=== PATIENT | female | born 1950 | race Caucasian/White ===

== ENCOUNTER 2018-08-24 17:00 | Outpatient (RCR) | payer MEDICARE, OTHER, SELFPAY ==
--- NOTE | 2018-03-17 17:48 | HP.OTEVAL_ITS ---
Patient's Visit Information IFTIKHAR FERRARO is a 67 year old F, referred to Occupational Therapy by Haroldo Tobar, with a diagnosis of CVA, hemiplegia. Date of Evaluation: 03/16/18 Occupational Therapist: Elizabeth Sanchez - Subjective Subjective: Pt seen for initial occupational therapy evaluation for decreased functional use of L hand after CVA March 06, 2017. Pt R hand dominent. Lives with spouse 1 story ranch handicap accessible with ramp to enter. Walk in shower, grab bars and shower chair, but sits on commode and uses HHS with towels around toilet and HHS for bathing with assist. Comfort height commode 1 grab bar. Pt requires max assist for UB/LB dressing tasks, and min assist for grooming. Requires assist with all BADLs. 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 Pt amb w/ platform walker and requires assist for all transfers and AMB. States has new AFO's, but still waiting on new shoes to come in before she can wear them. - Objective Objective/Observation: limited AROM L UE, decreased L UE strength, decreased functional use of L UE to assist w/ BADL's and functional transfers. - ROM ROM Comments: AROM R UE WFL,. PROM L UE elbow -20/130, shoulder flexion 0/80' Hand WFL PROM. PROM L wrist 10/40. No AROM hand, wrist, elbow, 10' shoulder elevation - Strength Strength Comments: Generalized L UE strength 1/5. Generalized R UE strength 4+ /5 - Edema Other: no edema noted - Sensation Sensation Comments: tingling in L UE from shoulder to finger tips all the time - Movement Tremors: No tremors Movement Comments: Increased tone L hand, wrist flexors, bicep - Transfers Transfers: MAX A for sit to stand transfer leaning to L side once standing. - DASH-Disabilities of Arm, Shoulder& Hand DASH Sum: 110 - Goals Goal:: Pt will progress w/ L UE strength 3/5 to assist w/ reaching up to her head to wash her hair Goal:: Pt will progress with L PROM elbow 0/150, L PROM shoulder flexion 110' to increase independence with UB dressing tasks by d/c. Pt will progress w/ AROM L wrist extension 10' by d/c from OT services Goal:: Pt/spouse will be educated on adaptive techniques, energy conservation techniques, compensatory strategies to assist with BADLs with increased safety with good understanding and demo 100%x. Goal:: Pt will be able to complete sit to stand transfers with MOD A x 1 to assist w/ LB dressing and toileting tasks by d/c from OT services. Goal:: Pt will be educated on L UE HEP with good understanding and demo 100%x. Goal:: Pt/spouse will be educated on checking for good skin integrity and correct donning techniques and wear time for resting hand splint pt has at home to decrease tone of L hand with good understanding and demo 100%x. - Rehabilitation General Assessment: Pt demonstrates decreased use of L UE for functional living tasks with limited PROM and no active ROM and decreased strength. Pt would benefit from direct occupational therapy services to increase ROM and strength of L UE using NDT with increased independence with BADLs. Pt would benefit from direct occupational therapy services to educate on L UE HEP, checking for good skin integrity of L UE with use of pt's splint for L UE with techniques for donning pts splint as well as increase pts sit to stand tolerance for LB dressing tasks. Pt's goal is increase functional use of her L UE to wash her own hair. Rehabilitation Potential: Fair - Anticipated Interventions Anticipated Interventions: A/AAROM/PROM, Strengthening, Massage, Modalities, Orthoses, Joint Protection/Energy Conservation, Fine Motor Coord/[place], Neuro Reeducation, ADL Training, Education re assistive Equipment, Education re Skin Care and Precautions, Education re Correct Donning Tech,Care&Wearing Sched Comp Garments, Caregiver Training, Home Program - Visit Plan Frequency: 1-2x /Week Duration: 6 Weeks General Plan: Pt would benefit from direct occupational therapy services to increase ROM and strength of L UE using NDT with increased independence with BADLs. Pt would benefit from direct occupational therapy services to educate on L UE HEP, checking for good skin integrity of L UE with use of pt's splint for L UE with techniques for donning pts splint as well as increase ability to sit to stand with decreased assist for LB dressing skills. TEXT: Thank you for the opportunity to evaluate your patient. For Medicare and Medicare HMO plans, please review the plan of care and approve it. It will need to be FAXED BACK to us at [phone] for Medicare purposes. Please let me know if there are questions or concerns regarding this plan of care. Physician Signature: Date:
--- NOTE | 2018-04-05 17:39 | HP.PTEVAL ---
Patient's Visit Information IFTIKHAR FERRARO is a 67 year old F referred to Physical Therapy by Haroldo Tobar with a diagnosis of hemiplegia. Date of Evaluation: 04/05/18 Physical Therapist: Deanna Neri - Visit Plan Frequency: 2x /Week Duration: 4 Weeks Plan: 2X/ week for 4 weeks and then reassessment for simple strengthening including glutes to be able to scoot to the edge of her chair easier and for bed mobility, functional strengthening, functional transfers, standing assisted balance activities, psoture strength, gait training with HEP - Subjective Subjective: Pt had a stroke a year ago in December and was in the hospital 2.5 months. She can walk with a walker with someone on each side of her. She reports that she can stand up on her own if she pulls herself up. She has rails all along the kitchen. She has help with bathing and dressing. She walks every evening around 6pm and her daughter and grandson and neighborn help her walk around the house (approx 40 feet long). Pt has not had any falls. Once she is up she usually just walks once she is up. She was not walking when she was in the hospital. Pt did not have any outpatient PT after she went home. They have been working on PT at home. She uses a sit to stand lift to get to the toilet. She has no stairs in her home. She has a walk in shower. Pt's usually does the grocery shopping and she usually goes in wheelchair to the store. Pt describes some sort of lift chair that she uses to get in and out of bed with assistance of someone and on/ off the toliet. - Objective LE MMT: hip flex 3-/5 R and L 0/10, R knee ext 3-/5 and L knee ext 0/5, R knee flexion 4-/5 and L 1/5. Pt wears a new AFO on the L foot. Sit to stand from WC to // bars with mod A X1 and min A X 1 WITH USE of R UE to get to stand...verbal cueing to stand straight up and not lean to L side. Pt needs major vc's and still not able to weight shift her bottom to the edge of the chair. She tried to stand with her L leg out in front of her. Worked on scooting, getting L foot under her by pushing back using R foot. Pt was able to walk the length of the // bars with mod A X 2 with her using her R arm to help with gambulation. Her L leg likes to scissor some but not enough to get in the way of the R advancing foot. She fatigued quickly and chair was brought up behind her. - Goals Goal 1:: I HEP Goal Time Frame: 4-6 Weeks Goal 2:: Be able to scoot to the edge of her wheelchair and get her L leg underneath her to get ready to stand up. Goal Time Frame: 4-6 Weeks Goal 3:: Be able to walk 25 feet with harika-walker with mod A X 1 with wc follow Goal Time Frame: 4-6 Weeks - Rehabilitation Potential Rehabilitation Potential: Fair - Anticipated Interventions Patient/Client Instruction: Educate patient on: Plan of Care For the Purpose of:: To improve muscle performance and motor function, To improve ability to perform ADL's, To increase tolerance to activity/condition/position, To improve performance and independence with ADL's, To decrease level of supervision to perform tasks, To improve ability of physical actions for home/community/work/leisure, To improve gait and locomotor functions, To improve safety with gait, To improve safety Therapeutic Exercise to Include: Strength training, Postural training, Gait and locomotor training, Neuromotor development, Passive ROM, Active ROM For the Purpose of:: To improve muscle performance and motor function, To improve ability to perform ADL's, To increase tolerance to activity/condition/position, To improve performance and independence with ADL's, To decrease level of supervision to perform tasks, To improve ability of physical actions for home/community/work/leisure, To improve gait and locomotor functions, To improve balance, To improve safety with gait Functional Training to Include: Gait training For the Purpose of:: To improve gait and locomotor functions, To improve safety with gait, To improve safety Thank you for the opportunity to evaluate your patient. For Medicare and Medicare HMO plans, please review the plan of care and approve it. It will need to be FAXED BACK to us at [phone] for Medicare purposes. Please let me know if there are questions or concerns regarding this plan of care. Physician Signature: Date:
--- NOTE | 2018-04-21 16:32 | HP.OTDCSUM_ITS ---
HP - OT D/C Summary It has been my pleasure to treat IFTIKHAR FERRARO under orders from Haroldo Tobar, for the diagnosis of CVA, hemiplegia for a total of 8 visit(s). Please see the following information for a summary of their discharge status. - Objective Objective/Function: increase functional use of L UE for BADL's, increase functional transfers - Goals Patient Goals: Regain Strength, Improve Fine Motor Skills, Use Hand/Wrist/Arm Normally Again, Decrease Tingling/Numbness, Increase ROM, Be More Independent in ADLS, Resume Former Household Responsibilities (Cooking,Cleaning,Yard, etc.), Resume Hobbies Goal:: Pt will progress w/ L UE strength 3/5 to assist w/ reaching up to her head to wash her hair Goal:: Pt will progress with L PROM elbow 0/150, L PROM shoulder flexion 110' to increase independence with UB dressing tasks by d/c. Pt will progress w/ AROM L wrist extension 10' by d/c from OT services Goal:: Pt/spouse will be educated on adaptive techniques, energy conservation techniques, compensatory strategies to assist with BADLs with increased safety with good understanding and demo 100%x. Goal:: Pt will be able to complete sit to stand transfers with MOD A x 1 to assist w/ LB dressing and toileting tasks by d/c from OT services. Goal:: Pt will be educated on L UE HEP with good understanding and demo 100%x. Goal:: Pt/spouse will be educated on checking for good skin integrity and correct donning techniques and wear time for resting hand splint pt has at home to decrease tone of L hand with good understanding and demo 100%x. - Plan Plan: d/c OT services this date - D/C Information Discharge Comments: Pt has made limited progress with occupational therapy. Pt did not progress with AROM L UE. Pt did progress with PROM L UE elbow from - 20/130 to -11/130, L PROM shoulder flexion from 80' flexion to 88' flexion after prolonged stretching techniques. Pt demo's good skin integrity of L hand and educated on proper ways to jocelin resting hand splint. Pt tolerating resting hand splint for short amount of time during evening. Educated pt and spouse to trial wearing resting hand splint during day if bother's pt to wear at night to increase wear tolerance. Pt/spouse educated on PROM L UE and prolonged stretc jules techniques. Pt/spouse educated on skin checks L UE, importance to keep L UE stretched to decrease risk of further contracture, and weightbeawring activities to complete at home at table top or while seated in a chair as well as completion of towel exercises at table top. Pt/spouse educated on safety with BADLs and has stand lift to assist with transfers as needed. Pt continuing to work with PT services at this time to address lower body. Pt unable to complete AROM L UE all joints and planes. Pt d/c from OT services at this time, no longer requires skilled OT services. If there are questions or concerns regarding this patient's occupational therapy, please fell free to call me at [phone]. Thank you for the referral of this patient. Sincerely, Elizabeth Sanchez
--- NOTE | 2018-05-06 13:55 | HP.PTREVAL ---
Haroldo Tobar, It has been my pleasure to treat IFTIKHAR FERRARO over the last 8 visits for hemiplegia. Please see the progress note below for an update on the physical therapy plan of care! Subjective: Pt reports that she feels good when she leaves here and she is in no pain. Pt can now sit up better and she has more strength to be able to do dishes and cooking. Pt is still walking at home with family with the platform walker. She is exercising every day whether she walks or not. Objective/Function: Pt is now able to move her L leg forward and back while sitting in the wheelchair. Pt still struggles with getting self to the edge of the chair Plan Plan: 2X/ week for 4 weeks and then reassessment for simple strengthening including glutes to be able to scoot to the edge of her chair easier and for bed mobility, functional strengthening, functional transfers, standing assisted balance activities, psoture strength, gait training with HEP Goals Goal 1:: I HEP Goal Time Frame: 4-6 Weeks Goal 2:: Be able to scoot to the edge of her wheelchair and get her L leg underneath her to get ready to stand up. Goal Time Frame: 4-6 Weeks Goal Progress: Progressing Goal 3:: Be able to walk 25 feet with harika-walker with mod A X 1 with wc follow Goal Time Frame: 4-6 Weeks Goal Progress: Progressing Goal 4:: Be able to scoot to the edge of the wheelchair, sit up using her abs, and get L leg under her to be ready to stand Goal Time Frame: 4-6 Weeks Anticipated Interventions Patient/Client Instruction: Educate patient on: Plan of Care For the Purpose of:: To improve muscle performance and motor function, To improve ability to perform ADL's, To increase tolerance to activity/condition/position, To improve performance and independence with ADL's, To decrease level of supervision to perform tasks, To improve ability of physical actions for home/community/work/leisure, To improve gait and locomotor functions, To improve safety with gait, To improve safety Therapeutic Exercise to Include: Strength training, Postural training, Gait and locomotor training, Neuromotor development, Passive ROM, Active ROM For the Purpose of:: To improve muscle performance and motor function, To improve ability to perform ADL's, To increase tolerance to activity/condition/position, To improve performance and independence with ADL's, To decrease level of supervision to perform tasks, To improve ability of physical actions for home/community/work/leisure, To improve gait and locomotor functions, To improve balance, To improve safety with gait Functional Training to Include: Gait training For the Purpose of:: To improve gait and locomotor functions, To improve safety with gait, To improve safety Please do not hesitate to contact me at [phone] by phone or if you have questions or concerns regarding this new plan of care! Sincerely, Deanna Neri, MPT
--- NOTE | 2018-06-08 18:43 | HP.PTREVAL ---
Haroldo Tobar, It has been my pleasure to treat IFTIKHAR FERRARO over the last 15 visits for hemiplegia. Please see the progress note below for an update on the physical therapy plan of care! Subjective: Pt reports that she has been practicing her walking at home Objective/Function: Pt is doing better at trying to weight shift fw to stand and working with her in the clinic for awhile she was able to stand with min A X2 and self correct about 25% of the time for upright standing balance Plan Plan: 2X/ week for 4 weeks and then reassessment for simple strengthening including glutes to be able to scoot to the edge of her chair easier and for bed mobility, functional strengthening, functional transfers, standing assisted balance activities, posture strength, gait training with HEP Goals Goal 1:: I HEP Goal Time Frame: 4-6 Weeks Goal Progress: Progressing Goal 2:: Be able to scoot to the edge of her wheelchair and get her L leg underneath her to get ready to stand up. Goal Time Frame: 4-6 Weeks Goal Progress: Progressing Goal 3:: Be able to walk 25 feet with harika-walker with mod A X 1 with wc follow Goal Time Frame: 4-6 Weeks Goal Progress: Progressing Goal 4:: Be able to scoot to the edge of the wheelchair, sit up using her abs, and get L leg under her to be ready to stand Goal Time Frame: 4-6 Weeks Goal Progress: Progressing Anticipated Interventions Patient/Client Instruction: Educate patient on: Plan of Care For the Purpose of:: To improve muscle performance and motor function, To improve ability to perform ADL's, To increase tolerance to activity/condition/position, To improve performance and independence with ADL's, To decrease level of supervision to perform tasks, To improve ability of physical actions for home/community/work/leisure, To improve gait and locomotor functions, To improve safety with gait, To improve safety Therapeutic Exercise to Include: Strength training, Postural training, Gait and locomotor training, Neuromotor development, Passive ROM, Active ROM For the Purpose of:: To improve muscle performance and motor function, To improve ability to perform ADL's, To increase tolerance to activity/condition/position, To improve performance and independence with ADL's, To decrease level of supervision to perform tasks, To improve ability of physical actions for home/community/work/leisure, To improve gait and locomotor functions, To improve balance, To improve safety with gait Functional Training to Include: Gait training For the Purpose of:: To improve gait and locomotor functions, To improve safety with gait, To improve safety Please do not hesitate to contact me at [phone] by phone or if you have questions or concerns regarding this new plan of care! Sincerely, Deanna Neri MPT
--- NOTE | 2018-07-12 17:24 | HP.PTREVAL ---
Haroldo Tobar, It has been my pleasure to treat IFTIKHAR FERRARO over the last 23 visits for hemiplegia. Please see the progress note below for an update on the physical therapy plan of care! Subjective: Pt this point Pt feels good in PT and after the workouts. Pt reports that sit to stands are getting easier. Somedays her walking is getting easier. SHe feels that her L leg is moving easier. She is still exercising at home still and walking every day or every other day depending on their schedules. Pt can now get up easier and ride the bicucle and she feels that she is stronger. Objective/Function: Gait: walks with Platform walker and walked 14 feet with mod A X 2 (Pt's L leg had trouble advancing today and her L knee did give out one time today. Scooting to the edge of the wheelchair is easeir. Scooting to the edge of the wheelchair is easeir. Sit to stand: Needs mod A X 2 and Max A X1 and has trouble and needs vc's to tuck her buttocks in and widen her stance to even out her weight. Plan Plan: 2X/ week to increase strength, improve sit to stands, gait training, standing balance with HEP. Cont with POC Goals Goal 1:: I HEP Goal Time Frame: 4-6 Weeks Goal Progress: Goal Met Goal 2:: Sit to stand with mod A X 1 using her R UE and tucking her buttocks inward. Goal Time Frame: 4-6 Weeks Goal Progress: Progressing Goal 3:: Be able to walk 25 feet with harika-walker with mod A X 1 with wc follow Goal Time Frame: 4-6 Weeks Goal Progress: Progressing Goal 4:: Be able to scoot to the edge of the wheelchair, sit up using her abs, and get L leg under her to be ready to stand Goal Time Frame: 4-6 Weeks Goal Progress: Progressing Anticipated Interventions Patient/Client Instruction: Educate patient on: Plan of Care For the Purpose of:: To improve muscle performance and motor function, To improve ability to perform ADL's, To increase tolerance to activity/condition/position, To improve performance and independence with ADL's, To decrease level of supervision to perform tasks, To improve ability of physical actions for home/community/work/leisure, To improve gait and locomotor functions, To improve safety with gait, To improve safety Therapeutic Exercise to Include: Strength training, Postural training, Gait and locomotor training, Neuromotor development, Passive ROM, Active ROM For the Purpose of:: To improve muscle performance and motor function, To improve ability to perform ADL's, To increase tolerance to activity/condition/position, To improve performance and independence with ADL's, To decrease level of supervision to perform tasks, To improve ability of physical actions for home/community/work/leisure, To improve gait and locomotor functions, To improve balance, To improve safety with gait Functional Training to Include: Gait training For the Purpose of:: To improve gait and locomotor functions, To improve safety with gait, To improve safety Please do not hesitate to contact me at [phone] by phone or if you have questions or concerns regarding this new plan of care! Sincerely, Deanna Neri MPT
--- NOTE | 2018-08-24 19:11 | HP.PTREVAL_ITS ---
Haroldo Tobar, It has been my pleasure to treat IFTIKHAR FERRARO over the last 31 visits for hemiplegia. Please see the progress note below for an update on the physical therapy plan of care! Subjective: Pt reports that she is walking at home about 3X/ week for about 15 feet and does sit to stands and works on standing balance at home with grandson and the neighbor boy. Objective/Function: This treatment is medically necessary and this patient is making progress with standing balance, gait and transfers and weight shifting. Sit to stand with Mod A X2. Able to stand for 1 min with R hand on // bar. Pt is increasing on distance with her gait. She is able to stand for a few seconds to high five therapist in // bars keeping L knee locked X 5. She is able to elicit some movement into LAQ on the L ( minimal but some). Pt needs placement of the L LE to get L foot back to get ready to sit to stand Plan Plan: Try next visit to get pt on a mat table to give HEP ( s/L hip flex, supine hip abd, bridges and SAQ?). 2X/ for 4 weeks then re-check to improve sit to stands, gait training, standing balance with HEP. Goals Goal 1:: I HEP Goal Time Frame: 4-6 Weeks Goal Progress: Goal Met Goal 2:: Sit to stand with mod A X 1 using her R UE and tucking her buttocks inward. Goal Time Frame: 4-6 Weeks Goal Progress: Progressing Goal 3:: Be able to walk 25 feet with harika-walker with mod A X 1 with wc follow Goal Time Frame: 4-6 Weeks Goal Progress: Progressing Goal 4:: Be able to scoot to the edge of the wheelchair, sit up using her abs, and get L leg under her to be ready to stand Goal Time Frame: 4-6 Weeks Goal Progress: Progressing Anticipated Interventions Patient/Client Instruction: Educate patient on: Plan of Care For the Purpose of:: To improve muscle performance and motor function, To improve ability to perform ADL's, To increase tolerance to activity/condition/position, To improve performance and independence with ADL's, To decrease level of supervision to perform tasks, To improve ability of physical actions for home/community/work/leisure, To improve gait and locomotor functions, To improve safety with gait, To improve safety Therapeutic Exercise to Include: Strength training, Postural training, Gait and locomotor training, Neuromotor development, Passive ROM, Active ROM For the Purpose of:: To improve muscle performance and motor function, To improve ability to perform ADL's, To increase tolerance to activi ty/condition/position, To improve performance and independence with ADL's, To decrease level of supervision to perform tasks, To improve ability of physical actions for home/community/work/leisure, To improve gait and locomotor functions, To improve balance, To improve safety with gait Functional Training to Include: Gait training For the Purpose of:: To improve gait and locomotor functions, To improve safety with gait, To improve safety Please do not hesitate to contact me at [phone] by phone or if you have questions or concerns regarding this new plan of care! Sincerely, Deanna Neri, MPT
== END 2018-08-24 19:00 | disposition home or self-care (01) ==
LOC: PT 17:00
PROVIDERS: Referring Provider Family Medicine; Visit Provider Family Medicine
DX: G81.90 Hemiplegia, unspecified affecting unspecified side (principal); Z86.73 Personal history of transient ischemic attack (TIA), and cerebral infarction without residual deficits
CPT/HCPCS: 97110; 97112; 97116; 97162; 97165; 97166; 97530

== ENCOUNTER 2018-11-30 16:00 | Outpatient (RCR) | payer MEDICARE, OTHER, SELFPAY ==
--- NOTE | 2018-09-28 16:05 | HP.OTEVAL_ITS ---
Patient's Visit Information IFTIKHAR FERRARO is a 68 year old F, referred to Occupational Therapy by Haroldo Tobar, with a diagnosis of CVA. Date of Evaluation: 09/28/18 Occupational Therapist: BENEDICT Barrientos/[place], CHT - Subjective Subjective: Pt seen for initial occupational therapy evaluation for decreased functional use of L hand after CVA March 06, 2017. Pt R hand dominent. Lives with spouse 1 story ranch handicap accessible with ramp to enter. Walk in shower, grab bars and shower chair, but sits on commode and uses HHS with towels around toilet and HHS for bathing with assist. Comfort height commode 1 grab bar. Pt requires max assist for UB/LB dressing tasks, and min assist for groomi ng. Requires assist with all BADLs. 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 Pt amb w/ platform walker and requires assist for all transfers and AMB. PT arrives for custom orthosis to be fabricated to increase pts abilities with use of harika walker. - Goals Goal:: Pt will demo understanding orthosis use while amb with harika walker by end of 1st session. pt will demo understanding of skin care and precautions by end of 1st session - Rehabilitation General Assessment: pt demo with flex tone that decreases use while amb with platform walker. Tone pulls wrist into flex. A custom orthosis is needed to limt wrist flex with amb. in the harika walker. Pt would benefit from 2-3 visits to ensure orthosis is kayden. and functional on platform walker. Today therapist kayden. custom clam shell wrist brace to limit flex tone and gain more function on harika walker- pt demo under standing of othosis use and skin precautions pt agree to POC Rehabilitation Potential: Good - Anticipated Interventions Anticipated Interventions: Orthoses - Visit Plan TEXT: Thank you for the opportunity to evaluate your patient. For Medicare and Medicare HMO plans, please review the plan of care and approve it. It will need to be FAXED BACK to us at [phone] for Medicare purposes. Please let me know if there are questions or concerns regarding this plan of care. Physician Sign ature: Date:
--- NOTE | 2018-11-08 15:31 | HP.PTREVAL ---
Haroldo Tobar, It has been my pleasure to treat IFTIKHAR FERRARO over the last 41 visits for . Please see the progress note below for an update on the physical therapy plan of care! Subjective: Pt reports that she is working at home with exercises and gait training. Objective/Function: Pt did not lose anything doing exercises at home Plan Plan: See pt every other week for 2 months to see how she improves with assistance at home with strengthening, standing ability, standing endurance and gait. Goals Goal 1:: I HEP Goal Progress: Goal Met Goal 2:: Sit to stand with mod A X 1 using her R UE and tucking her buttocks inward. Goal Progress: Progressing Goal 3:: Be able to walk 75 feet with harika-walker with mod A X 1 with wc follow Goal Progress: Progressing Goal 4:: Be able to scoot to the edge of the wheelchair, sit up using her abs, and get L leg under her to be ready to stand Goal Progress: Progressing Anticipated Interventions Please do not hesitate to contact me at [phone] by phone or if you have questions or concerns regarding this new plan of care! Sincerely, Deanna Neri, MPT
== END 2018-11-30 19:00 | disposition home or self-care (01) ==
LOC: PT 16:00
PROVIDERS: Referring Provider Family Medicine; Visit Provider Family Medicine
DX: I69.359 Hemiplegia and hemiparesis following cerebral infarction affecting unspecified side (principal)
CPT/HCPCS: 97110; 97116; 97166; 97760

== ENCOUNTER 2020-09-19 01:52 | Inpatient (IN) | payer MEDICARE, OTHER, MEDICAID, SELFPAY ==
[2020-09-19] VITALS (22 sets, daily range): BP systolic 129–161; BP diastolic 66–100; PULSE 76–98; RESP 16–24; TEMP 35.8–36.9; O2SAT 94–99; BMI 54.9; BMI 51.8
--- NOTE | 2020-09-19 01:53 | CT_ITS ---
We are attempting to reach an attending provider to discuss findings. An addendum with communication details will be sent when the communication is complete. STUDY: CT HEAD STROKE PROTOCOL W/O CONTRAST INJECTION REASON FOR EXAM: Female, 70 years old. Neuro deficit, acute, stroke suspected RADIATION DOSAGE (If Supplied By Facility): CTDIvol = ( ) mGy, DLP = ( ) mGycm TECHNIQUE: Transaxial CT imaging of the brain was performed without administration of intravenous contrast material. Individualized dose optimization techniques were used for this CT. COMPARISON: CT head January 05, 2017 FINDINGS: Normal soft tissue structures. Normal calvarium. There is ex vacuo dilatation of the right ventricle. This is due to a prior right side basal ganglia infarct primarily involving the putamen and a small portion of the right thalamic region. There are areas of decreased attenuation within the white matter tracts of the supratentorial brain, consistent with microvascular disease changes. There is low attenuation within the right-sided basal ganglia and thalami thalamic region compatible with prior basal ganglia infarct January 05, 2017. Normal brainstem. There is mild cerebellar atrophy. There is calcification of the cavernous carotid arteries. There is no intracranial hemorrhage. There are no findings of an acute ischemic infarction. There is opacification of the right side maxillary sinus with hyperdensity suggesting probable complex fluid collection and/or potentially lie within the right maxillary sinus. This is developed since the prior study January 05, 2017. There is minimal ethmoid sinus mucosal thickening. ASPECT score: 02/23 CT/STROKE Brain/Head without Cont IMPRESSION: Remote right-sided basal ganglia infarct from 2017, ex vacuo dilatation of the right ventricle without visualized acute hemorrhage infarct or edema. Electronically Signed: Amaya Lopez MD at 2:12 EDT Tel , Service support ,
--- NOTE | 2020-09-19 01:53 | EKG12_ITS ---
Test Reason : STROKE Blood Pressure : / mmHG Vent. Rate : 100 BPM Atrial Rate : 096 BPM P-R Int : 000 ms QRS Dur : 134 ms QT Int : 332 ms P-R-T Axes : 000 -57 112 degrees QTc Int : 428 ms Atrial fibrillation Left axis deviation Non-specific intra-ventricular conduction block Abnormal ECG Confirmed by JAYNA SUAZO, WAYNE ([id number]), tape editor RAY WYNN ([id number]) on 09/23/2020 12:27:28 PM Referred By: JOSE Confirmed By:WAYNE DORANTES MD
--- NOTE | 2020-09-19 02:02 | EDS_ITS ---
HPI History of Present Illness Chief Complaint: Neuro S/Sx Informant: patient and EMS Narrative Narrative: Patient presents with left-sided facial droop. This started tonight. Last known well was 2 hours ago when she went to bed. She woke up and also felt some numbness of her right arm. That has since resolved. She feels like her facial droop is mildly improved. EMS was called and noted the left-sided facial droop. 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 She also also on Eliquis for paroxysmal atrial fibrillation. Her last dose of the Eliquis was right before bed tonight. She denies any headache. She is a no chest pain or shortness of breath. She does have an allergy to alteplase. [facility] Medical History Diabetes Stroke/cerebrovascular accident Home Medications allopurinol 300 mg PO DAILYCM tab 01/29/17 [Rx Last Taken Unknown] levothyroxine 25 mcg PO QODAY@0600 tab 01/29/17 [Rx Last Taken Unknown] magnesium oxide 400 mg PO DAILY tab 01/29/17 [Rx Last Taken Unknown] metformin 500 mg PO BIDCM tab 01/29/17 [Rx Last Taken Unknown] Eliquis 5 mg PO BID #60 tab 03/10/17 [Rx Last Taken Unknown] pantoprazole 40 mg PO DAILY #30 tab 03/10/17 [Rx Last Taken Unknown] diltiazem HCl [DILT-XR] 120 mg PO DAILY 09/19/20 [History Last Taken Unknown] sotalol 120 mg PO BID 09/19/20 [History Last Taken Unknown] Allergy/AdvReac Type Severity Reaction Status Date / Time alteplase Allergy Angioedema Verified 09/19/20 02:09 Penicillins Allergy Other Verified 09/19/20 02:09 Social History Smoking Status: Never smoker ROS ROS ED Constitutional Constitutional ED: Denies chills or fever(s) Eyes Eyes: Denies blurry vision, change in vision or diplopia ENT ENT ED: Denies ear pain, rhinorrhea or sore throat Cardiovascular Cardiovascular: Denies chest pain or palpitations Respiratory/Chest Respiratory/Chest: Denies cough, dyspnea or sputum Gastrointestinal Gastrointestinal: Denies abdominal pain, diarrhea, nausea or vomiting Genitourinary Genitourinary ED: Denies dysuria, hematuria or urinary frequency Musculoskeletal Musculoskeletal: Denies back pain or neck pain Integumentary Denies change in pigmentation or rash Neurologic Neurologic: Reports paresthesias and other Details: Left facial droop Psychiatric Psychiatric: Denies anxiety or depression Endocrine Endocrinology: Denies polydipsia or polyuria EXAM Physical Exam Const Vital Signs: 09/19/20 01:53 09/19/20 02:00 09/19/20 02:30 Temperature 96.5 F L Temperature Source Temporal Pulse Rate 95 95 89 Respiratory Rate 18 16 20 H Blood Pressure 151/89 H 151/89 H 161/75 H Blood Pressure Mean 109 109 103 Pulse Ox 99 96 99 Oxygen Delivery Method Room Air Room Air Room Air Positive well nourished and well developed General Appearance ED: well developed HEENT atraumatic and trauma Eyes PERRL and EOMs intact bilaterally Neck no lymphadenopathy and supple Chest Wall inspection of chest normal Resp normal respiratory effort and clear to auscultation bilaterally Auscultation: Negative for rales or rhonchi Cardio no murmurs Rhythm: abnormal rhythm irregularly irregular GI normal to inspection, nondistended, normoactive bowel sounds, soft to palpation and non-tender Back/Spine Cervical Spine: Negative for cervical spine tenderness Extremity Extremity Narrative: Bilateral lymphedema General Extremety ED: Yes edema General Extremity: edema Neuro oriented x3 Neuro Narrative: NIH=9: 1 point for mild facial palsy, 3 points for left arm and leg, 2 points for right leg Sensorium / Orientation: alert, oriented to person, oriented to place and oriented to time Psych mental status grossly normal Skin Lesions: no lesions Rashes: no rashes STROKE Vital Signs/Narrative: Vital Signs Temp Pulse Resp BP Pulse Ox 09/19/20 02:30 89 20 H 161/75 H 99 09/19/20 02:00 96.5 F L 95 16 151/89 H 96 09/19/20 01:53 95 18 151/89 H 99 MDM MDM MDM Narrative Medical decision making narrative: The patient was made a stroke team due to her onset of symptoms. CAT scan of the head shows old stroke but nothing acute. Lab studies are at baseline except for INR is 1.6. Her urinalysis is positive for UTI. Patient was assessed by the stroke physician, Dr. Ott. The patient is not a TPA candidate due to her allergy. Patient was started on IV Rocephin. CTA of the head and neck will be performed. Patient will be admitted to the hospital for futher evaluation. Lab Data Attestation: I reviewed the patient's lab results. Labs: Laboratory Results - last 24 hr 09/19/20 09/19/20 09/19/20 02:00 02:00 02:00 WBC 5.8 RBC 3.66 L Hgb 10.2 L Hct 32.2 L MCV 88.0 MCH 27.9 MCHC 31.7 L RDW Std Deviation 61.1 H RDW Coeff of Chele 18.8 H Plt Count 359 MPV 9.9 Immature Gran % (Auto) 0.300 Neut % (Auto) 72.0 H Lymph % (Auto) 8.7 L [place]al[place] % (Auto) 10.2 H Eos % (Auto) 7.6 H Baso % (Auto) 1.2 H Absolute Neuts (auto) 4.2 Absolute Lymphs (auto) 0.50 L Nucleated RBC % 0 PT 18.3 H INR 1.6 APTT 36.2 Sodium 135 L Potassium 4.3 Chloride 104 Carbon Dioxide 25.0 Anion Gap 6 BUN 14 Creatinine 0.87 Estim Creat Clear Calc 56.84 Est GFR (MDRD) Af Amer 83 Est GFR (MDRD) Non-Af 68 BUN/Creatinine Ratio 16.1 Glucose 127 H Calcium 8.8 Troponin I < 0.015 Urine Color Urine Clarity Urine pH Ur Specific [place] Urine Protein Urine Glucose (UA) Urine Ketones Urine Occult Blood Urine Nitrite Urine Bilirubin Urine Urobilinogen Ur Leukocyte Esterase Urine RBC Urine WBC Ur Squamous Epith Cells Urine Bacteria Urine Mucus 09/19/20 02:25 WBC RBC Hgb Hct MCV MCH MCHC RDW Std Deviation RDW Coeff of Chele Plt Count MPV Immature Gran % (Auto) Neut % (Auto) Lymph % (Auto) [place] % (Auto) Eos % (Auto) Baso % (Auto) Absolute Neuts (auto) Absolute Lymphs (auto) Nucleated RBC % PT INR APTT Sodium Potassium Chloride Carbon Dioxide Anion Gap BUN Creatinine Estim Creat Clear Calc Est GFR (MDRD) Af Amer Est GFR (MDRD) Non-Af BUN/Creatinine Ratio Glucose Calcium Troponin I Urine Color Yellow Urine Clarity Sl. Cloudy Urine pH 5.0 Ur Specific [place] 1.025 Urine Protein 30 H Urine Glucose (UA) Normal Urine Ketones 5 H Urine Occult Blood 25 H Urine Nitrite Positive H Urine Bilirubin 1 H Urine Urobilinogen 1 H Ur Leukocyte Esterase 500 H Urine RBC 0 SEEN Urine WBC 50-100 SEEN Ur Squamous Epith Cells 0 SEEN Urine Bacteria 4+ Urine Mucus 1+ Radiography Diagnostic Testing: Radiology Impression Brain CT 09/19/20 01:53 IMPRESSION: Remote right-sided basal ganglia infarct from 2017, ex vacuo dilatation of the right ventricle without visualized acute hemorrhage infarct or edema. Electronically Signed: Amaya Lopez MD at 2:12 EDT Tel , Service support , ADDENDUM: 09/19/20 0219 IMPRESSION: Remote right-sided basal ganglia infarct from 2016, ex vacuo dilatation of the right ventricle without visualized acute hemorrhage infarct or edema. N.B. : The above information has been verbally conveyed by Amaya Lopez MD to David Shine MD, , on 09/19/2020 02:12:40 (ET). Electronically Signed: Amaya Lopez MD at 2:12 EDT Tel , Service support , Chest X-Ray 09/19/20 02:14 IMPRESSION: Bilateral medial lung base atelectasis versus scar versus infiltrate Electronically Signed: Rinku Salazar MD at 2:38 EDT Tel , Service support , Critical Care Time Critical Care Time: Yes Critical care time (excluding procedures): 30-74 minutes, Discussing w/Patient &/or Family/Industrial Illuminating Engineer, Discussing w/Consultants and Performing Direct Patient Care at Bedside Discharge Plan Dx/Rx/DC Orders Clinical Impression: Facial droop, Acute UTI Disposition Disposition: [facility]
[2020-09-19 02:05] LABS: Absolute Neutrophil Count 4.2 X10^3/uL (2.0-7.7); Basophil# 0.07 X10^3/uL; Basophil% 1.2 % (0-1); Eosinophil# 0.44 X10^3/uL; Eosinophils% 7.6 % (0-5); Hematocrit 32.2 % (37-47); Hemoglobin 10.2 g/dL (12.0-15.0); Lymphocyte % 8.7 % (19-41); Mean Corp Hgb Conc 31.7 g/dL (32-36); Mean Corpuscular Hgb 27.9 pg (27.0-32.0); Mean Platelet Vol. 9.9 fl (6.2-12.0); Monocyte# 0.59 X10^3/uL; Monocyte% 10.2 % (0-10); NRBC Flagged by Analyzer 0 % (0-5); Neutrophil # 4.16 X10^3/uL (2.7-7.7); POSITIVE DIFFERENTIAL YES; Platelet Count 359 K/mm3 (150-450); RBC Distribution Width CV 18.8 % (11.6-14.6); RBC Distribution Width SD 61.1 fl (35.1-43.9); Red Blood Count 3.66 M/mm3 (4.2-5.4); White Blood Count 5.8 K/mm3 (4.4-11.0)
[2020-09-19 02:07] LABS: Differential Indicated SCAN CRITERIA MET
[2020-09-19 02:14] LABS: International Normalized Ratio 1.6; Prothrombin Time (Protime)PT. 18.3 SECONDS (11.7-14.9)
--- NOTE | 2020-09-19 02:14 | RAD_ITS ---
STUDY: X-RAY CHEST REASON FOR EXAM: Female, 70 years old. Neuro deficit, suspected stroke TECHNIQUE: Single AP portable view of the chest. COMPARISON: 01/04/2017 FINDINGS: Minimal patchy airspace infiltration at bilateral medial lung bases. No pleural effusion or pneumothorax. Borderline cardiomegaly, unchanged. Normal mediastinum and della. Normal visualized pulmonary arteries. Normal visualized aortic arch and descending thoracic aorta. Normal visualized thoracic spine. Normal visualized ribs, clavicles, and shoulders. There is no demonstrated abnormality of the visualized soft tissue structures of the upper abdomen. RAD/Chest 1 View IMPRESSION: Bilateral medial lung base atelectasis versus scar versus infiltrate Electronically Signed: Rinku Salazar MD at 2:38 EDT Tel , Service support ,
[2020-09-19 02:15] LABS: Partial Thromboplast Time 36.2 Seconds (24.1-36.2)
[2020-09-19 02:24] LABS: Anion Gap 6 (5-15); BUN 14 mg/dL (7-18); BUN/Creat Ratio 16.1 RATIO (10-20); Calcium,Total 8.8 mg/dL (8.5-10.1); Chloride 104 mmol/L (98-107); Creatinine, Serum 0.87 mg/dL (0.55-1.02); EST Glomerular Filtration Rate 68 mL/min (>60); Est Glom Filt Rate - Afr Amer 83 mL/min (>60); Estimated Creatinine Clearance 56.84 ml/min; Glucose 127 mg/dL (74-106); Potassium 4.3 mmol/L (3.5-5.1); Sodium Level 135 mmol/L (136-145)
--- NOTE | 2020-09-19 02:25 | CT_ITS ---
STUDY: CTA HEAD AND NECK WITH CONTRAST REASON FOR EXAM: Female, 70 years old. Facial droop RADIATION DOSAGE (If Supplied By Facility): CTDIvol = ( 41.04 ) mGy, DLP = ( 808.07 ) mGycm TECHNIQUE: CT angiography was performed with a multi-detector CT scanner. Data acquisition was obtained from the skull base through the vertex following intravenous administration of IV 100mL [id number]-[id number]. MIP images were reconstructed from the axial data set. Post-processing of the angiographic images was performed, with multiplanar reformation and 3D reconstruction. Individualized dose optimization techniques were used for this CT. COMPARISON: CT angiogram head January 11, 2018 FINDINGS: Normal bilateral petrous carotid arteries. There is calcified plaque formation of the right cavernous carotid artery, with a mild stenosis (less than 50%). There is calcified plaque formation of the left cavernous carotid artery, without a cross-sectional luminal stenosis. Normal right A1 segments of the anterior cerebral artery. Normal left A1 segments of the anterior cerebral artery. Normal intact anterior communicating artery (ACOM). Normal bilateral A2 segments of the anterior cerebral arteries. There is a beaded appearance of the right M1 segment suggesting probable fibromuscular dysplasia. There is a better contrasted appearing superior branch of the right into vessels. There is better demonstration of contrast enhancement of the right insular segment on today''s study than the prior study. There is a lesser caliber right insular segment into when compared to the left which is similar in appearance to the prior study. However towards the vertex there is diminished appearance of the M3 vessels which potentially represent vasospasm or sequelae of prior ischemic change in the right hemisphere. Normal left M1 and M2 segments of the middle cerebral arteries, with a normal M1 bifurcation. Normal right posterior communicating artery (PCOM). Normal left posterior communicating artery (PCOM). Normal bilateral vertebral arteries. Normal basilar artery with a normal basilar bifurcation. The visualized bilateral superior cerebellar (SCA) arteries are normal. Normal bilateral P1, P2 and visualized P3 segments of the posterior cerebral arteries. There is no demonstrated aneurysm of the [place]. There is ex vacuo dilatation of the right ventricle and prior ischemic change of the right basal ganglia. There is visualized opacification of the right-sided maxillary sinus new since prior study suggesting interval development of right maxillary sinusitis since 2017. AORTIC ARCH: There is minimal calcification aortic arch. There is calcification and takeoff of the left subclavian. Normal origins of the brachiocephalic, left common carotid, and left subclavian arteries. RIGHT CAROTID ARTERIES: There is atherosclerotic tortuous elongation of the right common carotid artery. There is mild atherosclerotic plaque formation with minimal narrowing of the right carotid bulb. Normal origin of the right internal carotid (ICA) artery without a hemodynamically significant stenosis. Normal visualized cervical portion of the right internal carotid artery. Normal origin of the right external carotid artery (ECA). LEFT CAROTID ARTERIES: Normal left common carotid artery (CCA). There is mild atherosclerotic plaque formation with minimal narrowing of the left carotid bulb. Normal origin of the left internal carotid (ICA) artery without a hemodynamically significant stenosis. There is atherosclerotic tortuous elongation of the cervical portion of the left internal carotid artery. Normal origin of the left external carotid artery (ECA). VERTEBRAL ARTERIES: The takeoff of the right vertebral artery there is a visualized contrasted vessel which is likely the pain. There is minimal plaque formation at the takeoff of the right vertebral artery. There is visualized bilateral effusions. There is partially visualized moderate cardiac enlargement. There are borderline enlarged AP window lymph nodes, measuring 1.4 x 1.1 cm, 1.2 and 1.2 cm. There is a hazy groundglass appearance of the right lung suggesting edema. There is also narrowed appearance of the [place] in this position suggesting tracheomalacia. Visualized degenerative change in the cervical spine. There is multilevel disc space narrowing and facet arthropathy with multilevel moderate neural foramina narrowing. At C6-C7 there is moderate central stenosis. CT/CTA Head AND Neck W/ Contrast IMPRESSION: Stable appearing diminutive appearance of the right M2 insular segment when compared to the left side. There is a persistent possibly chronic narrowed appearance of the M3 vessels towards the vertex and/or sequelae of prior ischemic change and/or vasoconstriction. There is better contrast enhancement of the superior segment of the right M2 segment when compared to the prior study. Prior right-sided basal ganglia infarct ex vacuo dilatation. Recommend consideration for follow-up MRI which may be helpful to demonstrate any small acute small vessel ischemic change. Electronically Signed: Amaya Lopez MD at 3:42 EDT Tel , Service support ,
--- NOTE | 2020-09-19 02:35 | NURSING ---
PT LIVES WITH SPOUSE AND HE TAKES CARE OF ALL OF HER NEEDS. PT IS PARALYZED ON LEFT SIDE FROM PREVIOUS STROKE. PT HAS SEVERE YEAST INFECTION IN GROIN AREA. PT IS UNABLE TO HELP MOVE AROUND IN BED. SPOUSE STATES HE DOES NOT HAVE HOME HEALTH OR VISITING NURSE, HE CHANGES ALL OF HER DRESSINGS HIMSELF. PT APPEARS TO NOT HAVE SHOWERED/WASHED HAIR IN QUITE SOME TIME.
[2020-09-19 02:38] LABS: Color, Urine Yellow (Yellow); Glucose, Dipstick Normal (Normal); Ketone-Dipstick 5 mg/dl (Negative); Leukocyte Esterase-Dipstick 500 /ul (Negative); Nitrite-Dipstick Positive (Negative); Occult Blood-Urine 25 /ul (Negative); Protein-Dipstick 30 mg/dl (Negative); Red Blood Cells-Urine 0 SEEN /hpf (0-5); Specific Gravity, Urine 1.025 (1.002-1.030); Squamous Epithelial Cells - UA 0 SEEN /hpf (5-10); Urine Clarity Sl. Cloudy (Clear); Urine Urobilinogen 1 mg/dl (Normal)
[2020-09-19 02:44] LABS: Urine Bilirubin Dipstick 1 mg/dL (Negative)
[2020-09-19 02:45] LABS: Bacteria 4+ /hpf (None Seen); White Blood Cells 50-100 SEEN /hpf (0-5)
[2020-09-19 02:46] LABS: Mucous, Urine 1+ /hpf (<or=2+)
--- NOTE | 2020-09-19 03:29 | HP.PCM.HOS_ITS ---
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 Associated with her symptoms is numbness of the right arm that had improved at the emergency department. At the emergency department she was found to have abnormal urinalysis. Patient denies any urinary symptoms. [facility] Medical History (Updated 09/19/20 @ 04:[address] Rene Olivia MD) Acute CVA (cerebrovascular accident) Diabetes Stroke/cerebrovascular accident Home Medications allopurinol 300 mg PO DAILYCM tab 01/29/17 [Rx Last Taken Unknown] levothyroxine 25 mcg PO QODAY@0600 tab 01/29/17 [Rx Last Taken Unknown] magnesium oxide 400 mg PO DAILY tab 01/29/17 [Rx Last Taken Unknown] metformin 500 mg PO BIDCM tab 01/29/17 [Rx Last Taken Unknown] Eliquis 5 mg PO BID #60 tab 03/10/17 [Rx Last Taken Unknown] pantoprazole 40 mg PO DAILY #30 tab 03/10/17 [Rx Last Taken Unknown] diltiazem HCl [DILT-XR] 120 mg PO DAILY 09/19/20 [History Last Taken Unknown] sotalol 120 mg PO BID 09/19/20 [History Last Taken Unknown] Allergy/AdvReac Type Severity Reaction Status Date / Time alteplase Allergy Angioedema Verified 09/19/20 02:09 Penicillins Allergy Other Verified 09/19/20 02:09 Family History (Updated 09/19/20 @ 03:[address] Rene Olivia MD) Mother Diabetes Heart disease Father Heart disease Surgical History (Updated 09/19/20 @ 04:[address] Rene Olivia MD) History of ankle surgery History of knee replacement Social History Smoking Status: Never smoker ROS ROS Narrative 12 point review of system is negative except as stated in HPI. Vital Signs Vital Signs Vital Signs: 09/19/20 01:53 09/19/20 02:00 09/19/20 02:30 Temperature 96.5 F L Temperature Source Temporal Pulse Rate 95 95 89 Respiratory Rate 18 16 20 H Blood Pressure 151/89 H 151/89 H 161/75 H Blood Pressure Mean 109 109 103 Pulse Ox 99 96 99 Oxygen Delivery Method Room Air Room Air Room Air Physical Exam Narrative Alert and oriented x3 Nontraumatic; normocephalic Lung clear to auscultate Heart sounds S1-S2. No murmur, gallop or rubs. Abdomen bowel sounds present soft, nontender nondistended Extremity: Induration and edema of bilateral legs. Neurology: Cranial nerves II through XII intact except left facial droop. Pa ralysis of left upper and left lower extremity. Integumentary: Left knee wound. Lab / Micro Data Result Diagrams: 09/19/20 02:00 09/19/20 02:00 Labs: Laboratory Results - last 24 hr 09/19/20 09/19/20 09/19/20 02:00 02:00 02:00 WBC 5.8 RBC 3.66 L Hgb 10.2 L Hct 32.2 L MCV 88.0 MCH 27.9 MCHC 31.7 L RDW Std Deviation 61.1 H RDW Coeff of Chele 18.8 H Plt Count 359 MPV 9.9 Immature Gran % (Auto) 0.300 Neut % (Auto) 72.0 H Lymph % (Auto) 8.7 L [place] % (Auto) 10.2 H Eos % (Auto) 7.6 H Baso % (Auto) 1.2 H Absolute Neuts (auto) 4.2 Absolute Lymphs (auto) 0.50 L Nucleated RBC % 0 PT 18.3 H INR 1.6 APTT 36.2 Sodium 135 L Potassium 4.3 Chloride 104 Carbon Dioxide 25.0 Anion Gap 6 BUN 14 Creatinine 0.87 Estim Creat Clear Calc 56.84 Est GFR (MDRD) Af Amer 83 Est GFR (MDRD) Non-Af 68 BUN/Creatinine Ratio 16.1 Glucose 127 H Calcium 8.8 Troponin I < 0.015 Urine Color Urine Clarity Urine pH Ur Specific [place] Urine Protein Urine Glucose (UA) Urine Ketones Urine Occult Blood Urine Nitrite Urine Bilirubin Urine Urobilinogen Ur Leukocyte Esterase Urine RBC Urine WBC Ur Squamous Epith Cells Urine Bacteria Urine Mucus 09/19/20 02:25 WBC RBC Hgb Hct MCV MCH MCHC RDW Std Deviation RDW Coeff of [place]le Plt Count MPV Immature Gran % (Auto) Neut % (Auto) Lymph % (Auto) [place] % (Auto) Eos % (Auto) Baso % (Auto) Absolute Neuts (auto) Absolute Lymphs (auto) Nucleated RBC % PT INR APTT Sodium Potassium Chloride Carbon Dioxide Anion Gap BUN Creatinine Estim Creat Clear Calc Est GFR (MDRD) Af Amer Est GFR (MDRD) Non-Af BUN/Creatinine Ratio Glucose Calcium Troponin I Urine Color Yellow Urine Clarity Sl. Cloudy Urine pH 5.0 Ur Specific [place] 1.025 Urine Protein 30 H Urine Glucose (UA) Normal Urine Ketones 5 H Urine Occult Blood 25 H Urine Nitrite Positive H Urine Bilirubin 1 H Urine Urobilinogen 1 H Ur Leukocyte Esterase 500 H Urine RBC 0 SEEN Urine WBC 50-100 SEEN Ur Squamous Epith Cells 0 SEEN Urine Bacteria 4+ Urine Mucus 1+ Radiology Impression Brain CT 09/19/20 01:53 IMPRESSION: Remote right-sided basal ganglia infarct from 2016, ex vacuo dilatation of the right ventricle without visualized acute hemorrhage infarct or edema. Electronically Signed: Amaya Lopez MD at 2:12 EDT Tel , Service support , ADDENDUM: 09/19/20 0219 IMPRESSION: Remote right-sided basal ganglia infarct from 2017, ex vacuo dilatation of the right ventricle without visualized acute hemorrhage infarct or edema. N.B. : The above information has been verbally conveyed by Amaya Lopez MD to David Shine MD, , on 09/19/2020 02:12:40 (ET). Electronically Signed: Amaya Lopez MD at 2:12 EDT Tel , Service support , Chest X-Ray 09/19/20 02:14 IMPRESSION: Bilateral medial lung base atelectasis versus scar versus infiltrate Electronically Signed: Rinku Salazar MD at 2:38 EDT Tel , Service support , Assessment & Plan Assessment/Plan (1) Acute CVA (cerebrovascular accident): PLAN: CT of the head was independently interpreted. CT head with old right side basal ganglia infarcts. No acute hemorrhage. CTA head and neck without LVO or critical stenosis. Follow-up MRI was recommended to demonstrate any small acute small vessel ischemic change. -Check Hba1c, Lipid level Physical therapy and occupational therapy to work with patient. N.p.o. until bedside swallow eval. Daily aspirin ordered High intensity statin Lipid profile and A1c ordered. Permissive hypertension. Control blood pressure with labetalol for systolic blood pressure of more than 220 or diastolic blood pressure of more than 120. Hold home Cardizem. Continue sotalol for A. fib. MRI of brain ordered. Review of record shows last echocardiogram in the system was done in 2017. Echocardiogram at that time showed an EF of 25%. Left atrium was mildly enlarged. Right atrium was mildly enlarged. Right ventricle systolic pressure was 53 mmHg. Echocardiogram ordered. (2) Acute UTI: PLAN: Emergency department labs were reviewed. Urinalysis showed abnormality. Received ceftriaxone at the emergency department and continued. (3) Hypertension: QUALIFIERS: Hypertension type: essential hypertension Qualified Code(s): I10 - Essential (primary) hypertension PLAN: Blood pressure is not within goal. Home sotalol continued for A. fib. Home Cardizem held for permissive hypertension. Trend blood pressure and adjust blood pressure medications. (4) DM2 (diabetes mellitus, type 2): QUALIFIERS: Diabetes mellitus complication status: without complication Diabetes mellitus intermediate manager insulin use: without intermediate manager use Qualified Code(s): E11.9 - Type 2 diabetes mellitus without complications PLAN: Patient with hyperglycemia on presentation Metformin held Accu-Chek [facility] with correction scale insulin ordered. (5) Atrial fibrillation: QUALIFIERS: Atrial fibrillation type: longstanding persistent Qualified Code(s): I48.11 - Longstanding persistent atrial fibrillation PLAN: Patient in A. fib with controlled rate. Admit to PCU on telemetry. Sotalol continued. Cardizem held for permissive hypertension. Eliquis continued. (6) Open wound of left knee: QUALIFIERS: Encounter type: sequela Qualified Code(s): S81.002S - Unspecified open wound, left knee, sequela PLAN: Chronic Wet-to-dry dressing ordered. Visit Charges Inpatient E&M: 31576 Init Hosp L3
[2020-09-19] MEDS: Ceftriaxone 1 GM/50 ML BAG IV ×2 (03:35→21:52)
--- NOTE | 2020-09-19 04:24 | ECHOCS_ITS ---
Reason For Study: TIA/CVA Procedure This was a 2D Doppler, Color Flow transthoracic echocardiogram. The study was technically difficult. Exam performed portable in patient room. Left Ventricle Normal LV size. The estimated ejection fraction is 40-45 %. There is evidence of diastolic dysfunction. septal and apical hypokinesis. Right Ventricle Normal RV size. Normal systolic function. Atria The left atrium is mildly enlarged. The right atrium is mildly enlarged. No doppler evidence for ASD. Bubble contrast study negative for right to left interatrial shunt. Mitral Valve There is moderate mitral annular calcification. There is no mitral valve stenosis. Trivial mitral valve insufficiency. Tricuspid Valve There is no tricuspid stenosis. Mild tricuspid valve insufficiency. Pulmonary artery systolic pressure is 60 mmHg. Aortic Valve Aortic sclerosis, no stenosis. No aortic valve insufficiency. Pulmonic Valve There is no pulmonic valvular stenosis. Mild (1+) pulmonic valve insufficiency. Great Vessels Normal aortic root. Pericardium/Pleural No pericardial effusion. Medication Performed a rapid injection of agitated mix of 9 cc saline and 1cc air to assess for atrial septal defect. Diluted definity 2ml given slow IV push to enhance endocardial definition. MMode/2D Measurements & Calculations LVIDd: 4.9 cm IVSd: 0.97 cm Ao root diam: 3.1 cm LVIDs: 3.7 cm LVPWd: 0.98 cm RVDd: 4.3 cm FS: 24.2 % LAV(MOD-bp): 55.8 ml LVAd ap4: 27.5 cm2 SV(MOD-sp4): 35.3 ml LAV(MOD-bp) Indexed: 22.3 ml/m2 LVLd ap4: 7.4 cm LAV(MOD-sp2): 55.7 ml EDV(MOD-sp4): 84.8 ml LAV(MOD-sp4): 49.7 ml EDV(sp4-el): 87.0 ml LVAs ap4: 19.7 cm2 LVLs ap4: 6.4 cm ESV(MOD-sp4): 49.5 ml ESV(sp4-el): 51.9 ml EF(MOD-sp4): 41.6 % EF(sp4-el): 40.4 % SV(sp4-el): 35.1 ml LA A4 area: 20.2 cm2 LA dimension(2D): 4.6 cm RA A4 area: 27.7 cm2 Doppler Measurements & Calculations MV E max shelton: 149.2 cm/sec Ao V2 max: 144.7 cm/sec LV V1 max: 70.5 cm/sec Ao max P.4 mmHg LV V1 max P.0 mmHg PA V2 max: 77.6 cm/sec TR max shelton: 347.9 cm/sec TR max P.5 mmHg ECHO/Echo Complete W/ Contrast Interpretation Summary The estimated ejection fraction is 40-45 %. There is evidence of diastolic dysfunction. septal and apical hypokinesis Trivial mitral valve insufficiency. Mild tricuspid valve insufficiency. Pulmonary artery systolic pressure is 60 mmHg. Ordering Physician: Rene Olivia Referring Physician: SHANELL WINTERS Performed By: Poornima Carr RDCS
--- NOTE | 2020-09-19 04:24 | MRI_ITS ---
STUDY: MRI BRAIN WITHOUT CONTRAST REASON FOR EXAM: Female, 70 years old. Acute cva TECHNIQUE: Standardized multiplanar fat and water weighted pulse sequences were obtained. COMPARISON: CT earlier today, MRI 10/06/2016 FINDINGS: There is mild cerebral atrophy with widening of the extra-axial spaces and ventricular dilatation. There are a limited number of small white matter hyperintensities, distributed throughout the deep white matter tracts of the cerebral hemispheres, consistent with mild chronic white matter ischemic changes. Encephalomalacia and gliosis within the periventricular white matter of the right parietal lobe consistent with a chronic infarct. Normal T2* images of the brain without demonstrated susceptibility artifact. There is no demonstrated hemosiderin stain. Normal bilateral basal ganglia. Normal thalami. There is no extra-axial fluid accumulation. Normal flow voids within the major intracranial circulation suggesting patency by spin echo criteria. Normal sella turcica, pituitary gland, infundibular stalk, optic chiasm and hypothalamus. Normal tectal plate and pineal gland. Normal midbrain, calvin and medulla. Normal cerebellum. Normal basal cisterns. Normal bilateral temporal bones. Normal bilateral internal auditory canals. No demonstrated orbital abnormality, within the constraints of a routine brain study. Mucosal thickening in the right x-ray sinus consistent with chronic sinusitis. Normal calvarium and skull base. Normal visualized soft tissue structures. Normal visualized upper cervical spine. MRI/Brain without Contrast IMPRESSION: Involutional changes of the brain, as described above. No acute infarct. Electronically Signed: Edilberto Gamboa MD at 11:07 EDT Tel , Service support ,
[2020-09-19 05:44] LABS: Absolute Lymphocyte Count 0.28 X10^3/uL (0.83-4.51); Absolute Neutrophil Count 5.3 X10^3/uL (2.0-7.7); Basophil# 0.06 X10^3/uL; Basophil% 0.9 % (0-1); Eosinophil# 0.19 X10^3/uL; Hematocrit 31.7 % (37-47); Hemoglobin 9.9 g/dL (12.0-15.0); Lymphocyte # 0.28 X10^3/ul (0.83-4.51); Lymphocyte % 4.4 % (19-41); Mean Corp Hgb Conc 31.2 g/dL (32-36); Mean Corpuscular Hgb 27.9 pg (27.0-32.0); Mean Corpuscular Volume 89.3 fL (81-99); Mean Platelet Vol. 9.7 fl (6.2-12.0); Monocyte% 7.8 % (0-10); NRBC Flagged by Analyzer 0 % (0-5); Neutrophil % 83.3 % (47-70); POSITIVE DIFFERENTIAL YES; Platelet Count 351 K/mm3 (150-450); RBC Distribution Width SD 62.6 fl (35.1-43.9); Red Blood Count 3.55 M/mm3 (4.2-5.4); White Blood Count 6.4 K/mm3 (4.4-11.0)
[2020-09-19] MEDS: CLARIFY ORDER 1 EACH NOTE (05:46)
[2020-09-19 05:49] LABS: Differential Indicated SCAN CRITERIA MET
[2020-09-19 06:09] LABS: Anion Gap 5 (5-15); BUN 14 mg/dL (7-18); BUN/Creat Ratio 16.2 RATIO (10-20); Calcium,Total 8.4 mg/dL (8.5-10.1); Chloride 103 mmol/L (98-107); Cholesterol 107 mg/dL (200); Creatinine, Serum 0.86 mg/dL (0.55-1.02); EST Glomerular Filtration Rate 69 mL/min (>60); Est Glom Filt Rate - Afr Amer 83 mL/min (>60); Glucose 125 mg/dL (74-106); High Density Lipoprotein 24 mg/dL; Potassium 4.1 mmol/L (3.5-5.1); Sodium Level 135 mmol/L (136-145); Triglycerides 89 mg/dL; Very Low Density Lipoprotein 18 mg/dL (5-40)
[2020-09-19] MEDS: Levothyroxine 25 MCG TABLET PO (06:16)
[2020-09-19] MEDS: Acetaminophen 325 MG Tablet 650 MG PO (06:16)
[2020-09-19 07:00] LABS: Bedside Glucose 125 mg/dL (70-110)
--- NOTE | 2020-09-19 07:55 | EKG12_ITS ---
Test Reason : CP Blood Pressure : / mmHG Vent. Rate : 081 BPM Atrial Rate : 125 BPM P-R Int : 000 ms QRS Dur : 136 ms QT Int : 408 ms P-R-T Axes : 000 -59 119 degrees QTc Int : 473 ms Atrial fibrillation Left axis deviation Non-specific intra-ventricular conduction block Abnormal ECG When compared with ECG of 19-SEP-2020 02:02, MANUAL COMPARISON REQUIRED, DATA IS UNCONFIRMED Confirmed by NEELIMA SUAZO, SUKUMAR ([id number]), commercial production editor RAY WYNN ([id number]) on 09/23/2020 1:23:33 PM Referred By: ARMIN Confirmed By:SUZANNE ORTEZ MD
[2020-09-19] MEDS: Morphine 2 MG/ML Syringe IV (08:23)
[2020-09-19] MEDS: 0.9% Saline Lock 10 ML Syringe IV ×2 (08:24→13:40)
[2020-09-19 08:42] LABS: Magnesium 2.1 mg/dL (1.6-2.6); T4 Free Direct 1.54 ng/dL (0.76-1.46); Thyroid Stim Hormone (TSH) 5.73 uIU/mL (0.358-3.74)
[2020-09-19] MEDS: LORazepam 2 MG/ML Syringe IV (09:07)
--- NOTE | 2020-09-19 10:27 | NURSING ---
REPORT CALLED TO JENNIE MARTINES. CONRAD AWARE THAT THIS RN GAVE ADDITIONAL 0.5 MG ATIVAN IVP PER ORDER. PT TOLERATED SCAN WELL. REQUIRING O2 WHILE LYING FLAT, FOR SP02 AT 90% ON RA; CONRAD ALSO INFORMED OF THIS.
[2020-09-19] MEDS: Aspirin 81 MG TAB.CHEW PO (11:04)
[2020-09-19] MEDS: Allopurinol 300 MG Tablet PO (11:04)
[2020-09-19] MEDS: Sotalol Hydrochloride 80 MG Tablet 120 MG PO ×2 (11:05→21:51)
[2020-09-19] MEDS: Pantoprazole Sodium 40 MG Tablet PO (11:05)
[2020-09-19] MEDS: Magnesium Chloride 64 MG Delay Rel.Tablet 128 MG PO (11:05)
[2020-09-19] MEDS: APIXABAN 5 MG TABLET PO ×2 (11:06→21:51)
[2020-09-19 11:15] LABS: Bedside Glucose 144 mg/dL (70-110)
--- NOTE | 2020-09-19 11:50 | NURSING ---
wound photo: left knee
--- NOTE | 2020-09-19 12:06 | CASEMGMT ---
Assessment- SW completed assessment with patient's as patient is confused. Living situation- Patient lives with her in a 1 story home with no entry steps. PCP: Kanwal Baker Specialists: Cardiology- Dr Zhu Pharmacy: [facility] DME: walker, cane, grab bars throughout the whole house, lift chair, wheelchair, wheelchair accessible van, and sit to stand lift. ADL's/IADL's: Patient's states he does everything for patient. She is however able to feed herself as long as he puts it in front of her. Past SNF/rehab: [facility] Past HH: Yes. Does not remember agency LW: Not on file POA: Not on file. Plan: [place] said he has cared for patient since she had her last Stroke a little over a year ago. She went to [facility] and then he brought her home. He has a son and daughter local. They help when they can. He is fine handling patient's care. He does not feel he needs any help. He said he has a lady that if he needs anything all he has to do is warehouse order picker the phone, call her and she will be there. SW asked if he feels like home health would be helpful at discharge. He said probably not. SW told him we will follow and assist if they do have any needs. Lesly MCKEON
--- NOTE | 2020-09-19 12:51 | PN.HOSP_ITS ---
Documented by User: Shanon Coley NP, HAND BUTTON SPLITTER-C 09/19/20 14:44 Subjective Subjective: Patient seen and examined. Reports nausea, vomiting and epigastric discomfort. She describes intermittent chest pain however points to epigastric area. Denies new neurologic symptoms. Objective Data Objective Data Vital Signs: Vital Signs Temp Pulse Resp BP Pulse Ox 97.9 F 84 18 155/89 H 95 09/19/20 11:03 09/19/20 11:03 09/19/20 11:03 09/19/20 11:03 09/19/20 11:03 Oxygen Flow Rate (L/min) 4 Oxygen Delivery Method Room Air Weight: 331 lb 2.149 oz Body Mass Index (BMI) 51.8 Finger Stick Blood Glucose 165 Intake & Output: Intake and Output for Last 24 Hours 09/17/20 09/18/20 09/19/20 23:59 23:59 23:59 Intake Total 170 / 170 Balance 170 / 170 Lab / Micro Data Result Diagrams: 09/19/20 05:20 09/19/20 05:20 Labs: Laboratory Results - last 24 hr 09/19/20 09/19/20 09/19/20 02:00 02:00 02:00 WBC 5.8 RBC 3.66 L Hgb 10.2 L Hct 32.2 L MCV 88.0 MCH 27.9 MCHC 31.7 L RDW Std Deviation 61.1 H RDW Coeff of Chele 18.8 H Plt Count 359 MPV 9.9 Immature Gran % (Auto) 0.300 Neut % (Auto) 72.0 H Lymph % (Auto) 8.7 L [place] % (Auto) 10.2 H Eos % (Auto) 7.6 H Baso % (Auto) 1.2 H Absolute Neuts (auto) 4.2 Absolute Lymphs (auto) 0.50 L Nucleated RBC % 0 PT 18.3 H INR 1.6 APTT 36.2 Sodium 135 L Potassium 4.3 Chloride 104 Carbon Dioxide 25.0 Anion Gap 6 BUN 14 Creatinine 0.87 Estim Creat Clear Calc 56.84 Est GFR (MDRD) Af Amer 83 Est GFR (MDRD) Non-Af 68 BUN/Creatinine Ratio 16.1 Glucose 127 H Hemoglobin A1c Calcium 8.8 Magnesium Troponin I < 0.015 Triglycerides Cholesterol LDL Cholesterol VLDL Cholesterol HDL Cholesterol TSH Free T4 Urine Color Urine Clarity Urine pH Ur Specific [place] Urine Protein Urine Glucose (UA) Urine Ketones Urine Occult Blood Urine Nitrite Urine Bilirubin Urine Urobilinogen Ur Leukocyte Esterase Urine RBC Urine WBC Ur Squamous Epith Cells Urine Bacteria Urine Mucus POC Glucose 09/19/20 09/19/20 09/19/20 02:00 02:25 05:20 WBC 6.4 RBC 3.55 L Hgb 9.9 L Hct 31.7 L MCV 89.3 MCH 27.9 MCHC 31.2 L RDW Std Deviation 62.6 H RDW Coeff of [place]le 19.0 H Plt Count 351 MPV 9.7 Immature Gran % (Auto) 0.600 Neut % (Auto) 83.3 H Lymph % (Auto) 4.4 L [place] % (Auto) 7.8 Eos % (Auto) 3.0 Baso % (Auto) 0.9 Absolute Neuts (auto) 5.3 Absolute Lymphs (auto) 0.28 L Nucleated RBC % 0 PT INR APTT Sodium Potassium Chloride Carbon Dioxide Anion Gap BUN Creatinine Estim Creat Clear Calc Est GFR (MDRD) Af Amer Est GFR (MDRD) Non-Af BUN/Creatinine Ratio Glucose Hemoglobin A1c 6.0 H Calcium Magnesium Troponin I Triglycerides Cholesterol LDL Cholesterol VLDL Cholesterol HDL Cholesterol TSH Free T4 Urine Color Yellow Urine Clarity Sl. Cloudy Urine pH 5.0 Ur Specific [place] 1.025 Urine Protein 30 H Urine Glucose (UA) Normal Urine Ketones 5 H Urine Occult Blood 25 H Urine Nitrite Positive H Urine Bilirubin 1 H Urine Urobilinogen 1 H Ur Leukocyte Esterase 500 H Urine RBC 0 SEEN Urine WBC 50-100 SEEN Ur Squamous Epith Cells 0 SEEN Urine Bacteria 4+ Urine Mucus 1+ POC Glucose 09/19/20 09/19/20 09/19/20 05:20 05:20 05:20 WBC RBC Hgb Hct MCV MCH MCHC RDW Std Deviation RDW Coeff of [place] Plt Count MPV Immature Gran % (Auto) Neut % (Auto) Lymph % (Auto) [place] % (Auto) Eos % (Auto) Baso % (Auto) Absolute Neuts (auto) Absolute Lymphs (auto) Nucleated RBC % PT INR APTT Sodium 135 L Potassium 4.1 Chloride 103 Carbon Dioxide 27.0 Anion Gap 5 BUN 14 Creatinine 0.86 Estim Creat Clear Calc 57.50 Est GFR (MDRD) Af Amer 83 Est GFR (MDRD) Non-Af 69 BUN/Creatinine Ratio 16.2 Glucose 125 H Hemoglobin A1c Calcium 8.4 L Magnesium 2.1 Troponin I < 0.015 Triglycerides 89 Cholesterol 107 LDL Cholesterol 65 VLDL Cholesterol 18 HDL Cholesterol 24 L TSH 5.73 H Free T4 1.54 H Urine Color Urine Clarity Urine pH Ur Specific [place] Urine Protein Urine Glucose (UA) Urine Ketones Urine Occult Blood Urine Nitrite Urine Bilirubin Urine Urobilinogen Ur Leukocyte Esterase Urine RBC Urine WBC Ur Squamous Epith Cells Urine Bacteria Urine Mucus POC Glucose 09/19/20 09/19/20 09/19/20 06:50 09:03 11:01 WBC RBC Hgb Hct MCV MCH MCHC RDW Std Deviation RDW Coeff of [place] Plt Count MPV Immature Gran % (Auto) Neut % (Auto) Lymph % (Auto) [place] % (Auto) Eos % (Auto) Baso % (Auto) Absolute Neuts (auto) Absolute Lymphs (auto) Nucleated RBC % PT INR APTT Sodium Potassium Chloride Carbon Dioxide Anion Gap BUN Creatinine Estim Creat Clear Calc Est GFR (MDRD) Af Amer Est GFR (MDRD) Non-Af BUN/Creatinine Ratio Glucose Hemoglobin A1c Calcium Magnesium Troponin I < 0.015 Triglycerides Cholesterol LDL Cholesterol VLDL Cholesterol HDL Cholesterol TSH Free T4 Urine Color Urine Clarity Urine pH Ur Specific [place] Urine Protein Urine Glucose (UA) Urine Ketones Urine Occult Blood Urine Nitrite Urine Bilirubin Urine Urobilinogen Ur Leukocyte Esterase Urine RBC Urine WBC Ur Squamous Epith Cells Urine Bacteria Urine Mucus POC Glucose 125 H 144 H Radiography Diagnostic Testing: Radiology Impression Brain CT 09/19/20 01:53 IMPRESSION: Remote right-sided basal ganglia infarct from 2017, ex vacuo dilatation of the right ventricle without visualized acute hemorrhage infarct or edema. Electronically Signed: Amaya Lopez MD at 2:12 EDT Tel , Service support , ADDENDUM: 09/19/20 0219 IMPRESSION: Remote right-sided basal ganglia infarct from 2017, ex vacuo dilatation of the right ventricle without visualized acute hemorrhage infarct or edema. N.B. : The above information has been verbally conveyed by Amaya Lopez MD to David Shine MD, MD, on 09/19/2020 02:12:40 (ET). Electronically Signed: Amaya Lopez MD at 2:12 EDT Tel , Service support , Chest X-Ray 09/19/20 02:14 IMPRESSION: Bilateral medial lung base atelectasis versus scar versus infiltrate Electronically Signed: Rinku Salazar MD at 2:38 EDT Tel , Service support , Head/Neck CTA 09/19/20 02:25 IMPRESSION: Stable appearing diminutive appearance of the right M2 insular segment when compared to the left side. There is a persistent possibly chronic narrowed appearance of the M3 vessels towards the vertex and/or sequelae of prior ischemic change and/or vasoconstriction. There is better contrast enhancement of the superior segment of the right M2 segment when compared to the prior study. Prior right-sided basal ganglia infarct ex vacuo dilatation. Recommend consideration for follow-up MRI which may be helpful to demonstrate any small acute small vessel ischemic change. Electronically Signed: Amaya Lopez MD at 3:42 EDT Tel , Service support , Brain MRI 09/19/20 04:24 IMPRESSION: Involutional changes of the brain, as described above. No acute infarct. Electronically Signed: Edilberto Gamboa MD at 11:07 EDT Tel , Service support , Physical Exam Const alert, oriented x3 and no apparent distress Orientation / Consciousness: awake, oriented to person, oriented to place and oriented to time HEENT normocephalic and moist oral mucous membranes Eyes PERRL, EOMs intact bilaterally and conjunctivae normal Neck no lymphadenopathy Resp normal respiratory effort and clear to auscultation bilaterally Cardio no murmurs Heart Sounds: other Other Details: Atrial fibrillation Peripheral Pulses: pulses 2+ throughout GI normal to inspection, nondistended, normoactive bowel sounds, non-tender and non-distended Extremity normal to inspection Skin no rashes or lesions noted Skin Narrative: Pinpoint wound, serosanguineous drainage. Lesions: no lesions Rashes: no rashes Trauma: no lacerations or abrasions Neuro oriented x3 and CN's II-XII intact bilaterally Neuro Narrative: Left upper and left lower extremity paralysis from prior CVA Sensorium / Orientation: awake and alert Psych affect normal Assessment & Plan Assessment/Plan (1) Open wound of left knee: QUALIFIERS: Encounter type: sequela Qualified Code(s): S81.002S - Unspecified open wound, left knee, sequela (2) Acute UTI: PLAN: 1. Nausea, vomiting, epigastric pain-concern for cardiac etiology as patient complains of chest pain. As needed antiemetics. Obtain a KUB. Plan for stress test in a.m. Troponin negative. 2. Left facial droop-CVA ruled out. Hx prior CVA. Patient has chronic left- sided paralysis, suspect worsening symptoms related to acute UTI. Continue aspirin, statin, anticoagulation. 3. Acute UTI-continue IV Rocephin pending cultures. 4. Hypertension-stable, continue current regimen. 5. Hyperlipidemia-continue statin. 6. Type 2 diabetes [id number] with sliding scale insulin. 7. Persistent atrial fibrillation-rate controlled. Continue Cardizem, sotalol, Eliquis. 8. Left knee pinpoint wound-chronic from prior surgery. Wound culture ordered. Does not appear infected, serosanguineous drainage. Wound RN consult. 9. Morbid obesity-encouraged diet lifestyle modifications. DVT prophylaxis-Eliquis This patient was seen by Shanon Coley NP-Makenna under the supervision of Dr. Werner. Documented by User: Dr. Olivia Werner MD 09/19/20 16:32 Objective Data Lab / Micro Data Result Diagrams: 09/19/20 05:20 09/19/20 05:20
[2020-09-19] MEDS: Ondansetron 4 MG/2 ML Vial IV (13:39)
--- NOTE | 2020-09-19 14:30 | CHAPLAIN ---
Type of Pastoral Visit _x__ Initial Visit ___ Follow-up Visit ___ On-call Visit ___ General Patient Visit ___ Spiritual Assessment ___ Family Conference ___ Bereavement ___ Rapid Response ___ Code Blue ___ Other (describe below) Pastoral Care Referral From _x__ Patient ___ Family ___ Nurse ___ Physician ___ Payer Specialist ___ Coordinator Integrated Marketing ___ Other (describe below) Sacrament/Intervention _x__ Active listening ___ Anointing ___ Anabaptist ___ Bereavement ___ Communion ___ Kera exploration ___ ___ Life review _x__ Prayer ___ Reconciliation ___ Sacrament of Sick _x__ Supportive presence ___ Wedding ___ Other (describe below) Pastoral Comments patient was seen by this coffee weigher in previous admission; pt remembers coffee weigher; pt requests RN to room as she is feeling nauseous and has some pain; call light placed and DIRECTOR GEOTHERMAL OPERATIONS came to room; this coffee weigher soon after left the room and went to RN to request support for the patient; prayer and presence given; spouse is in the room this whole time and he is talkative
--- NOTE | 2020-09-19 14:40 | RAD_ITS ---
STUDY: X-RAY - ABDOMEN/PELVIS REASON FOR EXAM: Female, 70 years old. Nausea/vomiting, epigastric pain TECHNIQUE: Single AP view of the abdomen / pelvis. COMPARISON: 01/31/2017 FINDINGS: Status post cholecystectomy. Excreted contrast within the bladder. There is an unremarkable bowel gas pattern. The visualized liver, spleen and kidneys are grossly normal in size and morphology. Normal soft tissue structures. Normal visualized osseous structures. RAD/Abdomen Single View IMPRESSION: Normal x-ray examination of the abdomen and pelvis. Electronically Signed: Edilberto Gamboa MD at 15:07 EDT Tel , Service support ,
[2020-09-19 17:06] LABS: M R Staph aureus DNA By PCR Negative (Negative); Probe Check PASS; Staph aureus DNA By PCR NEGATIVE (Negative)
[2020-09-19 17:20] LABS: Bedside Glucose 113 mg/dL (70-110)
[2020-09-19] MEDS: Atorvastatin Calcium 80 MG Tablet PO (21:51)
[2020-09-19] MEDS: Nystatin Powder 15gm Bottle 1 APPLIC TOPICAL (21:52)
[2020-09-19 22:00] LABS: Bedside Glucose 109 mg/dL (70-110)
[2020-09-20 03:25] VITALS: PULSE 86
[2020-09-20 05:30] VITALS: BP 132/65; PULSE 80; RESP 18; TEMP 36.6; O2SAT 93
[2020-09-20 05:51] LABS: Absolute Lymphocyte Count 0.45 X10^3/uL (0.83-4.51); Absolute Neutrophil Count 3.8 X10^3/uL (2.0-7.7); Basophil# 0.05 X10^3/uL; Hematocrit 31.4 % (37-47); Hemoglobin 9.7 g/dL (12.0-15.0); Lymphocyte # 0.45 X10^3/ul (0.83-4.51); Mean Corp Hgb Conc 30.9 g/dL (32-36); Mean Corpuscular Hgb 27.5 pg (27.0-32.0); Mean Platelet Vol. 9.5 fl (6.2-12.0); Monocyte# 0.59 X10^3/uL; Monocyte% 11.8 % (0-10); NRBC Flagged by Analyzer 0 % (0-5); Neutrophil # 3.76 X10^3/uL (2.7-7.7); Neutrophil % 75.6 % (47-70); POSITIVE DIFFERENTIAL YES; Platelet Count 332 K/mm3 (150-450); RBC Distribution Width CV 18.9 % (11.6-14.6); RBC Distribution Width SD 61.6 fl (35.1-43.9); Red Blood Count 3.53 M/mm3 (4.2-5.4)
[2020-09-20 05:56] LABS: Differential Indicated SCAN CRITERIA MET
--- NOTE | 2020-09-20 06:00 | EKG12_ITS ---
Test Reason : AM EKG Blood Pressure : / mmHG Vent. Rate : 084 BPM Atrial Rate : 044 BPM P-R Int : 000 ms QRS Dur : 136 ms QT Int : 428 ms P-R-T Axes : 000 -57 122 degrees QTc Int : 505 ms Atrial fibrillation Left axis deviation Non-specific intra-ventricular conduction block Abnormal ECG Confirmed by MARY SUAZO, JOHN ([id number]), copy editor RAY WYNN ([id number]) on 09/25/2020 9:11:54 AM Referred By: ARMIN Confirmed By:JOHN HERNANDEZ MD
[2020-09-20 06:12] LABS: ALB/GLOB Ratio 0.5 RATIO (0.9-2.4); AST(SGOT) 11 U/L (15-37); Alanine Aminotransfer ALT/SGPT 7 U/L (13-56); Albumin, Serum 2.4 g/dL (3.2-5.0); Alkaline Phosphatase 94 U/L (45-117); Anion Gap 6 (5-15); BUN 14 mg/dL (7-18); BUN/Creat Ratio 15.5 RATIO (10-20); Calcium,Total 8.4 mg/dL (8.5-10.1); Chloride 103 mmol/L (98-107); EST Glomerular Filtration Rate 65 mL/min (>60); Est Glom Filt Rate - Afr Amer 79 mL/min (>60); Estimated Creatinine Clearance 54.95 ml/min; Globulin 5.1 g/dL (2.2-4.2); Glucose 94 mg/dL (74-106); Potassium 4.2 mmol/L (3.5-5.1); Protein, Total 7.5 g/dL (6.4-8.2); Sodium Level 136 mmol/L (136-145)
[2020-09-20] MEDS: Aspirin 81 MG TAB.CHEW PO (06:42)
[2020-09-20 06:51] LABS: Bedside Glucose 95 mg/dL (70-110)
[2020-09-20 07:03] VITALS: PULSE 86
[2020-09-20 07:08] VITALS: O2SAT 96
--- NOTE | 2020-09-20 07:08 | CASEMGMT ---
SW did not complete a PHQ 9 with patient as she did not have a Stroke or TIA. Lesly Nielson REAL ESTATE APPRAISER LINDA
--- NOTE | 2020-09-20 09:04 | NURSING ---
pt refusing stress test this am. This RN educated pt on reason for stress test but pt still refusing
[2020-09-20 09:25] VITALS: BP 128/70; PULSE 82; RESP 16; TEMP 36.7; O2SAT 93
[2020-09-20 09:27] VITALS: BMI 51.8
[2020-09-20] MEDS: Sotalol Hydrochloride 80 MG Tablet 120 MG PO (09:35)
[2020-09-20] MEDS: Pantoprazole Sodium 40 MG Tablet PO (09:36)
[2020-09-20] MEDS: Nystatin Powder 15gm Bottle 1 APPLIC TOPICAL (09:36)
[2020-09-20] MEDS: Allopurinol 300 MG Tablet PO (09:36)
[2020-09-20] MEDS: APIXABAN 5 MG TABLET PO (09:36)
[2020-09-20] MEDS: Magnesium Chloride 64 MG Delay Rel.Tablet 128 MG PO (09:36)
[2020-09-20] MEDS: dilTIAZem CD 120 MG Capsule PO (09:47)
--- NOTE | 2020-09-20 10:21 | PCM.DC ---
Discharge Instructions Diet Discharge Diet: Low fat / Low cholesterol and Carb Control Diet Activity Discharge Activity: Return to Normal Activity Dressing / Incision Call your doctor if you observe: Fever of 101 or Higher, Shortness of breath, Dizziness and Chest pain Follow Up Care Test Results: Test results from this visit will be discussed in further detail at your follow-up appointment, if applicable. Discharge Plan Admission Admit Date/Time: 09/19/20 03:29 Primary Reason for Your Visit: UTI, stroke ruled out Attending Provider: Olivia Werner Primary Care Provider: Kanwal Baker Discharge Orders/Prescriptions Prescriptions: New cephalexin 500 mg capsule 500 mg PO Q6H Qty: 24 RF: 0 atorvastatin 10 mg tablet 10 mg PO QHS Qty: 30 RF: 0 Continued metformin 500 MG tablet 500 mg PO BIDCM RF: 0 levothyroxine 25 MCG tablet 25 mcg PO QODAY@0600 RF: 0 magnesium oxide 400 MG tablet 400 mg PO DAILY RF: 0 allopurinol 300 MG tablet 300 mg PO DAILYCM RF: 0 pantoprazole 40 MG tablet 40 mg PO DAILY Qty: 30 RF: 0 Eliquis 5 MG tablet 5 mg PO BID Qty: 60 RF: 0 sotalol 120 mg Tablet 120 mg PO BID RF: 0 diltiazem HCl [DILT-XR] 120 mg Capsule,Ext.Rel 24h Degradable 120 mg PO DAILY RF: 0 Referrals / Follow Up: Kanwal Baker DO [Primary Care Provider] - In 1 Week Disposition Disposition (needs filled in before D/C Order can be placed): Home, self care
--- NOTE | 2020-09-20 10:56 | PCM.DC.SUM ---
Documented by User: Shanon Coley NP, BULLDOZER/LOADER/COMPACTOR/SCRAPER-C 09/20/20 11:06 Providers Date of Admission: 09/19/20 Primary Care Physician: Dr. Kanwal Baker, Consultations 09/19/20 07:37 Consult: Onc/Wound/chief operator Routine Comment: Reason for Consult:: L knee wound, generalized excoriation. Reason For Visit: ACUTE CVA; UTI Diagnosis Discharge Diagnosis (1) Open wound of left knee: Status: Acute Code(s): S81.002A - Unspecified open wound, left knee, initial encounter Qualifiers: Encounter type: sequela Qualified Code(s): S81.002S - Unspecified open wound, left knee, sequela (2) Acute UTI: Status: Acute Code(s): N39.0 - Urinary tract infection, site not specified Medications at Discharge Home Medications allopurinol 300 mg PO DAILYCM tab 01/29/17 levothyroxine 25 mcg PO QODAY@0600 tab 01/29/17 magnesium oxide 400 mg PO DAILY tab 01/29/17 metformin 500 mg PO BIDCM tab 01/29/17 Eliquis 5 mg PO BID #60 tab 03/10/17 pantoprazole 40 mg PO DAILY #30 tab 03/10/17 diltiazem HCl [DILT-XR] 120 mg PO DAILY 09/19/20 sotalol 120 mg PO BID 09/19/20 atorvastatin 10 mg PO QHS #30 tab 09/20/20 cephalexin 500 mg PO Q6H #24 cap 09/20/20 Hospital Course Operations None Procedures 2-D Echocardiogram Summary of Care Provided Minutes Spent on Discharge: 35 Hospital Course: Patient is a 70-year-old female admitted 09/19/2020 due to left facial droop and right arm numbness. 1. Atypical chest pain-ACS ruled out. Troponin negative. EKG without ST-T changes. Echocardiogram demonstrates an EF of 40 to 45%, septal and apical hypokinesis, pulmonary artery systolic pressure 60 mmHg. Stress test ordered for further evaluation however patient declined recommended stress test. She states she may consider as an outpatient. Follow-up with PCP in 1 week. 2. Left facial droop-CVA ruled out. Hx prior CVA. Patient has chronic left-sided paralysis, suspect worsening symptoms related to acute UTI. Continue statin, Eliquis. 3. Acute UTI-IV Rocephin during admission. Discharged on Keflex to complete course. Urine culture pending at discharge. 4. Hypertension-stable, continue current regimen. 5. Hyperlipidemia-initiated on low-dose statin. 6. Type 2 diabetes mellitus-continue home oral regimen. 7. Persistent atrial fibrillation-rate controlled. Continue Cardizem, sotalol, Eliquis. 8. Left knee pinpoint wound-chronic from prior surgery. Wound culture with no growth so far. Does not appear infected, serosanguineous drainage. Keep area covered with clean, dry dressing. Continue to monitor. 9. Morbid obesity-encouraged diet lifestyle modifications. 10. Gout-on allopurinol. 11. Hypothyroidism-continue Synthroid regimen. Physical Exam Const alert, oriented x3 and no apparent distress Orientation / Consciousness: awake, oriented to person, oriented to place and oriented to time HEENT normocephalic and moist oral mucous membranes Eyes PERRL, EOMs intact bilaterally and conjunctivae normal Neck no lymphadenopathy Resp normal respiratory effort and clear to auscultation bilaterally Cardio no murmurs Heart Sounds: other Other Details: Atrial fibrillation Peripheral Pulses: pulses 2+ throughout GI normal to inspection, nondistended, normoactive bowel sounds, non-tender and non-distended Extremity normal to inspection Skin no rashes or lesions noted Skin Narrative: Pinpoint wound, serosanguineous drainage. Lesions: no lesions Rashes: no rashes Trauma: no lacerations or abrasions Neuro oriented x3 and CN's II-XII intact bilaterally Neuro Narrative: Left upper and left lower extremity paralysis from prior CVA Sensorium / Orientation: awake and alert Psych affect normal Patient seen and examined prior to discharge. Physical assessment as noted above. Patient is stable for discharge with follow up recommendations as noted above. This patient was seen by LIZZIE Welsh under the supervision of Dr. Werner. ABG / Lab / Microbiology Data Result Diagrams: 09/20/20 05:25 09/20/20 05:25 Laboratory: Laboratory Results - last 24 hr 09/19/20 09/19/20 09/19/20 11:01 11:15 16:55 WBC RBC Hgb Hct MCV MCH MCHC RDW Std Deviation RDW Coeff of Chele Plt Count MPV Immature Gran % (Auto) Neut % (Auto) Lymph % (Auto) [place] % (Auto) Eos % (Auto) Baso % (Auto) Absolute Neuts (auto) Absolute Lymphs (auto) Nucleated RBC % Sodium Potassium Chloride Carbon Dioxide Anion Gap BUN Creatinine Estim Creat Clear Calc Est GFR (MDRD) Af Amer Est GFR (MDRD) Non-Af BUN/Creatinine Ratio Glucose Calcium Total Bilirubin AST ALT Alkaline Phosphatase Total Protein Albumin Globulin Albumin/Globulin Ratio S.aureus Protein A PCR NEGATIVE MRSA (PCR) Negative POC Glucose 144 H 113 H 09/19/20 09/20/20 09/20/20 21:48 05:25 05:25 WBC 5.0 RBC 3.53 L Hgb 9.7 L Hct 31.4 L MCV 89.0 MCH 27.5 MCHC 30.9 L RDW Std Deviation 61.6 H RDW Coeff of Chele 18.9 H Plt Count 332 MPV 9.5 Immature Gran % (Auto) 0.600 Neut % (Auto) 75.6 H Lymph % (Auto) 9.0 L [place] % (Auto) 11.8 H Eos % (Auto) 2.0 Baso % (Auto) 1.0 Absolute Neuts (auto) 3.8 Absolute Lymphs (auto) 0.45 L Nucleated RBC % 0 Sodium 136 Potassium 4.2 Chloride 103 Carbon Dioxide 27.0 Anion Gap 6 BUN 14 Creatinine 0.90 Estim Creat Clear Calc 54.95 Est GFR (MDRD) Af Amer 79 Est GFR (MDRD) Non-Af 65 BUN/Creatinine Ratio 15.5 Glucose 94 Calcium 8.4 L Total Bilirubin 1.00 AST 11 L ALT 7 L Alkaline Phosphatase 94 Total Protein 7.5 Albumin 2.4 L Globulin 5.1 H Albumin/Globulin Ratio 0.5 L S.aureus Protein A PCR MRSA (PCR) POC Glucose 109 09/20/20 06:39 WBC RBC Hgb Hct MCV MCH MCHC RDW Std Deviation RDW Coeff of Chele Plt Count MPV Immature Gran % (Auto) Neut % (Auto) Lymph % (Auto) [place] % (Auto) Eos % (Auto) Baso % (Auto) Absolute Neuts (auto) Absolute Lymphs (auto) Nucleated RBC % Sodium Potassium Chloride Carbon Dioxide Anion Gap BUN Creatinine Estim Creat Clear Calc Est GFR (MDRD) Af Amer Est GFR (MDRD) Non-Af BUN/Creatinine Ratio Glucose Calcium Total Bilirubin AST ALT Alkaline Phosphatase Total Protein Albumin Globulin Albumin/Globulin Ratio S.aureus Protein A PCR MRSA (PCR) POC Glucose 95 Microbiology: Microbiology 09/19/20 11:15 Gram Stain - Final Wound - Knee Microbiology 09/19/20 11:15 Wound - Knee Gram Stain - Final Radiography Diagnostic Testing: Radiology Impression Brain MRI 09/19/20 04:24 IMPRESSION: Involutional changes of the brain, as described above. No acute infarct. Electronically Signed: Edilberto Gamboa MD at 11:07 EDT Tel , Service support , Echocardiogram 09/19/20 04:24 Interpretation Summary The estimated ejection fraction is 40-45 %. There is evidence of diastolic dysfunction. septal and apical hypokinesis Trivial mitral valve insufficiency. Mild tricuspid valve insufficiency. Pulmonary artery systolic pressure is 60 mmHg. Ordering Physician: Rene Olivia Referring Physician: KANWAL BAKER Performed By: Poornima Carr RDCS X-Ray 09/19/20 14:40 IMPRESSION: Normal x-ray examination of the abdomen and pelvis. Electronically Signed: Edilberto Gamboa MD at 15:07 EDT Tel , Service support , D/C Instructions Discharge Diet: Low fat / Low cholesterol and Carb Control Diet Discharge Activity: Return to Normal Activity Call your doctor if you observe: Fever of 101 or Higher, Shortness of breath, Dizziness and Chest pain Meaningful Use Info Meaningful Use Diagnoses (Choose all that apply): None applicable Discharge Plan Admission Admit Date/Time: 09/19/20 03:29 Primary Reason for Your Visit: UTI, stroke ruled out Attending Provider: Olivia Werner Primary Care Provider: Kanwal Baker Discharge Orders/Prescriptions Prescriptions: New cephalexin 500 mg capsule 500 mg PO Q6H Qty: 24 RF: 0 atorvastatin 10 mg tablet 10 mg PO QHS Qty: 30 RF: 0 Continued metformin 500 MG tablet 500 mg PO BIDCM RF: 0 levothyroxine 25 MCG tablet 25 mcg PO QODAY@0600 RF: 0 magnesium oxide 400 MG tablet 400 mg PO DAILY RF: 0 allopurinol 300 MG tablet 300 mg PO DAILYCM RF: 0 pantoprazole 40 MG tablet 40 mg PO DAILY Qty: 30 RF: 0 Eliquis 5 MG tablet 5 mg PO BID Qty: 60 RF: 0 sotalol 120 mg Tablet 120 mg PO BID RF: 0 diltiazem HCl [DILT-XR] 120 mg Capsule,Ext.Rel 24h Degradable 120 mg PO DAILY RF: 0 Referrals / Follow Up: Kanwal Baker DO [Primary Care Provider] - In 1 Week Disposition Disposition (needs filled in before D/C Order can be placed): Home, self care Documented by User: Dr. Olivia Werner MD 09/20/20 15:49 Providers Date of Admission: 09/19/20 Reason For Visit: ACUTE CVA; UTI Medications at Discharge Home Medications allopurinol 300 mg PO DAILYCM tab 01/29/17 levothyroxine 25 mcg PO QODAY@0600 tab 01/29/17 magnesium oxide 400 mg PO DAILY tab 01/29/17 metformin 500 mg PO BIDCM tab 01/29/17 Eliquis 5 mg PO BID #60 tab 03/10/17 pantoprazole 40 mg PO DAILY #30 tab 03/10/17 diltiazem HCl [DILT-XR] 120 mg PO DAILY 09/19/20 sotalol 120 mg PO BID 09/19/20 atorvastatin 10 mg PO QHS #30 tab 09/20/20 cephalexin 500 mg PO Q6H #24 cap 09/20/20 ABG / Lab / Microbiology Data Result Diagrams: 09/20/20 05:25 09/20/20 05:25 Discharge Plan Admission Admit Date/Time: 09/19/20 03:29 Primary Reason for Your Visit: UTI, stroke ruled out Attending Provider: Olivia Werner Primary Care Provider: Kanwal Baker Discharge Orders/Prescriptions Prescriptions: New cephalexin 500 mg capsule 500 mg PO Q6H Qty: 24 RF: 0 atorvastatin 10 mg tablet 10 mg PO QHS Qty: 30 RF: 0 Continued metformin 500 MG tablet 500 mg PO BIDCM RF: 0 levothyroxine 25 MCG tablet 25 mcg PO QODAY@0600 RF: 0 magnesium oxide 400 MG tablet 400 mg PO DAILY RF: 0 allopurinol 300 MG tablet 300 mg PO DAILYCM RF: 0 pantoprazole 40 MG tablet 40 mg PO DAILY Qty: 30 RF: 0 Eliquis 5 MG tablet 5 mg PO BID Qty: 60 RF: 0 sotalol 120 mg Tablet 120 mg PO BID RF: 0 diltiazem HCl [DILT-XR] 120 mg Capsule,Ext.Rel 24h Degradable 120 mg PO DAILY RF: 0 Referrals / Follow Up: Kanwal Baker, [Primary Care Provider] - In 1 Week Disposition Disposition (needs filled in before D/C Order can be placed): Home, self care
--- NOTE | 2020-09-20 11:18 | CASEMGMT ---
JENNIE BUTTS NOTE: Pt being discharged. PT/OT evals have been reviewed and additional therapy recommended. JENNIE BUTTS to room to discuss d/c planning w/pt. Pt made aware of recommendations. She declines HHC or additional therapy at at this time. Pt was made aware, if in the future, she is interested in HHC or OP therapy, to discuss this with her PCP. She voices understanding. She denies any needs or concerns w/discharging home. Abigail RODRIGUEZ RN, CM
[2020-09-20 12:51] LABS: Bedside Glucose 98 mg/dL (70-110)
== END 2020-09-20 14:32 | disposition home or self-care (01) | DRG 690 ==
LOC: ED 03:19 → PCU 04:52
PROVIDERS: Admitting Provider Hospitalist; Emergency Provider Emergency Medicine; Visit Provider Family Medicine
DX: N39.0 Urinary tract infection, site not specified (principal); I48.19 Other persistent atrial fibrillation; Z68.43 Body mass index [BMI] 50.0-59.9, adult; I69.354 Hemiplegia and hemiparesis following cerebral infarction affecting left non-dominant side; R07.89 Other chest pain; S81.002A Unspecified open wound, left knee, initial encounter; E03.9 Hypothyroidism, unspecified; E11.9 Type 2 diabetes mellitus without complications; E66.01 Morbid (severe) obesity due to excess calories; E78.5 Hyperlipidemia, unspecified; I10 Essential (primary) hypertension; K21.9 Gastro-esophageal reflux disease without esophagitis; M10.9 Gout, unspecified; Z79.01 Long term (current) use of anticoagulants; Z79.84 Long term (current) use of oral hypoglycemic drugs; Z79.899 Other long term (current) drug therapy
CPT/HCPCS: 36415; 70450; 70496; 70498; 70551; 71045; 74018; 80048; 80053; 80061; 81001; 82962; 83036; 83735; 84439; 84443; 84484; 85025; 85610; 85730; 87070; 87077; 87086; 87088; 87186; 87205; 87640; 92523; 92610; 93005; 93306; 94762; 97162; 97166; 97167; 97802; 99285; J7050; P9612; Q9957; Q9967; A4216; C8929; J2405

== ENCOUNTER 2020-09-22 16:43 | Emergency (ER) | payer MEDICARE, OTHER, MEDICAID, SELFPAY ==
[2020-09-22 16:46] VITALS: BP 144/58; PULSE 65; RESP 15; TEMP 36.4; O2SAT 96; BMI 53.6
--- NOTE | 2020-09-22 16:47 | CT_ITS ---
STUDY: CT BRAIN WITHOUT CONTRAST REASON FOR EXAM: Female, 70 years old. arm tingling RADIATION DOSAGE (If Supplied By Facility): CTDIvol = ( 44.99 ) mGy, DLP = ( 745.49 ) mGycm TECHNIQUE: Transaxial CT imaging of the brain was performed without administration of intravenous contrast material. Individualized dose optimization techniques were used for this CT. COMPARISON: 09/19/2020 FINDINGS: Normal soft tissue structures. Normal calvarium. There is ex vacuo dilatation of the right ventricle with prior right side basal ganglia infarct primarily involving the basal ganglia/thalamus. There are areas of decreased attenuation within the white matter tracts of the supratentorial brain, consistent with microvascular disease changes. Normal brainstem. There is mild cerebellar atrophy. There is calcification of the cavernous carotid arteries. There is no intracranial hemorrhage. There are no findings of an acute ischemic infarction. Persistent opacification of the right maxillary sinus. There is minimal ethmoid sinus mucosal thickening. CT/Brain/Head without Contrast IMPRESSION: 1. No acute or evolving intracranial process. Stable short term follow-up. Electronically Signed: Aldo Morales MD (Brooks) at 19:37 EDT , Service support ,
--- NOTE | 2020-09-22 16:48 | EKG12_ITS ---
Test Reason : Blood Pressure : / mmHG Vent. Rate : 064 BPM Atrial Rate : 065 BPM P-R Int : 000 ms QRS Dur : 142 ms QT Int : 464 ms P-R-T Axes : 000 -51 128 degrees QTc Int : 478 ms Undetermined rhythm Left axis deviation Left bundle branch block Abnormal ECG Confirmed by JAYNA SUAZO, WAYNE ([id number]), assistant editor RAY WYNN ([id number]) on 09/23/2020 1:06:23 PM Referred By: ISSAC Confirmed By:WAYNE DORANTES MD
[2020-09-22 16:53] LABS: Absolute Lymphocyte Count 0.35 X10^3/uL (0.83-4.51); Absolute Neutrophil Count 4.3 X10^3/uL (2.0-7.7); Basophil# 0.08 X10^3/uL; Basophil% 1.4 % (0-1); Eosinophil# 0.49 X10^3/uL; Eosinophils% 8.5 % (0-5); Hematocrit 32.3 % (37-47); Hemoglobin 9.8 g/dL (12.0-15.0); Lymphocyte # 0.35 X10^3/ul (0.83-4.51); Lymphocyte % 6.1 % (19-41); Mean Corp Hgb Conc 30.3 g/dL (32-36); Mean Corpuscular Hgb 27.1 pg (27.0-32.0); Mean Corpuscular Volume 89.2 fL (81-99); Mean Platelet Vol. 10.1 fl (6.2-12.0); Monocyte# 0.51 X10^3/uL; Monocyte% 8.8 % (0-10); NRBC Flagged by Analyzer 0 % (0-5); Neutrophil # 4.32 X10^3/uL (2.7-7.7); Neutrophil % 74.7 % (47-70); POSITIVE DIFFERENTIAL YES; Platelet Count 351 K/mm3 (150-450); RBC Distribution Width CV 19.2 % (11.6-14.6); RBC Distribution Width SD 61.5 fl (35.1-43.9); Red Blood Count 3.62 M/mm3 (4.2-5.4); White Blood Count 5.8 K/mm3 (4.4-11.0)
[2020-09-22 16:54] VITALS: BP 144/58; PULSE 65; RESP 16; TEMP 36.4; O2SAT 95
[2020-09-22 16:55] LABS: Differential Indicated SCAN CRITERIA MET
[2020-09-22 17:12] LABS: Differential Comment SCANNED
[2020-09-22 17:14] LABS: Anion Gap 5 (5-15); BUN 17 mg/dL (7-18); BUN/Creat Ratio 17.4 RATIO (10-20); Calcium,Total 8.6 mg/dL (8.5-10.1); Chloride 103 mmol/L (98-107); Creatinine, Serum 0.98 mg/dL (0.55-1.02); EST Glomerular Filtration Rate 60 mL/min (>60); Est Glom Filt Rate - Afr Amer 72 mL/min (>60); Estimated Creatinine Clearance 50.46 ml/min; Glucose 111 mg/dL (74-106); Sodium Level 134 mmol/L (136-145)
--- NOTE | 2020-09-22 18:48 | EDS_ITS ---
HPI History of Present Illness Chief Complaint: Neuro S/Sx Narrative Narrative: 70-year-old female presents with concern for right upper extremity tingling. States this began this morning upon awakening which is now been approximately 8 to 10 hours. Patient was recently admitted and discharged from this hospital for the exact same symptoms. Had a negative MRI at this time. Was diagnosed with a UTI and is currently on antibiotic therapy. Patient was concerned because she has had a previous stroke with left-sided hemiparesis. Denies any fever, chills, headache, neck pain, vision change, nausea, vomiting, chest pain, shortness of breath, abdominal pain. [facility] Medical History Acute CVA (cerebrovascular accident) Congestive heart failure (CHF) Diabetes Irregular heart beat Myocardial infarct Non-smoker Osteoporosis Pancreatitis Stroke/cerebrovascular accident Home Medications allopurinol 300 mg PO DAILYCM tab 01/29/17 [Rx Last Taken 09/18/20] levothyroxine 25 mcg PO QODAY@0600 tab 01/29/17 [Rx Last Taken 09/18/20] magnesium oxide 400 mg PO DAILY tab 01/29/17 [Rx Last Taken 09/18/20] metformin 500 mg PO BIDCM tab 01/29/17 [Rx Last Taken 09/18/20] Eliquis 5 mg PO BID #60 tab 03/10/17 [Rx Last Taken 09/18/20] pantoprazole 40 mg PO DAILY #30 tab 03/10/17 [Rx Last Taken 09/18/20] diltiazem HCl [DILT-XR] 120 mg PO DAILY 09/19/20 [History Last Taken 09/18/20] sotalol 120 mg PO BID 09/19/20 [History Last Taken 09/18/20] atorvastatin 10 mg PO QHS #30 tab 09/20/20 [Rx Last Taken Unknown] cephalexin 500 mg PO Q6H #24 cap 09/20/20 [Rx Last Taken Unknown] Allergy/AdvReac Type Severity Reaction Status Date / Time alteplase Allergy Angioedema Verified 09/22/20 16:44 Penicillins Allergy Other Verified 09/22/20 16:44 Family History Mother Diabetes Heart disease Father Heart disease Surgical History History of ankle surgery History of appendectomy History of cholecystectomy History of knee replacement Social History housing: house current occupational status: unemployed Smoking Status: Never smoker ROS ROS ED Constitutional Constitutional ED: Denies chills, fever(s) or sweats Eyes Eyes: Denies blurry vision, change in vision or diplopia ENT ENT ED: Denies rhinorrhea or sore throat Cardiovascular Cardiovascular: Denies chest pain, orthopnea, palpitations or racing heartbeat Respiratory/Chest Respiratory/Chest: Denies cough, dyspnea, dyspnea on exertion, orthopnea or s putum Gastrointestinal Gastrointestinal: Denies abdominal pain, constipation, diarrhea, melena, nausea or vomiting Genitourinary Genitourinary ED: Denies dysuria, hematuria or urinary frequency Musculoskeletal Musculoskeletal: Denies arthralgias, myalgias or neck pain Integumentary Denies rash Neurologic Neurologic: Reports paresthesias LUE; Denies headache(s) or weakness Psychiatric Psychiatric: Denies anxiety or depression Hematologic/Lymphatic Hematologic/Lymphatic: Denies easy bleeding or easy bruising Allergic/Immunologic Allergic/Immunologic ED: Denies mouth swelling or tongue swelling EXAM Physical Exam Const Vital Signs: 09/22/20 16:46 09/22/20 16:54 09/22/20 19:12 Temperature 97.6 F L 97.6 F L 97.8 F Temperature Source Oral Oral Temporal Pulse Rate 65 65 80 Respiratory Rate 15 16 18 Blood Pressure 144/58 H 144/58 H 148/76 H Blood Pressure Mean 86 86 100 Pulse Ox 96 95 95 Oxygen Delivery Method Room Air Room Air Room Air 09/22/20 19:16 Temperature 97.3 F L Temperature Source Oral Pulse Rate 80 Respiratory Rate 18 Blood Pressure 148/76 H Blood Pressure Mean 100 Pulse Ox 98 Oxygen Delivery Method Room Air Positive well nourished and well developed General Appearance ED: well developed HEENT Reports TM's clear and moist mucous membranes normocephalic and atraumatic Tympanic Membrane ED: Yes TM's clear Eyes PERRL and EOMs intact bilaterally Neck no lymphadenopathy, supple and no JVD Chest Wall inspection of chest normal Resp normal respiratory effort and clear to auscultation bilaterally Cardio regular rate, S1 normal heart sound, S2 normal heart sound and no murmurs Peripheral Pulses: pulses 2+ throughout GI soft to palpation, non-tender and non-distended Back/Spine no CVA tenderness and no thoracic nor lumbar tenderness Extremity normal to inspection General Extremety ED: Negative for edema or tenderness General Extremity: Negative for edema Neuro oriented x3, CN's II-XII intact bilaterally and no sensory deficits noted Neuro Narrative: Chronic left hemiparesis. Sensorium / Orientation: alert Psych mental status grossly normal Skin no rashes or lesions noted MDM MDM MDM Narrative Medical decision making narrative: Patient appears well and nontoxic. Vital signs within normal limits. No focal neurologic deficit. Lab work within normal limits. EKG shows no acute ischemia. CT brain repeated which is negative. Patient had an MRI 2 days ago which showed no acute infarct. patient symptoms are exactly the same. EKG shows no acute ischemia. Troponin negative. Patient will be advised to continue her antibiotics and follow-up with primary care provider. Discharged home in stable condition. Lab Data Attestation: I reviewed the patient's lab results. Labs: Laboratory Results - last 24 hr 09/22/20 09/22/20 16:46 16:46 WBC 5.8 RBC 3.62 L Hgb 9.8 L Hct 32.3 L MCV 89.2 MCH 27.1 MCHC 30.3 L RDW Std Deviation 61.5 H RDW Coeff of Chele 19.2 H Plt Count 351 MPV 10.1 Immature Gran % (Auto) 0.500 Neut % (Auto) 74.7 H Lymph % (Auto) 6.1 L [place] % (Auto) 8.8 Eos % (Auto) 8.5 H Baso % (Auto) 1.4 H Absolute Neuts (auto) 4.3 Absolute Lymphs (auto) 0.35 L Nucleated RBC % 0 Differential Comment SCANNED Sodium 134 L Potassium 5.0 Chloride 103 Carbon Dioxide 26.0 Anion Gap 5 BUN 17 Creatinine 0.98 Estim Creat Clear Calc 50.46 Est GFR (MDRD) Af Amer 72 Est GFR (MDRD) Non-Af 60 BUN/Creatinine Ratio 17.4 Glucose 111 H Calcium 8.6 Troponin I < 0.015 Radiography Diagnostic Testing: Radiology Impression Brain CT 09/22/20 16:47 IMPRESSION: 1. No acute or evolving intracranial process. Stable short term follow-up. Electronically Signed: Aldo Morales MD (Brooks) at 19:37 EDT , Service support , Rhythm Strip Rhythm Strip: Sinus Rhythm Rate: 64 Ectopy: None EKG Initial EKG: Attestation: I personally reviewed and interpreted this EKG as follows: Interpretation: Sinus Rhythm and No Acute Injury Pattern Comments: Sinus rhythm at 64 bpm. Left bundle branch block. Prolonged LA. Left axis deviation Discharge Plan Triage Chief Complaint: Neuro S/Sx ED Provider: Arya Fofana Dx/Rx/DC Orders Clinical Impression: Paresthesia Instructions: ED Paraesthesias Prescriptions: No Action metformin 500 MG tablet 500 mg PO BIDCM RF: 0 levothyroxine 25 MCG tablet 25 mcg PO QODAY@0600 RF: 0 magnesium oxide 400 MG tablet 400 mg PO DAILY RF: 0 allopurinol 300 MG tablet 300 mg PO DAILYCM RF: 0 pantoprazole 40 MG tablet 40 mg PO DAILY Qty: 30 RF: 0 Eliquis 5 MG tablet 5 mg PO BID Qty: 60 RF: 0 sotalol 120 mg Tablet 120 mg PO BID RF: 0 diltiazem HCl [DILT-XR] 120 mg Capsule,Ext.Rel 24h Degradable 120 mg PO DAILY RF: 0 cephalexin 500 mg capsule 500 mg PO Q6H Qty: 24 RF: 0 atorvastatin 10 mg tablet 10 mg PO QHS Qty: 30 RF: 0 Primary Care Provider: Kanwal Baker Referrals: Kanwal Baker, [Primary Care Provider] - 2 Days Disposition Disposition: Home, self care
[2020-09-22] MEDS: Ondansetron 4 MG/2 ML Vial IV ×2 (19:06→20:51)
[2020-09-22 19:12] VITALS: BP 148/76; PULSE 80; RESP 18; TEMP 36.6; O2SAT 95
[2020-09-22 19:16] VITALS: BP 148/76; PULSE 80; RESP 18; TEMP 36.3; O2SAT 98
--- NOTE | 2020-09-22 19:16 | ED.RN ---
This nurse taking over care for patient at this time and patient discussed need for CT and is now willing to try to go back down. CT aware.
--- NOTE | 2020-09-22 19:59 | ED.RN ---
Patient reports numbness and tingling and nausea. Dr Fofana aware and states we will still discharge patient
[2020-09-22 20:52] VITALS: BP 167/78; PULSE 80; RESP 18; TEMP 36.6; O2SAT 98
[2020-09-22 20:53] VITALS: BP 167/78; PULSE 78; RESP 18; TEMP 36.6; O2SAT 98
--- NOTE | 2020-09-22 22:18 | ED.RN ---
Assisted to wheelchair with 6 person assist and loaded into van where took over positioning and buckling patient w/c into the van. He uses sit to stand at home and states he can take it from there,.
== END 2020-09-22 22:19 | disposition home or self-care (01) ==
PROVIDERS: Emergency Provider Emergency Medicine
DX: R20.2 Paresthesia of skin (principal); N39.0 Urinary tract infection, site not specified; E11.9 Type 2 diabetes mellitus without complications; I44.7 Left bundle-branch block, unspecified; M81.0 Age-related osteoporosis without current pathological fracture; I25.2 Old myocardial infarction; I50.9 Heart failure, unspecified; Z87.19 Personal history of other diseases of the digestive system; Z86.73 Personal history of transient ischemic attack (TIA), and cerebral infarction without residual deficits; Z79.01 Long term (current) use of anticoagulants; Z79.84 Long term (current) use of oral hypoglycemic drugs; Z79.899 Other long term (current) drug therapy
CPT/HCPCS: 70450; 80048; 84484; 85025; 93005; 96374; 96376; 99284; A4216; J2405

== ENCOUNTER 2020-10-05 08:13 | Observation (INO) | payer MEDICARE, OTHER, MEDICAID, SELFPAY ==
[2020-10-05] VITALS (16 sets, daily range): BP systolic 135–156; BP diastolic 70–89; PULSE 69–85; RESP 14–22; TEMP 36.4–36.8; O2SAT 92–97; BMI 53.4; BMI 52.4
--- NOTE | 2020-10-05 08:15 | EKG12_ITS ---
Test Reason : NEURO Blood Pressure : / mmHG Vent. Rate : 082 BPM Atrial Rate : 082 BPM P-R Int : 336 ms QRS Dur : 142 ms QT Int : 412 ms P-R-T Axes : 236 -63 117 degrees QTc Int : 481 ms Unusual P axis, possible ectopic atrial rhythm Left axis deviation Left bundle branch block Abnormal ECG Confirmed by JAYNA SUAZO, WAYNE ([id number]), editor managing newspaper RAY WYNN ([id number]) on 10/08/2020 9:36:22 AM Referred By: Confirmed By:WAYNE DORANTES MD
--- NOTE | 2020-10-05 08:15 | RAD_ITS ---
STUDY: X-RAY CHEST REASON FOR EXAM: Female, 70 years old. Neuro deficit, acute, stroke suspected TECHNIQUE: Single AP portable view of the chest. COMPARISON: 09/19/2020. FINDINGS: Hypoventilatory changes. Prominent markings in the right upper lobe. Underlying infiltrate cannot be entirely excluded. There is no demonstrated pleural abnormality. There is mild cardiac enlargement. Normal mediastinum and della. Normal visualized pulmonary arteries. Normal visualized aortic arch and descending thoracic aorta. Stable osseous structures. There is no demonstrated abnormality of the visualized soft tissue structures of the upper abdomen. RAD/Chest 1 View IMPRESSION: Prominent markings in the right upper lobe. Mild infiltrate cannot be entirely excluded. Electronically Signed: Diego Carlos MD at 9:30 EDT Tel , Service support ,
--- NOTE | 2020-10-05 08:15 | CT_ITS ---
STUDY: CT HEAD STROKE PROTOCOL W/O CONTRAST INJECTION REASON FOR EXAM: Female, 70 years old. Neuro deficit, acute, stroke suspected RADIATION DOSAGE (If Supplied By Facility): CTDIvol = ( ) mGy, DLP = ( ) mGycm TECHNIQUE: Transaxial CT imaging of the brain was performed without administration of intravenous contrast material. Individualized dose optimization techniques were used for this CT. COMPARISON: 09/19/2020 FINDINGS: Normal soft tissue structures. Normal calvarium. Old infarct in the right basal ganglia associated with dilatation of the right lateral ventricle unchanged. Small infarct in the left parietal region again unchanged. There are areas of decreased attenuation within the white matter tracts of the supratentorial brain, consistent with microvascular disease changes. Normal brainstem. Normal cerebellum. There is no intracranial hemorrhage. There are no findings of an acute ischemic infarction. There are calcifications of the cavernous internal carotid arteries. Opacification of the right maxillary sinus is again seen unchanged in appearance since previous exam. CT/STROKE Brain/Head without Cont IMPRESSION: Old infarct in right basal ganglia unchanged since prior exam. No acute intracranial process. N.B. : The above information has been verbally conveyed by Diego Carlos MD to Helga Camargo MD, on 10/05/2020 08:39:14 (ET). Electronically Signed: Diego Carlos MD at 8:40 EDT Tel , Service support ,
--- NOTE | 2020-10-05 08:17 | CT_ITS ---
STUDY: CTA HEAD AND NECK WITH CONTRAST REASON FOR EXAM: Female, 70 years old. Neuro deficit, acute, stroke suspected RADIATION DOSAGE (If Supplied By Facility): CTDIvol = ( 35.44 ) mGy, DLP = ( 912.56 ) mGycm TECHNIQUE: CT angiography was performed with a multi-detector CT scanner. Data acquisition was obtained from the skull base through the vertex following intravenous administration of IV 100mL Isovue-370. MIP images were reconstructed from the axial data set. Post-processing of the angiographic images was performed, with multiplanar reformation and 3D reconstruction. Individualized dose optimization techniques were used for this CT. COMPARISON: No relevant priors. FINDINGS: Normal bilateral petrous carotid arteries. There is calcified plaque formation of the right cavernous carotid artery, with a mild stenosis (less than 50%). There is calcified plaque formation of the left cavernous carotid artery, with a mild stenosis (less than 50%). Normal right A1 segments of the anterior cerebral artery. Normal left A1 segments of the anterior cerebral artery. Normal intact anterior communicating artery (ACOM). Normal bilateral A2 segments of the anterior cerebral arteries. Essentially unremarkable right M1 and M2 segments of the middle cerebral arteries, with a normal M1 bifurcation. The previously noted beading appearance of the right M1 segment is not seen at this time. Normal left M1 and M2 segments of the middle cerebral arteries, with a normal M1 bifurcation. Normal right posterior communicating artery (PCOM). Normal left posterior communicating artery (PCOM). Normal bilateral vertebral arteries. Normal basilar artery with a normal basilar bifurcation. The visualized bilateral superior cerebellar (SCA) arteries are normal. There is no demonstrated aneurysm of the [place]. The brain is reported separately. AORTIC ARCH: There is minimal atherosclerotic calcific plaque formation of the aortic arch and great vessels arising from the aortic arch, without a hemodynamically significant stenosis. There is a normal origin of the brachiocephalic, left common carotid, and left subclavian arteries. Normal origins of the brachiocephalic, left common carotid, and left subclavian arteries. RIGHT CAROTID ARTERIES: There is atherosclerotic tortuous elongation of the right common carotid artery with mild calcifications. There is mild atherosclerotic plaque formation with minimal narrowing of the right carotid bulb. Mild calcification in the proximal right internal carotid artery without hemodynamically significant stenosis. Normal visualized cervical portion of the right internal carotid artery. Normal origin of the right external carotid artery (ECA). LEFT CAROTID ARTERIES: Normal left common carotid artery (CCA). There is mild atherosclerotic plaque formation with minimal narrowing of the left carotid bulb. Normal origin of the left internal carotid (ICA) artery without a hemodynamically significant stenosis. Normal visualized cervical portion of the left internal carotid artery. Normal origin of the left external carotid artery (ECA). VERTEBRAL ARTERIES: Normal bilateral vertebral arteries. There again are partially visualized bilateral pleural effusions. There are few mediastinal nodes. Degenerative changes in the spine are again seen. CT/STROKE CTA Head AND Neck W/Con IMPRESSION: 1. No intracranial great vessel stenosis or aneurysm. 2. Mild atherosclerotic changes in the bulb regions bilaterally without evidence of significant stenosis. 3. Patent bilateral vertebral arteries. 4. Persistent bilateral pleural effusions. N.B. : The above information has been verbally conveyed by Diego Carlos MD to Gaye Camargo MD, on 10/05/2020 09:03:22 (ET). Electronically Signed: Diego Carlos MD at 9:05 EDT Tel , Service support ,
--- NOTE | 2020-10-05 08:25 | ED.RN ---
PT CURRENTLY IN CT
[2020-10-05 08:29] LABS: Absolute Lymphocyte Count 0.48 X10^3/uL (0.83-4.51); Absolute Neutrophil Count 2.8 X10^3/uL (2.0-7.7); Basophil# 0.08 X10^3/uL; Basophil% 1.9 % (0-1); Eosinophil# 0.31 X10^3/uL; Eosinophils% 7.5 % (0-5); Hematocrit 32.4 % (37-47); Hemoglobin 10.4 g/dL (12.0-15.0); Lymphocyte # 0.48 X10^3/ul (0.83-4.51); Lymphocyte % 11.7 % (19-41); Mean Corp Hgb Conc 32.1 g/dL (32-36); Mean Corpuscular Hgb 27.9 pg (27.0-32.0); Mean Corpuscular Volume 86.9 fL (81-99); Mean Platelet Vol. 9.4 fl (6.2-12.0); Monocyte# 0.44 X10^3/uL; Monocyte% 10.7 % (0-10); NRBC Flagged by Analyzer 0 % (0-5); Neutrophil # 2.79 X10^3/uL (2.7-7.7); POSITIVE DIFFERENTIAL YES; Platelet Count 313 K/mm3 (150-450); RBC Distribution Width CV 17.9 % (11.6-14.6); RBC Distribution Width SD 56.3 fl (35.1-43.9); Red Blood Count 3.73 M/mm3 (4.2-5.4); White Blood Count 4.1 K/mm3 (4.4-11.0)
[2020-10-05] MEDS: Ondansetron 4 MG/2 ML Vial IV (08:33)
--- NOTE | 2020-10-05 08:33 | ED.RN ---
lt arm paralyzed from previous stroke, pt working with pt but is not walking.
[2020-10-05 08:34] LABS: Differential Indicated SCAN CRITERIA MET
[2020-10-05 08:39] LABS: International Normalized Ratio 1.8; Partial Thromboplast Time 38.1 Seconds (24.1-36.2); Prothrombin Time (Protime)PT. 19.9 SECONDS (11.7-14.9)
[2020-10-05 08:45] LABS: Anion Gap 7 (5-15); BUN 12 mg/dL (7-18); BUN/Creat Ratio 12.9 RATIO (10-20); Calcium,Total 8.6 mg/dL (8.5-10.1); Chloride 102 mmol/L (98-107); Creatinine, Serum 0.93 mg/dL (0.55-1.02); EST Glomerular Filtration Rate 63 mL/min (>60); Est Glom Filt Rate - Afr Amer 76 mL/min (>60); Estimated Creatinine Clearance 53.17 ml/min; Glucose 79 mg/dL (74-106); Potassium 4.5 mmol/L (3.5-5.1); Sodium Level 134 mmol/L (136-145)
--- NOTE | 2020-10-05 08:55 | EDS_ITS ---
HPI History of Present Illness Chief Complaint: Neuro S/Sx Informant: patient, family and EMS Narrative Narrative: 70-year-old female presenting with stroke symptoms. Patient's states at 7 AM she began having slurred speech and left facial droop. She has history of previous stroke with chronic left-sided weakness. EMS was called. Stroke team was activated prior to arrival. Prior similar symptoms: Yes PFSH PFSH Medical History Acute CVA (cerebrovascular accident) Congestive heart failure (CHF) Diabetes Irregular heart beat Myocardial infarct Non-smoker Osteoporosis Pancreatitis Stroke/cerebrovascular accident Home Medications allopurinol 300 mg PO DAILYCM tab 01/29/17 [Rx Last Taken 09/18/20] levothyroxine 25 mcg PO QODAY@0600 tab 01/29/17 [Rx Last Taken 09/18/20] magnesium oxide 400 mg PO DAILY tab 01/29/17 [Rx Last Taken 09/18/20] Eliquis 5 mg PO BID #60 tab 03/10/17 [Rx Last Taken 09/18/20] pantoprazole 40 mg PO DAILY #30 tab 03/10/17 [Rx Last Taken 09/18/20] diltiazem HCl [DILT-XR] 120 mg PO DAILY 09/19/20 [History Last Taken 09/18/20] sotalol 120 mg PO BID 09/19/20 [History Last Taken 09/18/20] cephalexin 500 mg PO Q6H #24 cap 09/20/20 [Rx Last Taken Unknown] metformin 1,000 mg PO BIDCM 10/05/20 [History Last Taken Unknown] Allergy/AdvReac Type Severity Reaction Status Date / Time alteplase Allergy Angioedema Verified 10/05/20 08:36 Penicillins Allergy Other Verified 10/05/20 08:36 Family History Mother Diabetes Heart disease Father Heart disease Surgical History History of ankle surgery History of appendectomy History of cholecystectomy History of knee replacement Social History housing: house current occupational status: unemployed Smoking Status: Never smoker ROS ROS ED Constitutional Constitutional ED: Denies fever(s) Eyes Eyes: Denies change in vision ENT ENT ED: Denies rhinorrhea or sore throat Cardiovascular Cardiovascular: Denies chest pain or palpitations Respiratory/Chest Respiratory/Chest: Denies cough or dyspnea Gastrointestinal Gastrointestinal: Denies abdominal pain, diarrhea, nausea or vomiting Genitourinary Genitourinary ED: Denies dysuria Musculoskeletal Musculoskeletal: Denies myalgias Integumentary Denies rash Neurologic Neurologic: Reports paresthesias and weakness; Denies headache(s) Psychiatric Psychiatric: Denies suicidal thoughts EXAM Physical Exam Const Vital Signs: 10/05/20 08:13 10/05/20 08:15 10/05/20 08:30 Temperature 98.2 F Temperature Source Temporal Pulse Rate 75 73 82 Respiratory Rate 22 H Blood Pressure 140/70 H 140/70 H 143/85 H Blood Pressure Mean 93 93 104 Pulse Ox 95 95 92 Oxygen Delivery Method Room Air Room Air 10/05/20 08:32 10/05/20 08:42 10/05/20 08:45 Temperature Temperature Source Pulse Rate 82 81 Respiratory Rate 18 19 H Blood Pressure 143/85 H 151/80 H Blood Pressure Mean 104 103 Pulse Ox 92 92 Oxygen Delivery Method Room Air Room Air Room Air Positive well nourished and well developed General Appearance ED: well developed HEENT Reports normocephalic and head/scalp atraumatic Eyes PERRL and EOMs intact bilaterally Neck supple General: Negative for tenderness Chest Wall inspection of chest normal Resp normal respiratory effort and clear to auscultation bilaterally Cardio regular rate and regular rhythm GI non-tender and non-distended Palpation: soft; Negative for guarding or rebound tenderness present no CVA tenderness Extremity normal to inspection Neuro oriented x3 Sensorium / Orientation: alert and other NIH 9= 1 facial droop, 3 left arm (chronic), 3 left leg (chronic), 2 right leg Psych mental status grossly normal MDM MDM MDM Narrative Medical decision making narrative: Patient was taken directly to CT scan. Noncontrast head CT shows no bleed. [facility] neurology was consulted. CTA head and neck shows no large vessel occlusion. [facility] neurology recommends admission for MRI. Will discuss with hospitalist for admission. Lab Data Attestation: I reviewed the patient's lab results. Labs: Laboratory Results - last 24 hr 10/05/20 10/05/20 10/05/20 08:15 08:15 08:15 WBC 4.1 L RBC 3.73 L Hgb 10.4 L Hct 32.4 L MCV 86.9 MCH 27.9 MCHC 32.1 RDW Std Deviation 56.3 H RDW Coeff of Chele 17.9 H Plt Count 313 MPV 9.4 Immature Gran % (Auto) 0.200 Neut % (Auto) 68.0 Lymph % (Auto) 11.7 L [place] % (Auto) 10.7 H Eos % (Auto) 7.5 H Baso % (Auto) 1.9 H Absolute Neuts (auto) 2.8 Absolute Lymphs (auto) 0.48 L Nucleated RBC % 0 PT 19.9 H INR 1.8 APTT 38.1 H Sodium 134 L Potassium 4.5 Chloride 102 Carbon Dioxide 25.0 Anion Gap 7 BUN 12 Creatinine 0.93 Estim Creat Clear Calc 53.17 Est GFR (MDRD) Af Amer 76 Est GFR (MDRD) Non-Af 63 BUN/Creatinine Ratio 12.9 Glucose 79 Calcium 8.6 Troponin I < 0.015 Radiography Diagnostic Testing: Radiology Impression Brain CT 10/05/20 08:15 IMPRESSION: Old infarct in right basal ganglia unchanged since prior exam. No acute intracranial process. N.B. : The above information has been verbally conveyed by Diego Carlos MD to Helga Camargo MD, on 10/05/2020 08:39:14 (ET). Electronically Signed: Diego Carlos MD at 8:40 EDT Tel , Service support , ADDENDUM: 10/05/20 0847 IMPRESSION: Old infarct in right basal ganglia unchanged since prior exam. No acute intracranial process. N.B. : The above information has been verbally conveyed by Diego Carlos MD to Helga Camargo MD, on 10/05/2020 08:39:14 (ET). Electronically Signed: Diego Carlos MD at 8:40 EDT Tel , Service support , Head/Neck CTA 10/05/20 08:17 IMPRESSION: 1. No intracranial great vessel stenosis or aneurysm. 2. Mild atherosclerotic changes in the bulb regions bilaterally without evidence of significant stenosis. 3. Patent bilateral vertebral arteries. 4. Persistent bilateral pleural effusions. N.B. : The above information has been verbally conveyed by Diego Carlos MD to Gaye Camargo MD, on 10/05/2020 09:03:22 (ET). Electronically Signed: Diego Carlos MD at 9:05 EDT Tel , Service support , ADDENDUM: 10/05/20 0912 IMPRESSION: 1. No intracranial great vessel stenosis or aneurysm. 2. Mild atherosclerotic changes in the bulb regions bilaterally without evidence of significant stenosis. 3. Patent bilateral vertebral arteries. 4. Persistent bilateral pleural effusions. N.B. : The above information has been verbally conveyed by Diego Carlos MD to Gaye Camargo MD, on 10/05/2020 09:03:22 (ET). Electronically Signed: Diego Carlos MD at 9:05 EDT Tel , Service support , Discharge Plan Dx/Rx/DC Orders Clinical Impression: Acute CVA (cerebrovascular accident) Disposition Disposition: Acute Care [facility]
--- NOTE | 2020-10-05 09:12 | PCM.HP.STD ---
[facility] - General General Date of Admission: 10/05/20 Chief Complaint: Left facial droop and slurred speech [facility] Narrative IFTIKHAR FERRARO, is a 70 F with past medical history segment for previous CVA with residual left-sided paralysis who presented to the emergency department with left facial droop and slurred speech. Patient has been noticed patient with significant left facial droop as well as slurred speech. Given her previous history the EMS squad was called and patient was brought to the emergency department. Patient slurred speech had resolved at the time of her presentation to the ED however her left facial droop persisted. Initial CT of the head obtained was unremarkable. Admitted for subsequent inpatient evaluation. [facility] Medical History (Updated 10/05/20 @ 11:[address] Jhony Dyson MD) Acute CVA (cerebrovascular accident) Acute right MCA stroke Congestive heart failure (CHF) Diabetes Gout Hyperlipidemia Irregular heart beat Myocardial infarct Non-smoker Osteoporosis Pancreatitis Stroke/cerebrovascular accident Weakness on left side of face Home Medications allopurinol 300 mg PO DAILYCM tab 01/29/17 [Rx Last Taken 09/18/20] levothyroxine 25 mcg PO QODAY@0600 tab 01/29/17 [Rx Last Taken 09/18/20] magnesium oxide 400 mg PO DAILY tab 01/29/17 [Rx Last Taken 09/18/20] Eliquis 5 mg PO BID #60 tab 03/10/17 [Rx Last Taken 09/18/20] pantoprazole 40 mg PO DAILY #30 tab 03/10/17 [Rx Last Taken 09/18/20] diltiazem HCl [DILT-XR] 120 mg PO DAILY 09/19/20 [History Last Taken 09/18/20] sotalol 120 mg PO BID 09/19/20 [History Last Taken 09/18/20] cephalexin 500 mg PO Q6H #24 cap 09/20/20 [Rx Last Taken Unknown] metformin 1,000 mg PO BIDCM 10/05/20 [History Last Taken Unknown] Allergy/AdvReac Type Severity Reaction Status Date / Time alteplase Allergy Angioedema Verified 10/05/20 08:36 Penicillins Allergy Other Verified 10/05/20 08:36 Family History Mother Diabetes Heart disease Father Heart disease Surgical History History of ankle surgery History of appendectomy History of cholecystectomy History of knee replacement Social History housing: house current occupational status: unemployed Smoking Status: Never smoker ROS Constitutional Constitutional: Denies chills, fever(s) or weight loss Eyes Eyes: Denies change in vision, diplopia or discharge from eye(s) ENT HEENT: Denies dysphagia, epistaxis, nasal discharge or sore throat Cardiovascular Cardiovascular: Denies chest pain, lightheadedness or palpitations Respiratory/Chest Respiratory/Chest: Denies cough, dyspnea or wheezing Gastrointestinal Gastrointestinal: Denies abdominal pain, diarrhea, nausea or vomiting Genitourinary Genitourinary: Denies burning urination, flank pain or hematuria Musculoskeletal Musculoskeletal: Denies arthralgias, joint pain or myalgias Integumentary Integumentary: Denies erythema or jaundice Neurologic Neurologic: Reports focal weakness; Denies abnormal gait, seizures or vertigo Psychiatric Psychiatric: Denies hallucinations, homicidal ideation or suicidal ideation Endocrine Endocrinology: Denies cold intolerance, excessive sweating or polydipsia Hematologic/Lymphatic Hematologic/Lymphatic: Denies easy bleeding or easy bruising Allergic/Immunologic Allergic/Immunologic: Denies itchy eyes, rhinitis or hives Vital Signs Vital Signs Vital Signs: 10/05/20 08:13 10/05/20 08:15 10/05/20 08:30 Temperature 98.2 F Temperature Source Temporal Pulse Rate 75 73 82 Respiratory Rate 22 H Blood Pressure 140/70 H 140/70 H 143/85 H Blood Pressure Mean 93 93 104 Pulse Ox 95 95 92 Oxygen Delivery Method Room Air Room Air 10/05/20 08:32 10/05/20 08:42 10/05/20 08:45 Temperature Temperature Source Pulse Rate 82 81 Respiratory Rate 18 19 H Blood Pressure 143/85 H 151/80 H Blood Pressure Mean 104 103 Pulse Ox 92 92 Oxygen Delivery Method Room Air Room Air Room Air Physical Exam Const no apparent distress General Appearance: cooperative and well kempt Nutritional Appearance: obese HEENT head/scalp atraumatic, moist oral mucous membranes and dentition normal Eyes conjunctivae normal, no scleral icterus and no papilledema Neck No nuchal rigidity, no lymphadenopathy and thyroid normal Lymph Lymphatic: no lymphadenopathy noted Resp no use of accessory muscles Effort and Inspection: symmetric chest movement; Negative for tracheal deviation Auscultation: diminished lung sounds Cardio regular rate, regular rhythm, no gallops and no clicks GI normal to inspection, nondistended, normoactive bowel sounds and non-tender no CVA tenderness Extremity no calf tenderness and no pedal edema General Extremity: Negative for clubbing or cyanosis Skin no jaundice, no petechiae and no mottling Neuro oriented x3 Neuro Narrative: Left-sided hemiparesis, left facial droop Psych cooperative and affect normal Appearance: grossly normal Attitude: engaged Lab / Micro Data Result Diagrams: 10/05/20 08:15 10/05/20 08:15 Labs: Laboratory Results - last 24 hr 10/05/20 10/05/20 10/05/20 08:15 08:15 08:15 WBC 4.1 L RBC 3.73 L Hgb 10.4 L Hct 32.4 L MCV 86.9 MCH 27.9 MCHC 32.1 RDW Std Deviation 56.3 H RDW Coeff of [place] 17.9 H Plt Count 313 MPV 9.4 Immature Gran % (Auto) 0.200 Neut % (Auto) 68.0 Lymph % (Auto) 11.7 L [place] % (Auto) 10.7 H Eos % (Auto) 7.5 H Baso % (Auto) 1.9 H Absolute Neuts (auto) 2.8 Absolute Lymphs (auto) 0.48 L Nucleated RBC % 0 PT 19.9 H INR 1.8 APTT 38.1 H Sodium 134 L Potassium 4.5 Chloride 102 Carbon Dioxide 25.0 Anion Gap 7 BUN 12 Creatinine 0.93 Estim Creat Clear Calc 53.17 Est GFR (MDRD) Af Amer 76 Est GFR (MDRD) Non-Af 63 BUN/Creatinine Ratio 12.9 Glucose 79 Calcium 8.6 Troponin I < 0.[address] 10/05/20 08:15 IMPRESSION: Old infarct in right basal ganglia unchanged since prior exam. No acute intracranial process. N.B. : The above information has been verbally conveyed by Diego Carlos MD to Helga Camargo MD, on 10/05/2020 08:39:14 (ET). Electronically Signed: Diego Carlos MD at 8:40 EDT Tel , Service support , ADDENDUM: 10/05/20 0847 IMPRESSION: Old infarct in right basal ganglia unchanged since prior exam. No acute intracranial process. N.B. : The above information has been verbally conveyed by Diego Carlos MD to Helga Camargo MD, on 10/05/2020 08:39:14 (ET). Electronically Signed: Diego Carlos MD at 8:40 EDT Tel , Service support , Head/Neck CTA 10/05/20 08:17 IMPRESSION: 1. No intracranial great vessel stenosis or aneurysm. 2. Mild atherosclerotic changes in the bulb regions bilaterally without evidence of significant stenosis. 3. Patent bilateral vertebral arteries. 4. Persistent bilateral pleural effusions. N.B. : The above information has been verbally conveyed by Diego Carlos MD to Gaye Camargo MD, on 10/05/2020 09:03:22 (ET). Electronically Signed: Diego Carlos MD at 9:05 EDT Tel , Service support , ADDENDUM: 10/05/20 0912 IMPRESSION: 1. No intracranial great vessel stenosis or aneurysm. 2. Mild atherosclerotic changes in the bulb regions bilaterally without evidence of significant stenosis. 3. Patent bilateral vertebral arteries. 4. Persistent bilateral pleural effusions. N.B. : The above information has been verbally conveyed by Diego Carlos MD to Gaye Camargo MD, on 10/05/2020 09:03:22 (ET). 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 Left facial droop with slurred speech ?Patient presentation consistent with acute CVA. Initial imaging studies however unremarkable. Patient has been admitted to a monitored bed currently being evaluated with every 4 neurochecks, ordered MRI of the head to either rule out or confirm the CVA. Also requested for PT/OT/ST evaluation. Patient currently not on any antiplatelet added aspirin as well as statin therapy 2. History of right MCA stroke in 2019 ?Patient has residual left-sided weakness 3. Diabetes mellitus type II -patient's oral hypoglycemics held. Placed on Accu-Cheks a.c. and at bedtime and covered with sliding scale insulin 4. Paroxysmal A. fib ?Rate controlled on sotalol and diltiazem. Patient also on systemic anticoagulation with Eliquis did continue 5. Hypertension - Blood pressure controlled, home medications continued with dose adjustment as needed 6. Gout ?Patient is on allopurinol 7. GERD ?Patient is on PPI did continue 8. Morbid obesity - With a BMI of 52.5 patient was counseled on weight reduction 9. Hypothyroidism - Patient is on levothyroxine home dose continued 10. Mild hyponatremia ?Monitoring with daily BMPs 11. DVT prophylaxis ?Patient on Eliquis Advance planning; did discuss with the patient and family (patient's ) regarding advanced directives as well as CODE STATUS. Did explain the various scenarios involved ( FULL CODE, DNR CCA, DNR CCA with no intubation, and DNR CC and what each meant) patient elected to full code with CPR and intubation if warranted. Order was placed. Time spent on discussion 18 minutes. Visit Charges OBSV E&M: 25020 Initial observation care L3 Procedures Hospitalists Procedures: 43186 Advncd Care Plan 30 Min
--- NOTE | 2020-10-05 09:25 | MRI_ITS ---
STUDY: MRI BRAIN WITHOUT CONTRAST REASON FOR EXAM: Female, 70 years old. CVA TECHNIQUE: Standardized multiplanar fat and water weighted pulse sequences were obtained. COMPARISON: CT earlier today, MRI 09/19/2020 FINDINGS: There is mild cerebral atrophy with widening of the extra-axial spaces and ventricular dilatation. There are a limited number of small white matter hyperintensities, distributed throughout the deep white matter tracts of the cerebral hemispheres, consistent with mild chronic white matter ischemic changes. Encephalomalacia and gliosis within the periventricular white matter of the right parietal lobe consistent with a chronic infarct with focal enlargement of the right lateral ventricle. There is no evidence for recent intracranial ischemia or other cause of cytotoxic edema on diffusion weighted imaging (DWI). Normal T2* images of the brain without demonstrated susceptibility artifact. There is no demonstrated hemosiderin stain. Normal bilateral basal ganglia. Normal thalami. There is no extra-axial fluid accumulation. Normal flow voids within the major intracranial circulation suggesting patency by spin echo criteria. Normal sella turcica, pituitary gland, infundibular stalk, optic chiasm and hypothalamus. Normal tectal plate and pineal gland. Normal midbrain, calvin and medulla. Normal cerebellum. Normal basal cisterns. Normal bilateral temporal bones. Normal bilateral internal auditory canals. No demonstrated orbital abnormality, within the constraints of a routine brain study. Normal visualized paranasal sinuses. Normal calvarium and skull base. Normal visualized soft tissue structures. Normal visualized upper cervical spine. MRI/Brain without Contrast IMPRESSION: Involutional changes of the brain, as described above. No acute infarct. Electronically Signed: Edilberto Gamboa MD at 13:28 EDT Tel , Service support ,
[2020-10-05] MEDS: LORazepam 2 MG/ML Syringe 1 MG IV (10:36)
--- NOTE | 2020-10-05 11:08 | NURSING ---
Addendum entered by Shanon See 10/05/20 11:44: Pt back into room 112, SpO2 94% RA, semi-ceballos. Original Note: Medicated per x1 ativan order prior to MRI. Taken to MRI, while laying flat pt SpO2 88% RA. Per pt, she 'cannot lay flat and does not lay flat'. 2L NC placed on pt, spo2 89%. Increase O2 to 4L NC, maintaining spo2 95-98%.
[2020-10-05] MEDS: 0.9% Normal Saline 1,000 ML 75 ML IV (11:43)
[2020-10-05 12:10] LABS: Bedside Glucose 115 mg/dL (70-110)
[2020-10-05] MEDS: dilTIAZem CD 120 MG Capsule PO (12:50)
[2020-10-05] MEDS: Magnesium Chloride 64 MG Delay Rel.Tablet 128 MG PO (12:50)
[2020-10-05] MEDS: Pantoprazole Sodium 40 MG Tablet PO (12:50)
[2020-10-05] MEDS: APIXABAN 5 MG TABLET PO ×2 (12:50→21:25)
[2020-10-05] MEDS: Acetaminophen 325 MG Tablet 650 MG PO (12:50)
[2020-10-05] MEDS: Nystatin Powder 15gm Bottle 1 APPLIC TOPICAL ×2 (14:51→21:25)
[2020-10-05] MEDS: Menthol/Lanolin/Calamine/Znox 113 GM Tube 1 APPLIC TOPICAL ×2 (14:51→21:25)
--- NOTE | 2020-10-05 15:25 | CASEMGMT ---
RN BENJAMÍN NOTE: Intro role of CM to patient and [employer] form explained re: Observation status for treatment of TIA.? Explained hospitalization will be paid per?her insurance policy for Outpatient billing?and condition will continue to be evaluated for Inpt necessity. Also let pt know that [facility] sends paper in the billing packet with their phone number if questions arise. Discussed Pharmacy section of [employer] form and self administered medication guideline.? Pt verbalizes understanding and does not have further questions. ?Form signed, copy made and placed in chart, and original given to pt. PT/OT evals have been reviewed. Additional therapy recommended. Pt made aware. She states sheh lives w/her , who helps to care for her and she wishes to return home and declines any HHC or OP therapy. She states her dtr-in-law is an RN and is studying to be a PT and comes to her home 3 x's/week to do therapy with her. She denies having any discharge or home-going needs or concerns. Abigail RODRIGUEZ RN CM
[2020-10-05 16:55] LABS: Bedside Glucose 94 mg/dL (70-110)
[2020-10-05] MEDS: Sotalol Hydrochloride 80 MG Tablet 120 MG PO (21:24)
[2020-10-05 22:01] LABS: Bedside Glucose 102 mg/dL (70-110)
[2020-10-06] MEDS: 0.9% Normal Saline 1,000 ML 75 ML IV (00:22)
[2020-10-06 02:55] VITALS: PULSE 69
[2020-10-06 03:15] VITALS: BP 95/60; PULSE 64; RESP 16; TEMP 36; O2SAT 94
[2020-10-06 06:29] LABS: Absolute Lymphocyte Count 0.29 X10^3/uL (0.83-4.51); Absolute Neutrophil Count 4.1 X10^3/uL (2.0-7.7); Basophil# 0.06 X10^3/uL; Basophil% 1.2 % (0-1); Eosinophil# 0.23 X10^3/uL; Eosinophils% 4.4 % (0-5); Hematocrit 30.7 % (37-47); Hemoglobin 9.5 g/dL (12.0-15.0); Lymphocyte # 0.29 X10^3/ul (0.83-4.51); Lymphocyte % 5.6 % (19-41); Mean Corp Hgb Conc 30.9 g/dL (32-36); Mean Corpuscular Hgb 27.7 pg (27.0-32.0); Mean Corpuscular Volume 89.5 fL (81-99); Mean Platelet Vol. 9.9 fl (6.2-12.0); Monocyte# 0.53 X10^3/uL; Monocyte% 10.2 % (0-10); NRBC Flagged by Analyzer 0 % (0-5); Neutrophil # 4.07 X10^3/uL (2.7-7.7); Neutrophil % 78.2 % (47-70); POSITIVE DIFFERENTIAL YES; Platelet Count 283 K/mm3 (150-450); RBC Distribution Width CV 18.1 % (11.6-14.6); RBC Distribution Width SD 59.6 fl (35.1-43.9); Red Blood Count 3.43 M/mm3 (4.2-5.4); White Blood Count 5.2 K/mm3 (4.4-11.0)
[2020-10-06] MEDS: Menthol/Lanolin/Calamine/Znox 113 GM Tube 1 APPLIC TOPICAL (06:33)
[2020-10-06] MEDS: Nystatin Powder 15gm Bottle 1 APPLIC TOPICAL (06:33)
[2020-10-06 06:35] LABS: Bedside Glucose 72 mg/dL (70-110)
[2020-10-06 06:36] LABS: Differential Indicated SCAN CRITERIA MET
[2020-10-06 06:57] LABS: Anion Gap 9 (5-15); BUN 12 mg/dL (7-18); BUN/Creat Ratio 14.2 RATIO (10-20); Chloride 101 mmol/L (98-107); Cholesterol 103 mg/dL (200); Creatinine, Serum 0.84 mg/dL (0.55-1.02); EST Glomerular Filtration Rate 71 mL/min (>60); Est Glom Filt Rate - Afr Amer 85 mL/min (>60); Estimated Creatinine Clearance 58.87 ml/min; Glucose 75 mg/dL (74-106); High Density Lipoprotein 21 mg/dL; Sodium Level 133 mmol/L (136-145); Triglycerides 99 mg/dL; Very Low Density Lipoprotein 20 mg/dL (5-40)
[2020-10-06 07:20] VITALS: O2SAT 96
--- NOTE | 2020-10-06 07:20 | DS.PCM_ITS ---
Providers Date of Admission: 10/05/20 Primary Care Physician: Dr. 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: without buttermilk drier operator use Qualified Code(s): E11.9 - Type 2 diabetes mellitus without complications (4) Hypothyroid: Status: Chronic Code(s): E03.9 - Hypothyroidism, unspecified (5) Paroxysmal atrial fibrillation: Status: Chronic Code(s): I48.0 - Paroxysmal atrial fibrillation (6) Hyperlipidemia: Status: Chronic Code(s): E78.5 - Hyperlipidemia, unspecified (7) Gout: Status: Chronic Code(s): M10.9 - Gout, unspecified Medications at Discharge Home Medications allopurinol 300 mg PO DAILYCM tab 01/29/17 magnesium oxide 400 mg PO DAILY tab 01/29/17 Eliquis 5 mg PO BID #60 tab 03/10/17 pantoprazole 40 mg PO DAILY #30 tab 03/10/17 diltiazem HCl [DILT-XR] 120 mg PO DAILY 09/19/20 sotalol 120 mg PO BID 09/19/20 cephalexin 10/05/20 levothyroxine PO DAILY 10/05/20 metformin 1,000 mg PO BIDCM 10/05/20 aspirin 81 mg PO DAILY #90 tab 10/06/20 atorvastatin 40 mg PO QHS #90 tab 10/06/20 Hospital Course Summary of Care Provided Minutes Spent on Discharge: 35 Hospital Course: ?Patient is a 71-year-old lady with history of previous right MCA stroke 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 Left facial droop with slurred speech ?Patient presentation consistent with acute CVA.? Initial imaging studies however unremarkable.? Patient has been admitted to a monitored bed currently being evaluated with every 4 neurochecks, ordered MRI of the head to either rule out or confirm the CVA.? Also requested for PT/OT/ST evaluation.? Patient currently not on any antiplatelet added aspirin as well as statin therapy -Patient's MRI was negative for acute CVA. Prescription was written for starting therapy and aspirin on discharge 2.? History of right MCA stroke in 2019 ?Patient has residual left-sided weakness 3.? Diabetes mellitus type II -patient's oral hypoglycemics held. Placed on? Accu-Cheks a.c. and at bedtime an d covered with sliding scale insulin 4.? Paroxysmal A. fib ?Rate controlled on sotalol and diltiazem.? Patient also on systemic anticoagulation with Eliquis did continue 5.? Hypertension - Blood pressure controlled, home medications continued with dose adjustment as needed 6.? Gout ?Patient is on allopurinol 7.? GERD ?Patient is on PPI did continue ?8.? Morbid obesity - With a BMI of 52.5 patient was counseled on weight reduction 9.? Hypothyroidism - Patient is on levothyroxine home dose continued 10.? Mild hyponatremia ?Monitoring with daily BMPs 11.? DVT prophylaxis ?Patient on Eliquis Physical Exam Const no apparent distress General Appearance: cooperative and well kempt Nutritional Appearance: obese HEENT head/scalp atraumatic, moist oral mucous membranes and dentition normal Eyes conjunctivae normal, no scleral icterus and no papilledema Neck No nuchal rigidity, no lymphadenopathy and thyroid normal Lymph Lymphatic: no lymphadenopathy noted Resp no use of accessory muscles Effort and Inspection: symmetric chest movement; Negative for tracheal deviation Auscultation: diminished lung sounds Cardio regular rate, regular rhythm, no gallops and no clicks GI normal to inspection, nondistended, normoactive bowel sounds and non-tender no CVA tenderness Extremity no calf tenderness and no pedal edema General Extremity: Negative for clubbing or cyanosis Skin no jaundice, no petechiae and no mottling Neuro oriented x3 Neuro Narrative: Left-sided hemiparesis, Psych cooperative and affect normal Appearance: grossly normal Attitude: engaged ABG / Lab / Microbiology Data Result Diagrams: 10/06/20 06:11 10/06/20 06:11 Laboratory: Laboratory Results 10/05/20 08:15: Diff Path Review May foll 10/05/20 09:50: Troponin I < 0.015 10/05/20 12:00: POC Glucose 115 H 10/05/20 16:50: POC Glucose 94 10/05/20 21:20: POC Glucose 102 10/06/20 06:11: WBC 5.2, RBC 3.43 L, Hgb 9.5 L, Hct 30.7 L, MCV 89.5, MCH 27.7, MCHC 30.9 L, RDW Std Deviation 59.6 H, RDW Coeff of Chele 18.1 H, Plt Count 283, MPV 9.9, Immature Gran % (Auto) 0.400, Neut % (Auto) 78.2 H, Lymph % (Auto) 5.6 L, [place] % (Auto) 10.2 H, Eos % (Auto) 4.4, Baso % (Auto) 1.2 H, Absolute Neuts (auto) 4.1, Absolute Lymphs (auto) 0.29 L, Nucleated RBC % 0 10/06/20 06:11: Sodium 133 L, Potassium 4.0, Chloride 101, Carbon Dioxide 23.0, Anion Gap 9, BUN 12, Creatinine 0.84, Estim Creat Clear Calc 58.87, Est GFR (MDRD) Af Amer 85, Est GFR (MDRD) Non-Af 71, BUN/Creatinine Ratio 14.2, Glucose 75, Calcium 8.0 L, Magnesium 2.0, Triglycerides 99, Cholesterol 103, LDL Cholesterol 62, VLDL Cholesterol 20, HDL Cholesterol 21 L 10/06/20 06:32: POC Glucose 72 Radiography Diagnostic Testing: Radiology Impression Brain CT 10/05/20 08:15 IMPRESSION: Old infarct in right basal ganglia unchanged since prior exam. No acute intracranial process. N.B. : The above information has been verbally conveyed by Diego Carlos MD to Helga Camargo MD, on 10/05/2020 08:39:14 (ET). Electronically Signed: Diego Carlos MD at 8:40 EDT Tel , Service support , ADDENDUM: 10/05/20 0847 IMPRESSION: Old infarct in right basal ganglia unchanged since prior exam. No acute intracranial process. N.B. : The above information has been verbally conveyed by Diego Carlos MD to Helga Camargo MD, on 10/05/2020 08:39:14 (ET). Electronically Signed: Diego Carlos MD at 8:40 EDT Tel , Service support , Chest X-Ray 10/05/20 08:15 IMPRESSION: Prominent markings in the right upper lobe. Mild infiltrate cannot be entirely excluded. Electronically Signed: Diego Carlos MD at 9:30 EDT Tel , Service support , Head/Neck CTA 10/05/20 08:17 IMPRESSION: 1. No intracranial great vessel stenosis or aneurysm. 2. Mild atherosclerotic changes in the bulb regions bilaterally without evidence of significant stenosis. 3. Patent bilateral vertebral arteries. 4. Persistent bilateral pleural effusions. N.B. : The above information has been verbally conveyed by Diego Carlos MD to Gaye Camargo MD, on 10/05/2020 09:03:22 (ET). Electronically Signed: Diego Carlos MD at 9:05 EDT Tel , Service support , ADDENDUM: 10/05/20 0912 IMPRESSION: 1. No intracranial great vessel stenosis or aneurysm. 2. Mild atherosclerotic changes in the bulb regions bilaterally without evidence of significant stenosis. 3. Patent bilateral vertebral arteries. 4. Persistent bilateral pleural effusions. N.B. : The above information has been verbally conveyed by Diego Carlos MD to Gaye Camargo MD, on 10/05/2020 09:03:22 (ET). Electronically Signed: Diego Carlos MD at 9:05 EDT Tel , Service support , Brain MRI 10/05/20 09:25 IMPRESSION: Involutional changes of the brain, as described above. No acute infarct. Electronically Signed: Edilberto Gamboa MD at 13:28 EDT Tel , Service support , D/C Instructions Discharge Diet: 1800 Calorie Control Diet Discharge Activity: Return to Normal Activity Call your doctor if you observe: Fever of 101 or Higher, Numbness or Tingling, Shortness of breath, Dizziness, Fainting spells and Chest pain Meaningful Use Info Meaningful Use Diagnoses (Choose all that apply): None applicable Discharge Plan Admission Admit Date/Time: 10/05/20 09:25 Primary Reason for Your Visit: TIA Attending Provider: Jhony Dyson Primary Care Provider: Kanwal Baker Instructions Patient Instructions: Transient Ischemic Attack (TIA) Discharge Orders/Prescriptions Prescriptions: New atorvastatin 40 mg tablet 40 mg PO QHS Qty: 90 RF: 0 aspirin 81 mg tablet,delayed release (DR/EC) 81 mg PO DAILY Qty: 90 RF: 0 Continued magnesium oxide 400 MG tablet 400 mg PO DAILY RF: 0 allopurinol 300 MG tablet 300 mg PO DAILYCM RF: 0 pantoprazole 40 MG tablet 40 mg PO DAILY Qty: 30 RF: 0 Eliquis 5 MG tablet 5 mg PO BID Qty: 60 RF: 0 sotalol 120 mg Tablet 120 mg PO BID RF: 0 diltiazem HCl [DILT-XR] 120 mg Capsule,Ext.Rel 24h Degradable 120 mg PO DAILY RF: 0 metformin 500 MG tablet 1,000 mg PO BIDCM RF: 0 levothyroxine 25 mcg tablet PO DAILY RF: 0 cephalexin 500 mg capsule RF: 0 Referrals / Follow Up: Kanwal Baker, [Primary Care Provider] - In 1 Week Disposition Disposition (needs filled in before D/C Order can be placed): Home, self care Visit Charges OBSV E&M: 25160 Observation care discharge
[2020-10-06 07:24] VITALS: PULSE 56
[2020-10-06] MEDS: Allopurinol 300 MG Tablet PO (08:45)
--- NOTE | 2020-10-06 08:58 | PCM.DC ---
Discharge Instructions Diet Discharge Diet: 1800 Calorie Control Diet Activity Discharge Activity: Return to Normal Activity Dressing / Incision Call your doctor if you observe: Fever of 101 or Higher, Numbness or Tingling, Shortness of breath, Dizziness, Fainting spells and Chest pain Follow Up Care Test Results: Test results from this visit will be discussed in further detail at your follow-up appointment, if applicable. Discharge Plan Admission Admit Date/Time: 10/05/20 09:25 Primary Reason for Your Visit: TIA Attending Provider: Jhony Dyson Primary Care Provider: Kanwal Baker Instructions Patient Instructions: Transient Ischemic Attack (TIA) Discharge Orders/Prescriptions Prescriptions: New atorvastatin 40 mg tablet 40 mg PO QHS Qty: 90 RF: 0 aspirin 81 mg tablet,delayed release (DR/EC) 81 mg PO DAILY Qty: 90 RF: 0 Continued magnesium oxide 400 MG tablet 400 mg PO DAILY RF: 0 allopurinol 300 MG tablet 300 mg PO DAILYCM RF: 0 pantoprazole 40 MG tablet 40 mg PO DAILY Qty: 30 RF: 0 Eliquis 5 MG tablet 5 mg PO BID Qty: 60 RF: 0 sotalol 120 mg Tablet 120 mg PO BID RF: 0 diltiazem HCl [DILT-XR] 120 mg Capsule,Ext.Rel 24h Degradable 120 mg PO DAILY RF: 0 metformin 500 MG tablet 1,000 mg PO BIDCM RF: 0 levothyroxine 25 mcg tablet PO DAILY RF: 0 cephalexin 500 mg capsule RF: 0 Referrals / Follow Up: Kanwal Baker DO [Primary Care Provider] - In 1 Week Disposition Disposition (needs filled in before D/C Order can be placed): Home, self care
[2020-10-06 09:11] VITALS: BP 137/60; PULSE 62; RESP 16; TEMP 36.4; O2SAT 96
[2020-10-06] MEDS: APIXABAN 5 MG TABLET PO (09:17)
[2020-10-06] MEDS: dilTIAZem CD 120 MG Capsule PO (09:17)
[2020-10-06] MEDS: Sotalol Hydrochloride 80 MG Tablet 120 MG PO (09:17)
[2020-10-06] MEDS: Magnesium Chloride 64 MG Delay Rel.Tablet 128 MG PO (09:18)
[2020-10-06] MEDS: Pantoprazole Sodium 40 MG Tablet PO (09:18)
[2020-10-06 09:25] VITALS: PULSE 65
[2020-10-06 11:55] VITALS: BMI 52.4
[2020-10-07 13:26] LABS: Pathologist Review Reviewed
== END 2020-10-06 08:55 | disposition home or self-care (01) ==
LOC: ED 09:19 → PCU 09:38
PROVIDERS: Admitting Provider Internal Medicine; Emergency Provider Emergency Medicine; Visit Provider Internal Medicine
DX: R29.810 Facial weakness (principal); R47.81 Slurred speech; I69.354 Hemiplegia and hemiparesis following cerebral infarction affecting left non-dominant side; I11.0 Hypertensive heart disease with heart failure; I50.9 Heart failure, unspecified; I25.2 Old myocardial infarction; E11.9 Type 2 diabetes mellitus without complications; I44.7 Left bundle-branch block, unspecified; M10.9 Gout, unspecified; E78.5 Hyperlipidemia, unspecified; I48.0 Paroxysmal atrial fibrillation; E03.9 Hypothyroidism, unspecified; Z79.01 Long term (current) use of anticoagulants; Z79.899 Other long term (current) drug therapy; Z79.84 Long term (current) use of oral hypoglycemic drugs; E66.01 Morbid (severe) obesity due to excess calories; Z68.43 Body mass index [BMI] 50.0-59.9, adult; K21.9 Gastro-esophageal reflux disease without esophagitis; E87.1 Hypo-osmolality and hyponatremia
CPT/HCPCS: 36415; 70450; 70496; 70498; 70551; 71045; 80048; 80061; 82962; 83735; 84484; 85025; 85610; 85730; 92610; 93005; 94762; 96361; 96374; 96375; 97162; 97166; 97802; 99218; 99285; J7030; Q9967; A4216; G0378; J2405

== ENCOUNTER 2020-10-07 18:05 | Emergency (ER) | payer MEDICARE, OTHER, MEDICAID, SELFPAY ==
[2020-10-06 11:55] VITALS: BMI 52.4
[2020-10-07 18:06] VITALS: BP 144/63; PULSE 71; RESP 17; TEMP 36.7; O2SAT 99; BMI 53.6
--- NOTE | 2020-10-07 18:20 | EDS_ITS ---
HPI History of Present Illness Chief Complaint: Numb/Ting Informant: patient Onset/Context/Timing Onset: Hours (1 hour prior to presentation) Context: Sudden Onset Timing: Continuous Quality: Tingling Location: Both hands and right lower extremity Current Severity: Mild Maximum Severity: Mild Worsened by: Nothing Relieved by: Nothing Associated Symptoms Associated Symptoms: No other symptoms Narrative Narrative: Patient is a 70-year-old woman with history of CVA, type 2 diabetes, hypertension, hyperlipidemia who was seen this past weekend and diagnosed with TIA. At that time she had slurred speech and worsening left facial droop. She is on Eliquis for the paroxysmal atrial fibrillation. She is not taking aspirin as instructed. She also was treated for urinary tract infection. She denies headache, visual, ocular auditory symptoms. She denies trouble with speech or swallowing. She states the facial droop is chronic. She denies chest pain, shortness of breath, orthopnea or PND. She denies abdominal pain, nausea, vomiting or diarrhea. She denies dysuria, frequency, urgency or hematuria. She states she is unable to use her left arm or lower extremity. She is bed ridden. She does have a wound left knee status post total knee arthroplasty, which is chronic. The swelling of her lower extremities is chronic as well. Prior similar symptoms: No Recent Illness/Hospitalization: Yes [facility] Medical History Acute CVA (cerebrovascular accident) Acute right MCA stroke Congestive heart failure (CHF) Diabetes Gout Hyperlipidemia Irregular heart beat Myocardial infarct Non-smoker Osteoporosis Pancreatitis Stroke/cerebrovascular accident Weakness on left side of face Home Medications allopurinol 300 mg PO DAILYCM tab 01/29/17 [Rx Last Taken 10/04/20] magnesium oxide 400 mg PO DAILY tab 01/29/17 [Rx Last Taken 10/04/20] Eliquis 5 mg PO BID #60 tab 03/10/17 [Rx Last Taken 10/04/20] pantoprazole 40 mg PO DAILY #30 tab 03/10/17 [Rx Last Taken 10/04/20] diltiazem HCl [DILT-XR] 120 mg PO DAILY 09/19/20 [History Last Taken 10/04/20] sotalol 120 mg PO BID 09/19/20 [History Last Taken 10/04/20] cephalexin 10/05/20 [History Last Taken 10/04/20] levothyroxine PO DAILY 10/05/20 [History Last Taken 10/04/20] metformin 1,000 mg PO BIDCM 10/05/20 [History Last Taken 10/04/20] aspirin 81 mg PO DAILY #90 tab 10/06/20 [Rx Last Taken Unknown] atorvastatin 40 mg PO QHS #90 tab 10/06/20 [Rx Last Taken Unknown] Allergy/AdvReac Type Severity Reaction Status Date / Time alteplase Allergy Angioedema Verified 10/07/20 18:09 Penicillins Allergy Other Verified 10/07/20 18:09 Family History Mother Diabetes Heart disease Father Heart disease Surgical History History of ankle surgery History of appendectomy History of cholecystectomy History of knee replacement Social History household members: spouse housing: house current occupational status: unemployed Smoking Status: Never smoker alcohol intake: never substance use type: does not use ROS ROS ED Constitutional Constitutional ED: Denies chills, fever(s), subjective or sweats Eyes Eyes: Denies blurry vision, change in vision or diplopia ENT ENT ED: Denies ear pain, rhinorrhea or sore throat Cardiovascular Cardiovascular: Reports orthopnea; Denies chest pain, palpitations, paroxysmal nocturnal dyspnea or racing heartbeat Respiratory/Chest Respiratory/Chest: Reports orthopnea; Denies cough, dyspnea, dyspnea on exertion, paroxysmal nocturnal dyspnea or sputum Gastrointestinal Gastrointestinal: Denies abdominal pain, diarrhea, nausea or vomiting Genitourinary Genitourinary ED: Denies dysuria, hematuria or urinary frequency Musculoskeletal Musculoskeletal: Reports back pain; Denies arthralgias, myalgias or neck pain Integumentary Reports rash Neurologic Neurologic: Reports paresthesias RUE, RLE and LUE; Denies headache(s) or weakness Endocrine Endocrinology: Denies polydipsia, polyphagia or polyuria EXAM Physical Exam Const Vital Signs: 10/07/20 18:06 Temperature 98.1 F Temperature Source Temporal Pulse Rate 71 Respiratory Rate 17 Blood Pressure 144/63 H Blood Pressure Mean 90 Pulse Ox 99 Oxygen Delivery Method Room Air Positive well nourished, well developed and obese General Appearance ED: well developed Nutritional Appearance: obese HEENT Reports TM's clear and moist mucous membranes HEENT Narrative: Ears patent. Uvula midline. Posterior pharynx unremarkable. Tympanic Membrane ED: Yes TM's clear Eyes PERRL and EOMs intact bilaterally Eyes Narrative: There is no nystagmus. There is no subconjunctival hemorrhage noted. There is no APD. Unable to visualize fundi due to miosis. General Eye ED: Negative for pale conjunctiva or scleral icterus Neck no lymphadenopathy, supple and no JVD Chest Wall inspection of chest normal and palpation of chest normal Resp clear to auscultation bilaterally Cardio regular rate and no murmurs Rhythm: abnormal rhythm irregularly irregular GI normal to inspection, nondistended, normoactive bowel sounds Back/Spine no CVA tenderness Cervical Spine: Negative for cervical spine tenderness Thoracic Spine / Upper Back: Negative for thoracic spinal tenderness Extremity Extremity Narrative: Stasis dermatitis of the right and left leg. The wound is healing by secondary intention with no evidence of infection, left knee General Extremety ED: Yes edema General Extremity: edema Neuro oriented x3 and No CN's II-XII intact bilaterally Neuro Narrative: Patient has a flaccid left side. She has significant facial droop on the left. These are old. Sensorium / Orientation: alert Sensory Exam: sensory level loss detected Motor Exam: strength abnormal; Negative for strength 5/5 throughout Psych mental status grossly normal Skin Skin Narrative: Venous stasis dermatitis without evidence infection of the right and left leg. MDM MDM MDM Narrative Medical decision making narrative: Patient presents with bilateral hand paresthesia, right lower extremity paresthesia. She states she has no sensation of the left side and has no tingling sensation. Since patient was seen here on Wednesday and had an MRI with no acute findings and her neurologic exam is unchanged from prior we will obtain appropriate blood work to look for metabolic causes of her bilateral paresthesia. She also was instructed that she should take an aspirin a day not when she remembers to. Lab Data Labs: Laboratory Results - last 24 hr 10/07/20 10/07/20 18:20 18:20 WBC 4.0 L RBC 3.58 L Hgb 10.0 L Hct 31.9 L MCV 89.1 MCH 27.9 MCHC 31.3 L RDW Std Deviation 59.0 H RDW Coeff of Chele 18.4 H Plt Count 331 MPV 9.8 Immature Gran % (Auto) 0.300 Neut % (Auto) 67.1 Lymph % (Auto) 10.6 L [place] % (Auto) 11.6 H Eos % (Auto) 8.4 H Baso % (Auto) 2.0 H Absolute Neuts (auto) 2.7 Absolute Lymphs (auto) 0.42 L Nucleated RBC % 0 Differential Comment Diff Path Review May foll Platelet Estimate ADEQUATE Hypochromasia 1+ Anisocytosis 1+ Target Cells RARE Sodium 134 L Potassium 4.1 Chloride 103 Carbon Dioxide 26.0 Anion Gap 5 BUN 11 Creatinine 0.93 Estim Creat Clear Calc 53.17 Est GFR (MDRD) Af Amer 76 Est GFR (MDRD) Non-Af 63 BUN/Creatinine Ratio 11.8 Glucose 98 Calcium 8.5 Patient is neutropenic and anemic, which she has a history of and is at baseline. Basic metabolic panel is unremarkable. Since patient has bilateral paresthesia and recent admission work-up for stroke/TIA she was instructed to take her aspirin daily and discharged to home with appropriate home-going instructions for paresthesia. This may be due to her diabetes. Discharge Plan Triage Chief Complaint: Numb/Ting ED Provider: Edmar Shipman Dx/Rx/DC Orders Clinical Impression: Paresthesia and pain of both upper extremities, Paresthesia of right lower extremity Instructions: ED Paraesthesias Prescriptions: No Action magnesium oxide 400 MG tablet 400 mg PO DAILY RF: 0 allopurinol 300 MG tablet 300 mg PO DAILYCM RF: 0 pantoprazole 40 MG tablet 40 mg PO DAILY Qty: 30 RF: 0 Eliquis 5 MG tablet 5 mg PO BID Qty: 60 RF: 0 sotalol 120 mg Tablet 120 mg PO BID RF: 0 diltiazem HCl [DILT-XR] 120 mg Capsule,Ext.Rel 24h Degradable 120 mg PO DAILY RF: 0 metformin 500 MG tablet 1,000 mg PO BIDCM RF: 0 levothyroxine 25 mcg tablet PO DAILY RF: 0 cephalexin 500 mg capsule RF: 0 atorvastatin 40 mg tablet 40 mg PO QHS Qty: 90 RF: 0 aspirin 81 mg tablet,delayed release (DR/EC) 81 mg PO DAILY Qty: 90 RF: 0 Primary Care Provider: Kanwal Baker Referrals: Kanwal Baker, [Primary Care Provider] - 5-7 Days Disposition Disposition: Home, self care
[2020-10-07 18:29] LABS: Absolute Lymphocyte Count 0.42 X10^3/uL (0.83-4.51); Absolute Neutrophil Count 2.7 X10^3/uL (2.0-7.7); Basophil# 0.08 X10^3/uL; Eosinophil# 0.33 X10^3/uL; Eosinophils% 8.4 % (0-5); Hematocrit 31.9 % (37-47); Lymphocyte # 0.42 X10^3/ul (0.83-4.51); Lymphocyte % 10.6 % (19-41); Mean Corp Hgb Conc 31.3 g/dL (32-36); Mean Corpuscular Hgb 27.9 pg (27.0-32.0); Mean Corpuscular Volume 89.1 fL (81-99); Mean Platelet Vol. 9.8 fl (6.2-12.0); Monocyte# 0.46 X10^3/uL; Monocyte% 11.6 % (0-10); NRBC Flagged by Analyzer 0 % (0-5); Neutrophil # 2.65 X10^3/uL (2.7-7.7); Neutrophil % 67.1 % (47-70); POSITIVE DIFFERENTIAL YES; Platelet Count 331 K/mm3 (150-450); RBC Distribution Width CV 18.4 % (11.6-14.6); Red Blood Count 3.58 M/mm3 (4.2-5.4)
[2020-10-07 18:34] LABS: Differential Indicated SCAN CRITERIA MET
[2020-10-07 18:42] LABS: Anion Gap 5 (5-15); BUN 11 mg/dL (7-18); BUN/Creat Ratio 11.8 RATIO (10-20); Calcium,Total 8.5 mg/dL (8.5-10.1); Chloride 103 mmol/L (98-107); Creatinine, Serum 0.93 mg/dL (0.55-1.02); EST Glomerular Filtration Rate 63 mL/min (>60); Est Glom Filt Rate - Afr Amer 76 mL/min (>60); Estimated Creatinine Clearance 53.17 ml/min; Glucose 98 mg/dL (74-106); Potassium 4.1 mmol/L (3.5-5.1); Sodium Level 134 mmol/L (136-145)
[2020-10-07 18:56] LABS: Anisocytosis 1+; Hypochromasia 1+; Platelet Estimate ADEQUATE (ADEQ); Target Cells RARE
[2020-10-07 20:05] VITALS: BP 122/66; PULSE 79; RESP 18; O2SAT 99
--- NOTE | 2020-10-07 20:37 | EKG12_ITS ---
Test Reason : Blood Pressure : / mmHG Vent. Rate : 073 BPM Atrial Rate : 087 BPM P-R Int : 000 ms QRS Dur : 142 ms QT Int : 428 ms P-R-T Axes : 000 -40 126 degrees QTc Int : 471 ms Atrial fibrillation Left axis deviation Left bundle branch block Abnormal ECG Confirmed by JAYNA SUAZO, WAYNE ([id number]), film editor RAY WYNN ([id number]) on 10/10/2020 11:21:22 AM Referred By: MASSIMO Confirmed By:WAYNE DORANTES MD
--- NOTE | 2020-10-07 20:37 | CT_ITS ---
We are attempting to reach an attending provider to discuss findings. An addendum with communication details will be sent when the communication is complete. STUDY: CT HEAD STROKE PROTOCOL W/O CONTRAST INJECTION REASON FOR EXAM: Female, 70 years old. Acute mental status change, possible CVA RADIATION DOSAGE (If Supplied By Facility): CTDIvol = ( ) mGy, DLP = ( ) mGycm TECHNIQUE: Transaxial CT imaging of the brain was performed without administration of intravenous contrast material. Individualized dose optimization techniques were used for this CT. COMPARISON: 10/05/2020 FINDINGS: Normal soft tissue structures. Normal calvarium. Old infarct in the right basal ganglia associated with dilatation of the right lateral ventricle unchanged. Small infarct in the left parietal region again unchanged. There are areas of decreased attenuation within the white matter tracts of the supratentorial brain, consistent with microvascular disease changes. Normal brainstem. Normal cerebellum. There is no intracranial hemorrhage. There are no findings of an acute ischemic infarction. Persistent opacification of the right maxillary sinus, likely chronic ASPECT score:10 CT/STROKE Brain/Head without Cont IMPRESSION: Old right basal ganglia infarct with dilatation of the ipsilateral right ventricle. No acute hemorrhage Persistent opacification of the right maxillary sinus, likely chronic No interval change Electronically Signed: Elan Lemons MD at 21:30 EDT , Service support ,
[2020-10-07 20:59] VITALS: O2SAT 100
--- NOTE | 2020-10-07 21:15 | RAD_ITS ---
STUDY: X-RAY CHEST REASON FOR EXAM: Female, 70 years old. Neuro deficit, acute, stroke suspected TECHNIQUE: Single AP portable view of the chest. COMPARISON: 10/05/2020 FINDINGS: Lungs are expanded with persistent opacifications unchanged from the previous study. There is no demonstrated pleural abnormality. Normal size heart. Normal mediastinum and della. Normal visualized pulmonary arteries. Normal visualized aortic arch and descending thoracic aorta. There are diffuse degenerative changes of the visualized thoracic spine. There is degenerative osteoarthritis of the bilateral shoulders. There is no demonstrated abnormality of the visualized soft tissue structures of the upper abdomen. RAD/Chest 1 View IMPRESSION: No interval change Electronically Signed: Elan Lemons MD at 22:08 EDT , Service support ,
[2020-10-07] MEDS: Ondansetron 4 MG/2 ML Vial IV (21:36)
[2020-10-07 22:03] LABS: International Normalized Ratio 1.9; Prothrombin Time (Protime)PT. 20.7 SECONDS (11.7-14.9)
[2020-10-07 22:04] LABS: Partial Thromboplast Time 40.8 Seconds (24.1-36.2)
[2020-10-07 22:20] VITALS: BP 132/78; PULSE 78; RESP 16; O2SAT 99
[2020-10-08 12:44] LABS: Pathologist Review Reviewed
== END 2020-10-07 22:37 | disposition home or self-care (01) ==
PROVIDERS: Emergency Provider Emergency Medicine
DX: R20.2 Paresthesia of skin (principal); Z74.01 Bed confinement status; E66.9 Obesity, unspecified; Z68.43 Body mass index [BMI] 50.0-59.9, adult; E11.9 Type 2 diabetes mellitus without complications; I11.0 Hypertensive heart disease with heart failure; I50.9 Heart failure, unspecified; E78.5 Hyperlipidemia, unspecified; I44.7 Left bundle-branch block, unspecified; I48.0 Paroxysmal atrial fibrillation; M10.9 Gout, unspecified; I25.2 Old myocardial infarction; M81.0 Age-related osteoporosis without current pathological fracture; Z87.19 Personal history of other diseases of the digestive system; Z86.73 Personal history of transient ischemic attack (TIA), and cerebral infarction without residual deficits; Z79.01 Long term (current) use of anticoagulants; Z79.82 Long term (current) use of aspirin; Z79.84 Long term (current) use of oral hypoglycemic drugs; Z79.899 Other long term (current) drug therapy
CPT/HCPCS: 70450; 71045; 80048; 84484; 85025; 85610; 85730; 93005; 96374; 99285; A4216; J2405

== ENCOUNTER 2020-11-11 09:09 | Emergency (ER) | payer MEDICARE, OTHER, MEDICAID, SELFPAY ==
[2020-11-11 09:09] VITALS: BP 143/78; PULSE 49; RESP 16; TEMP 36.6; O2SAT 97; BMI 38.0
--- NOTE | 2020-11-11 09:23 | EKG12_ITS ---
Test Reason : Blood Pressure : / mmHG Vent. Rate : 059 BPM Atrial Rate : 063 BPM P-R Int : 000 ms QRS Dur : 132 ms QT Int : 458 ms P-R-T Axes : 000 -58 117 degrees QTc Int : 453 ms Atrial fibrillation with slow ventricular response Left axis deviation Non-specific intra-ventricular conduction block Possible Anterolateral infarct , age undetermined Abnormal ECG Confirmed by MARY SUAZO, JOHN ([id number]), editor at large RAY WYNN ([id number]) on 11/14/2020 7:46:10 AM Referred By: TACOS/HELENA Confirmed By:JOHN HERNANDEZ MD
[2020-11-11 09:29] LABS: Absolute Lymphocyte Count 0.38 X10^3/uL (0.83-4.51); Absolute Neutrophil Count 3.2 X10^3/uL (2.0-7.7); Basophil# 0.07 X10^3/uL; Basophil% 1.6 % (0-1); Differential Indicated SCAN CRITERIA MET; Eosinophil# 0.25 X10^3/uL; Eosinophils% 5.8 % (0-5); Hematocrit 31.1 % (37-47); Lymphocyte # 0.38 X10^3/ul (0.83-4.51); Lymphocyte % 8.8 % (19-41); Mean Corp Hgb Conc 32.2 g/dL (32-36); Mean Corpuscular Hgb 28.2 pg (27.0-32.0); Mean Corpuscular Volume 87.9 fL (81-99); Mean Platelet Vol. 9.9 fl (6.2-12.0); Monocyte# 0.38 X10^3/uL; Monocyte% 8.8 % (0-10); NRBC Flagged by Analyzer 0 % (0-5); Neutrophil # 3.21 X10^3/uL (2.7-7.7); Neutrophil % 74.3 % (47-70); POSITIVE DIFFERENTIAL YES; Platelet Count 316 K/mm3 (150-450); RBC Distribution Width CV 17.9 % (11.6-14.6); RBC Distribution Width SD 57.9 fl (35.1-43.9); Red Blood Count 3.54 M/mm3 (4.2-5.4); White Blood Count 4.3 K/mm3 (4.4-11.0)
--- NOTE | 2020-11-11 09:37 | EDS_ITS ---
HPI History of Present Illness Chief Complaint: Palpitations Narrative Narrative: 70-year-old female presenting with chest pain which she describes as someone socking me. This is focal over the left chest wall. It does not hurt to touch. She does not describe squeezing or pressure. She is not lightheaded or diaphoretic. She complains of palpitations with the onset of 7 AM. She denies fever or chills. She denies shortness of breath. She has a history of atrial fibrillation and is anticoagulated. She has had an ablation previously. [facility] Medical History Acute CVA (cerebrovascular accident) Acute CVA (cerebrovascular accident) Acute right MCA stroke Congestive heart failure (CHF) Diabetes Gout Hyperlipidemia Irregular heart beat Myocardial infarct Non-smoker Osteoporosis Pancreatitis Stroke/cerebrovascular accident Weakness on left side of face Home Medications allopurinol 300 mg PO DAILYCM tab 01/29/17 [Rx Last Taken 10/04/20] magnesium oxide 400 mg PO DAILY tab 01/29/17 [Rx Last Taken 10/04/20] Eliquis 5 mg PO BID #60 tab 03/10/17 [Rx Last Taken 10/04/20] pantoprazole 40 mg PO DAILY #30 tab 03/10/17 [Rx Last Taken 10/04/20] diltiazem HCl [DILT-XR] 120 mg PO DAILY 09/19/20 [History Last Taken 10/04/20] sotalol 120 mg PO BID 09/19/20 [History Last Taken 10/04/20] cephalexin 10/05/20 [History Last Taken 10/04/20] levothyroxine PO DAILY 10/05/20 [History Last Taken 10/04/20] metformin 1,000 mg PO BIDCM 10/05/20 [History Last Taken 10/04/20] aspirin 81 mg PO DAILY #90 tab 10/06/20 [Rx Last Taken Unknown] atorvastatin 40 mg PO QHS #90 tab 10/06/20 [Rx Last Taken Unknown] Allergy/AdvReac Type Severity Reaction Status Date / Time alteplase Allergy Angioedema Verified 11/11/20 09:12 Penicillins Allergy Other Verified 11/11/20 09:12 Family History Mother Diabetes Heart disease Father Heart disease Surgical History History of ankle surgery History of appendectomy History of cholecystectomy History of knee replacement Social History household members: spouse housing: house current occupational status: unemployed Smoking Status: Never smoker alcohol intake: never substance use type: does not use ROS ROS ED Constitutional Constitutional ED: Denies chills, fever(s) or sweats Eyes Eyes: Denies blurry vision or change in vision ENT ENT ED: Denies ear pain, rhinorrhea or sore throat Cardiovascular Cardiovascular: Reports chest pain and palpitations Respiratory/Chest Respiratory/Chest: Denies cough, dyspnea or sputum Gastrointestinal Gastrointestinal: Denies abdominal pain, constipation, diarrhea or vomiting Genitourinary Genitourinary ED: Denies dysuria, hematuria or urinary frequency Musculoskeletal Musculoskeletal: Denies arthralgias, myalgias or neck pain Integumentary Denies abscess, Abrasions or rash Neurologic Neurologic: Denies headache(s), paresthesias or weakness Psychiatric Psychiatric: Denies anxiety, depression, suicidal ideation or suicidal thoughts Endocrine Endocrinology: Denies polydipsia or polyuria EXAM Physical Exam Const Vital Signs: 11/11/20 09:09 11/11/20 10:08 11/11/20 11:53 Temperature 97.8 F Temperature Source Temporal Pulse Rate 49 L 60 Respiratory Rate 16 17 Respiratory Effort Normal Non-Labored Respiratory Pattern Normal Blood Pressure 143/78 H 114/52 L Blood Pressure Mean 99 72 Pulse Ox 97 94 Oxygen Delivery Method Room Air Room Air 11/11/20 12:12 11/11/20 13:23 Temperature Temperature Source Pulse Rate 41 L 47 L Respiratory Rate 20 H 16 Respiratory Effort Respiratory Pattern Blood Pressure 127/56 H 127/49 H Blood Pressure Mean 79 75 Pulse Ox 95 Oxygen Delivery Method Positive well nourished General Appearance ED: NAD HEENT Reports moist mucous membranes normocephalic and atraumatic Eyes PERRL and EOMs intact bilaterally Chest Wall inspection of chest normal and palpation of chest normal Resp normal respiratory effort Effort and Inspection: respiratory distress Cardio regular rate Rhythm: abnormal rhythm irregularly irregular Extremity normal to inspection General Extremety ED: Negative for tenderness Neuro Sensorium / Orientation: awake and alert Psych mental status grossly normal Skin no rashes or lesions noted and no wounds Heart Score History: Slightly/Non-Suspicious ECG: Normal Age: >/= 65 years Risk Factors: >/= 3 Risk Factors or History of CAD Score: 4 MDM MDM MDM Narrative Medical decision making narrative: Patient presenting with chest pain which is 1 focal area in the mid breast. There is no tenderness to palpation. She is complaining more of a palpitation sensation. She has a history of atrial fibrillation. EKG on my interpretation shows atrial fibrillation at a rate of [address] elevation or depression. Patient has no white blood cell count. Hemoglobin hematocrit are stable. Renal function is normal. High- sensitivity troponin is 7.3. Chest x-ray as interpreted by myself shows a mild degree of CHF. Patient does have history of this. Patient will have delta troponin. Patient's delta troponin is negative. BNP is 912. She is given 40 of Lasix in the ED. I discussed the case with Dr. Walls who is on-call for her braid folder and he felt comfortable given the negative troponins to send her home. She is not hypoxic or tachypneic. I believe she is stable for discharge. He stated that he was amenable to see her at office tomorrow or anytime later this week. 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 Patient discharged home in stable condition. Impression: 1. Paroxysmal A. fib 2. Palpitations 3. Chest pain 4. CHF Lab Data Attestation: I reviewed the patient's lab results. Labs: Laboratory Results - last 24 hr 11/11/20 11/11/20 11/11/20 09:20 09:20 09:20 WBC 4.3 L RBC 3.54 L Hgb 10.0 L Hct 31.1 L MCV 87.9 MCH 28.2 MCHC 32.2 RDW Std Deviation 57.9 H RDW Coeff of Chele 17.9 H Plt Count 316 MPV 9.9 Immature Gran % (Auto) 0.700 Neut % (Auto) 74.3 H Lymph % (Auto) 8.8 L Treasure % (Auto) 8.8 Eos % (Auto) 5.8 H Baso % (Auto) 1.6 H Absolute Neuts (auto) 3.2 Absolute Lymphs (auto) 0.38 L Nucleated RBC % 0 Differential Comment COMMENT Diff Path Review May foll Sodium 130 L Potassium 3.9 Chloride 98 Carbon Dioxide 28.0 Anion Gap 4 L BUN 12 Creatinine 0.82 Estim Creat Clear Calc 62.56 Est GFR (MDRD) Af Amer 88 Est GFR (MDRD) Non-Af 73 BUN/Creatinine Ratio 14.6 Glucose 114 H Calcium 8.7 Troponin I High Sens 7.3 B-Natriuretic Peptide 912.7 H 11/11/20 11:35 WBC RBC Hgb Hct MCV MCH MCHC RDW Std Deviation RDW Coeff of Chele Plt Count MPV Immature Gran % (Auto) Neut % (Auto) Lymph % (Auto) Treasure % (Auto) Eos % (Auto) Baso % (Auto) Absolute Neuts (auto) Absolute Lymphs (auto) Nucleated RBC % Differential Comment Diff Path Review Sodium Potassium Chloride Carbon Dioxide Anion Gap BUN Creatinine Estim Creat Clear Calc Est GFR (MDRD) Af Amer Est GFR (MDRD) Non-Af BUN/Creatinine Ratio Glucose Calcium Troponin I High Sens 7.1 B-Natriuretic Peptide Radiography Diagnostic Testing: Radiology Impression Chest X-Ray 11/11/20 10:11 IMPRESSION: Vascular congestion and mild degree of CHF. Electronically Signed: Harish Blanton MD at 10:33 EDT , Service support , Discharge Plan Triage Chief Complaint: Palpitations ED Provider: Topher Weeks Dx/Rx/DC Orders Instructions: ED AFIB, ED Heart Failure, Congestive (CHF) Prescriptions: No Action magnesium oxide 400 MG tablet 400 mg PO DAILY RF: 0 allopurinol 300 MG tablet 300 mg PO DAILYCM RF: 0 pantoprazole 40 MG tablet 40 mg PO DAILY Qty: 30 RF: 0 Eliquis 5 MG tablet 5 mg PO BID Qty: 60 RF: 0 sotalol 120 mg Tablet 120 mg PO BID RF: 0 diltiazem HCl [DILT-XR] 120 mg Capsule,Ext.Rel 24h Degradable 120 mg PO DAILY RF: 0 metformin 500 MG tablet 1,000 mg PO BIDCM RF: 0 levothyroxine 25 mcg tablet PO DAILY RF: 0 cephalexin 500 mg capsule RF: 0 atorvastatin 40 mg tablet 40 mg PO QHS Qty: 90 RF: 0 aspirin 81 mg tablet,delayed release (DR/EC) 81 mg PO DAILY Qty: 90 RF: 0 Primary Care Provider: Kanwal Baker Referrals: Kanwal Baker, [Primary Care Provider] - Disposition Disposition: Home, Self Care
[2020-11-11 09:46] LABS: Anion Gap 4 (5-15); BUN 12 mg/dL (7-18); BUN/Creat Ratio 14.6 RATIO (10-20); Calcium,Total 8.7 mg/dL (8.5-10.1); Chloride 98 mmol/L (98-107); Creatinine, Serum 0.82 mg/dL (0.55-1.02); EST Glomerular Filtration Rate 73 mL/min (>60); Est Glom Filt Rate - Afr Amer 88 mL/min (>60); Estimated Creatinine Clearance 62.56 ml/min; Glucose 114 mg/dL (74-106); Potassium 3.9 mmol/L (3.5-5.1); Sodium Level 130 mmol/L (136-145); Troponin-I HS 7.3 pg/mL (3.0-53.7)
[2020-11-11] MEDS: Aspirin 81 MG TAB.CHEW 324 MG PO (10:04)
[2020-11-11] MEDS: Ondansetron 4 MG/2 ML Vial IV (10:04)
--- NOTE | 2020-11-11 10:11 | RAD_ITS ---
STUDY: X-RAY CHEST REASON FOR EXAM: Female, 70 years old. Chest pain TECHNIQUE: Single AP portable view of the chest. COMPARISON: Comparison is made with prior study dated 10/07/2000. FINDINGS: EKG electrodes are seen. Vascular congestion and mild degree of CHF. There is no demonstrated pleural abnormality. Normal size heart. Normal mediastinum and della. Normal visualized pulmonary arteries. There is atherosclerotic calcification of the aortic arch with tortuosity. There are diffuse degenerative changes of the visualized thoracic spine. Normal visualized ribs, clavicles, and shoulders. There is no demonstrated abnormality of the visualized soft tissue structures of the upper abdomen. RAD/Chest 1 View (Portable) IMPRESSION: Vascular congestion and mild degree of CHF. Electronically Signed: Harish Blanton MD at 10:33 EDT , Service support ,
[2020-11-11 11:32] LABS: BNP,B-Type NATRIURETIC PEPTIDE 912.7 pg/mL (0-100)
[2020-11-11 11:53] VITALS: BP 114/52; PULSE 60; RESP 17; O2SAT 94
[2020-11-11 12:05] LABS: Troponin-I HS 7.1 pg/mL (3.0-53.7)
[2020-11-11 12:12] VITALS: BP 127/56; PULSE 41; RESP 20; O2SAT 95
[2020-11-11 13:23] VITALS: BP 127/49; PULSE 47; RESP 16
[2020-11-11 14:05] VITALS: BP 116/72; PULSE 46; RESP 20
[2020-11-11] MEDS: Furosemide 40 MG/4 ML Vial IV (14:12)
[2020-11-11 14:16] VITALS: BP 116/74
--- NOTE | 2020-11-11 15:03 | CHAPLAIN ---
Type of Pastoral Visit _x__ Initial Visit ___ Follow-up Visit ___ On-call Visit ___ General Patient Visit ___ Spiritual Assessment ___ Family Conference ___ Bereavement ___ Rapid Response ___ Code Blue ___ Other (describe below) Pastoral Care Referral From _x__ Patient ___ Family ___ Nurse ___ Physician ___ Mower Mechanic ___ Packager Head ___ Other (describe below) Sacrament/Intervention _x__ Active listening ___ Anointing ___ Nondenominational ___ Bereavement ___ Communion ___ Kera exploration ___ ___ Life review _x__ Prayer ___ Reconciliation ___ Sacrament of Sick _x__ Supportive presence ___ Wedding ___ Other (describe below) Pastoral Comments patient was in trauma room 2 and she saw this supervisor cutting and boning in hallway; pt asked for supervisor cutting and boning to come into room as she remembered this supervisor cutting and boning from previous visit; pt asked for prayer and presence; spouse of pt also welcoming of spiritual care support at this time
[2020-11-12 12:51] LABS: Pathologist Review Reviewed
== END 2020-11-11 14:29 | disposition home or self-care (01) ==
PROVIDERS: Emergency Provider Student in an Organized Health Care Education/Training Program
DX: I48.0 Paroxysmal atrial fibrillation (principal); R00.2 Palpitations; R07.9 Chest pain, unspecified; I50.9 Heart failure, unspecified; I25.2 Old myocardial infarction; E11.9 Type 2 diabetes mellitus without complications; E78.5 Hyperlipidemia, unspecified; I25.10 Atherosclerotic heart disease of native coronary artery without angina pectoris; M10.9 Gout, unspecified; M81.0 Age-related osteoporosis without current pathological fracture; Z86.73 Personal history of transient ischemic attack (TIA), and cerebral infarction without residual deficits; Z87.19 Personal history of other diseases of the digestive system; Z79.01 Long term (current) use of anticoagulants; Z79.82 Long term (current) use of aspirin; Z79.84 Long term (current) use of oral hypoglycemic drugs; Z79.899 Other long term (current) drug therapy
CPT/HCPCS: 71045; 80048; 83880; 84484; 85025; 93005; 96374; 96375; 99284; A4216; J1940; J2405

== ENCOUNTER 2020-11-15 13:39 | Observation (INO) | payer MEDICARE, OTHER, MEDICAID, SELFPAY ==
[2020-11-15] VITALS (10 sets, daily range): BP systolic 132–150; BP diastolic 51–74; PULSE 42–49; RESP 16–20; TEMP 36.4–36.8; O2SAT 95–98; BMI 50.1; BMI 48.3
--- NOTE | 2020-11-15 13:45 | EKG12_ITS ---
Test Reason : CP Blood Pressure : / mmHG Vent. Rate : 044 BPM Atrial Rate : 044 BPM P-R Int : 188 ms QRS Dur : 138 ms QT Int : 558 ms P-R-T Axes : 022 -45 094 degrees QTc Int : 477 ms Marked sinus bradycardia Left axis deviation Non-specific intra-ventricular conduction block Abnormal ECG Confirmed by MARY SUAZO, JOHN ([id number]), features editor ISIDRO REDD ([id number]) on 11/20/2020 1:31:38 PM Referred By: GIRMA Confirmed By:JOHN HERNANDEZ MD
--- NOTE | 2020-11-15 13:45 | RAD_ITS ---
STUDY: X-RAY CHEST REASON FOR EXAM: Female, 70 years old. Chest pain TECHNIQUE: Single AP portable view of the chest. COMPARISON: Comparison is made with prior study dated 11/11/2020. FINDINGS: EKG electrodes are seen. Since prior study, there has been a progression of the passive congestion and CHF. There is no demonstrated pleural abnormality. There is moderate cardiac enlargement. Normal mediastinum and della. Normal visualized pulmonary arteries. There is atherosclerotic calcification of the aortic arch with tortuosity. Normal visualized thoracic spine. There is degenerative osteoarthritis of the bilateral shoulders. There is no demonstrated abnormality of the visualized soft tissue structures of the upper abdomen. RAD/Chest 1 View (Portable) IMPRESSION: Cardiomegaly and progressive CHF. Electronically Signed: Harish Blanton MD at 14:23 EDT , Service support ,
--- NOTE | 2020-11-15 13:54 | ED.VIS.CHEST ---
HPI History of Present Illness Chief Complaint: Chest Pain Informant: patient and EMS Onset/Context/Timing Onset: Today and Hours Activity at onset: sudden Timing: Intermittent Quality: Positive for Dull and Pain Location: Right Chest and Left Chest Current Severity: Mild Maximum Severity: Mild Associated Symptoms: Positive for Nausea; Negative for Vomiting, Diaphoresis, Dyspnea, Cough, Fever and Lightheadedness Narrative Narrative: 70-year-old female history of prior HI about 10 years ago. No stents. No bypass. Also hypertension high cholesterol and diabetic. She is also had a prior TIA. Currently is on Eliquis. States she was sitting at home and around 1230 started having chest pain across her upper chest and down her left chest. Currently is resolved. She was brought in by squad. Her heart rate was low they gave her atropine x2 with no change. Patient states she often has a low heart rate. She is on antiarrhythmic medications. And she was not hypotensive per squad with heart rate was in the 40s. Prior Similar Symptoms: Yes Recent Illness/Hospitalization: No CVD Risk Factors: Positive for Hypertension, Diabetes and Hypercholesterolemia PE Risk Factors: Negative for Recent Travel/Surgery, Recent Immobilization, Prior DVT or PE, Cancer and OCP + Smoking + >/=35 TAD Risk Factors: Negative for Marfan's Syndrome, Hypertension and Family History [facility] Medical History Acute CVA (cerebrovascular accident) Acute CVA (cerebrovascular accident) Acute right MCA stroke Congestive heart failure (CHF) Diabetes Gout Hyperlipidemia Irregular heart beat Myocardial infarct Non-smoker Osteoporosis Pancreatitis Stroke/cerebrovascular accident Weakness on left side of face Home Medications allopurinol 300 mg PO DAILYCM tab 01/29/17 [Rx Last Taken 10/04/20] magnesium oxide 400 mg PO DAILY tab 01/29/17 [Rx Last Taken 10/04/20] Eliquis 5 mg PO BID #60 tab 03/10/17 [Rx Last Taken 10/04/20] pantoprazole 40 mg PO DAILY #30 tab 03/10/17 [Rx Last Taken 10/04/20] diltiazem HCl [DILT-XR] 120 mg PO DAILY 09/19/20 [History Last Taken 10/04/20] sotalol 120 mg PO BID 09/19/20 [History Last Taken 10/04/20] cephalexin 10/05/20 [History Last Taken 10/04/20] levothyroxine PO DAILY 10/05/20 [History Last Taken 10/04/20] metformin 1,000 mg PO BIDCM 10/05/20 [History Last Taken 10/04/20] aspirin 81 mg PO DAILY #90 tab 10/06/20 [Rx Last Taken Unknown] atorvastatin 40 mg PO QHS #90 tab 10/06/20 [Rx Last Taken Unknown] Allergy/AdvReac Type Severity Reaction Status Date / Time alteplase Allergy Angioedema Verified 11/15/20 13:44 Penicillins Allergy Other Verified 11/15/20 13:44 Family History Mother Diabetes Heart disease Father Heart disease Surgical History History of ankle surgery History of appendectomy History of cholecystectomy History of knee replacement Social History household members: spouse housing: house current occupational status: unemployed Smoking Status: Never smoker alcohol intake: never substance use type: does not use ROS ROS ED ROS Narrative Denies any recent illness. No fever. No history of DVT or PE and on the blood thinner Eliquis. Review of Systems ROS Unobtainable: Denies due to encephalopathy Constitutional Constitutional ED: Denies chills or fever(s) Eyes Eyes: Denies none ENT ENT ED: Denies ear pain or sore throat Cardiovascular Cardiovascular: Reports chest pain; Denies palpitations Respiratory/Chest Respiratory/Chest: Denies cough or dyspnea Gastrointestinal Gastrointestinal: Reports nausea; Denies abdominal pain, diarrhea, melena or vomiting Genitourinary Genitourinary ED: Denies dysuria or hematuria Musculoskeletal Musculoskeletal: Denies myalgias Integumentary Denies rash Neurologic Neurologic: Denies headache(s) Psychiatric Psychiatric: Denies depression Endocrine Endocrinology: Denies polyuria Hematologic/Lymphatic Hematologic/Lymphatic: Denies easy bruising Allergic/Immunologic Allergic/Immunologic ED: Denies urticaria EXAM Physical Exam Narrative Exam Narrative: Well-appearing older female. Vital signs stable afebrile. Pulse ox 97% on room air no signs hypoxia. Blood pressure 150/68 with a heart rate of 46. HEENT exam unremarkable. Lungs are clear. Heart bradycardic rate in 40s. Chest wall nontender. Abdomen soft nontender. Moving all 4 extremities. She has significant lymphedema in both lower extremities which is chronic. Neurologically she is awake and alert. Moving all 4 extremities. Const Vital Signs: 11/15/20 13:40 11/15/20 13:46 Temperature 98.2 F Temperature Source Temporal Pulse Rate 46 L 44 L Respiratory Rate 20 H 20 H Blood Pressure 150/68 H 132/74 H Blood Pressure Mean 95 93 Pulse Ox 97 95 Oxygen Delivery Method Room Air Room Air HEENT Reports moist mucous membranes normocephalic and atraumatic; Negative for trauma or tenderness Eyes PERRL and EOMs intact bilaterally General Eye ED: Negative for pale conjunctiva or scleral icterus Neck no lymphadenopathy, supple and no JVD General: Negative for tenderness Chest Wall inspection of chest normal and palpation of chest normal Chest: Negative for tenderness Resp normal respiratory effort and clear to auscultation bilaterally Effort and Inspection: respiratory distress Auscultation: Negative for rales or rhonchi Cardio regular rhythm, S1 normal heart sound and S2 normal heart sound Rate: bradycardia GI normal to inspection, nondistended, normoactive bowel sounds, soft to palpation, non-tender, non-distended and no masses Back/Spine no CVA tenderness Extremity General Extremety ED: Yes edema; Negative for tenderness General Extremity: edema Neuro oriented x3 and CN's II-XII intact bilaterally Sensorium / Orientation: awake, alert, oriented to person, oriented to place and oriented to time Motor Exam: strength 5/5 throughout Psych mental status grossly normal Skin no rashes or lesions noted Heart Score History: Moderately Suspicious Age: >/= 65 years Risk Factors: >/= 3 Risk Factors or History of CAD Troponin: </= Normal Limit Score: 5 MDM MDM MDM Narrative Medical decision making narrative: 70-year-old female with chest pain at rest. Exam otherwise unremarkable other than chronic lymphedema lower extremities. She will undergo a cardiac work-up and received aspirin. She is bradycardic which is chronic and most likely due to medications. Repeat exam at 2:52 PM. Unchanged. She is having some nausea she will be written for IV Zofran. Says her chest pain is resolved. I will speak to the hospitalist about admission. Lab Data Attestation: I reviewed the patient's lab results. Lab results narrative: CBC shows a white count of 4. Hemoglobin 9.3 which is her baseline anemia. Sodium of 130. Gap of 5. Creatinine 0.94. Troponin is 7. Labs: Laboratory Results - last 24 hr 11/15/20 11/15/20 14:05 14:05 WBC 4.4 RBC 3.28 L Hgb 9.3 L Hct 29.1 L MCV 88.7 MCH 28.4 MCHC 32.0 RDW Std Deviation 58.1 H RDW Coeff of Chele 18.0 H Plt Count 363 MPV 10.0 Immature Gran % (Auto) 0.500 Neut % (Auto) 74.9 H Lymph % (Auto) 8.4 L Rains % (Auto) 10.3 H Eos % (Auto) 4.8 Baso % (Auto) 1.1 H Absolute Neuts (auto) 3.3 Absolute Lymphs (auto) 0.37 L Nucleated RBC % 0 Differential Comment Platelet Estimate ADEQUATE RBC Morphology N CYTIC Hypochromasia 1+ Sodium 130 L Potassium 4.8 Chloride 98 Carbon Dioxide 27.0 Anion Gap 5 BUN 18 Creatinine 0.94 Estim Creat Clear Calc 52.61 Est GFR (MDRD) Af Amer 76 Est GFR (MDRD) Non-Af 63 BUN/Creatinine Ratio 19.3 Glucose 117 H Calcium 8.4 L Troponin I High Sens 7.2 Radiography Chest X-Ray - ED: 1 View, Read by ED Physician, Read by Radiologist, Cardiomegaly and CHF Diagnostic Testing: Radiology Impression Chest X-Ray 11/15/20 13:45 IMPRESSION: Cardiomegaly and progressive CHF. Electronically Signed: Harish Blanton MD at 14:23 EDT , Service support , Rhythm Strip Rhythm Strip: Sinus Rhythm Rate: 44 Ectopy: None EKG Initial EKG: Attestation: I personally reviewed and interpreted this EKG as follows: Interpretation: Sinus Rhythm, No Acute Injury Pattern and Sinus Bradycardia Comments: Sinus bradycardia rate of 44 no acute signs of HI or ischemia. Prior EKG tracings: not available for review Discharge Plan Triage Chief Complaint: Chest Pain ED Provider: Charly Ceron Dx/Rx/DC Orders Clinical Impression: Chest pain, CHF (congestive heart failure), Chronic hyponatremia Prescriptions: No Action magnesium oxide 400 MG tablet 400 mg PO DAILY RF: 0 allopurinol 300 MG tablet 300 mg PO DAILYCM RF: 0 pantoprazole 40 MG tablet 40 mg PO DAILY Qty: 30 RF: 0 Eliquis 5 MG tablet 5 mg PO BID Qty: 60 RF: 0 sotalol 120 mg Tablet 120 mg PO BID RF: 0 diltiazem HCl [DILT-XR] 120 mg Capsule,Ext.Rel 24h Degradable 120 mg PO DAILY RF: 0 metformin 500 MG tablet 1,000 mg PO BIDCM RF: 0 levothyroxine 25 mcg tablet PO DAILY RF: 0 cephalexin 500 mg capsule RF: 0 atorvastatin 40 mg tablet 40 mg PO QHS Qty: 90 RF: 0 aspirin 81 mg tablet,delayed release (DR/EC) 81 mg PO DAILY Qty: 90 RF: 0 Primary Care Provider: Kanwal Baker Referrals: Kanwal Baker, [Primary Care Provider] - Disposition Disposition: Acute Care Hospital [facility]
[2020-11-15 14:10] LABS: Absolute Lymphocyte Count 0.37 X10^3/uL (0.83-4.51); Absolute Neutrophil Count 3.3 X10^3/uL (2.0-7.7); Basophil# 0.05 X10^3/uL; Basophil% 1.1 % (0-1); Eosinophil# 0.21 X10^3/uL; Eosinophils% 4.8 % (0-5); Hematocrit 29.1 % (37-47); Hemoglobin 9.3 g/dL (12.0-15.0); Lymphocyte # 0.37 X10^3/ul (0.83-4.51); Lymphocyte % 8.4 % (19-41); Mean Corpuscular Hgb 28.4 pg (27.0-32.0); Mean Corpuscular Volume 88.7 fL (81-99); Monocyte# 0.45 X10^3/uL; Monocyte% 10.3 % (0-10); NRBC Flagged by Analyzer 0 % (0-5); Neutrophil # 3.29 X10^3/uL (2.7-7.7); Neutrophil % 74.9 % (47-70); POSITIVE DIFFERENTIAL YES; Platelet Count 363 K/mm3 (150-450); RBC Distribution Width SD 58.1 fl (35.1-43.9); Red Blood Count 3.28 M/mm3 (4.2-5.4); White Blood Count 4.4 K/mm3 (4.4-11.0)
[2020-11-15 14:16] LABS: Differential Indicated SCAN CRITERIA MET
[2020-11-15 14:41] LABS: Hypochromasia 1+; Platelet Estimate ADEQUATE (ADEQ); Red Cell Morphology N CYTIC NORMAL (NORM C&C)
[2020-11-15 14:42] LABS: Anion Gap 5 (5-15); BUN 18 mg/dL (7-18); BUN/Creat Ratio 19.3 RATIO (10-20); Calcium,Total 8.4 mg/dL (8.5-10.1); Chloride 98 mmol/L (98-107); Creatinine, Serum 0.94 mg/dL (0.55-1.02); EST Glomerular Filtration Rate 63 mL/min (>60); Est Glom Filt Rate - Afr Amer 76 mL/min (>60); Estimated Creatinine Clearance 52.61 ml/min; Glucose 117 mg/dL (74-106); Potassium 4.8 mmol/L (3.5-5.1); Sodium Level 130 mmol/L (136-145); Troponin-I HS 7.2 pg/mL (3.0-53.7)
--- NOTE | 2020-11-15 14:57 | HP.PCM.HOS_ITS ---
HPI - General General Date of Admission: 11/15/20 HPI Narrative IFTIKHAR FERRARO, is a 70 F with an extensive PMH as outlined who was admitted via the ED with a complaint of chest pain going across her upper chest and left chest. She was bradycardic on admission, and her BP was around 150 systolic. SHe was given atropine by the squad. She had no other complaints and review of systems was otherwise negative. Vitals showed BP of 132/74 and pulse rate of 44 and RR of 20. EKG showed no acute ST changes. CBC showed hemoglobin of 9.3 but was otherwise normal and BMP showed sodium of 130 which is chronic but was otherwise within normal limits. Checks x-ray showed evidence of cardiomegaly and CHF. BNP done on 2020 was elevated at 912.7. She is being admitted to be managed for chest pain to rule out ACS and acute on chronic heart failure. [facility] Medical History Acute CVA (cerebrovascular accident) Acute CVA (cerebrovascular accident) Acute right MCA stroke Atrial fibrillation Congestive heart failure (CHF) Diabetes Gout Hyperlipidemia Hypothyroidism Irregular heart beat Myocardial infarct Non-smoker Osteoporosis Pancreatitis Stroke/cerebrovascular accident Weakness on left side of face Home Medications magnesium oxide 400 mg PO DAILY tab 01/29/17 [Rx Last Taken 11/15/20] Eliquis 5 mg PO BID #60 tab 03/10/17 [Rx Last Taken 11/15/20] pantoprazole 40 mg PO DAILY #30 tab 03/10/17 [Rx Last Taken 11/15/20] diltiazem HCl [DILT-XR] 120 mg PO DAILY 09/19/20 [History Last Taken 11/15/20] sotalol 120 mg PO BID 09/19/20 [History Last Taken 11/15/20] levothyroxine 25 mcg PO DAILY 10/05/20 [History Last Taken 11/13/20] metformin 1,000 mg PO BIDCM 10/05/20 [History Last Taken 11/15/20] aspirin 81 mg PO DAILY #90 tab 10/06/20 [Rx Last Taken 11/15/20] atorvastatin 40 mg PO QHS #90 tab 10/06/20 [Rx Last Taken Unknown] Allergy/AdvReac Type Severity Reaction Status Date / Time alteplase Allergy Angioedema Verified 11/15/20 13:44 Penicillins Allergy They said Verified 11/15/20 16:55 if I took it I would Family History Mother Diabetes Heart disease Father Heart disease Surgical History History of ankle surgery History of appendectomy History of cholecystectomy History of knee replacement Hx of hysterectomy Social History household members: spouse housing: house current occupational status: unemployed Smoking Status: Never smoker alcohol intake: never substance use type: does not use ROS Eyes Eyes: Denies double vision ENT HEENT: Denies abnormal hearing Cardiovascular Cardiovascular: Reports chest pain, dyspnea on exertion, edema and orthopnea; Denies lightheadedness, palpitations, paroxysmal nocturnal dyspnea or rapid heart rate Respiratory/Chest Respiratory/Chest: Reports shortness of breath at rest and shortness of breath with exertion; Denies cough, dyspnea or hemoptysis Gastrointestinal Gastrointestinal: Denies abdominal pain, constipation or diarrhea Genitourinary Genitourinary: Denies burning urination Vital Signs Vital Signs Vital Signs: 11/15/20 13:40 11/15/20 13:46 Temperature 98.2 F Temperature Source Temporal Pulse Rate 46 L 44 L Respiratory Rate 20 H 20 H Blood Pressure 150/68 H 132/74 H Blood Pressure Mean 95 93 Pulse Ox 97 95 Oxygen Delivery Method Room Air Room Air Weight Weight: 320 lb 5.306 oz Body Mass Index (BMI) 50.1 Physical Exam Const alert, oriented x3 and no apparent distress General Appearance: cooperative HEENT normocephalic, head/scalp atraumatic, hearing grossly normal bilaterally and moist oral mucous membranes Eyes PERRL, EOMs intact bilaterally and conjunctivae normal Neck no lymphadenopathy Resp Resp Narrative: Diminished breath sounds bibasilarly. No wheezes or crackles. on room air Cardio regular rate, regular rhythm, S1 normal heart sound, S2 normal heart sound and no murmurs GI normal to inspection, nondistended, normoactive bowel sounds, soft to palpation, non-tender and non-distended Extremity normal to inspection, full ROM and no clubbing, cyanosis or edema Peripheral Pulses: Yes pulses 2+ throughout Skin no rashes or lesions noted Neuro oriented x3 Sensorium / Orientation: awake and alert Psych affect normal Results Lab / Micro Data Result Diagrams: 11/15/20 14:05 11/15/20 14:05 Labs: Laboratory Results - last 24 hr 11/15/20 11/15/20 14:05 14:05 WBC 4.4 RBC 3.28 L Hgb 9.3 L Hct 29.1 L MCV 88.7 MCH 28.4 MCHC 32.0 RDW Std Deviation 58.1 H RDW Coeff of Chele 18.0 H Plt Count 363 MPV 10.0 Immature Gran % (Auto) 0.500 Neut % (Auto) 74.9 H Lymph % (Auto) 8.4 L [place] % (Auto) 10.3 H Eos % (Auto) 4.8 Baso % (Auto) 1.1 H Absolute Neuts (auto) 3.3 Absolute Lymphs (auto) 0.37 L Nucleated RBC % 0 Differential Comment Platelet Estimate ADEQUATE RBC Morphology N CYTIC Hypochromasia 1+ Sodium 130 L Potassium 4.8 Chloride 98 Carbon Dioxide 27.0 Anion Gap 5 BUN 18 Creatinine 0.94 Estim Creat Clear Calc 52.61 Est GFR (MDRD) Af Amer 76 Est GFR (MDRD) Non-Af 63 BUN/Creatinine Ratio 19.3 Glucose 117 H Calcium 8.4 L Troponin I High Sens 7.2 Rhythm Strip Rhythm Strip: Sinus Rhythm Rate: 44 Ectopy: None Radiology Impression Chest X-Ray 11/15/20 13:45 IMPRESSION: Cardiomegaly and progressive CHF. Electronically Signed: Harish Blanton MD at 14:23 EDT , Service support , Assessment & Plan Assessment/Plan (1) Chest pain: (2) CHF (congestive heart failure): (3) Chronic hyponatremia: PLAN: Chest pain rule out ACS * Admit to PCU with telemetry. Titrate troponins * Sublingual nitroglycerin as needed. P.o. aspirin 81 mg daily. * For stress test tomorrow if troponins are negative * #Acute on chronic heart failure with reduced EF * BNP done just on 2020 was 912.7 * Chest x-ray showed evidence of heart failure * Will diurese with IV Lasix 40 mg twice daily. Monitor intake and output. Fluid restriction 1500 cc daily. * 2D echo performed September 2020 showed EF of 40 to 45% with evidence of diastolic dysfunction and septal and apical hypokinesis with negative bubble study. Pulmonary systolic pressure of 60 mmHg. * #Hyponatremia: Sodium is 130 which is chronic. Will monitor. #History of A. fib: Currently rate controlled. On Cardizem and sotalol as well as Eliquis. #Hypothyroidism: On Synthroid #History of gout: On allopurinol DVT prophylaxis: Not indicated as she is on Eliquis CODE STATUS: DNRCCA no intubation * Patient counseled extensively about different types of CODE STATUS including full code, DNR CCA and DNR CCA. Patient elects to be DNRCCA no intubation. Total [id number] time 16 minutes. Charges/Coding Visit Charges OBSV E&M: 10668 Initial observation care L3 Procedures Hospitalists Procedures: 12984 Advncd Care Plan 30 Min
--- NOTE | 2020-11-15 14:57 | NURSING ---
DR RAVINDRA RAYO
[2020-11-15] MEDS: Ondansetron 4 MG/2 ML Vial IV (15:24)
--- NOTE | 2020-11-15 15:32 | NURSING ---
PCU OBS CP, CHF RAVINDRA
[2020-11-15 17:29] LABS: Troponin-I HS 7.9 pg/mL (3.0-53.7)
[2020-11-15] MEDS: Furosemide 40 MG/4 ML Vial IV (17:52)
[2020-11-15] MEDS: 0.9% Saline Lock 10 ML Syringe IV (17:52)
[2020-11-15 18:40] LABS: Bedside Glucose 109 mg/dL (70-110)
[2020-11-15] MEDS: Nystatin Powder 15gm Bottle 1 APPLIC TOPICAL (22:50)
[2020-11-15] MEDS: Atorvastatin Calcium 40 MG Tablet PO (22:51)
[2020-11-15] MEDS: APIXABAN 5 MG TABLET PO (22:51)
[2020-11-15 23:46] LABS: Bedside Glucose 107 mg/dL (70-110)
[2020-11-16 03:03] VITALS: PULSE 45
[2020-11-16 04:45] VITALS: BP 135/91; PULSE 45; RESP 16; TEMP 37; O2SAT 95
[2020-11-16] MEDS: Nystatin Powder 15gm Bottle 1 APPLIC TOPICAL (05:00)
[2020-11-16] MEDS: Aspirin E.C. 81 MG Tablet PO (05:00)
[2020-11-16] MEDS: Levothyroxine 25 MCG TABLET PO (05:00)
[2020-11-16 06:14] LABS: Absolute Lymphocyte Count 0.38 X10^3/uL (0.83-4.51); Absolute Neutrophil Count 3.6 X10^3/uL (2.0-7.7); Basophil# 0.06 X10^3/uL; Basophil% 1.2 % (0-1); Eosinophil# 0.21 X10^3/uL; Eosinophils% 4.3 % (0-5); Hematocrit 29.8 % (37-47); Hemoglobin 9.5 g/dL (12.0-15.0); Lymphocyte # 0.38 X10^3/ul (0.83-4.51); Lymphocyte % 7.9 % (19-41); Mean Corp Hgb Conc 31.9 g/dL (32-36); Mean Corpuscular Hgb 28.4 pg (27.0-32.0); Mean Platelet Vol. 9.7 fl (6.2-12.0); Monocyte# 0.53 X10^3/uL; NRBC Flagged by Analyzer 0 % (0-5); Neutrophil # 3.63 X10^3/uL (2.7-7.7); Neutrophil % 75.2 % (47-70); POSITIVE DIFFERENTIAL YES; Platelet Count 369 K/mm3 (150-450); RBC Distribution Width SD 58.4 fl (35.1-43.9); Red Blood Count 3.35 M/mm3 (4.2-5.4); White Blood Count 4.8 K/mm3 (4.4-11.0)
[2020-11-16 06:18] LABS: Differential Indicated SCAN CRITERIA MET
[2020-11-16 06:31] LABS: Anion Gap 7 (5-15); BUN 16 mg/dL (7-18); BUN/Creat Ratio 16.7 RATIO (10-20); Calcium,Total 8.4 mg/dL (8.5-10.1); Chloride 95 mmol/L (98-107); Creatinine, Serum 0.96 mg/dL (0.55-1.02); EST Glomerular Filtration Rate 61 mL/min (>60); Est Glom Filt Rate - Afr Amer 73 mL/min (>60); Estimated Creatinine Clearance 51.51 ml/min; Glucose 89 mg/dL (74-106); Potassium 3.9 mmol/L (3.5-5.1); Sodium Level 130 mmol/L (136-145)
[2020-11-16 06:45] LABS: Bedside Glucose 89 mg/dL (70-110)
[2020-11-16 06:59] VITALS: PULSE 46
[2020-11-16 07:28] VITALS: O2SAT 91
[2020-11-16 08:20] VITALS: BP 124/40; PULSE 47; RESP 16; TEMP 36.9; O2SAT 95
--- NOTE | 2020-11-16 09:10 | DCINST_ITS ---
Discharge Instructions Diet Discharge Diet: Low fat / Low cholesterol, 8 Cup Fluid Restriction and 2000 mg Sodium Diet Activity Discharge Activity: Return to Normal Activity Dressing / Incision Call your doctor if you observe: Shortness of breath, Dizziness and Chest pain Follow Up Care Test Results: Test results from this visit will be discussed in further detail at your follow-up appointment, if applicable. Discharge Plan Admission Admit Date/Time: 11/15/20 15:09 Primary Reason for Your Visit: Chest pain Attending Provider: Izaiah Lopez Primary Care Provider: Kanwal Baker Discharge Orders/Prescriptions Prescriptions: New furosemide [Lasix] 40 mg tablet 40 mg PO DAILY Qty: 30 RF: 0 Continued magnesium oxide 400 MG tablet 400 mg PO DAILY RF: 0 pantoprazole 40 MG tablet 40 mg PO DAILY Qty: 30 RF: 0 Eliquis 5 MG tablet 5 mg PO BID Qty: 60 RF: 0 sotalol 120 mg Tablet 120 mg PO BID RF: 0 diltiazem HCl [DILT-XR] 120 mg Capsule,Ext.Rel 24h Degradable 120 mg PO DAILY RF: 0 metformin 500 MG tablet 1,000 mg PO BIDCM RF: 0 levothyroxine 25 mcg tablet 25 mcg PO DAILY RF: 0 atorvastatin 40 mg tablet 40 mg PO QHS Qty: 90 RF: 0 aspirin 81 mg tablet,delayed release (DR/EC) 81 mg PO DAILY Qty: 90 RF: 0 Referrals / Follow Up: 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
--- NOTE | 2020-11-16 09:18 | DS.PCM_ITS ---
Documented by User: Shanon Coley NP, CASTING REPAIRER-C 11/16/20 09:33 Providers Date of Admission: 11/15/20 Date of Discharge: 11/16/20 Primary Care Physician: Dr. Kanwal Baker DO Reason For Visit: CHEST PAIN, ACUTE ON CHRONIC HEART FAILURE Diagnosis Discharge Diagnosis (1) Chest pain: Status: Acute Code(s): R07.9 - Chest pain, unspecified (2) CHF (congestive heart failure): Status: Acute Code(s): I50.9 - Heart failure, unspecified (3) Chronic hyponatremia: Status: Chronic Code(s): E87.1 - Hypo-osmolality and hyponatremia Medications at Discharge Home Medications magnesium oxide 400 mg PO DAILY tab 01/29/17 Eliquis 5 mg PO BID #60 tab 03/10/17 pantoprazole 40 mg PO DAILY #30 tab 03/10/17 diltiazem HCl [DILT-XR] 120 mg PO DAILY 09/19/20 sotalol 120 mg PO BID 09/19/20 levothyroxine 25 mcg PO DAILY 10/05/20 metformin 1,000 mg PO BIDCM 10/05/20 aspirin 81 mg PO DAILY #90 tab 10/06/20 atorvastatin 40 mg PO QHS #90 tab 10/06/20 furosemide [Lasix] 40 mg PO DAILY #30 tab 11/16/20 Hospital Course Operations None Procedures None Summary of Care Provided Minutes Spent on Discharge: 35 Hospital Course: Patient is a 70-year-old female admitted 11/15/20 due to chest pain. 1. Chest pain-EKG without ST-T changes. Troponin negative. Plan for stress test however patient refused stress test. Denies further chest pain. Follows with Dr. Bearden, cardiology in [place]. Continue aspirin, statin, beta- janice. Patient noted to be mildly bradycardic however she is on Cardizem and sotalol for A. fib. Recommended calling primary nurses educator on Wednesday to schedule outpatient stress test. 2. Acute on chronic heart failure with reduced ejection fraction-BNP 628. Chest x-ray with mild failure. IV Lasix during admission. Patient reports she is on Lasix at home however not noted on home medication list or in external pharmacy. Discharged on Lasix 40 mg daily with further follow-up with primary nurses educator. Recent echo September 2020 demonstrated an EF of 40 to 45%. 3. Paroxysmal atrial fibrillation-on Eliquis, beta-janice, Cardizem. 4. Hypothyroidism-continue Synthroid. 5. Gout-on allopurinol. 6. History of CVA-flaccid left upper extremity. 7. Type 2 diabetes mellitus-on Metformin. 8. Hyperlipidemia-continue statin. 9. Morbid obesity- encouraged diet and lifestyle modifications. Patient seen and examined prior to discharge. Physical assessment as noted below. Patient is stable for discharge with follow up recommendations as noted above. This patient was seen by LIZZIE Welsh under the supervision of Dr. Lopez. Physical Exam Const alert, oriented x3 and no apparent distress Orientation / Consciousness: awake, oriented to person, oriented to place and oriented to time HEENT normocephalic and moist oral mucous membranes Eyes PERRL, EOMs intact bilaterally and conjunctivae normal Neck no lymphadenopathy Resp normal respiratory effort and clear to auscultation bilaterally Cardio regular rate, regular rhythm and no murmurs Peripheral Pulses: pulses 2+ throughout GI normal to inspection, nondistended, normoactive bowel sounds, non-tender and non-distended Extremity normal to inspection Extremity Narrative: Chronic right arm weakness from CVA. Skin no rashes or lesions noted Lesions: no lesions Rashes: no rashes Trauma: no lacerations or abrasions Neuro CN's II-XII intact bilaterally, no focal motor deficits, no sensory deficits noted and deep tendon reflexes 2+ bilaterally Psych mental status grossly normal and affect normal Weight / BMI Weight Weight: 305 lb 1.916 oz Body Mass Index (BMI) 48.3 ABG / Lab / Microbiology Data Result Diagrams: 11/16/20 05:31 11/16/20 05:31 Laboratory: Laboratory Results - last 24 hr 11/15/20 11/15/20 11/15/20 14:05 14:05 17:03 WBC 4.4 RBC 3.28 L Hgb 9.3 L Hct 29.1 L MCV 88.7 MCH 28.4 MCHC 32.0 RDW Std Deviation 58.1 H RDW Coeff of Chele 18.0 H Plt Count 363 MPV 10.0 Immature Gran % (Auto) 0.500 Neut % (Auto) 74.9 H Lymph % (Auto) 8.4 L [place] % (Auto) 10.3 H Eos % (Auto) 4.8 Baso % (Auto) 1.1 H Absolute Neuts (auto) 3.3 Absolute Lymphs (auto) 0.37 L Nucleated RBC % 0 Differential Comment Platelet Estimate ADEQUATE RBC Morphology N CYTIC Hypochromasia 1+ Sodium 130 L Potassium 4.8 Chloride 98 Carbon Dioxide 27.0 Anion Gap 5 BUN 18 Creatinine 0.94 Estim Creat Clear Calc 52.61 Est GFR (MDRD) Af Amer 76 Est GFR (MDRD) Non-Af 63 BUN/Creatinine Ratio 19.3 Glucose 117 H Calcium 8.4 L Troponin I High Sens 7.2 7.9 POC Glucose 11/15/20 11/15/20 11/15/20 18:34 20:30 22:44 WBC RBC Hgb Hct MCV MCH MCHC RDW Std Deviation RDW Coeff of Chele Plt Count MPV Immature Gran % (Auto) Neut % (Auto) Lymph % (Auto) [place] % (Auto) Eos % (Auto) Baso % (Auto) Absolute Neuts (auto) Absolute Lymphs (auto) Nucleated RBC % Differential Comment Platelet Estimate RBC Morphology Hypochromasia Sodium Potassium Chloride Carbon Dioxide Anion Gap BUN Creatinine Estim Creat Clear Calc Est GFR (MDRD) Af Amer Est GFR (MDRD) Non-Af BUN/Creatinine Ratio Glucose Calcium Troponin I High Sens 8.0 POC Glucose 109 107 11/16/20 11/16/20 11/16/20 05:31 05:31 06:31 WBC 4.8 RBC 3.35 L Hgb 9.5 L Hct 29.8 L MCV 89.0 MCH 28.4 MCHC 31.9 L RDW Std Deviation 58.4 H RDW Coeff of Chele 18.0 H Plt Count 369 MPV 9.7 Immature Gran % (Auto) 0.400 Neut % (Auto) 75.2 H Lymph % (Auto) 7.9 L [place] % (Auto) 11.0 H Eos % (Auto) 4.3 Baso % (Auto) 1.2 H Absolute Neuts (auto) 3.6 Absolute Lymphs (auto) 0.38 L Nucleated RBC % 0 Differential Comment Platelet Estimate RBC Morphology Hypochromasia Sodium 130 L Potassium 3.9 Chloride 95 L Carbon Dioxide 28.0 Anion Gap 7 BUN 16 Creatinine 0.96 Estim Creat Clear Calc 51.51 Est GFR (MDRD) Af Amer 73 Est GFR (MDRD) Non-Af 61 BUN/Creatinine Ratio 16.7 Glucose 89 Calcium 8.4 L Troponin I High Sens POC Glucose 89 Radiography Diagnostic Testing: Radiology Impression Chest X-Ray 11/15/20 13:45 IMPRESSION: Cardiomegaly and progressive CHF. Electronically Signed: Harish Blanton MD at 14:23 EDT , Service support , D/C Instructions Discharge Diet: Low fat / Low cholesterol, 8 Cup Fluid Restriction and 2000 mg Sodium Diet Call your doctor if you observe: Shortness of breath, Dizziness and Chest pain Meaningful Use Info Meaningful Use Diagnoses (Choose all that apply): CHF CHF JLUIS/ARB ordered at discharge?: No Reason JLUIS/ARB not ordered?: Not indicated Documented LVEF (%): 40 Discharge Plan Admission Admit Date/Time: 11/15/20 15:09 Primary Reason for Your Visit: Chest pain Attending Provider: Izaiah Lopez Primary Care Provider: Kanwal Baker Discharge Orders/Prescriptions Prescriptions: New furosemide [Lasix] 40 mg tablet 40 mg PO DAILY Qty: 30 RF: 0 Continued magnesium oxide 400 MG tablet 400 mg PO DAILY RF: 0 pantoprazole 40 MG tablet 40 mg PO DAILY Qty: 30 RF: 0 Eliquis 5 MG tablet 5 mg PO BID Qty: 60 RF: 0 sotalol 120 mg Tablet 120 mg PO BID RF: 0 diltiazem HCl [DILT-XR] 120 mg Capsule,Ext.Rel 24h Degradable 120 mg PO DAILY RF: 0 metformin 500 MG tablet 1,000 mg PO BIDCM RF: 0 levothyroxine 25 mcg tablet 25 mcg PO DAILY RF: 0 atorvastatin 40 mg tablet 40 mg PO QHS Qty: 90 RF: 0 aspirin 81 mg tablet,delayed release (DR/EC) 81 mg PO DAILY Qty: 90 RF: 0 Referrals / Follow Up: Jr. Java Developer, Primary [Other] - In 1 Week Kanwal Baker, [Primary Care Provider] - In 1 Week Disposition Disposition (needs filled in before D/C Order can be placed): Home, Self Care Documented by User: Dr. Izaiah Lopez MD 11/16/20 14:46 Providers Date of Admission: 11/15/20 Reason For Visit: CHEST PAIN, ACUTE ON CHRONIC HEART FAILURE Medications at Discharge Home Medications magnesium oxide 400 mg PO DAILY tab 01/29/17 Eliquis 5 mg PO BID #60 tab 03/10/17 pantoprazole 40 mg PO DAILY #30 tab 03/10/17 diltiazem HCl [DILT-XR] 120 mg PO DAILY 09/19/20 sotalol 120 mg PO BID 09/19/20 levothyroxine 25 mcg PO DAILY 10/05/20 metformin 1,000 mg PO BIDCM 10/05/20 aspirin 81 mg PO DAILY #90 tab 10/06/20 atorvastatin 40 mg PO QHS #90 tab 10/06/20 furosemide [Lasix] 40 mg PO DAILY #30 tab 11/16/20 ABG / Lab / Microbiology Data Result Diagrams: 11/16/20 05:31 11/16/20 05:31 Discharge Plan Admission Admit Date/Time: 11/15/20 15:09 Primary Reason for Your Visit: Chest pain Attending Provider: Izaiah Lopez Primary Care Provider: Kanwal Baker Discharge Orders/Prescriptions Prescriptions: New furosemide [Lasix] 40 mg tablet 40 mg PO DAILY Qty: 30 RF: 0 Continued magnesium oxide 400 MG tablet 400 mg PO DAILY RF: 0 pantoprazole 40 MG tablet 40 mg PO DAILY Qty: 30 RF: 0 Eliquis 5 MG tablet 5 mg PO BID Qty: 60 RF: 0 sotalol 120 mg Tablet 120 mg PO BID RF: 0 diltiazem HCl [DILT-XR] 120 mg Capsule,Ext.Rel 24h Degradable 120 mg PO DAILY RF: 0 metformin 500 MG tablet 1,000 mg PO BIDCM RF: 0 levothyroxine 25 mcg tablet 25 mcg PO DAILY RF: 0 atorvastatin 40 mg tablet 40 mg PO QHS Qty: 90 RF: 0 aspirin 81 mg tablet,delayed release (DR/EC) 81 mg PO DAILY Qty: 90 RF: 0 Referrals / Follow Up: Jr. Java Developer, 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 Charges/Coding Addendum Addendum: Dr. Lopez: I personally reviewed the chart and examined the patient, and agree with the shawnee allen findings. 70-year-old female with extensive previous cardiac history presents with chest pain and worsening heart failure. High-sensitivity troponin was unremarkable and it was recommended that she undergo stress test for further evaluation however she refused says that she feels much better and wants to go home today. I did discuss with her the risk that should be taken by going home including sudden cardiac secondary to possible acute coronary syndrome however she felt that she should be evaluated by her own personal nurses educator in [place] prior to undergoing any type of testing. Visit Charges OBSV E&M: 39907 Observation care discharge
--- NOTE | 2020-11-16 11:08 | NURSING ---
Pt refused AM medications stating she will take them tonight when she is home.
== END 2020-11-16 12:02 | disposition home or self-care (01) ==
LOC: ED 15:31 → PCU 15:40
PROVIDERS: Admitting Provider Student in an Organized Health Care Education/Training Program; Emergency Provider Emergency Medicine; Visit Provider Family Medicine
DX: I11.0 Hypertensive heart disease with heart failure (principal); I50.23 Acute on chronic systolic (congestive) heart failure; R07.89 Other chest pain; E87.1 Hypo-osmolality and hyponatremia; I48.0 Paroxysmal atrial fibrillation; E03.9 Hypothyroidism, unspecified; I25.10 Atherosclerotic heart disease of native coronary artery without angina pectoris; E11.9 Type 2 diabetes mellitus without complications; E78.5 Hyperlipidemia, unspecified; I69.352 Hemiplegia and hemiparesis following cerebral infarction affecting left dominant side; M10.9 Gout, unspecified; M81.0 Age-related osteoporosis without current pathological fracture; I25.2 Old myocardial infarction; E66.01 Morbid (severe) obesity due to excess calories; Z68.42 Body mass index [BMI] 45.0-49.9, adult; Z66 Do not resuscitate; Z79.899 Other long term (current) drug therapy; Z79.82 Long term (current) use of aspirin; Z79.84 Long term (current) use of oral hypoglycemic drugs; Z79.01 Long term (current) use of anticoagulants
CPT/HCPCS: 36415; 71045; 80048; 82962; 84484; 85025; 93005; 96374; 99218; 99285; A4216; G0378; J1940; J2405; J2785

== ENCOUNTER 2020-11-20 06:11 | Emergency (ER) | payer MEDICARE, OTHER, MEDICAID, SELFPAY ==
[2020-11-15 17:01] VITALS: BMI 48.3
[2020-11-20 06:13] VITALS: BP 151/58; PULSE 46; RESP 16; TEMP 35.8; O2SAT 96; BMI 47.2
--- NOTE | 2020-11-20 06:16 | EKG12_ITS ---
Test Reason : CP Blood Pressure : / mmHG Vent. Rate : 046 BPM Atrial Rate : 046 BPM P-R Int : 194 ms QRS Dur : 144 ms QT Int : 540 ms P-R-T Axes : 070 -51 101 degrees QTc Int : 472 ms Sinus bradycardia Left axis deviation Left bundle branch block Abnormal ECG Confirmed by JAYNA SUAZO, WAYNE ([id number]), newspaper photo editor RAY WYNN ([id number]) on 11/25/2020 12:50:39 PM Referred By: JOEY Confirmed By:WAYNE DORANTES MD
--- NOTE | 2020-11-20 06:16 | RAD_ITS ---
STUDY: X-RAY CHEST REASON FOR EXAM: Female, 70 years old. chest pain TECHNIQUE: Single AP portable view of the chest. COMPARISON: Chest x-ray dated 11/15/2020 FINDINGS: Adequately inflated lungs with slightly improved/decreased patchy airspace disease bilaterally suggesting improving CHF. No consolidation or effusion. Stable mild cardiomegaly. No pneumothorax. RAD/Chest 1 View (Portable) IMPRESSION: Slight interval improvement in mild CHF Electronically Signed: Hasmukh Leiva DO at 6:48 EDT Tel , Service support ,
[2020-11-20 06:19] VITALS: O2SAT 93
--- NOTE | 2020-11-20 06:27 | ED.VIS.CHEST ---
HPI <Dr. Scooby Mccormick MD - Last Filed: 11/20/20 07:12> History of Present Illness Chief Complaint: Chest Pain Narrative Narrative: Patient presenting for evaluation secondary to chest pain. Patient has a underlying history of paroxysmal A. fib, past history of stroke with left-sided hemiparesis, congestive heart failure hyperlipidemia hypothyroidism and diabetes and hypertension. Patient states that she woke up at about 4 AM and was actually awoken by chest pain. She states that it is a pain type feeling on the left side of her chest that radiates down her left arm. Patient states its been continuous and associated with some nausea. She denies any exacerbating relieving factors associated with this. She denies any palpitations or lightheadedness. Patient does have an underlying history of cardiovascular disease, she was admitted secondary to CHF and chest pain last week, was discharged after diuresis but refused having a stress test although it was recommended. Patient denies any recent infectious signs or symptoms she is anticoagulated on Eliquis. Review of systems otherwise negative. PFSH <Dr. Scooby Mccormick MD - Last Filed: 11/20/20 07:12> [facility] Medical History Acute CVA (cerebrovascular accident) Acute CVA (cerebrovascular accident) Acute right MCA stroke Atrial fibrillation Congestive heart failure (CHF) Diabetes Gout Hyperlipidemia Hypothyroidism Irregular heart beat Myocardial infarct Non-smoker Osteoporosis Pancreatitis Stroke/cerebrovascular accident Weakness on left side of face Home Medications magnesium oxide 400 mg PO DAILY tab 01/29/17 [Rx Last Taken 11/15/20] Eliquis 5 mg PO BID #60 tab 03/10/17 [Rx Last Taken 11/15/20] pantoprazole 40 mg PO DAILY #30 tab 03/10/17 [Rx Last Taken 11/15/20] diltiazem HCl [DILT-XR] 120 mg PO DAILY 09/19/20 [History Last Taken 11/15/20] sotalol 120 mg PO BID 09/19/20 [History Last Taken 11/15/20] levothyroxine 25 mcg PO DAILY 10/05/20 [History Last Taken 11/13/20] metformin 1,000 mg PO BIDCM 10/05/20 [History Last Taken 11/15/20] aspirin 81 mg PO DAILY #90 tab 10/06/20 [Rx Last Taken 11/15/20] atorvastatin 40 mg PO QHS #90 tab 10/06/20 [Rx Last Taken Unknown] furosemide [Lasix] 40 mg PO DAILY #30 tab 11/16/20 [Rx Last Taken Unknown] Allergy/AdvReac Type Severity Reaction Status Date / Time alteplase Allergy Angioedema Verified 11/20/20 06:21 Penicillins Allergy They said Verified 11/20/20 06:21 if I took it I would Family History Mother Diabetes Heart disease Father Heart disease Surgical History History of ankle surgery History of appendectomy History of cholecystectomy History of knee replacement Hx of hysterectomy Social History household members: spouse housing: house current occupational status: unemployed Smoking Status: Never smoker alcohol intake: never substance use type: does not use ROS <Dr. Scooby Mccormick MD - Last Filed: 11/20/20 07:12> ROS ED Constitutional Constitutional ED: Denies fever(s) Eyes Eyes: Denies change in vision ENT ENT ED: Denies rhinorrhea or sore throat Cardiovascular Cardiovascular: Reports as per HPI and chest pain Respiratory/Chest Respiratory/Chest: Denies cough, dyspnea or dyspnea on exertion Gastrointestinal Gastrointestinal: Denies abdominal pain, nausea or vomiting Genitourinary Genitourinary ED: Denies dysuria Musculoskeletal Musculoskeletal: Denies myalgias or neck pain Integumentary Denies rash Neurologic Neurologic: Denies headache(s), paresthesias or weakness Psychiatric Psychiatric: Denies depression Endocrine Endocrinology: Denies polydipsia or polyuria Hematologic/Lymphatic Hematologic/Lymphatic: Denies easy bleeding or easy bruising Allergic/Immunologic Allergic/Immunologic ED: Denies urticaria EXAM <Dr. Scooby Mccormick MD - Last Filed: 11/20/20 07:12> Physical Exam Const Vital Signs: 11/20/20 06:13 11/20/20 06:19 11/20/20 08:21 Temperature 96.4 F L Temperature Source Temporal Pulse Rate 46 L 43 L Respiratory Rate 16 15 Blood Pressure 151/58 H 147/96 H Blood Pressure Mean 89 113 Pulse Ox 96 93 95 Oxygen Delivery Method Room Air Positive well nourished, well developed and obese General Appearance ED: well developed and NAD Nutritional Appearance: obese HEENT Reports moist mucous membranes normocephalic and atraumatic Eyes EOMs intact bilaterally Neck no lymphadenopathy, supple and no JVD Chest Wall inspection of chest normal Chest Narrative: No evidence of vesicular rash Tenderness palpation of the left anterior chest with no evidence of deformity crepitus or step-offs. No subcutaneous emphysema. Resp normal respiratory effort and clear to auscultation bilaterally Auscultation: Negative for rales, rhonchi or wheezes Cardio regular rhythm, S1 normal heart sound, S2 normal heart sound and no murmurs Rate: bradycardia Peripheral Pulses: radial pulses present GI normal to inspection, nondistended, normoactive bowel sounds, soft to palpation and non-tender Extremity normal to inspection Extremity Narrative: Massively edematous lower extremities bilaterally which patient states is at baseline. Patient has a chronic open wound to the left knee which is draining some serosanguineous drainage. General Extremety ED: Yes edema; Negative for tenderness General Extremity: edema Neuro oriented x3 and no sensory deficits noted Neuro Narrative: Left-sided hemiparesis at baseline Sensorium / Orientation: awake and alert Psych mental status grossly normal Skin no rashes or lesions noted <Dr. Barry Morrow DO - Last Filed: 11/20/20 08:47> Physical Exam Const Vital Signs: 11/20/20 06:13 11/20/20 06:19 11/20/20 08:21 Temperature 96.4 F L Temperature Source Temporal Pulse Rate 46 L 43 L Respiratory Rate 16 15 Blood Pressure 151/58 H 147/96 H Blood Pressure Mean 89 113 Pulse Ox 96 93 95 Oxygen Delivery Method Room Air [facility] <Dr. Scooby Mccormick MD - Last Filed: 11/20/20 07:12> [facility] Narrative Medical decision making narrative: Patient presented for evaluation secondary to chest pain. Patient has no acute ischemic changes on her EKG. CBC demonstrates chronic anemia at 9.8, no evidence of leukocytosis. Chemistry does demonstrate a mildly low sodium at 129 likely not the cause of the patient's symptoms creatinine modestly elevated at 1.03 no significant evidence of electrolyte derangements initial high-sensitivity troponin was 8.7. Reviewed the patient's records, patient was in the hospital and discharged on the third of this month with chest pain and congestive heart failure. She was diuresed but declined stress test. I went back and reevaluated the patient she still states that she is having some chest pain at 0700, but still states that she would decline a stress test so I do not think that hospital admission would provide any sort of benefit unless she has pathologic elevation of her cardiac enzymes. Patient will be kept in the emergency department for further observation and 2-hour delta troponin. Should this be negative, patient will be discharged with outpatient follow-up with cardiology. Patient will be turned over to the oncoming provider. Lab Data Labs: Laboratory Results - last 24 hr 11/20/20 11/20/20 11/20/20 06:20 06:20 08:20 WBC 5.3 RBC 3.51 L Hgb 9.8 L Hct 31.0 L MCV 88.3 MCH 27.9 MCHC 31.6 L RDW Std Deviation 58.4 H RDW Coeff of Chele 18.0 H Plt Count 434 MPV 9.4 Immature Gran % (Auto) 0.200 Neut % (Auto) 70.1 H Lymph % (Auto) 10.[address] [place] % (Auto) 11.0 H Eos % (Auto) 7.4 H Baso % (Auto) 1.3 H Absolute Neuts (auto) 3.7 Absolute Lymphs (auto) 0.53 L Nucleated RBC % 0 Differential Comment SCANNED Platelet Estimate ADEQUATE Hypochromasia RARE Sodium 129 L Potassium 4.6 Chloride 98 Carbon Dioxide 26.0 Anion Gap 5 BUN 15 Creatinine 1.03 H Estim Creat Clear Calc 48.01 Est GFR (MDRD) Af Amer 68 Est GFR (MDRD) Non-Af 56 L BUN/Creatinine Ratio 14.6 Glucose 101 Calcium 8.8 Troponin I High Sens 8.7 8.1 Radiography Chest X-Ray - ED: 1 View, Read by ED Physician and - (Improved CHF findings when compared to prior study) Diagnostic Testing: Radiology Impression Chest X-Ray 11/20/20 06:16 IMPRESSION: Slight interval improvement in mild CHF Electronically Signed: Hasmukh Leiva DO at 6:48 EDT Tel , Service support , EKG Initial EKG: Attestation: I personally reviewed and interpreted this EKG as follows: (Sinus bradycardia with rate of 46, left bundle branch block morphology and left axis deviation are noted which were present on prior EKG, no evidence of significant discordance or abnormal ST segment deviations or T waves.) <Dr. Barry Morrow, DO - Last Filed: 11/20/20 08:47> [facility] Narrative Medical decision making narrative: Care of the patient was turned over to me pending repeat troponin. Repeat troponin was 8.1. Patient was advised of her findings. Patient was instructed to follow-up with her technical support specialist in 3 to 5 days. Patient was instructed return if worse in any way. Patient understood and was agreeable with the plan. All questions were answered. Lab Data Attestation: I reviewed the patient's lab results. Labs: Laboratory Results - last 24 hr 11/20/20 11/20/20 11/20/20 06:20 06:20 08:20 WBC 5.3 RBC 3.51 L Hgb 9.8 L Hct 31.0 L MCV 88.3 MCH 27.9 MCHC 31.6 L RDW Std Deviation 58.4 H RDW Coeff of Chele 18.0 H Plt Count 434 MPV 9.4 Immature Gran % (Auto) 0.200 Neut % (Auto) 70.1 H Lymph % (Auto) 10.[address] [place] % (Auto) 11.0 H Eos % (Auto) 7.4 H Baso % (Auto) 1.3 H Absolute Neuts (auto) 3.7 Absolute Lymphs (auto) 0.53 L Nucleated RBC % 0 Differential Comment SCANNED Platelet Estimate ADEQUATE Hypochromasia RARE Sodium 129 L Potassium 4.6 Chloride 98 Carbon Dioxide 26.0 Anion Gap 5 BUN 15 Creatinine 1.03 H Estim Creat Clear Calc 48.01 Est GFR (MDRD) Af Amer 68 Est GFR (MDRD) Non-Af 56 L BUN/Creatinine Ratio 14.6 Glucose 101 Calcium 8.8 Troponin I High Sens 8.7 8.1 Radiography Diagnostic Testing: Radiology Impression Chest X-Ray 11/20/20 06:16 IMPRESSION: Slight interval improvement in mild CHF Electronically Signed: Hasmukh Leiva DO at 6:48 EDT Tel , Service support , Discharge Plan Triage Chief Complaint: Chest Pain ED Provider: Scooby Mccormick Dx/Rx/DC Orders Clinical Impression: Chest pain Instructions: ED Chest Pain, Uncertain Cause Prescriptions: No Action magnesium oxide 400 MG tablet 400 mg PO DAILY RF: 0 pantoprazole 40 MG tablet 40 mg PO DAILY Qty: 30 RF: 0 Eliquis 5 MG tablet 5 mg PO BID Qty: 60 RF: 0 sotalol 120 mg Tablet 120 mg PO BID RF: 0 diltiazem HCl [DILT-XR] 120 mg Capsule,Ext.Rel 24h Degradable 120 mg PO DAILY RF: 0 metformin 500 MG tablet 1,000 mg PO BIDCM RF: 0 levothyroxine 25 mcg tablet 25 mcg PO DAILY RF: 0 atorvastatin 40 mg tablet 40 mg PO QHS Qty: 90 RF: 0 aspirin 81 mg tablet,delayed release (DR/EC) 81 mg PO DAILY Qty: 90 RF: 0 furosemide [Lasix] 40 mg tablet 40 mg PO DAILY Qty: 30 RF: 0 Primary Care Provider: Kanwal Bkaer Referrals: Kanwal Baker DO [Primary Care Provider] - 5-7 Days Activity Restrictions/Additional Instructions: Follow-up with your technical support specialist as soon as possible Disposition Disposition: Home, Self Care
[2020-11-20 06:31] LABS: Absolute Lymphocyte Count 0.53 X10^3/uL (0.83-4.51); Absolute Neutrophil Count 3.7 X10^3/uL (2.0-7.7); Basophil# 0.07 X10^3/uL; Basophil% 1.3 % (0-1); Eosinophil# 0.39 X10^3/uL; Eosinophils% 7.4 % (0-5); Hemoglobin 9.8 g/dL (12.0-15.0); Lymphocyte # 0.53 X10^3/ul (0.83-4.51); Mean Corp Hgb Conc 31.6 g/dL (32-36); Mean Corpuscular Hgb 27.9 pg (27.0-32.0); Mean Corpuscular Volume 88.3 fL (81-99); Mean Platelet Vol. 9.4 fl (6.2-12.0); Monocyte# 0.58 X10^3/uL; NRBC Flagged by Analyzer 0 % (0-5); Neutrophil % 70.1 % (47-70); POSITIVE DIFFERENTIAL YES; Platelet Count 434 K/mm3 (150-450); RBC Distribution Width SD 58.4 fl (35.1-43.9); Red Blood Count 3.51 M/mm3 (4.2-5.4); White Blood Count 5.3 K/mm3 (4.4-11.0)
[2020-11-20 06:33] LABS: Differential Indicated SCAN CRITERIA MET
[2020-11-20 06:52] LABS: Anion Gap 5 (5-15); BUN 15 mg/dL (7-18); BUN/Creat Ratio 14.6 RATIO (10-20); Calcium,Total 8.8 mg/dL (8.5-10.1); Chloride 98 mmol/L (98-107); Creatinine, Serum 1.03 mg/dL (0.55-1.02); EST Glomerular Filtration Rate 56 mL/min (>60); Est Glom Filt Rate - Afr Amer 68 mL/min (>60); Estimated Creatinine Clearance 48.01 ml/min; Glucose 101 mg/dL (74-106); Potassium 4.6 mmol/L (3.5-5.1); Sodium Level 129 mmol/L (136-145); Troponin-I HS 8.7 pg/mL (3.0-53.7)
[2020-11-20 07:00] LABS: Differential Comment SCANNED; Hypochromasia RARE; Platelet Estimate ADEQUATE (ADEQ)
[2020-11-20 08:21] VITALS: BP 147/96; PULSE 43; RESP 15; O2SAT 95
[2020-11-20 08:44] LABS: Troponin-I HS 8.1 pg/mL (3.0-53.7)
[2020-11-20 09:22] VITALS: BP 164/71; PULSE 46; RESP 18
== END 2020-11-20 09:23 | disposition home or self-care (01) ==
PROVIDERS: Emergency Provider Emergency Medicine
DX: R07.9 Chest pain, unspecified (principal); R11.0 Nausea; S81.002A Unspecified open wound, left knee, initial encounter; E66.9 Obesity, unspecified; Z68.42 Body mass index [BMI] 45.0-49.9, adult; I69.354 Hemiplegia and hemiparesis following cerebral infarction affecting left non-dominant side; E03.9 Hypothyroidism, unspecified; E11.9 Type 2 diabetes mellitus without complications; E78.5 Hyperlipidemia, unspecified; I11.0 Hypertensive heart disease with heart failure; I50.9 Heart failure, unspecified; I25.10 Atherosclerotic heart disease of native coronary artery without angina pectoris; M81.0 Age-related osteoporosis without current pathological fracture; I48.0 Paroxysmal atrial fibrillation; I25.2 Old myocardial infarction; M10.9 Gout, unspecified; Z87.19 Personal history of other diseases of the digestive system; Z79.01 Long term (current) use of anticoagulants; Z79.82 Long term (current) use of aspirin; Z79.84 Long term (current) use of oral hypoglycemic drugs; Z79.899 Other long term (current) drug therapy
CPT/HCPCS: 36415; 71045; 80048; 84484; 85025; 93005; 99285; A4216

== ENCOUNTER 2020-11-24 11:40 | Inpatient (IN) | payer MEDICARE, OTHER, MEDICAID, SELFPAY ==
[2020-11-24] VITALS (14 sets, daily range): BP systolic 101–134; BP diastolic 47–70; PULSE 67–90; RESP 15–22; TEMP 36.1–36.8; O2SAT 85–99; BMI 47.9; BMI 46.8
--- NOTE | 2020-11-24 11:15 | RAD_ITS ---
EXAM: XR CHEST, 1 VIEW : 1950 CLINICAL INDICATION: chest pain TECHNIQUE: Frontal view of the chest. This report was created using [employer] report generation technology. COMPARISON: 11/20/2020 FINDINGS: LUNGS AND PLEURAL SPACES: Unremarkable. No consolidation or edema. No pneumothorax. No effusion. HEART: Unremarkable. Cardiac silhouette not enlarged. MEDIASTINUM: Central airways and mediastinal contour are unremarkable. BONES/JOINTS: Unremarkable. SOFT TISSUES: Unremarkable. RAD/Chest 1 View (Portable) IMPRESSION: No radiographic evidence of acute cardiopulmonary disease. at 1302 Reported and signed by: Nadir Devi MD Electronically Signed: Nadir Devi MD at 13:01 EDT Tel , Service support ,
--- NOTE | 2020-11-24 11:58 | EKG12_ITS ---
Test Reason : CP Blood Pressure : / mmHG Vent. Rate : 090 BPM Atrial Rate : 090 BPM P-R Int : 232 ms QRS Dur : 138 ms QT Int : 418 ms P-R-T Axes : 227 -61 129 degrees QTc Int : 511 ms Unusual P axis, possible ectopic atrial rhythm Left axis deviation Non-specific intra-ventricular conduction block Possible Lateral infarct , age undetermined Abnormal ECG When compared with ECG of 20-NOV-2020 06:28, MANUAL COMPARISON REQUIRED, DATA IS UNCONFIRMED Confirmed by JAYNA SUAZO, WAYNE ([id number]), story editor RAY WYNN ([id number]) on 11/29/2020 9:41:08 AM Referred By: CHARLES Confirmed By:WAYNE DORANTES MD
--- NOTE | 2020-11-24 12:00 | EDS_ITS ---
HPI History of Present Illness Chief Complaint: Chest Pain Informant: patient Onset/Context/Timing Onset: Today Activity at onset: sudden Timing: Intermittent and Lasts (9 to 10 minutes) Quality: Positive for - (Like my heart is out of rhythm) Location: Left Chest Worsened By: Nothing Relieved By: Nothing Associated Symptoms: Positive for Nausea and Acid Reflux; Negative for Vomiting, Diaphoresis, Dyspnea, Cough, Fever, Lightheadedness and Palpitations Narrative Narrative: Patient presents with chest pain that began this morning at approximately 4 AM. Patient states this woke her up out of sleep. Patient states it feels like her heart is out of rhythm. Patient states this has been intermittent for the past 8 hours. Patient states the episode last approximately 9-10 minutes. Patient states nothing makes it better nothing makes it worse. Patient has a history of paroxysmal atrial fibrillation. Patient admits to some nausea but denies any vomiting or diaphoresis. Patient denies any fevers or cough. Patient denies any shortness of breath. Patient does admit to some reflux symptoms. [facility] Medical History Acute CVA (cerebrovascular accident) Acute CVA (cerebrovascular accident) Acute right MCA stroke Atrial fibrillation Congestive heart failure (CHF) Diabetes Gout Hyperlipidemia Hypothyroidism Irregular heart beat Myocardial infarct Non-smoker Osteoporosis Pancreatitis Stroke/cerebrovascular accident Weakness on left side of face Home Medications magnesium oxide 400 mg PO DAILY tab 01/29/17 [Rx Last Taken 11/15/20] Eliquis 5 mg PO BID #60 tab 03/10/17 [Rx Last Taken 11/15/20] pantoprazole 40 mg PO DAILY #30 tab 03/10/17 [Rx Last Taken 11/15/20] diltiazem HCl [DILT-XR] 120 mg PO DAILY 09/19/20 [History Last Taken 11/15/20] sotalol 120 mg PO BID 09/19/20 [History Last Taken 11/15/20] levothyroxine 25 mcg PO DAILY 10/05/20 [History Last Taken 11/13/20] metformin 1,000 mg PO BIDCM 10/05/20 [History Last Taken 11/15/20] aspirin 81 mg PO DAILY #90 tab 10/06/20 [Rx Last Taken 11/15/20] atorvastatin 40 mg PO QHS #90 tab 10/06/20 [Rx Last Taken Unknown] furosemide [Lasix] 40 mg PO DAILY #30 tab 11/16/20 [Rx Last Taken Unknown] Allergy/AdvReac Type Severity Reaction Status Date / Time alteplase Allergy Angioedema Verified 11/24/20 11:46 Penicillins Allergy They said Verified 11/24/20 11:46 if I took it I would Family History Mother Diabetes Heart disease Father Heart disease Surgical History History of ankle surgery History of appendectomy History of cholecystectomy History of knee replacement Hx of hysterectomy Social History household members: spouse housing: house current occupational status: unemployed Smoking Status: Never smoker alcohol intake: never substance use type: does not use ROS ROS ED Constitutional Constitutional ED: Denies chills or fever(s) Eyes Eyes: Denies blurry vision or change in vision ENT ENT ED: Denies rhinorrhea or sore throat Cardiovascular Cardiovascular: Reports chest pain and palpitations Respiratory/Chest Respiratory/Chest: Denies cough or dyspnea Gastrointestinal Gastrointestinal: Reports nausea; Denies abdominal pain or vomiting Genitourinary Genitourinary ED: Denies dysuria or hematuria Musculoskeletal Musculoskeletal: Denies back pain or neck pain Integumentary Denies abscess or rash Neurologic Neurologic: Reports headache(s); Denies weakness Allergic/Immunologic Allergic/Immunologic ED: Denies mouth swelling or urticaria EXAM Physical Exam Const Vital Signs: 11/24/20 11:41 11/24/20 11:46 11/24/20 12:45 Temperature 97.9 F Temperature Source Temporal Pulse Rate 90 90 Respiratory Rate 19 H 22 H Respiratory Effort Normal Non-Labored Blood Pressure 134/61 H 126/69 H Blood Pressure Mean 85 88 Pulse Ox 93 85 Oxygen Delivery Method Room Air Room Air Oxygen Flow Rate (L/min) 11/24/20 12:46 Temperature Temperature Source Pulse Rate Respiratory Rate Respiratory Effort Blood Pressure Blood Pressure Mean Pulse Ox 99 Oxygen Delivery Method Nasal Cannula Oxygen Flow Rate (L/min) 3 Positive well nourished, well developed and obese General Appearance ED: well developed Nutritional Appearance: obese HEENT Reports moist mucous membranes normocephalic and atraumatic Neck no lymphadenopathy, supple and no JVD Resp normal respiratory effort Effort and Inspection: respiratory distress Cardio regular rate and regular rhythm GI normal to inspection, nondistended, normoactive bowel sounds Extremity General Extremety ED: Yes edema and tenderness General Extremity: edema Neuro oriented x3 and CN's II-XII intact bilaterally Sensorium / Orientation: awake and alert Psych mental status grossly normal Heart Score History: Slightly/Non-Suspicious ECG: Nonspecific Repolarization Age: >/= 65 years Risk Factors: >/= 3 Risk Factors or History of CAD Troponin: >/=3 x Normal Limit Score: 7 MDM MDM MDM Narrative Medical decision making narrative: Patient was given aspirin. Patient was given Zofran for nausea. EKG was obtained. On my interpretation, there is sinus rhythm with first-degree AV block with a rate of 90. There is left axis deviation. There are nonspecific ST-T wave changes. This was unchanged compared to previous EKG dated 11/20/2020. Portable 1 view chest x-ray was obtained. On my interpretation, lung turner are clear. There is normal cardiac silhouette. Bony thorax is normal. There is no acute process noted. Radiologist also interpreted the x-ray and agrees. CBC shows anemia with a hemoglobin of 7.5 and hematocrit 23.7. Basic metabolic profile showed a mild hyponatremia of 130 with a potassium of 5.2. Creatinine was 1.20. Hepatic profile showed an elevated bilirubin of 2.3 and direct bilirubin of 0.59. AST was slightly elevated at 52. High-sensitivity troponin was elevated at 430.5. Case was discussed with Dr. Wilburn. He will be in to evaluate the patient. Patient is agreeable to having further cardiac evaluation. Case was discussed with the hospitalist. He will admit the patient to his service. He did request x-ray of her left humerus. This was ordered. Patient and family understand and are agreeable with the plan. All questions were answered. Lab Data Attestation: I reviewed the patient's lab results. Labs: Laboratory Results - last 24 hr 11/24/20 11/24/20 11/24/20 11:50 11:50 11:50 WBC Cancelled Corrected WBC Cancelled RBC Cancelled Hgb Cancelled Hct Cancelled MCV Cancelled MCH Cancelled MCHC Cancelled RDW Std Deviation Cancelled RDW Coeff of Chele Cancelled Plt Count Cancelled MPV Cancelled Immature Gran % (Auto) Cancelled Neut % (Auto) Cancelled Lymph % (Auto) Cancelled [place] % (Auto) Cancelled Eos % (Auto) Cancelled Baso % (Auto) Cancelled Absolute Neuts (auto) Cancelled Absolute Lymphs (auto) Cancelled Total Counted Cancelled Neutrophils % (Manual) Cancelled Band Neutrophils % Cancelled Lymphocytes % (Manual) Cancelled Monocytes % (Manual) Cancelled Eosinophils % (Manual) Cancelled Basophils % (Manual) Cancelled Metamyelocytes % Cancelled Myelocytes % Cancelled Promyelocytes % Cancelled Blast Cells % Cancelled Plasma Cell % (Manual) Cancelled Other Cells % Cancelled Nucleated RBC % Cancelled Nucleated RBCs/100 WBC Cancelled Differential Comment Cancelled Diff Path Review Cancelled Hypersegmented Neuts Cancelled Atypical Lymphocytes Cancelled Reactive Lymphocytes Cancelled Smudge Cells Cancelled Toxic Granulation Cancelled Toxic Vacuolation Cancelled Dohle Bodies Cancelled Jennifer Rods Cancelled Platelet Estimate Cancelled Plt Morphology Comment Cancelled RBC Morphology Cancelled Polychromasia Cancelled Hypochromasia Cancelled Poikilocytosis Cancelled Basophilic Stippling Cancelled Anisocytosis Cancelled Microcytosis Cancelled Macrocytosis Cancelled Spherocytes Cancelled Sickle Cells Cancelled Target Cells Cancelled Tear Drop Cells Cancelled Ovalocytes Cancelled Stomatocytes Cancelled [place] Bodies Cancelled Comanche Cells Cancelled Bite Cells Cancelled Crenated Cell Cancelled Acanthocytes (Spur) Cancelled Rouleaux Cancelled Schistocytes Cancelled Sodium 130 L Potassium 5.2 H Chloride 101 Carbon Dioxide 22.0 Anion Gap 7 BUN 20 H Creatinine 1.20 H Estim Creat Clear Calc 41.21 Est GFR (MDRD) Af Amer 57 L Est GFR (MDRD) Non-Af 47 L BUN/Creatinine Ratio 16.7 Glucose 126 H Calcium 8.0 L Total Bilirubin 2.30 H Direct Bilirubin 0.59 H AST 52 H ALT 35 Alkaline Phosphatase 86 Troponin I High Sens 430.5 H* Total Protein 7.2 Albumin 2.3 L Globulin 4.9 H 11/24/20 12:13 WBC 6.4 Corrected WBC RBC 2.61 L Hgb 7.5 L Hct 23.7 L MCV 90.8 MCH 28.7 MCHC 31.6 L RDW Std Deviation 61.3 H RDW Coeff of Chele 19.0 H Plt Count 264 MPV 10.8 Immature Gran % (Auto) 0.600 Neut % (Auto) 71.3 H Lymph % (Auto) 8.1 L [place] % (Auto) 10.6 H Eos % (Auto) 8.6 H Baso % (Auto) 0.8 Absolute Neuts (auto) 4.6 Absolute Lymphs (auto) 0.52 L Total Counted Neutrophils % (Manual) Band Neutrophils % Lymphocytes % (Manual) Monocytes % (Manual) Eosinophils % (Manual) Basophils % (Manual) Metamyelocytes % Myelocytes % Promyelocytes % Blast Cells % Plasma Cell % (Manual) Other Cells % Nucleated RBC % 0 Nucleated RBCs/100 WBC Differential Comment Diff Path Review Hypersegmented Neuts Atypical Lymphocytes Reactive Lymphocytes Smudge Cells Toxic Granulation Toxic Vacuolation Dohle Bodies Jennifer Rods Platelet Estimate Plt Morphology Comment RBC Morphology Polychromasia Hypochromasia Poikilocytosis Basophilic Stippling Anisocytosis Microcytosis Macrocytosis Spherocytes Sickle Cells Target Cells Tear Drop Cells Ovalocytes Stomatocytes [place] Bodies Marquis Cells Bite Cells Crenated Cell Acanthocytes (Spur) Rouleaux Schistocytes Sodium Potassium Chloride Carbon Dioxide Anion Gap BUN Creatinine Estim Creat Clear Calc Est GFR (MDRD) Af Amer Est GFR (MDRD) Non-Af BUN/Creatinine Ratio Glucose Calcium Total Bilirubin Direct Bilirubin AST ALT Alkaline Phosphatase Troponin I High Sens Total Protein Albumin Globulin Radiography Chest X-Ray - ED: 1 View, Read by ED Physician and Normal EKG Initial EKG: Interpretation: Sinus Rhythm (90) and Non-Specific ST Changes Comments: Left axis deviation Prior EKG tracings: available for review Prior: Unchanged (11/20/2020) Treatment and Re-Evaluation Vital Sign Attestation:: Vital signs were reviewed prior to admission. They are stable. Critical Care Time Critical Care Time: Yes Critical care time (excluding procedures): 30-74 minutes (32), Including time spent:, Discussing w/Patient &/or Family/Proofsheet Corrector, Discussing w/Consultants, Arranging Admission or Transfer and Performing Direct Patient Care at Bedside Discharge Plan Dx/Rx/DC Orders Clinical Impression: NSTEMI (non-ST elevated myocardial infarction) Disposition Disposition: Acute Care [facility]
[2020-11-24] MEDS: Aspirin 81 MG TAB.CHEW 324 MG PO (12:04)
[2020-11-24] MEDS: Ondansetron 4 MG/2 ML Vial IV ×2 (12:04→13:25)
--- NOTE | 2020-11-24 12:15 | ED.RN ---
labs request a redraw. additional cbc and chemistries sent to lab. blood pulled from existing line with 3cc syringe. during blood draw a yellow complexion to patient was noted. stated that her complexion was not her normal. informed of observation. goran merlos rn
[2020-11-24 12:22] LABS: Absolute Lymphocyte Count 0.52 X10^3/uL (0.83-4.51); Absolute Neutrophil Count 4.6 X10^3/uL (2.0-7.7); Basophil# 0.05 X10^3/uL; Basophil% 0.8 % (0-1); Eosinophil# 0.55 X10^3/uL; Eosinophils% 8.6 % (0-5); Hematocrit 23.7 % (37-47); Hemoglobin 7.5 g/dL (12.0-15.0); Lymphocyte # 0.52 X10^3/ul (0.83-4.51); Lymphocyte % 8.1 % (19-41); Mean Corp Hgb Conc 31.6 g/dL (32-36); Mean Corpuscular Hgb 28.7 pg (27.0-32.0); Mean Corpuscular Volume 90.8 fL (81-99); Mean Platelet Vol. 10.8 fl (6.2-12.0); Monocyte# 0.68 X10^3/uL; Monocyte% 10.6 % (0-10); NRBC Flagged by Analyzer 0 % (0-5); Neutrophil # 4.55 X10^3/uL (2.7-7.7); Neutrophil % 71.3 % (47-70); POSITIVE DIFFERENTIAL YES; Platelet Count 264 K/mm3 (150-450); RBC Distribution Width SD 61.3 fl (35.1-43.9); Red Blood Count 2.61 M/mm3 (4.2-5.4); White Blood Count 6.4 K/mm3 (4.4-11.0)
[2020-11-24 12:22] LABS: Anion Gap 7 (5-15); BUN 20 mg/dL (7-18); BUN/Creat Ratio 16.7 RATIO (10-20); Chloride 101 mmol/L (98-107); EST Glomerular Filtration Rate 47 mL/min (>60); Est Glom Filt Rate - Afr Amer 57 mL/min (>60); Estimated Creatinine Clearance 41.21 ml/min; Glucose 126 mg/dL (74-106); Potassium 5.2 mmol/L (3.5-5.1); Sodium Level 130 mmol/L (136-145); Troponin-I HS 430.5 pg/mL (3.0-53.7)
[2020-11-24 12:25] LABS: Differential Indicated SCAN CRITERIA MET
[2020-11-24 12:42] LABS: AST(SGOT) 52 U/L (15-37); Alanine Aminotransfer ALT/SGPT 35 U/L (13-56); Albumin, Serum 2.3 g/dL (3.2-5.0); Alkaline Phosphatase 86 U/L (45-117); Bilirubin, Direct 0.59 mg/dL (0.00-0.30); Globulin 4.9 g/dL (2.2-4.2); Protein, Total 7.2 g/dL (6.4-8.2)
[2020-11-24 12:55] LABS: Anisocytosis 1+; Hypochromasia 1+; Platelet Estimate ADEQUATE (ADEQ); Polychromasia RARE
--- NOTE | 2020-11-24 13:06 | CON.PCM.CA_ITS ---
Assessment & Plan Assessment/Plan (1) NSTEMI (non-ST elevated myocardial infarction): PLAN: She presents with an non-ST elevation myocardial infarction. My recommendation at this time would be to admit her and to pursue a left heart catheterization after transfusion of at least 1 unit of packed red blood cells. She is agreeable to this approach. We discussed this in her presence, as well as with her and the hospitalist. * Will hold Eliquis pending this testing and depending on the findings further recommendations will be made. (2) LV dysfunction: PLAN: She does have evidence of mild left ventricular systolic dysfunction as noted before. Her ejection fraction was noted to be 45% with wall motion abnormalities involving the apex and this will be evaluated after her cardiac catheterization. (3) Paroxysmal atrial fibrillation: PLAN: She apparently has had episodes of paroxysmal atrial fibrillation and has been on anticoagulation as well as antiarrhythmic. We will continue the latter but hold the anticoagulation. I would also recommend discontinuing the diltiazem and continuing only the sotalol as patient had presented not too long ago with significant bradycardia. (4) Hypertension: QUALIFIERS: Hypertension type: essential hypertension Qualified Code(s): I10 - Essential (primary) hypertension PLAN: She does have a history of hypertension which appears to be under control at this time. Her echocardiogram demonstrated mild left ventricular systolic dysfunction. (5) Anemia: PLAN: She has had an anemia which has been significantly worsened by her recent fall. She does have evidence of a large bruise and likely hematoma in he r left shoulder and arm. Would recommend holding the Eliquis and an x-ray of this to exclude any underlying pathology. After discussion with the hospitalist transfusion of packed red blood cells will be appropriate. Thank you for allowing me to participate in the care of your patient. Please don't hesitate to call if any issues arise. HPI Consult Data Date of Consult: 11/24/20 HPI Narrative HPI Narrative: IFTIKHAR FERRARO, is a 70 F who presents to the emergency room with a complaint of chest discomfort. This is her third admission in less than 2 months with either chest pain or shortness of breath. She previously followed up with a cloth doubling machine operator out of [facility]. She had presented in September of this year with left-sided weakness as well as chest discomfort and was treated and discharged and asked to follow-up with her primary cloth doubling machine operator. She however did not do the above. She subsequently presented again in early November with chest discomfort, with no significant EKG changes she was scheduled for a stress test and refused the above and was discharged for follow-up with her cloth doubling machine operator which she has not done. She presents again with chest discomfort which she said occurred at rest and this ti me with abnormal cardiac enzyme patent. She also had a recent fall and had a significant bruise on her left arm. She denies any dizziness or diaphoresis near syncope or syncope she has had a previous history of acute left-sided cerebrovascular accident as well as a history of atrial fibrillation for which she has been on Eliquis as well as sotalol and diltiazem. On her previous visit she was noted to be bradycardic and had her medications adjusted. She also has a history of congestive heart failure, her last echocardiogram in October demonstrating an ejection fraction of 45% with pulmonary systolic pressures of 60 mmHg. Cardiology was called to see her in the emergency room due to her ches t discomfort. On evaluating and discussing with her she has agreed to stay and undergo any requisite testing here. [facility] Medical History Acute CVA (cerebrovascular accident) Acute CVA (cerebrovascular accident) Acute right MCA stroke Atrial fibrillation Congestive heart failure (CHF) Diabetes Gout Hyperlipidemia Hypothyroidism Irregular heart beat Myocardial infarct Non-smoker Osteoporosis Pancreatitis Stroke/cerebrovascular accident Weakness on left side of face Home Medications magnesium oxide 400 mg PO DAILY tab 01/29/17 [Rx Last Taken 11/15/20] Eliquis 5 mg PO BID #60 tab 03/10/17 [Rx Last Taken 11/15/20] pantoprazole 40 mg PO DAILY #30 tab 03/10/17 [Rx Last Taken 11/15/20] diltiazem HCl [DILT-XR] 120 mg PO DAILY 09/19/20 [History Last Taken 11/15/20] sotalol 120 mg PO BID 09/19/20 [History Last Taken 11/15/20] levothyroxine 25 mcg PO DAILY 10/05/20 [History Last Taken 11/13/20] metformin 1,000 mg PO BIDCM 10/05/20 [History Last Taken 11/15/20] aspirin 81 mg PO DAILY #90 tab 10/06/20 [Rx Last Taken 11/15/20] atorvastatin 40 mg PO QHS #90 tab 10/06/20 [Rx Last Taken Unknown] furosemide [Lasix] 40 mg PO DAILY #30 tab 11/16/20 [Rx Last Taken Unknown] Allergy/AdvReac Type Severity Reaction Status Date / Time alteplase Allergy Angioedema Verified 11/24/20 11:46 Penicillins Allergy They said Verified 11/24/20 11:46 if I took it I would Family History Mother Diabetes Heart disease Father Heart disease Surgical History History of ankle surgery History of appendectomy History of cholecystectomy History of knee replacement Hx of hysterectomy Social History household members: spouse housing: house current occupational status: unemployed Smoking Status: Never smoker alcohol intake: never substance use type: does not use ROS Constitutional Constitutional: Denies fever(s) or weight loss Eyes Eyes: Reports systems reviewed and no addt'l complaints, except as documented and as per HPI ENT HEENT: Reports systems reviewed and no addt'l complaints, except as documented Cardiovascular Cardiovascular: Reports chest pain, chest pain at rest and other Respiratory/Chest Respiratory/Chest: Reports other Gastrointestinal Gastrointestinal: Denies change in bowel habits, nausea, vomiting or weight changes Genitourinary Genitourinary: Denies difficulty urinating Musculoskeletal Musculoskeletal: Denies joint stiffness or muscle weakness Integumentary Integumentary: Denies lesions Neurologic Neurologic: Denies dizziness or syncope Psychiatric Psychiatric: Denies anxiety Endocrine Endocrinology: Denies excessive sweating or fatigue Hematologic/Lymphatic Hematologic/Lymphatic: Denies anemia Allergic/Immunologic Allergic/Immunologic: Denies seasonal rhinorrhea Physical Exam Const oriented x3 and healthy appearing Orientation / Consciousness: awake HEENT normocephalic Eyes PERRL and conjunctivae normal Neck supple, no JVD and no carotid bruits Chest inspection of chest normal Resp normal respiratory effort and clear to auscultation bilaterally Cardio Palpation: normal PMI Rate: regular rate Rhythm: regular rhythm Heart Sounds: S1 normal and S2 normal Peripheral Pulses: pulses 2+ throughout GI normal to inspection, nondistended, normoactive bowel sounds Extremity Extremity Narrative: Significant bruising noted of the left upper extremity and then bilateral significant pedal edema with skin changes suggestive of chronic changes scaling and mild redness is also noted. Psych mental status grossly normal Objective Data Vital Signs: Vital Signs Temp Pulse Resp BP Pulse Ox 97.9 F 90 22 H 126/69 H 99 11/24/20 11:41 11/24/20 12:45 11/24/20 12:45 11/24/20 12:45 11/24/20 12:46 Oxygen Flow Rate (L/min) 3 Oxygen Delivery Method Nasal Cannula Weight: 306 lb 3.553 oz Body Mass Index (BMI) 47.9 Lab / Micro Data Result Diagrams: 11/24/20 12:13 11/24/20 11:50 Labs: Laboratory Results - last 24 hr 11/24/20 11/24/20 11/24/20 11:50 11:50 11:50 WBC Cancelled Corrected WBC Cancelled RBC Cancelled Hgb Cancelled Hct Cancelled MCV Cancelled MCH Cancelled MCHC Cancelled RDW Std Deviation Cancelled RDW Coeff of Chele Cancelled Plt Count Cancelled MPV Cancelled Immature Gran % (Auto) Cancelled Neut % (Auto) Cancelled Lymph % (Auto) Cancelled [place] % (Auto) Cancelled Eos % (Auto) Cancelled Baso % (Auto) Cancelled Absolute Neuts (auto) Cancelled Absolute Lymphs (auto) Cancelled Total Counted Cancelled Neutrophils % (Manual) Cancelled Band Neutrophils % Cancelled Lymphocytes % (Manual) Cancelled Monocytes % (Manual) Cancelled Eosinophils % (Manual) Cancelled Basophils % (Manual) Cancelled Metamyelocytes % Cancelled Myelocytes % Cancelled Promyelocytes % Cancelled Blast Cells % Cancelled Plasma Cell % (Manual) Cancelled Other Cells % Cancelled Nucleated RBC % Cancelled Nucleated RBCs/100 WBC Cancelled Differential Comment Cancelled Diff Path Review Cancelled Hypersegmented Neuts Cancelled Atypical Lymphocytes Cancelled Reactive Lymphocytes Cancelled Smudge Cells Cancelled Toxic Granulation Cancelled Toxic Vacuolation Cancelled Dohle Bodies Cancelled Jennifer Rods Cancelled Platelet Estimate Cancelled Plt Morphology Comment Cancelled RBC Morphology Cancelled Polychromasia Cancelled Hypochromasia Cancelled Poikilocytosis Cancelled Basophilic Stippling Cancelled Anisocytosis Cancelled Microcytosis Cancelled Macrocytosis Cancelled Spherocytes Cancelled Sickle Cells Cancelled Target Cells Cancelled Tear Drop Cells Cancelled Ovalocytes Cancelled Stomatocytes Cancelled [place] Bodies Cancelled [place] Cells Cancelled Bite Cells Cancelled Crenated Cell Cancelled Acanthocytes (Spur) Cancelled Rouleaux Cancelled Schistocytes Cancelled Sodium 130 L Potassium 5.2 H Chloride 101 Carbon Dioxide 22.0 Anion Gap 7 BUN 20 H Creatinine 1.20 H Estim Creat Clear Calc 41.21 Est GFR (MDRD) Af Amer 57 L Est GFR (MDRD) Non-Af 47 L BUN/Creatinine Ratio 16.7 Glucose 126 H Calcium 8.0 L Total Bilirubin 2.30 H Direct Bilirubin 0.59 H AST 52 H ALT 35 Alkaline Phosphatase 86 Troponin I High Sens 430.5 H* Total Protein 7.2 Albumin 2.3 L Globulin 4.9 H 11/24/20 12:13 WBC 6.4 Corrected WBC RBC 2.61 L Hgb 7.5 L Hct 23.7 L MCV 90.8 MCH 28.7 MCHC 31.6 L RDW Std Deviation 61.3 H RDW Coeff of Chele 19.0 H Plt Count 264 MPV 10.8 Immature Gran % (Auto) 0.600 Neut % (Auto) 71.3 H Lymph % (Auto) 8.1 L [place] % (Auto) 10.6 H Eos % (Auto) 8.6 H Baso % (Auto) 0.8 Absolute Neuts (auto) 4.6 Absolute Lymphs (auto) 0.52 L Total Counted Neutrophils % (Manual) Band Neutrophils % Lymphocytes % (Manual) Monocytes % (Manual) Eosinophils % (Manual) Basophils % (Manual) Metamyelocytes % Myelocytes % Promyelocytes % Blast Cells % Plasma Cell % (Manual) Other Cells % Nucleated RBC % 0 Nucleated RBCs/100 WBC Differential Comment Diff Path Review Hypersegmented Neuts Atypical Lymphocytes Reactive Lymphocytes Smudge Cells Toxic Granulation Toxic Vacuolation Dohle Bodies Jennifer Rods Platelet Estimate ADEQUATE Plt Morphology Comment RBC Morphology Polychromasia RARE Hypochromasia 1+ Poikilocytosis Basophilic Stippling Anisocytosis 1+ Microcytosis Macrocytosis Spherocytes Sickle Cells Target Cells Tear Drop Cells Ovalocytes Stomatocytes [place] Bodies [place] Cells Bite Cells Crenated Cell Acanthocytes (Spur) Rouleaux Schistocytes Sodium Potassium Chloride Carbon Dioxide Anion Gap BUN Creatinine Estim Creat Clear Calc Est GFR (MDRD) Af Amer Est GFR (MDRD) Non-Af BUN/Creatinine Ratio Glucose Calcium Total Bilirubin Direct Bilirubin AST ALT Alkaline Phosphatase Troponin I High Sens Total Protein Albumin Globulin Cardiology Labs/Tests 11/24/20 11:50: WBC Cancelled, Corrected WBC Cancelled, RBC Cancelled, Hgb Cancelled, Hct Cancelled, MCV Cancelled, MCH Cancelled, MCHC Cancelled, Plt Count Cancelled, MPV Cancelled, Immature Gran % (Auto) Cancelled, Neut % (Auto) Cancelled, Lymph % (Auto) Cancelled, [place] % (Auto) Cancelled, Eos % (Auto) Cancelled, Baso % (Auto) Cancelled, Absolute Neuts (auto) Cancelled, Total C ounted Cancelled, Neutrophils % (Manual) Cancelled, Band Neutrophils % Cancelled, Lymphocytes % (Manual) Cancelled, Monocytes % (Manual) Cancelled, Eosinophils % (Manual) Cancelled, Basophils % (Manual) Cancelled, Metamyelocytes % Cancelled, Myelocytes % Cancelled, Promyelocytes % Cancelled, Blast Cells % Cancelled, Plasma Cell % (Manual) Cancelled, Other Cells % Cancelled, Nucleated RBC % Cancelled 11/24/20 11:50: Sodium 130 L, Potassium 5.2 H, Chloride 101, Carbon Dioxide 22.0, Anion Gap 7, BUN 20 H, Creatinine 1.20 H, Est GFR (MDRD) Af Amer 57 L, Est GFR (MDRD) Non-Af 47 L, BUN/Creatinine Ratio 16.7, Glucose 126 H, Calcium 8.0 L 11/24/20 11:50: Total Bilirubin 2.30 H, Direct Bilirubin 0.59 H 11/24/20 12:13: WBC 6.4, RBC 2.61 L, Hgb 7.5 L, Hct 23.7 L, MCV 90.8, MCH 28.7, MCHC 31.6 L, Plt Count 264, MPV 10.8, Immature Gran % (Auto) 0.600, Neut % (Au to) 71.3 H, Lymph % (Auto) 8.1 L, [place] % (Auto) 10.6 H, Eos % (Auto) 8.6 H, Baso % (Auto) 0.8, Absolute Neuts (auto) 4.6, Nucleated RBC % 0 Rhythm: EKG: Normal sinus rhythm with no acute changes ECHO: Previous echocardiogram from October demonstrated an ejection fraction of 45%, pulmonary systolic pressure of 60 mmHg. Apical hypokinesis noted Stress Test: Cardiac Cath: PCI: CT Surgery: Holter monitor: EPS: PPM: CXR: Chest CT Scan: Radiography Diagnostic Testing: Radiology Impression Chest X-Ray 11/24/20 11:15 IMPRESSION: No radiographic evidence of acute cardiopulmonary disease. at 1302 Reported and signed by: Nadir Devi MD Electronically Signed: Nadir Devi MD at 13:01 EDT Tel , Service support ,
--- NOTE | 2020-11-24 13:10 | PCM.HP.STD ---
HPI - General General Date of Admission: 11/24/20 HPI Narrative IFTIKHAR FERRARO, is a 70 F who presents with recurrent chest pain. She has been here in the hospital 3 times within the last month. I discharged her on 11/16/2020 after presenting for chest pain rule out. We did recommend a stress test at that time however she refused because she went to see her filtration plant mechanic at [facility] in [place]. She presents today with chest pain/pressure that started this morning. She felt that her heart was in A. fib at that time though she does feel better now. On presentation to the ER she was found to have a nonischemic EKG however her troponin was elevated a little over 400. Cardiology was consulted who recommends heart cath given how frequently she is presented to the hospital this month with chest pain alone. [facility] Medical History Acute CVA (cerebrovascular accident) Acute CVA (cerebrovascular accident) Acute right MCA stroke Atrial fibrillation Congestive heart failure (CHF) Diabetes Gout Hyperlipidemia Hypothyroidism Irregular heart beat Myocardial infarct Non-smoker Osteoporosis Pancreatitis Stroke/cerebrovascular accident Weakness on left side of face Home Medications magnesium oxide 400 mg PO DAILY tab 01/29/17 [Rx Last Taken 11/15/20] Eliquis 5 mg PO BID #60 tab 03/10/17 [Rx Last Taken 11/15/20] pantoprazole 40 mg PO DAILY #30 tab 03/10/17 [Rx Last Taken 11/15/20] diltiazem HCl [DILT-XR] 120 mg PO DAILY 09/19/20 [History Last Taken 11/15/20] sotalol 120 mg PO BID 09/19/20 [History Last Taken 11/15/20] levothyroxine 25 mcg PO DAILY 10/05/20 [History Last Taken 11/13/20] metformin 1,000 mg PO BIDCM 10/05/20 [History Last Taken 11/15/20] aspirin 81 mg PO DAILY #90 tab 10/06/20 [Rx Last Taken 11/15/20] atorvastatin 40 mg PO QHS #90 tab 10/06/20 [Rx Last Taken Unknown] furosemide [Lasix] 40 mg PO DAILY #30 tab 11/16/20 [Rx Last Taken Unknown] Allergy/AdvReac Type Severity Reaction Status Date / Time alteplase Allergy Angioedema Verified 11/24/20 11:46 Penicillins Allergy They said Verified 11/24/20 11:46 if I took it I would Family History Mother Diabetes Heart disease Father Heart disease Surgical History History of ankle surgery History of appendectomy History of cholecystectomy History of knee replacement Hx of hysterectomy Social History household members: spouse housing: house current occupational status: unemployed Smoking Status: Never smoker alcohol intake: never substance use type: does not use ROS Constitutional Constitutional: Denies chills, fatigue, fever(s) or malaise Eyes Eyes: Denies blurry vision ENT HEENT: Denies headache(s) or nasal discharge Cardiovascular Cardiovascular: Reports chest pain; Denies dyspnea on exertion or syncope Respiratory/Chest Respiratory/Chest: Denies cough, shortness of breath at rest or shortness of breath with exertion Gastrointestinal Gastrointestinal: Denies constipation, diarrhea, nausea or vomiting Genitourinary Genitourinary: Denies dysuria Integumentary Integumentary: Reports other Details: Bruise her left upper extremity Neurologic Neurologic: Denies focal weakness, numbness or tremor(s) Psychiatric Psychiatric: Denies anxiety or depression Vital Signs Vital Signs Vital Signs: 11/24/20 11:41 11/24/20 11:46 11/24/20 12:45 Temperature 97.9 F Temperature Source Temporal Pulse Rate 90 90 Respiratory Rate 19 H 22 H Respiratory Effort Normal Non-Labored Blood Pressure 134/61 H 126/69 H Blood Pressure Mean 85 88 Pulse Ox 93 85 Oxygen Delivery Method Room Air Room Air Oxygen Flow Rate (L/min) 11/24/20 12:46 Temperature Temperature Source Pulse Rate Respiratory Rate Respiratory Effort Blood Pressure Blood Pressure Mean Pulse Ox 99 Oxygen Delivery Method Nasal Cannula Oxygen Flow Rate (L/min) 3 Weight Weight: 306 lb 3.553 oz Body Mass Index (BMI) 47.9 Physical Exam Const alert, oriented x3 and no apparent distress General Appearance: cooperative HEENT normocephalic Mouth: dry mucous membranes Eyes PERRL, EOMs intact bilaterally and conjunctivae normal Neck supple and no JVD Resp normal respiratory effort, no retractions, no use of accessory muscles and clear to auscultation bilaterally Auscultation: Negative for crackles, rales, rhonchi or wheezes Cardio regular rate, regular rhythm, S1 normal heart sound, S2 normal heart sound and no murmurs GI soft to palpation, non-tender and non-distended; Negative for hepatosplenomegaly Extremity no clubbing, cyanosis or edema Skin no rashes or lesions noted General Skin Exam: ecchymosis Neuro no focal motor deficits and no sensory deficits noted Psych affect normal Appearance: appropriate Results Lab / Micro Data Result Diagrams: 11/24/20 12:13 11/24/20 11:50 Labs: Laboratory Results - last 24 hr 11/24/20 11/24/20 11/24/20 11:50 11:50 11:50 WBC Cancelled Corrected WBC Cancelled RBC Cancelled Hgb Cancelled Hct Cancelled MCV Cancelled MCH Cancelled MCHC Cancelled RDW Std Deviation Cancelled RDW Coeff of Chele Cancelled Plt Count Cancelled MPV Cancelled Immature Gran % (Auto) Cancelled Neut % (Auto) Cancelled Lymph % (Auto) Cancelled [place] % (Auto) Cancelled Eos % (Auto) Cancelled Baso % (Auto) Cancelled Absolute Neuts (auto) Cancelled Absolute Lymphs (auto) Cancelled Total Counted Cancelled Neutrophils % (Manual) Cancelled Band Neutrophils % Cancelled Lymphocytes % (Manual) Cancelled Monocytes % (Manual) Cancelled Eosinophils % (Manual) Cancelled Basophils % (Manual) Cancelled Metamyelocytes % Cancelled Myelocytes % Cancelled Promyelocytes % Cancelled Blast Cells % Cancelled Plasma Cell % (Manual) Cancelled Other Cells % Cancelled Nucleated RBC % Cancelled Nucleated RBCs/100 WBC Cancelled Differential Comment Cancelled Diff Path Review Cancelled Hypersegmented Neuts Cancelled Atypical Lymphocytes Cancelled Reactive Lymphocytes Cancelled Smudge Cells Cancelled Toxic Granulation Cancelled Toxic Vacuolation Cancelled Dohle Bodies Cancelled Jennifer Rods Cancelled Platelet Estimate Cancelled Plt Morphology Comment Cancelled RBC Morphology Cancelled Polychromasia Cancelled Hypochromasia Cancelled Poikilocytosis Cancelled Basophilic Stippling Cancelled Anisocytosis Cancelled Microcytosis Cancelled Macrocytosis Cancelled Spherocytes Cancelled Sickle Cells Cancelled Target Cells Cancelled Tear Drop Cells Cancelled Ovalocytes Cancelled Stomatocytes Cancelled [place] Bodies Cancelled [place] Cells Cancelled Bite Cells Cancelled Crenated Cell Cancelled Acanthocytes (Spur) Cancelled Rouleaux Cancelled Schistocytes Cancelled Sodium 130 L Potassium 5.2 H Chloride 101 Carbon Dioxide 22.0 Anion Gap 7 BUN 20 H Creatinine 1.20 H Estim Creat Clear Calc 41.21 Est GFR (MDRD) Af Amer 57 L Est GFR (MDRD) Non-Af 47 L BUN/Creatinine Ratio 16.7 Glucose 126 H Calcium 8.0 L Total Bilirubin 2.30 H Direct Bilirubin 0.59 H AST 52 H ALT 35 Alkaline Phosphatase 86 Troponin I High Sens 430.5 H* Total Protein 7.2 Albumin 2.3 L Globulin 4.9 H 11/24/20 12:13 WBC 6.4 Corrected WBC RBC 2.61 L Hgb 7.5 L Hct 23.7 L MCV 90.8 MCH 28.7 MCHC 31.6 L RDW Std Deviation 61.3 H RDW Coeff of Chele 19.0 H Plt Count 264 MPV 10.8 Immature Gran % (Auto) 0.600 Neut % (Auto) 71.3 H Lymph % (Auto) 8.1 L [place] % (Auto) 10.6 H Eos % (Auto) 8.6 H Baso % (Auto) 0.8 Absolute Neuts (auto) 4.6 Absolute Lymphs (auto) 0.52 L Total Counted Neutrophils % (Manual) Band Neutrophils % Lymphocytes % (Manual) Monocytes % (Manual) Eosinophils % (Manual) Basophils % (Manual) Metamyelocytes % Myelocytes % Promyelocytes % Blast Cells % Plasma Cell % (Manual) Other Cells % Nucleated RBC % 0 Nucleated RBCs/100 WBC Differential Comment Diff Path Review Hypersegmented Neuts Atypical Lymphocytes Reactive Lymphocytes Smudge Cells Toxic Granulation Toxic Vacuolation Dohle Bodies Jennifer Rods Platelet Estimate ADEQUATE Plt Morphology Comment RBC Morphology Polychromasia RARE Hypochromasia 1+ Poikilocytosis Basophilic Stippling Anisocytosis 1+ Microcytosis Macrocytosis Spherocytes Sickle Cells Target Cells Tear Drop Cells Ovalocytes Stomatocytes [place] Bodies [place] Cells Bite Cells Crenated Cell Acanthocytes (Spur) Rouleaux Schistocytes Sodium Potassium Chloride Carbon Dioxide Anion Gap BUN Creatinine Estim Creat Clear Calc Est GFR (MDRD) Af Amer Est GFR (MDRD) Non-Af BUN/Creatinine Ratio Glucose Calcium Total Bilirubin Direct Bilirubin AST ALT Alkaline Phosphatase Troponin I High Sens Total Protein Albumin Globulin Radiology Impression Chest X-Ray 11/24/20 11:15 IMPRESSION: No radiographic evidence of acute cardiopulmonary disease. at 1302 Reported and signed by: Nadir Devi MD Electronically Signed: Nadir Devi MD at 13:01 EDT Tel , Service support , Assessment & Plan Assessment/Plan (1) DM2 (diabetes mellitus, type 2): QUALIFIERS: Diabetes mellitus complication status: without complication Diabetes mellitus middle or intermediate school principal insulin use: without middle or intermediate school principal use Qualified Code(s): E11.9 - Type 2 diabetes mellitus without complications (2) NSTEMI (non-ST elevated myocardial infarction): PLAN: 1. NSTEMI/chronic systolic CHF/A. fib/HTN/HLD -We will hold her Eliquis in preparation for heart cath tomorrow -Continue with Lipitor, Cardizem, sotalol -We will give her a dose of IV Lasix today after her transfusion -Consult cardiology 2. Acute anemia from blood loss -She fell a day or 2 ago and has extensive bruising in her left upper extremity, pulses are intact -X-rays in the ER pending for evaluation of possible fracture -Hemoglobin of 7.5 here in the hospital today which is an acute drop from 4 days ago where she was 9.8 -We will transfuse 1 unit given her cardiac history and repeat hemoglobin in the morning may need to transfuse more 3. DM2 -We will hold her Metformin -Placed on sliding scale insulin with Accu-Cheks AC at bedtime, will monitor and make adjustments as necessary 4. Hypothyroidism -Stable -Continue Synthroid DVT: SCDs Charges/Coding Visit Charges Inpatient E&M: 91901 Init Hosp L3
--- NOTE | 2020-11-24 13:25 | RAD_ITS ---
EXAM: XR LEFT HUMERUS, 2 OR MORE VIEWS : 1950 CLINICAL INDICATION: Injury/Pain after falling, patient immobile and unable to cooperate TECHNIQUE: Frontal and lateral views of the left humerus. This report was created using [email or web address] report generation technology. COMPARISON: None. FINDINGS: BONES/JOINTS: There is a fracture of the proximal humerus. Preservation of the joint space. No sclerotic or destructive changes observed. SOFT TISSUES: Unremarkable. No soft tissue swelling or gas. No radiopaque foreign body. RAD/Humerus min 2 Views IMPRESSION: Fracture of the proximal humerus. at 1429 Reported and signed by: Nadir Devi MD Electronically Signed: Nadir Devi MD at 14:28 EDT Tel , Service support ,
[2020-11-24] MEDS: Acetaminophen 325 MG Tablet 650 MG PO ×2 (15:35→22:22)
[2020-11-24 16:41] LABS: Bedside Glucose 108 mg/dL (70-110)
[2020-11-24] MEDS: Furosemide 40 MG/4 ML Vial IV (20:15)
[2020-11-24] MEDS: 0.9% Saline Lock 10 ML Syringe IV (20:15)
[2020-11-24] MEDS: Atorvastatin Calcium 40 MG Tablet PO (22:20)
[2020-11-24 22:51] LABS: Bedside Glucose 114 mg/dL (70-110)
[2020-11-24] MEDS: Sotalol Hydrochloride 80 MG Tablet 120 MG PO (23:13)
[2020-11-25] VITALS (19 sets, daily range): BP systolic 94–132; BP diastolic 48–64; PULSE 68–80; RESP 15–17; TEMP 36.2–36.9; O2SAT 91–99
--- NOTE | 2020-11-25 05:55 | EKG12_ITS ---
Test Reason : AM EKG Blood Pressure : / mmHG Vent. Rate : 072 BPM Atrial Rate : 079 BPM P-R Int : 000 ms QRS Dur : 138 ms QT Int : 450 ms P-R-T Axes : 000 -86 124 degrees QTc Int : 492 ms Atrial Flutter with variable block Left axis deviation Non-specific intra-ventricular conduction block Abnormal ECG When compared with ECG of 24-NOV-2020 12:00, MANUAL COMPARISON REQUIRED, DATA IS UNCONFIRMED Confirmed by JAYNA SUAZO, WAYNE ([id number]), senior editor RAY WYNN ([id number]) on 11/26/2020 8:48:40 AM Referred By: MICHELE Confirmed By:WAYNE DORANTES MD
[2020-11-25] MEDS: Sotalol Hydrochloride 80 MG Tablet 120 MG PO ×2 (06:19→21:43)
[2020-11-25] MEDS: Pantoprazole Sodium 40 MG Tablet PO (06:19)
[2020-11-25 06:30] LABS: Bedside Glucose 92 mg/dL (70-110)
[2020-11-25 06:38] LABS: Absolute Lymphocyte Count 0.57 X10^3/uL (0.83-4.51); Basophil# 0.07 X10^3/uL; Basophil% 1.2 % (0-1); Eosinophil# 0.65 X10^3/uL; Eosinophils% 10.7 % (0-5); Hematocrit 23.1 % (37-47); Hemoglobin 7.4 g/dL (12.0-15.0); Lymphocyte # 0.57 X10^3/ul (0.83-4.51); Lymphocyte % 9.4 % (19-41); Mean Corpuscular Hgb 28.7 pg (27.0-32.0); Mean Corpuscular Volume 89.5 fL (81-99); Mean Platelet Vol. 10.3 fl (6.2-12.0); Monocyte# 0.71 X10^3/uL; Monocyte% 11.7 % (0-10); NRBC Flagged by Analyzer 0 % (0-5); Neutrophil # 4.02 X10^3/uL (2.7-7.7); Neutrophil % 66.3 % (47-70); POSITIVE DIFFERENTIAL YES; Platelet Count 248 K/mm3 (150-450); RBC Distribution Width SD 57.6 fl (35.1-43.9); Red Blood Count 2.58 M/mm3 (4.2-5.4); White Blood Count 6.1 K/mm3 (4.4-11.0)
[2020-11-25 06:43] LABS: Differential Indicated SCAN CRITERIA MET
--- NOTE | 2020-11-25 06:44 | NURSING ---
PT REFUSING TO SIGN CONSENT FOR SCHEDULED HEART CATHETERIZATION THIS AM. PT REPORTS SHE IS REFUSING TO HAVE THE CATH.
[2020-11-25 07:08] LABS: Anion Gap 7 (5-15); BUN 20 mg/dL (7-18); BUN/Creat Ratio 17.9 RATIO (10-20); Calcium,Total 7.7 mg/dL (8.5-10.1); Chloride 100 mmol/L (98-107); Creatinine, Serum 1.12 mg/dL (0.55-1.02); EST Glomerular Filtration Rate 51 mL/min (>60); Est Glom Filt Rate - Afr Amer 61 mL/min (>60); Estimated Creatinine Clearance 44.15 ml/min; Glucose 91 mg/dL (74-106); Potassium 3.9 mmol/L (3.5-5.1); Sodium Level 134 mmol/L (136-145)
[2020-11-25] MEDS: Levothyroxine 25 MCG TABLET PO (09:03)
--- NOTE | 2020-11-25 10:48 | CASEMGMT ---
JENNIE BUTTS assessment: Face to Face with patient for initial transition planning/care coordination assessment. RN BENJAMÍN introduced self and role at [facility], pt voices understanding and consents to assessment. Pt is sitting up in bed in no distress on 2L nc. Pt is alert/oriented and answers most questions appropriately, but does contraindicate self at times. She states she came in for her fx arm but then states the squad staff dropped her on the way in and that's how she fractured arm. She states she did not come in for chest pain but the only complaint on the triage note is chest pain radiating into jaw/arm. Care providers, pharmacy, and demographics verified. Presentation: Pt c/o CP which started at 0400 and also c/o right jaw/arm pain, which has since resolved. Pt c/o nausea/chest heaviness Admitting dx: NSTEMI PCP: Olivia Specialists: Veronica, [facility] in [place]; Justine, [facility] in [place] Preferred Pharmacy: [facility] Insurance: MCR A/B, C[employer] Prescription Benefit: Cigna Living Will/HPOA: Pt states has LW/HPOA and is aware that they are not on file at [facility]. Pt's , Haroldo Mederos, is HPOA. LNOK: Haroldo Mederos, /HPOA Living Arrangements: Pt states lives with in 2 story home and states no concerns at home. Pt states assists all with ADL's. Transportation: Pt states drives and states no transportation concerns. DME/HHC: Pt states the following DME: raised toilet seat, walker, w/c, hospital bed, grab bars, rails, lift chair, and sit to stand. Pt states no need for any further DME. Pt states has had OP therapy at [facility] recently but insurance will not longer pay so she has family/friends assisting with therapy at home and has been to [facility] in the past. Pt states no concerns with going home at time of discharge. Pt is retired. Pt states does not smoke cigarettes or drink ETOH. Pt voices no further concerns/needs. CM to follow for any further discharge planning/needs. Advised pt to ask for CM if any further questions/concerns/needs arise, voices understanding. Pt Goal: Home Plan: Home, pending clinical course. SStaten JENNIE BUTTS
--- NOTE | 2020-11-25 11:08 | PCM.PN.CARD ---
Subjective Subjective Patient seen and evaluated. No complaints today Objective Data Vital Signs: Vital Signs Temp Pulse Resp BP Pulse Ox 98.3 F 75 17 101/54 L 98 11/25/20 10:31 11/25/20 10:31 11/25/20 10:31 11/25/20 10:31 11/25/20 10:31 Oxygen Flow Rate (L/min) 2 Oxygen Delivery Method Nasal Cannula Weight: 299 lb 2.994 oz Body Mass Index (BMI) 46.8 Intake & Output: Intake and Output for Last 24 Hours 11/23/20 11/24/20 11/25/20 23:59 23:59 23:59 Intake Total 640 / 880 440 / 440 Output Total 175 / 925 1950 / 1950 Balance 465 / -45 -1510 / -1510 Lab / Micro Data Result Diagrams: 11/25/20 05:38 11/25/20 05:38 Labs: Laboratory Results - last 24 hr 11/24/20 11:50: WBC Cancelled, Corrected WBC Cancelled, RBC Cancelled, Hgb Cancelled, Hct Cancelled, MCV Cancelled, MCH Cancelled, MCHC Cancelled, RDW Std Deviation Cancelled, RDW Coeff of Chele Cancelled, Plt Count Cancelled, MPV Cancelled, Immature Gran % (Auto) Cancelled, Neut % (Auto) Cancelled, Lymph % (Auto) Cancelled, Evangeline % (Auto) Cancelled, Eos % (Auto) Cancelled, Baso % (Auto) Cancelled, Absolute Neuts (auto) Cancelled, Absolute Lymphs (auto) Cancelled, Total Counted Cancelled, Neutrophils % (Manual) Cancelled, Band Neutrophils % Cancelled, Lymphocytes % (Manual) Cancelled, Monocytes % (Manual) Cancelled, Eosinophils % (Manual) Cancelled, Basophils % (Manual) Cancelled, Metamyelocytes % Cancelled, Myelocytes % Cancelled, Promyelocytes % Cancelled, Blast Cells % Cancelled, Plasma Cell % (Manual) Cancelled, Other Cells % Cancelled, Nucleated RBC % Cancelled, Nucleated RBCs/100 WBC Cancelled, Differential Comment Cancelled, Diff Path Review Cancelled, Hypersegmented Neuts Cancelled, Atypical Lymphocytes Cancelled, Reactive Lymphocytes Cancelled, Smudge Cells Cancelled, Toxic Granulation Cancelled, Toxic Vacuolation Cancelled, Dohle Bodies Cancelled, Jennifer Rods Cancelled, Platelet Estimate Cancelled, Plt Morphology Comment Cancelled, RBC Morphology Cancelled, Polychromasia Cancelled, Hypochromasia Cancelled, Poikilocytosis Cancelled, Basophilic Stippling Cancelled, Anisocytosis Cancelled, Microcytosis Cancelled, Macrocytosis Cancelled, Spherocytes Cancelled, Sickle Cells Cancelled, Target Cells Cancelled, Tear Drop Cells Cancelled, Ovalocytes Cancelled, Stomatocytes Cancelled, Little-Cooter Bodies Cancelled, Marquis Cells Cancelled, Bite Cells Cancelled, Crenated Cell Cancelled, Acanthocytes (Spur) Cancelled, Rouleaux Cancelled, Schistocytes Cancelled 11/24/20 11:50: Sodium 130 L, Potassium 5.2 H, Chloride 101, Carbon Dioxide 22.0, Anion Gap 7, BUN 20 H, Creatinine 1.20 H, Estim Creat Clear Calc 41.21, Est GFR (MDRD) Af Amer 57 L, Est GFR (MDRD) Non-Af 47 L, BUN/Creatinine Ratio 16.7, Glucose 126 H, Calcium 8.0 L, Troponin I High Sens 430.5 H* 11/24/20 11:50: Total Bilirubin 2.30 H, Direct Bilirubin 0.59 H, AST 52 H, ALT 35, Alkaline Phosphatase 86, Total Protein 7.2, Albumin 2.3 L, Globulin 4.9 H 11/24/20 12:13: WBC 6.4, RBC 2.61 L, Hgb 7.5 L, Hct 23.7 L, MCV 90.8, MCH 28.7, MCHC 31.6 L, RDW Std Deviation 61.3 H, RDW Coeff of Chele 19.0 H, Plt Count 264, MPV 10.8, Immature Gran % (Auto) 0.600, Neut % (Auto) 71.3 H, Lymph % (Auto) 8.1 L, Evangeline % (Auto) 10.6 H, Eos % (Auto) 8.6 H, Baso % (Auto) 0.8, Absolute Neuts (auto) 4.6, Absolute Lymphs (auto) 0.52 L, Nucleated RBC % 0, Platelet Estimate ADEQUATE, Polychromasia RARE, Hypochromasia 1+, Anisocytosis 1+ 11/24/20 13:18: Blood Type A POSITIVE, Antibody Screen NEGATIVE, Crossmatch See Detail 11/24/20 13:18: Crossmatch See Detail 11/24/20 13:18: Crossmatch See Detail 11/24/20 16:27: POC Glucose 108 11/24/20 22:30: POC Glucose 114 H 11/25/20 05:38: WBC 6.1, RBC 2.58 L, Hgb 7.4 L, Hct 23.1 L, MCV 89.5, MCH 28.7, MCHC 32.0, RDW Std Deviation 57.6 H, RDW Coeff of Chele 18.0 H, Plt Count 248, MPV 10.3, Immature Gran % (Auto) 0.700, Neut % (Auto) 66.3, Lymph % (Auto) 9.4 L, Evangeline % (Auto) 11.7 H, Eos % (Auto) 10.7 H, Baso % (Auto) 1.2 H, Absolute Neuts (auto) 4.0, Absolute Lymphs (auto) 0.57 L, Nucleated RBC % 0 11/25/20 05:38: Sodium 134 L, Potassium 3.9, Chloride 100, Carbon Dioxide 27.0, Anion Gap 7, BUN 20 H, Creatinine 1.12 H, Estim Creat Clear Calc 44.15, Est GFR (MDRD) Af Amer 61, Est GFR (MDRD) Non-Af 51 L, BUN/Creatinine Ratio 17.9, Glucose 91, Calcium 7.7 L 11/25/20 06:18: POC Glucose 92 Cardiology Labs/Tests 11/24/20 11:50: WBC Cancelled, Corrected WBC Cancelled, RBC Cancelled, Hgb Cancelled, Hct Cancelled, MCV Cancelled, MCH Cancelled, MCHC Cancelled, Plt Count Cancelled, MPV Cancelled, Immature Gran % (Auto) Cancelled, Neut % (Auto) Cancelled, Lymph % (Auto) Cancelled, Evangeline % (Auto) Cancelled, Eos % (Auto) Cancelled, Baso % (Auto) Cancelled, Absolute Neuts (auto) Cancelled, Total Counted Cancelled, Neutrophils % (Manual) Cancelled, Band Neutrophils % Cancelled, Lymphocytes % (Manual) Cancelled, Monocytes % (Manual) Cancelled, Eosinophils % (Manual) Cancelled, Basophils % (Manual) Cancelled, Metamyelocytes % Cancelled, Myelocytes % Cancelled, Promyelocytes % Cancelled, Blast Cells % Cancelled, Plasma Cell % (Manual) Cancelled, Other Cells % Cancelled, Nucleated RBC % Cancelled 11/24/20 11:50: Sodium 130 L, Potassium 5.2 H, Chloride 101, Carbon Dioxide 22.0, Anion Gap 7, BUN 20 H, Creatinine 1.20 H, Est GFR (MDRD) Af Amer 57 L, Est GFR (MDRD) Non-Af 47 L, BUN/Creatinine Ratio 16.7, Glucose 126 H, Calcium 8.0 L 11/24/20 11:50: Total Bilirubin 2.30 H, Direct Bilirubin 0.59 H 11/24/20 12:13: WBC 6.4, RBC 2.61 L, Hgb 7.5 L, Hct 23.7 L, MCV 90.8, MCH 28.7, MCHC 31.6 L, Plt Count 264, MPV 10.8, Immature Gran % (Auto) 0.600, Neut % (Auto) 71.3 H, Lymph % (Auto) 8.1 L, Evangeline % (Auto) 10.6 H, Eos % (Auto) 8.6 H, Baso % (Auto) 0.8, Absolute Neuts (auto) 4.6, Nucleated RBC % 0 11/25/20 05:38: WBC 6.1, RBC 2.58 L, Hgb 7.4 L, Hct 23.1 L, MCV 89.5, MCH 28.7, MCHC 32.0, Plt Count 248, MPV 10.3, Immature Gran % (Auto) 0.700, Neut % (Auto) 66.3, Lymph % (Auto) 9.4 L, Evangeline % (Auto) 11.7 H, Eos % (Auto) 10.7 H, Baso % (Auto) 1.2 H, Absolute Neuts (auto) 4.0, Nucleated RBC % 0 11/25/20 05:38: Sodium 134 L, Potassium 3.9, Chloride 100, Carbon Dioxide 27.0, Anion Gap 7, BUN 20 H, Creatinine 1.12 H, Est GFR (MDRD) Af Amer 61, Est GFR (MDRD) Non-Af 51 L, BUN/Creatinine Ratio 17.9, Glucose 91, Calcium 7.7 L Rhythm: EKG: ECHO: Stress Test: Cardiac Cath: PCI: CT Surgery: Holter monitor: EPS: PPM: CXR: Chest CT Scan: Radiography Diagnostic Testing: Radiology Impression Chest X-Ray 11/24/20 11:15 IMPRESSION: No radiographic evidence of acute cardiopulmonary disease. at 1302 Reported and signed by: Nadir Devi MD Electronically Signed: Nadir Devi MD at 13:01 EDT Tel , Service support , Humerus X-Ray 11/24/20 13:25 IMPRESSION: Fracture of the proximal humerus. at 1429 Reported and signed by: Nadir Devi MD Electronically Signed: Nadir Devi MD at 14:28 EDT Tel , Service support , Physical Exam Const oriented x3 and healthy appearing Orientation / Consciousness: awake HEENT normocephalic Eyes PERRL and conjunctivae normal Neck supple, no JVD and no carotid bruits Chest inspection of chest normal Resp normal respiratory effort and clear to auscultation bilaterally Cardio Palpation: normal PMI Rate: regular rate Rhythm: regular rhythm Heart Sounds: S1 normal and S2 normal Peripheral Pulses: pulses 2+ throughout GI normal to inspection, nondistended, normoactive bowel sounds Extremity normal to inspection and no clubbing, cyanosis or edema Assessment & Plan Assessment/Plan (1) NSTEMI (non-ST elevated myocardial infarction): PLAN: She presents with an non-ST elevation myocardial infarction. My recommendation after discussion with her yesterday in the emergency room with her present as well as the hospitalist was that we proceed with a left heart catheterization. This morning she categorically refuses to have a left heart catheterization performed. I did suggest to her that this could have untoward effects especially related to any further work that may need to be done on her left humerus. She is rather insistent that she does not want any cardiac procedures. The risks have been well enunciated to her. At this point in time we will continue medical management only and I will be involved peripherally. She does have a manager home in [place] and she has been advised to follow closely with him (2) LV dysfunction: PLAN: She does have evidence of mild left ventricular systolic dysfunction as noted before. Her ejection fraction was noted to be 45% with wall motion abnormalities involving the apex and this will be evaluated after her cardiac catheterization. (3) Paroxysmal atrial fibrillation: PLAN: She apparently has had episodes of paroxysmal atrial fibrillation and has been on anticoagulation as well as antiarrhythmic. We will continue the latter but hold the anticoagulation. I would also recommend discontinuing the diltiazem and continuing only the sotalol as patient had presented not too long ago with significant bradycardia. (4) Hypertension: QUALIFIERS: Hypertension type: essential hypertension Qualified Code(s): I10 - Essential (primary) hypertension PLAN: She does have a history of hypertension which appears to be under control at this time. Her echocardiogram demonstrated mild left ventricular systolic dysfunction. (5) Anemia: PLAN: She has had an anemia which has been significantly worsened by her recent fall. She clearly has sustained a fracture of her left humerus with a significant hematoma. She is being transfused. Further recommendations on the hematoma and the fracture will depend on orthopedics. Thank you for allowing me to participate in the care of your patient. Please don't hesitate to call if any issues arise.
--- NOTE | 2020-11-25 11:37 | CASEMGMT ---
[facility] palliative screening tool completed and pt qualifies for palliative screen but Dr. Lopez does not want to send referral yet at this time. Cecilia SCHNEIDER CM
[2020-11-25 11:51] LABS: Bedside Glucose 105 mg/dL (70-110)
--- NOTE | 2020-11-25 12:37 | PN.HOSP_ITS ---
Subjective Subjective No issues overnight, she was found to have a proximal humeral fracture on the Left. She was transfused a unit yesterday but she blood down to 7.4 from 7.5 therefore she will be transfused 2 units today. The fracture was nondisplaced and is currently in a sling. We did have an extensive discussion yesterday that we would only admit her if she was willing to undergo a cardiac catheterization. She stated that she was but now has changed her mind. Objective Data Objective Data Vital Signs: Vital Signs Temp Pulse Resp BP Pulse Ox 98.0 F 73 16 106/51 L 99 11/25/20 11:31 11/25/20 12:05 11/25/20 11:31 11/25/20 11:31 11/25/20 11:31 Oxygen Flow Rate (L/min) 2 Oxygen Delivery Method Nasal Cannula Weight: 299 lb 2.994 oz Body Mass Index (BMI) 46.8 Intake & Output: Intake and Output for Last 24 Hours 11/24/20 11/25/20 11/26/20 03:59 03:59 03:59 Intake Total 880 / 880 570 / 570 Output Total 925 / 925 1700 / 1700 Balance -45 / -45 -1130 / -1130 Lab / Micro Data Result Diagrams: 11/25/20 05:38 11/25/20 05:38 Labs: Laboratory Results - last 24 hr 11/24/20 11:50: Total Bilirubin 2.30 H, Direct Bilirubin 0.59 H, AST 52 H, ALT 35, Alkaline Phosphatase 86, Total Protein 7.2, Albumin 2.3 L, Globulin 4.9 H 11/24/20 12:13: Platelet Estimate ADEQUATE, Polychromasia RARE, Hypochromasia 1+, Anisocytosis 1+ 11/24/20 13:18: Blood Type A POSITIVE, Antibody Screen NEGATIVE, Crossmatch See Detail 11/24/20 13:18: Crossmatch See Detail 11/24/20 13:18: Crossmatch See Detail 11/24/20 16:27: POC Glucose 108 11/24/20 22:30: POC Glucose 114 H 11/25/20 05:38: WBC 6.1, RBC 2.58 L, Hgb 7.4 L, Hct 23.1 L, MCV 89.5, MCH 28.7, MCHC 32.0, RDW Std Deviation 57.6 H, RDW Coeff of Chele 18.0 H, Plt Count 248, MPV 10.3, Immature Gran % (Auto) 0.700, Neut % (Auto) 66.3, Lymph % (Auto) 9.4 L, Millard % (Auto) 11.7 H, Eos % (Auto) 10.7 H, Baso % (Auto) 1.2 H, Absolute Neuts (auto) 4.0, Absolute Lymphs (auto) 0.57 L, Nucleated RBC % 0 11/25/20 05:38: Sodium 134 L, Potassium 3.9, Chloride 100, Carbon Dioxide 27.0, Anion Gap 7, BUN 20 H, Creatinine 1.12 H, Estim Creat Clear Calc 44.15, Est GFR (MDRD) Af Amer 61, Est GFR (MDRD) Non-Af 51 L, BUN/Creatinine Ratio 17.9, Gluco se 91, Calcium 7.7 L 11/25/20 06:18: POC Glucose 92 11/25/20 11:39: POC Glucose 105 Radiography Diagnostic Testing: Radiology Impression Chest X-Ray 11/24/20 11:15 IMPRESSION: No radiographic evidence of acute cardiopulmonary disease. at 1302 Reported and signed by: Nadir Devi MD Electronically Signed: Nadir Devi MD at 13:01 EDT Tel , Service support , Humerus X-Ray 11/24/20 13:25 IMPRESSION: Fracture of the proximal humerus. at 1429 Reported and signed by: Nadir Devi MD Electronically Signed: Nadir Devi MD at 14:28 EDT Tel , Service support , Physical Exam Const alert and no apparent distress HEENT moist oral mucous membranes Head and Scalp: normocephalic Eyes PERRL, EOMs intact bilaterally and conjunctivae normal Neck supple and no JVD Resp normal respiratory effort, no retractions, no use of accessory muscles and clear to auscultation bilaterally Auscultation: Negative for crackles, rales, rhonchi or wheezes Cardio regular rate, regular rhythm, S1 normal heart sound, S2 normal heart sound and no murmurs GI soft to palpation, non-tender and non-distended; Negative for hepatosplenomegaly Extremity no clubbing, cyanosis or edema Skin no rashes or lesions noted Skin Narrative: Ecchymosis over her left arm General Skin Exam: ecchymosis Neuro no focal motor deficits and no sensory deficits noted Psych affect normal Appearance: appropriate Assessment & Plan Assessment/Plan (1) DM2 (diabetes mellitus, type 2): QUALIFIERS: Diabetes mellitus complication status: without complication Diabetes mellitus terminal supervisor insulin use: without terminal supervisor use Qualified Code(s): E11.9 - Type 2 diabetes mellitus without complications (2) NSTEMI (non-ST elevated myocardial infarction): PLAN: 1. NSTEMI/chronic systolic CHF/A. fib/HTN/HLD -Continue to hold her Eliquis secondary to her bruising and her anemia. -Despite telling myself and the industrial truck driver yesterday that she would proceed w ith a heart cath here, she is now denying this emphatically and does not want a heart cath done at all. We will continue to medically manage and then transfer to a nursing home facility for therapy secondary to the fact that according to her she has not walked for quite a while and has had a significant decline in her mental status over the last several months. -Continue with Lipitor, sotalol -We will give her a dose of IV Lasix today after her transfusion -Consult cardiology 2. Acute anemia from blood loss due to a proximal humerus fracture on the left -She fell a day or 2 ago and has extensive bruising in her left upper extremity, pulses are intact -X-rays demonstrate a left proximal humerus fracture this is likely where all the blood loss is given the ecchymosis. We will discussed the case with Ortho, I do not anticipate surgical intervention given her unstable angina and the fact that she has refused to do a heart cath -Hemoglobin of 7.4 here in the hospital today which is an acute drop from 4 days ago where she was 9.8 -Plan to transfuse 2 units today with Lasix in between 3. DM2 -We will hold her Metformin -Placed on sliding scale insulin with Accu-Cheks AC at bedtime, will monitor and make adjustments as necessary 4. Hypothyroidism -Stable -Continue Synthroid DVT: SCDs Charges/Coding Visit Charges Inpatient E&M: 45323 Subs Hosp L2
[2020-11-25] MEDS: Furosemide 40 MG/4 ML Vial IV (13:13)
--- NOTE | 2020-11-25 14:07 | CHAPLAIN ---
Type of Pastoral Visit _x__ Initial Visit ___ Follow-up Visit ___ On-call Visit ___ General Patient Visit ___ Spiritual Assessment ___ Family Conference ___ Bereavement ___ Rapid Response ___ Code Blue ___ Other (describe below) Pastoral Care Referral From _x__ Patient ___ Family ___ Nurse ___ Physician ___ Cool Roofing Installer ___ Reagent Tender Helper ___ Other (describe below) Sacrament/Intervention _x__ Active listening ___ Anointing ___ Faith ___ Bereavement ___ Communion _x__ Kera exploration ___ ___ Life review _x__ Prayer ___ Reconciliation ___ Sacrament of Sick _x__ Supportive presence ___ Wedding ___ Other (describe below) Pastoral Comments patient has been seen before in previous admissions; pt has requested spiritual care support in the past as well as currently; pt says that she has refused a heart cath and explains her feelings and also her kera in whatever God has for me; pt states she is not afraid to and just believes that she is not to have the procedure done; pt says that she is a peace with her decision; pt has a great granddaughter to be born in February and hopes to live to see her; prayer and presence welcomed
[2020-11-25] MEDS: Acetaminophen 325 MG Tablet 650 MG PO (15:18)
--- NOTE | 2020-11-25 15:42 | CASEMGMT ---
SW spoke with patient and her . Introduced self as well as role at [facility]. Patient's said he is not able to care for patient while she has a broken arm as they cannot use the sit to stand. Patient would like to go back to [facility]. SHREYAS told them SW will work on making this referral. SW faxed referral and also left a voice mail regarding referral. Plan: [place] pending their acceptance of patient. Lesly Nielson IC DESIGNER STANDARD CELLS LINDA
--- NOTE | 2020-11-25 15:43 | NURSING ---
Late entry: This RN notified SW that RN spoke with patient's regarding patient's intermittent confusion. Per patient's , he states that she has been having intermittent confusion over the past several months. Patient stated to RN that she has been up walking at home. Patient's states that she hasn't walked in about 7 months. He maneuvers her around and gets her up into a chair using a [id number] device. further states that patient broke her arm when she slipped out of the sling and fell to the floor prior to coming to the hospital. The patient stated that she fell because EMS dropped her.
[2020-11-25 16:46] LABS: Bedside Glucose 121 mg/dL (70-110)
--- NOTE | 2020-11-25 17:08 | NURSING ---
Lab aware to draw repeat lab at 1800.
[2020-11-25] MEDS: 0.9% Saline Lock 10 ML Syringe IV ×2 (17:11→21:45)
[2020-11-25 18:54] LABS: Hematocrit 29.3 % (37-47); Hemoglobin 9.6 g/dL (12.0-15.0)
[2020-11-25] MEDS: Atorvastatin Calcium 40 MG Tablet PO (21:43)
[2020-11-25] MEDS: Nystatin Powder 15gm Bottle 1 APPLIC TOPICAL (21:49)
[2020-11-25 22:26] LABS: Bedside Glucose 119 mg/dL (70-110)
[2020-11-26] VITALS (11 sets, daily range): BP systolic 102–136; BP diastolic 52–68; PULSE 71–93; RESP 12–16; TEMP 36.9–37.2; O2SAT 93–96
[2020-11-26] MEDS: Acetaminophen 325 MG Tablet 650 MG PO (04:12)
[2020-11-26 05:32] LABS: Absolute Lymphocyte Count 0.49 X10^3/uL (0.83-4.51); Basophil# 0.05 X10^3/uL; Basophil% 0.7 % (0-1); Eosinophils% 7.4 % (0-5); Hematocrit 26.5 % (37-47); Hemoglobin 8.5 g/dL (12.0-15.0); Lymphocyte # 0.49 X10^3/ul (0.83-4.51); Lymphocyte % 7.2 % (19-41); Mean Corp Hgb Conc 32.1 g/dL (32-36); Mean Corpuscular Hgb 28.6 pg (27.0-32.0); Mean Corpuscular Volume 89.2 fL (81-99); Monocyte# 0.76 X10^3/uL; Monocyte% 11.2 % (0-10); NRBC Flagged by Analyzer 0 % (0-5); Neutrophil # 4.95 X10^3/uL (2.7-7.7); Neutrophil % 72.9 % (47-70); POSITIVE DIFFERENTIAL YES; Platelet Count 238 K/mm3 (150-450); RBC Distribution Width CV 18.2 % (11.6-14.6); RBC Distribution Width SD 56.5 fl (35.1-43.9); Red Blood Count 2.97 M/mm3 (4.2-5.4); White Blood Count 6.8 K/mm3 (4.4-11.0)
[2020-11-26 05:43] LABS: Differential Indicated SCAN CRITERIA MET
[2020-11-26 05:46] LABS: Anion Gap 5 (5-15); BUN 21 mg/dL (7-18); BUN/Creat Ratio 18.9 RATIO (10-20); Calcium,Total 7.6 mg/dL (8.5-10.1); Chloride 100 mmol/L (98-107); Creatinine, Serum 1.11 mg/dL (0.55-1.02); EST Glomerular Filtration Rate 51 mL/min (>60); Est Glom Filt Rate - Afr Amer 62 mL/min (>60); Estimated Creatinine Clearance 44.55 ml/min; Glucose 116 mg/dL (74-106); Potassium 3.8 mmol/L (3.5-5.1); Sodium Level 134 mmol/L (136-145)
[2020-11-26] MEDS: Levothyroxine 25 MCG TABLET PO (06:25)
[2020-11-26] MEDS: Nystatin Powder 15gm Bottle 1 APPLIC TOPICAL ×2 (06:25→15:10)
[2020-11-26 06:31] LABS: Bedside Glucose 123 mg/dL (70-110)
--- NOTE | 2020-11-26 06:50 | CASEMGMT ---
SW received a voice mail yesterday from Rianna at [facility] and they can accept patient. Lesly Nielson YARN TEXTURE MACHINE OPERATORFarheen MCKEON
[2020-11-26] MEDS: Pantoprazole Sodium 40 MG Tablet PO (09:32)
[2020-11-26] MEDS: Sotalol Hydrochloride 80 MG Tablet 120 MG PO (09:32)
--- NOTE | 2020-11-26 10:35 | CASEMGMT ---
SOCIAL WORK HENS submitted. D. Jamshid, DUST HANDLER, [employer]
[2020-11-26 12:36] LABS: Bedside Glucose 145 mg/dL (70-110)
--- NOTE | 2020-11-26 12:52 | CASEMGMT ---
SW spoke with Rianna at [facility] and let her know patient will be coming today, but not until after dinner. Patient will have to quarantine for 10 days. Patient can have visitors during that time, but not in her room. Their rooms have access to the outside so when she gets visitors during that time they will visit at her window and they will open the window. After day 10 she can have visits in her room. SW spoke with patient and her and let them know she will be going today later. SW told them about the visitation policy. They verbalized understanding. Plan: d/c to [facility] under skilled level of care on a convalescent stay. Lesly Nielson CAR CHECKER LINDA
--- NOTE | 2020-11-26 15:13 | PCM.TXEXTCAR ---
Diet 11/25/20 14:40 Diet: Cardiac: Calorie-Controlled Food consistency:: Regular Liquid Consistency:: Regular/Thin Dietary Modifications:: Consistent Carbohydrate Sodium Restricted Is pt able to select menu?: Yes How many daily calories?: 2000 calorie Routine Orders/Code Status Routine Lab Work: CBC (in 3 days) Code Status: Full Code Wound(s) Left buttock: Wound Type: Skin Tear left knee: Wound Type: weeping area from lymphedema Therapies Weight Bearing: Full weight bearing Physical Therapy: Eval and Treat Occupational Therapy: Eval and Treat Problem/Diagnosis (1) DM2 (diabetes mellitus, type 2): Status: Chronic (2) NSTEMI (non-ST elevated myocardial infarction): Status: Acute (3) Anemia: Status: Acute Comment: secondary to bleeding from left humeral fracture (4) Hypertension: Status: Chronic (5) Left humeral fracture: Status: Acute Comment: follow up with Johan Christiansen D.O. in two weeks-call for appointment (6) Paroxysmal atrial fibrillation: Status: Chronic Allergies/Procedures Done in Hospital Allergies alteplase Allergy (Verified 11/24/20 11:46) Angioedema Penicillins Allergy (Verified 11/24/20 11:46) They said if I took it I would Procedures: Blood transfusion Type of Care/Length of Stay Estimated LOS: Convalescent Care Less Than 30 days Type of Care Needed: Skilled Rehab Potential: Good Prognosis: Good Additional Orders/Day of Discharge Additional Orders: wear left shoulder immobilizer, follow up with Dr. Christiansen in two weks H&P will serve as current which was dated: 11/24/20 Day of Discharge: 11/26/20 Dietary and Speech Recommendations Dietitian Recommendations/Changes: Change to cardiac - 2000kcal - consistent carbohydrate diet D/c ensure enlive 120mL PO 4x/day at [facility]. Pt would benefit from supportive weight loss when ready for lifestyle change. Cyndi Bay MS, RD, LD Discharge Plan Admission Admit Date/Time: 11/24/20 13:06 Primary Reason for Your Visit: Non Stemi, blood loss anemia Attending Provider: Sukhdeep Sandoval Primary Care Provider: Kanwal Baker Instructions Patient Instructions: ED Chest Pain, Noncardiac Additional Instructions / Restrictions: Follow up with your electrical software engineer in 2-3 weeks Discharge Orders/Prescriptions Prescriptions: New nystatin [Nyamyc] 100,000 unit/gram Powder 1 applic topical TID Qty: 1 RF: 0 lisinopril 2.5 mg tablet 2.5 mg PO DAILY Qty: 1 RF: 0 acetaminophen [Tylenol] 325 mg tablet 650 mg PO Q6H PRN (Reason: pain) Qty: 1 RF: 0 Continued magnesium oxide 400 MG tablet 400 mg PO DAILY RF: 0 pantoprazole 40 MG tablet 40 mg PO DAILY Qty: 30 RF: 0 sotalol 120 mg Tablet 120 mg PO BID RF: 0 metformin 500 MG tablet 1,000 mg PO BIDCM RF: 0 levothyroxine 25 mcg tablet 25 mcg PO DAILY RF: 0 atorvastatin 40 mg tablet 40 mg PO QHS Qty: 90 RF: 0 aspirin 81 mg tablet,delayed release (DR/EC) 81 mg PO DAILY Qty: 90 RF: 0 furosemide [Lasix] 40 mg tablet 40 mg PO DAILY Qty: 30 RF: 0 Discontinued Eliquis 5 MG tablet 5 mg PO BID Qty: 60 RF: 0 diltiazem HCl [DILT-XR] 120 mg Capsule,Ext.Rel 24h Degradable 120 mg PO DAILY RF: 0 Referrals / Follow Up: Kanwal Baker DO [Primary Care Provider] - Disposition Disposition (needs filled in before D/C Order can be placed): Group Home Facility
--- NOTE | 2020-11-26 15:55 | PHA.DC.MR ---
Pharmacy Service has performed discharge medication reconciliation for this patient. The patient's discharge medication list was reviewed for discrepancies and discrepancies were resolved. Home Medications magnesium oxide 400 mg PO DAILY tab 01/29/17 pantoprazole 40 mg PO DAILY #30 tab 03/10/17 sotalol 120 mg PO BID 09/19/20 levothyroxine 25 mcg PO DAILY 10/05/20 metformin 1,000 mg PO BIDCM 10/05/20 aspirin 81 mg PO DAILY #90 tab 10/06/20 atorvastatin 40 mg PO QHS #90 tab 10/06/20 furosemide [Lasix] 40 mg PO DAILY #30 tab 11/16/20 acetaminophen [Tylenol] 650 mg PO Q6H PRN #1 tab 11/26/20 lisinopril 2.5 mg PO DAILY #1 tab 11/26/20 nystatin [Nyamyc] 1 applic TOPICAL TID #1 g 11/26/20
[2020-11-26 16:35] LABS: Bedside Glucose 128 mg/dL (70-110)
--- NOTE | 2020-11-26 16:35 | CASEMGMT ---
SW faxed orders to [facility] along with the negative COVID test. SW arranged for patient to get picked up at 6p via cot. SW notified RN, corporate legal secretary, left a message for Rianna at [facility], and called patient's . All in agreement with d/c plan. Plan: d/c to [facility] under skilled level of care on a convalescent stay. [facility] transported via cot. Lesly MCKEON
--- NOTE | 2020-11-26 17:28 | NURSING ---
Report called to Billy at [facility] at [phone]
--- NOTE | 2020-11-28 08:54 | PCM.DC.SUM ---
Providers Date of Admission: 11/24/20 Date of Discharge: 11/26/20 Primary Care Physician: Dr. 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 mellitus middle or intermediate school principal insulin use: without long-term use Qualified Code(s): E11.9 - Type 2 diabetes mellitus without complications (2) NSTEMI (non-ST elevated myocardial infarction): Status: Acute Code(s): I21.4 - Non-ST elevation (NSTEMI) myocardial infarction (3) Anemia: Status: Acute Code(s): D64.9 - Anemia, unspecified (4) Hypertension: Status: Chronic Code(s): I10 - Essential (primary) hypertension Qualifiers: Hypertension type: essential hypertension Qualified Code(s): I10 - Essential (primary) hypertension (5) Left humeral fracture: Status: Acute Code(s): S42.302A - Unspecified fracture of shaft of humerus, left arm, initial encounter for closed fracture (6) Paroxysmal atrial fibrillation: Status: Chronic Code(s): I48.0 - Paroxysmal atrial fibrillation Plan: 1. Non-ST elevation [place] #2 acute blood loss anemia secondary to acute left humeral fracture requiring blood transfusion #3 type 2 diabetes #4 essential hypertension #5 generalized debility #6 paroxysmal atrial fib/atrial flutter #7 acute left humeral fracture Medications at Discharge Home Medications magnesium oxide 400 mg PO DAILY tab 01/29/17 pantoprazole 40 mg PO DAILY #30 tab 03/10/17 sotalol 120 mg PO BID 09/19/20 levothyroxine 25 mcg PO DAILY 10/05/20 metformin 1,000 mg PO BIDCM 10/05/20 aspirin 81 mg PO DAILY #90 tab 10/06/20 atorvastatin 40 mg PO QHS #90 tab 10/06/20 furosemide [Lasix] 40 mg PO DAILY #30 tab 11/16/20 acetaminophen [Tylenol] 650 mg PO Q6H PRN #1 tab 11/26/20 lisinopril 2.5 mg PO DAILY #1 tab 11/26/20 nystatin [Nyamyc] 1 applic TOPICAL TID #1 g 11/26/20 Hospital Course Operations None Procedures Blood transfusion Summary of Care Provided Minutes Spent on Discharge: 33 Hospital Course: This 70-year-old white female was seen in the emergency room at [facility] with a chief complaint of chest pain and possible palpitations. Patient related to a history of paroxysmal atrial fibrillation. Work-up in the emergency room included an EKG which showed evidence of atrial flutter, lab work obtained showed the patient to be anemic and have elevated troponin. Patient was admitted to PCU and seen in consultation by cardiology, serial enzymes were obtained and cardiac enzymes remained elevated indicating a non-STEMI. Conversations were carried out with the patient concerning the need for heart catheterization with the patient refused to have any interventional studies done such as heart catheterization. Patient's medications were adjusted by cardiology, she was seen in consultation by PT and OT who recommended short-term half-way placement. Patient agreed to this. Patient was felt to be anemic due to a recent fall resulting in a proximal left humerus fracture, this required a shoulder immobilizer but did not require surgery. Patient was given multiple units of packed RBCs due to her anemia and she was kept off her home anticoagulation. On 11/26/2020, patient was seen and examined: On examination she appeared her stated age and frail, she does not appear to be in any distress. Vital signs as documented. Skin warm and dry and without overt rashes. Neck without JVD, thyroid appears normal, trachea is midline, neck is supple. Lungs clear, normal air movement was noted. Heart exam notable for regular rhythm, normal sounds and absence of murmurs, rubs or gallops. Abdomen unremarkable and without evidence of organomegaly, masses, or abdominal aortic enlargement, bowel sounds are present in all 4 quadrants, no abdominal tenderness was noted. Extremities-patient's left arm was in a sling/shoulder immobilizer, no cyanosis was noted, no clubbing was noted. Neuro: Cranial nerves II through XII are grossly intact, no focal motor deficits were noted, sensation to light touch and pinprick is intact, motor exam 5/5 throughout. Psych: Patient is alert and oriented x3, she does not appear anxious or depressed, she does not appear agitated. On 11/26/2020, patient was seen and examined and felt to be stable for discharge to an extended care facility for short-term rehab services. Weight / BMI Weight Weight: 135.709 kg Body Mass Index (BMI) 46.8 ABG / Lab / Microbiology Data Result Diagrams: 11/26/20 04:52 11/26/20 04:52 Laboratory: Laboratory Results - last 24 hr 11/24/20 13:18: Crossmatch See Detail Microbiology: Microbiology 11/26/20 13:58 Mucosa - Nose SARS-CoV-2 Antigen (Rapid) - Final Meaningful Use Info Meaningful Use Diagnoses (Choose all that apply): AMI AMI/Post PCI/Angioplasty Aspirin given w/in 24hrs of arrival?: Yes ASA at discharge?: Yes Antiplatelet Therapy at Discharge:: No Reason Antiplatelet Therapy not ordered:: Due to acute blood loss from left troy Statins at discharge?: Yes Viet/ARB at discharge?: Yes Beta Princess at discharge?: No Reason Beta Princess not ordered:: Allergy (Patient has documented bradycardia from previous use of beta-princess) Done w/ Acute WA measure.: Yes Documented LVEF (%): 45 Discharge Plan Admission Admit Date/Time: 11/24/20 13:06 Primary Reason for Your Visit: Non Stemi, blood loss anemia Attending Provider: Sukhdeep Sandoval Primary Care Provider: Kanwal Baker Instructions Patient Instructions: ED Chest Pain, Noncardiac Additional Instructions / Restrictions: Follow up with your education and development manager in 2-3 weeks Discharge Orders/Prescriptions Prescriptions: New nystatin [Nyamyc] 100,000 unit/gram Powder 1 applic topical TID Qty: 1 RF: 0 lisinopril 2.5 mg tablet 2.5 mg PO DAILY Qty: 1 RF: 0 acetaminophen [Tylenol] 325 mg tablet 650 mg PO Q6H PRN (Reason: pain) Qty: 1 RF: 0 Continued magnesium oxide 400 MG tablet 400 mg PO DAILY RF: 0 pantoprazole 40 MG tablet 40 mg PO DAILY Qty: 30 RF: 0 sotalol 120 mg Tablet 120 mg PO BID RF: 0 metformin 500 MG tablet 1,000 mg PO BIDCM RF: 0 levothyroxine 25 mcg tablet 25 mcg PO DAILY RF: 0 atorvastatin 40 mg tablet 40 mg PO QHS Qty: 90 RF: 0 aspirin 81 mg tablet,delayed release (DR/EC) 81 mg PO DAILY Qty: 90 RF: 0 furosemide [Lasix] 40 mg tablet 40 mg PO DAILY Qty: 30 RF: 0 Discontinued Eliquis 5 MG tablet 5 mg PO BID Qty: 60 RF: 0 diltiazem HCl [DILT-XR] 120 mg Capsule,Ext.Rel 24h Degradable 120 mg PO DAILY RF: 0 Referrals / Follow Up: Kanwal Baker DO [Primary Care Provider] - Disposition Disposition (needs filled in before D/C Order can be placed): [facility] Charges/Coding Visit Charges Inpatient E&M: [id number] Disch Hosp
== END 2020-11-26 18:35 | disposition skilled nursing facility (03) | DRG 811 ==
LOC: ED 12:53 → PCU 13:03
PROVIDERS: Admitting Provider Family Medicine; Emergency Provider Emergency Medicine; Visit Provider Internal Medicine
DX: D62 Acute posthemorrhagic anemia (principal); I21.A1 Myocardial infarction type 2; S42.202A Unspecified fracture of upper end of left humerus, initial encounter for closed fracture; I48.92 Unspecified atrial flutter; I50.22 Chronic systolic (congestive) heart failure; Z68.42 Body mass index [BMI] 45.0-49.9, adult; W19.XXXA Unspecified fall, initial encounter; Y93.9 Activity, unspecified; Y92.9 Unspecified place or not applicable; Z53.20 Procedure and treatment not carried out because of patient's decision for unspecified reasons; E03.9 Hypothyroidism, unspecified; E66.01 Morbid (severe) obesity due to excess calories; E11.9 Type 2 diabetes mellitus without complications; E78.5 Hyperlipidemia, unspecified; I48.0 Paroxysmal atrial fibrillation; I11.0 Hypertensive heart disease with heart failure; K21.9 Gastro-esophageal reflux disease without esophagitis; R53.81 Other malaise; M10.9 Gout, unspecified; M81.0 Age-related osteoporosis without current pathological fracture; Z87.19 Personal history of other diseases of the digestive system; Z86.73 Personal history of transient ischemic attack (TIA), and cerebral infarction without residual deficits; Z79.84 Long term (current) use of oral hypoglycemic drugs; Z79.01 Long term (current) use of anticoagulants; Z79.899 Other long term (current) drug therapy
CPT/HCPCS: 36415; 71045; 73060; 80048; 80076; 82962; 84484; 85014; 85018; 85025; 86850; 86900; 86901; 86920; 86922; 87426; 93005; 97802; 99285; J7030; J7040; P9016; A4216; J1940; J2405

== ENCOUNTER 2021-02-15 03:57 | Inpatient (IN) | payer MEDICARE, OTHER, MEDICAID, SELFPAY ==
[2021-02-15] VITALS (43 sets, daily range): BP systolic 62–114; BP diastolic 32–69; PULSE 46–67; RESP 10–28; TEMP 35.6–36.6; O2SAT 10–100; BMI 34.3; BMI 33.3
--- NOTE | 2021-02-15 04:11 | EKG12_ITS ---
Test Reason : DYSRHYTHMIA Blood Pressure : / mmHG Vent. Rate : 053 BPM Atrial Rate : 053 BPM P-R Int : 186 ms QRS Dur : 144 ms QT Int : 616 ms P-R-T Axes : 031 -51 091 degrees QTc Int : 578 ms Sinus bradycardia with Premature atrial complexes Left axis deviation Left bundle branch block Abnormal ECG Confirmed by MARY SUAZO, JOHN ([id number]), editor magazine RAY WYNN ([id number]) on 02/17/2021 1:17:48 PM Referred By: Confirmed By:JOHN HERNANDEZ MD
[2021-02-15 04:37] LABS: Absolute Lymphocyte Count 1.38 X10^3/uL (0.83-4.51); Absolute Neutrophil Count 6.9 X10^3/uL (2.0-7.7); Basophil# 0.06 X10^3/uL; Basophil% 0.6 % (0-1); Eosinophil# 0.63 X10^3/uL; Eosinophils% 6.6 % (0-5); Hematocrit 15.9 % (37-47); Lymphocyte # 1.38 X10^3/ul (0.83-4.51); Lymphocyte % 14.4 % (19-41); Mean Corp Hgb Conc 32.1 g/dL (32-36); Mean Corpuscular Hgb 30.2 pg (27.0-32.0); Mean Corpuscular Volume 94.1 fL (81-99); Mean Platelet Vol. 9.3 fl (6.2-12.0); Monocyte# 0.62 X10^3/uL; Monocyte% 6.5 % (0-10); NRBC Flagged by Analyzer 0 % (0-5); Neutrophil # 6.85 X10^3/uL (2.7-7.7); Neutrophil % 71.3 % (47-70); POSITIVE COUNT YES; Platelet Count 320 K/mm3 (150-450); RBC Distribution Width CV 16.9 % (11.6-14.6); RBC Distribution Width SD 58.3 fl (35.1-43.9); Red Blood Count 1.69 M/mm3 (4.2-5.4); White Blood Count 9.6 K/mm3 (4.4-11.0)
--- NOTE | 2021-02-15 04:41 | EDS_ITS ---
HPI History of Present Illness Chief Complaint: Alt LOC Informant: patient, spouse/S.O. and EMS Narrative Narrative: 70-year-old female currently being cared for by her at home presents to the emergency department via EMS following an unresponsive episode. tells me that she was in a group home just several weeks ago when he removed her from the group home because of some bedsores that she had developed. She has been able to get up and get on the commode with assistance and tonight that is what they were doing when he pulled her clothing down the scabs on her wounds came off and he states that there was significant bleeding from both buttocks. He sat her down on the toilet and she went unresponsive and he called EMS. The patient was noted to have intermittent hypotension in route to the hospital. tells me that last week he she was inpatient at [facility] in [place] being treated for lower extremity cellulitis and abdominal wall cellulitis. She also required blood transfusion. She has a history of heart failure a stroke with residual left-sided deficits and atrial fibrillation. She is on apixaban. [facility] Medical History (Updated 02/15/21 @ 06:[address] Osmel Lawrence, ) Acute CVA (cerebrovascular accident) Acute CVA (cerebrovascular accident) Acute right MCA stroke Anxiety Atrial fibrillation Congestive heart failure (CHF) Diabetes Diabetes Gout Heart failure Hemiplegia and hemiparesis following cerebral infarction affecting left dominant side Hyperlipidemia Hypothyroidism Irregular heart beat Lymphedema Myocardial infarct Non-smoker NSTEMI (non-ST elevated myocardial infarction) Osteoporosis Pancreatitis Stroke/cerebrovascular accident Weakness on left side of face Home Medications magnesium oxide 400 mg PO DAILY tab 01/29/17 [Rx Last Taken 11/15/20] pantoprazole 40 mg PO DAILY #30 tab 03/10/17 [Rx Last Taken 11/15/20] sotalol 120 mg PO BID 09/19/20 [History Last Taken 11/15/20] levothyroxine 25 mcg PO DAILY 10/05/20 [History Last Taken 11/13/20] atorvastatin 40 mg PO QHS #90 tab 10/06/20 [Rx Last Taken Unknown] furosemide [Lasix] 40 mg PO DAILY #30 tab 11/16/20 [Rx Last Taken Unknown] acetaminophen [Tylenol] 650 mg PO Q6H PRN #1 tab 11/26/20 [Rx Last Taken Unknown] lisinopril 2.5 mg PO DAILY #1 tab 11/26/20 [Rx Last Taken Unknown] Lactobacillus rhamnosus GG 1 cap PO DAILY 02/15/21 [History Last Taken Unknown] apixaban 5 mg PO BID 02/15/21 [History Last Taken Unknown] cholecalciferol (vitamin D3) 125 mcg PO QWEEK 02/15/21 [History Last Taken Unknown] clotrimazole 1 applic TOPICAL BID 02/15/21 [History Last Taken Unknown] fluconazole 100 mg PO DAILY 02/15/21 [History Last Taken Unknown] minocycline 100 mg PO BID 02/15/21 [History Last Taken Unknown] nystatin [Nyamyc] 1 applic TOPICAL BID 02/15/21 [History Last Taken Unknown] silver sulfadiazine 1 applic TOPICAL DAILY 02/15/21 [History Last Taken Unknown] Allergy/AdvReac Type Severity Reaction Status Date / Time heparin Allergy Mild Other Verified 02/15/21 04:20 alteplase Allergy Angioedema Verified 02/15/21 04:04 cefaclor [From Ceclor] Allergy NEEDS Verified 02/15/21 04:20 FOLLOW-UP ketoprofen [From Orudis] Allergy NEEDS Verified 02/15/21 04:20 FOLLOW-UP ketorolac [From Toradol] Allergy NEEDS Verified 02/15/21 04:20 FOLLOW-UP niacin Allergy NEEDS Verified 02/15/21 04:20 FOLLOW-UP Penicillins Allergy They said Verified 02/15/21 04:04 if I took it I would atorvastatin AdvReac Other Verified 02/15/21 04:20 NYLON TAPE Allergy Rash Uncoded 02/15/21 04:20 Family History Mother Diabetes Heart disease Father Heart disease Surgical History History of ankle surgery History of appendectomy History of cholecystectomy History of knee replacement Hx of hysterectomy Social History household members: spouse housing: house current occupational status: unemployed Smoking Status: Never smoker alcohol intake: never substance use type: does not use ROS ROS ED Constitutional Constitutional ED: Denies chills or weight loss Eyes Eyes: Denies change in vision or diplopia ENT ENT ED: Denies ear pain, rhinorrhea or sore throat Cardiovascular Cardiovascular: Denies chest pain, orthopnea, palpitations or racing heartbeat Respiratory/Chest Respiratory/Chest: Denies cough, dyspnea or orthopnea Gastrointestinal Gastrointestinal: Denies abdominal pain, diarrhea, nausea or vomiting Genitourinary Genitourinary ED: Denies dysuria, hematuria or urinary frequency Musculoskeletal Musculoskeletal: Reports other Details: Chronic left greater than right leg swelling. ; Denies arthralgias or myalgias Integumentary Reports rash and other Details: Buttock wounds bilaterally Nonhealing surgical incision of the left knee ; Denies abscess Neurologic Neurologic: Denies headache(s) or weakness Psychiatric Psychiatric: Denies anxiety, depression, suicidal ideation or suicidal thoughts Endocrine Endocrinology: Denies polydipsia, polyphagia or polyuria Allergic/Immunologic Allergic/Immunologic ED: Denies mouth swelling, tongue swelling or urticaria EXAM Physical Exam Const Vital Signs: 02/15/21 03:59 02/15/21 04:04 02/15/21 04:06 Temperature 97.2 F L 97.2 F L Temperature Source Temporal Temporal Pulse Rate 54 L 56 L Respiratory Rate 18 21 H Respiratory Effort Normal Respiratory Pattern Normal Blood Pressure 87/35 L 62/42 L Blood Pressure Mean 52 48 Pulse Ox 98 100 Oxygen Delivery Method Nasal Cannula Nasal Cannula Oxygen Flow Rate (L/min) 2 2 02/15/21 05:28 Temperature Temperature Source Pulse Rate 67 Respiratory Rate 18 Respiratory Effort Respiratory Pattern Blood Pressure 98/52 L Blood Pressure Mean 67 Pulse Ox Oxygen Delivery Method Oxygen Flow Rate (L/min) Positive well nourished, well developed and obese General Appearance ED: well developed Nutritional Appearance: obese HEENT Reports normocephalic, head/scalp atraumatic and moist mucous membranes Eyes PERRL and EOMs intact bilaterally Neck no lymphadenopathy, supple and no JVD Resp normal respiratory effort and clear to auscultation bilaterally Cardio regular rate, regular rhythm and no murmurs GI normal to inspection, nondistended, normoactive bowel sounds and non-tender Palpation: soft Back/Spine no CVA tenderness and normal ROM Extremity Extremity Narrative: Left greater than right leg swelling General Extremety ED: Yes edema General Extremity: edema Neuro oriented x3 Neuro Narrative: Chronic left sided weakness Sensorium / Orientation: alert Psych mental status grossly normal Mood & Affect: Negative for depressed or tearful Skin Skin Narrative: And almost all skin folds is evidence of yeast candidiasis. The buttocks show extensive excoriation of skin. The left buttocks has active venous bleeding. MDM MDM MDM Narrative Medical decision making narrative: With nursing the patient's buttocks was examined. Do not see any active bleeding on the right side. There is some ac tive bleeding appears to be more venous on the left buttock. I was unable to get it to stop with direct pressure. Is unable to get it stopped with some silver nitrate. I used Gelfoam and pressure and the time appears to have stopped bleeding. Her hemoglobin is down to 5.1. Her INR is 2.1. Her lactic acid is elevated at 4.5. Patient received a liter of IV fluids and typed and screened for 3 units of packed red blood cells. Plan is admission into the ICU. Lab Data Attestation: I reviewed the patient's lab results. Labs: Laboratory Results - last 24 hr 02/15/21 02/15/21 02/15/21 04:20 04:20 04:20 WBC 9.6 RBC 1.69 L Hgb 5.1 L* Hct 15.9 L MCV 94.1 MCH 30.2 MCHC 32.1 RDW Std Deviation 58.3 H RDW Coeff of Chele 16.9 H Plt Count 320 MPV 9.3 Immature Gran % (Auto) 0.600 Neut % (Auto) 71.3 H Lymph % (Auto) 14.4 L [place] % (Auto) 6.5 Eos % (Auto) 6.6 H Baso % (Auto) 0.6 Absolute Neuts (auto) 6.9 Absolute Lymphs (auto) 1.38 Nucleated RBC % 0 Differential Comment SCANNED Diff Path Review May foll Hypochromasia 1+ PT 22.9 H INR 2.1 APTT 46.3 H Sodium 130 L Potassium 3.9 Chloride 95 L Carbon Dioxide 24.0 Anion Gap 11 BUN 18 Creatinine 1.01 Estim Creat Clear Calc 48.96 Est GFR (MDRD) Af Amer 69 Est GFR (MDRD) Non-Af 57 L BUN/Creatinine Ratio 17.8 Glucose 147 H Lactic Acid Calcium 8.2 L Total Bilirubin 1.10 H AST 15 ALT 11 L Alkaline Phosphatase 128 H Troponin I High Sens 14 Total Protein 6.4 Albumin 1.5 L Globulin 4.9 H Albumin/Globulin Ratio 0.3 L Blood Type Antibody Screen Crossmatch 02/15/21 02/15/21 04:20 04:20 WBC RBC Hgb Hct MCV MCH MCHC RDW Std Deviation RDW Coeff of Chele Plt Count MPV Immature Gran % (Auto) Neut % (Auto) Lymph % (Auto) [place] % (Auto) Eos % (Auto) Baso % (Auto) Absolute Neuts (auto) Absolute Lymphs (auto) Nucleated RBC % Differential Comment Diff Path Review Hypochromasia PT INR APTT Sodium Potassium Chloride Carbon Dioxide Anion Gap BUN Creatinine Estim Creat Clear Calc Est GFR (MDRD) Af Amer Est GFR (MDRD) Non-Af BUN/Creatinine Ratio Glucose Lactic Acid 4.5 H* Calcium Total Bilirubin AST ALT Alkaline Phosphatase Troponin I High Sens Total Protein Albumin Globulin Albumin/Globulin Ratio Blood Type A POSITIVE Antibody Screen NEGATIVE Crossmatch See Detail EKG Initial EKG: Attestation: I personally reviewed and interpreted this EKG as follows: Comments: Sinus bradycardia with a ventricular rate of 53 bpm. Critical Care Time Critical Care Time: Yes Critical care time (excluding procedures): 30-74 minutes (35 min), Including time spent:, Discussing w/Patient &/or Family/Epidemiologist, Discussing w/Consultants, Arranging Admission or Transfer and Performing Direct Patient Care at Bedside Discharge Plan Dx/Rx/DC Orders Clinical Impression: Acute blood loss anemia, Decubitus skin ulcer, Candidiasis of skin, Hemorrhagic shock, Syncope Disposition Disposition: [facility]
[2021-02-15 04:44] LABS: Differential Indicated SCAN CRITERIA MET; Hemoglobin 5.1 g/dL (12.0-15.0)
[2021-02-15] MEDS: 0.9% Normal Saline 1,000 ML 1000 ML IV (04:52)
--- NOTE | 2021-02-15 04:53 | ED.RN ---
pt has an active bleeding site on her l upper buttock for which dr barroso placed a gelfoam dressing after using silver nitrate sticks.pt has yeast type wounds under her bilat breast,l arm,buttock, posterior thighs and groin areas.
[2021-02-15 04:55] LABS: International Normalized Ratio 2.1; Prothrombin Time (Protime)PT. 22.9 SECONDS (11.7-14.9)
--- NOTE | 2021-02-15 04:55 | RAD_ITS ---
STUDY: X-RAY CHEST REASON FOR EXAM: Female, 70 years old. Syncope TECHNIQUE: Portable, upright, AP chest radiograph COMPARISON: 11/24/2020 FINDINGS: The lungs are clear and expanded. There is no demonstrated pleural abnormality. Normal size heart. Normal mediastinum and della. Normal visualized pulmonary arteries. Normal visualized aortic arch and descending thoracic aorta. Left humeral neck fracture with medial displacement of the distal fragment. There is no demonstrated abnormality of the visualized soft tissue structures of the upper abdomen. RAD/Chest 1 View (Portable) IMPRESSION: Left humeral neck fracture. Normal x-ray examination of the chest. Electronically Signed: Joey Saenz MD at 6:23 EDT Tel , Service support ,
[2021-02-15 04:56] LABS: Partial Thromboplast Time 46.3 Seconds (24.1-36.2)
[2021-02-15 05:13] LABS: Differential Comment SCANNED; Hypochromasia 1+
[2021-02-15 05:18] LABS: Lactic Acid 4.5 mmol/L (0.4-1.9)
[2021-02-15 05:30] LABS: ALB/GLOB Ratio 0.3 RATIO (0.9-2.4); AST(SGOT) 15 U/L (15-37); Alanine Aminotransfer ALT/SGPT 11 U/L (13-56); Albumin, Serum 1.5 g/dL (3.2-5.0); Alkaline Phosphatase 128 U/L (45-117); Anion Gap 11 (5-15); BUN 18 mg/dL (7-18); BUN/Creat Ratio 17.8 RATIO (10-20); Calcium,Total 8.2 mg/dL (8.5-10.1); Chloride 95 mmol/L (98-107); Creatinine, Serum 1.01 mg/dL (0.55-1.02); EST Glomerular Filtration Rate 57 mL/min (>60); Est Glom Filt Rate - Afr Amer 69 mL/min (>60); Estimated Creatinine Clearance 48.96 ml/min; Globulin 4.9 g/dL (2.2-4.2); Glucose 147 mg/dL (74-106); Potassium 3.9 mmol/L (3.5-5.1); Protein, Total 6.4 g/dL (6.4-8.2); Sodium Level 130 mmol/L (136-145); Troponin-I HS 14 pg/mL (3.0-54.0)
--- NOTE | 2021-02-15 06:17 | HP.PCM.HOS_ITS ---
HPI - General General Date of Admission: 02/15/21 Date of Service: 02/15/21 Chief Complaint: Syncope HPI Narrative IFTIKHAR FERRARO, is a 70 F with a significant history of A. fib; CVA with residual left-sided weakness; intertrigo and a pressure ulcer who presents to emergency department with syncope. Because of bedsores patient picked patient up from the care home about 3 weeks ago. has been helping patient from bed to the toilet. On the day of presentation after patient had pulled patient diaper scab fe ll off patient coccygeal wound and there was a gush of blood. Reportedly the blood flow was extensive. Patient became unresponsive. At the emergency department patient was hypotensive. Blood transfusion was started at the emergency department. Reportedly patient was at [facility] recently where she was treated of for UTI; abdominal wall cellulitis and extremities cellulitis. Her lactic acid was found to be. Her hemoglobin was found to be 5.1 PFSH Medical History Acute CVA (cerebrovascular accident) Acute CVA (cerebrovascular accident) Acute right MCA stroke Anxiety Atrial fibrillation Congestive heart failure (CHF) Diabetes Diabetes Gout Heart failure Hemiplegia and hemiparesis following cerebral infarction affecting left dominant side Hyperlipidemia Hypothyroidism Irregular heart beat Lymphedema Myocardial infarct Non-smoker NSTEMI (non-ST elevated myocardial infarction) Osteoporosis Pancreatitis Stroke/cerebrovascular accident Weakness on left side of face Home Medications magnesium oxide 400 mg PO DAILY tab 01/29/17 [Rx Last Taken 11/15/20] pantoprazole 40 mg PO DAILY #30 tab 03/10/17 [Rx Last Taken 11/15/20] sotalol 120 mg PO BID 09/19/20 [History Last Taken 11/15/20] levothyroxine 25 mcg PO DAILY 10/05/20 [History Last Taken 11/13/20] atorvastatin 40 mg PO QHS #90 tab 10/06/20 [Rx Last Taken Unknown] furosemide [Lasix] 40 mg PO DAILY #30 tab 11/16/20 [Rx Last Taken Unknown] acetaminophen [Tylenol] 650 mg PO Q6H PRN #1 tab 11/26/20 [Rx Last Taken Unknown] lisinopril 2.5 mg PO DAILY #1 tab 11/26/20 [Rx Last Taken Unknown] Lactobacillus rhamnosus GG 1 cap PO DAILY 02/15/21 [History Last Taken Unknown] apixaban 5 mg PO BID 02/15/21 [History Last Taken Unknown] cholecalciferol (vitamin D3) 125 mcg PO QWEEK 02/15/21 [History Last Taken Unknown] clotrimazole 1 applic TOPICAL BID 02/15/21 [History Last Taken Unknown] fluconazole 100 mg PO DAILY 02/15/21 [History Last Taken Unknown] minocycline 100 mg PO BID 02/15/21 [History Last Taken Unknown] nystatin [Nyamyc] 1 applic TOPICAL BID 02/15/21 [History Last Taken Unknown] silver sulfadiazine 1 applic TOPICAL DAILY 02/15/21 [History Last Taken Unknown] Allergy/AdvReac Type Severity Reaction Status Date / Time heparin Allergy Mild Other Verified 02/15/21 04:20 alteplase Allergy Angioedema Verified 02/15/21 04:04 cefaclor [From Ceclor] Allergy NEEDS Verified 02/15/21 04:20 FOLLOW-UP ketoprofen [From Orudis] Allergy NEEDS Verified 02/15/21 04:20 FOLLOW-UP ketorolac [From Toradol] Allergy NEEDS Verified 02/15/21 04:20 FOLLOW-UP niacin Allergy NEEDS Verified 02/15/21 04:20 FOLLOW-UP Penicillins Allergy They said Verified 02/15/21 04:04 if I took it I would atorvastatin AdvReac Other Verified 02/15/21 04:20 NYLON TAPE Allergy Rash Uncoded 02/15/21 04:20 Family History Mother Diabetes Heart disease Father Heart disease Surgical History History of ankle surgery History of appendectomy History of cholecystectomy History of knee replacement Hx of hysterectomy Social History household members: spouse housing: house current occupational status: unemployed Smoking Status: Never smoker alcohol intake: never substance use type: does not use ROS ROS Narrative Constitutional: Denies fever, chills, fatigue, anorexia and change in weight Eyes: Denies blurry vision, change in eye color, change in vision, discharge from eye(s), double vision, erythema, eye pain, loss of vision or other HEENT: Denies abnormal hearing, dysphagia, ear pain, epistaxis, headache(s), hearing loss, nasal congestion, nasal discharge, post nasal drip, sinus pressure, sore throat or other Cardiovascular: Denies chest pain or palpitations. Denies dyspnea on exertion, orthopnea and paroxysmal nocturnal dyspnea Respiratory/Chest: Denies cough, excessive phlegm production, shortness of breath with exertion and wheezing Gastrointestinal: Denies abdominal pain, coffee ground emesis, constipation, diarrhea, dyspepsia, hematemesis, hematochezia, loose stools, melena, nausea, vomiting or other Genitourinary: Denies burning urination, difficulty urinating, dysuria, hematuria, nocturia, urinary frequency, urinary hesitancy, urinary incontinence, urinary urgency or other Musculoskeletal: Strength of left upper extremity and left lower extremity. Denies arthralgias, back pain, joint pain, joint stiffness, joint swelling, myalgias, neck pain or other Neurologic: Symncope Denies abnormal gait, abnormal speech, confusion, disequilibrium, dizziness, headache(s), numbness, paresthesias, seizure-like activity, seizures, tingling, tremor(s) or other Psychiatric: Denies anxiety, depression, homicidal ideation, suicidal ideation or other Endocrinology: Denies change in body appearance, cold intolerance, excessive sweating, heat intolerance, polydipsia, polyuria or other Hematologic/Lymphatic: Denies anemia, easy bleeding, easy bruising, lymphadenopathy or other Integumentary: Rashes between breast folds and abdominal folds. Allergic/Immunologic: Denies rhinitis, hives, eczema, asthma or other Vital Signs Vital Signs Vital Signs: 02/15/21 03:59 02/15/21 04:04 02/15/21 04:06 Temperature 97.2 F L 97.2 F L Temperature Source Temporal Temporal Pulse Rate 54 L 56 L Respiratory Rate 18 21 H Respiratory Effort Normal Respiratory Pattern Normal Blood Pressure 87/35 L 62/42 L Blood Pressure Mean 52 48 Pulse Ox 98 100 Oxygen Delivery Method Nasal Cannula Nasal Cannula Oxygen Flow Rate (L/min) 2 2 02/15/21 05:28 Temperature Temperature Source Pulse Rate 67 Respiratory Rate 18 Respiratory Effort Respiratory Pattern Blood Pressure 98/52 L Blood Pressure Mean 67 Pulse Ox Oxygen Delivery Method Oxygen Flow Rate (L/min) Weight Weight: 99.5 kg Body Mass Index (BMI) 34.3 Physical Exam Narrative Physical exam: General: Well-nourished, well-developed. Head: Normocephalic, atraumatic, no tenderness Eyes: PERRLA, EOMI ENT, no trauma, moist mucous membranes, no rhinorrhea Neck: Nontender, full range of motion, no spinal tenderness, deformities, step- off CVS: Regular rate and rhythm. S1-S2 present. No murmur, gallop or rub. Respiratory : clear to auscultation bilaterally, chest wall nontender, no wheezing Abdomen: Soft, nontender, nondistended, normal bowel sounds, no masses : Deferred Back: Nontender, no CVA tenderness, no midline spinal tenderness, deformities, step-offs Extremities: Nontender full range of motion, no trauma Skin: Coccygeal ulcer; yeasty rash between breast folds and abdominal fold. Neuro: Alert, oriented, cranial nerves II through XII grossly intact. Left upper extremity flaccid with contracted hands. Psychiatry: Normal mood. Normal affect. Not depressed. Not anxious. Results Lab / Micro Data Result Diagrams: 02/15/21 04:20 02/15/21 04:20 Labs: Laboratory Results - last 24 hr 02/15/21 04:20: WBC 9.6, RBC 1.69 L, Hgb 5.1 L*, Hct 15.9 L, MCV 94.1, MCH 30.2, MCHC 32.1, RDW Std Deviation 58.3 H, RDW Coeff of Chele 16.9 H, Plt Count 320, MPV 9.3, Immature Gran % (Auto) 0.600, Neut % (Auto) 71.3 H, Lymph % (Auto) 14.4 L, Dixon % (Auto) 6.5, Eos % (Auto) 6.6 H, Baso % (Auto) 0.6, Absolute Neuts (auto) 6.9, Absolute Lymphs (auto) 1.38, Nucleated RBC % 0, Differential Comment SCANNED, Diff Path Review May foll, Hypochromasia 1+ 02/15/21 04:20: PT 22.9 H, INR 2.1, APTT 46.3 H 02/15/21 04:20: Sodium 130 L, Potassium 3.9, Chloride 95 L, Carbon Dioxide 24.0, Anion Gap 11, BUN 18, Creatinine 1.01, Estim Creat Clear Calc 48.96, Est GFR (MDRD) Af Amer 69, Est GFR (MDRD) Non-Af 57 L, BUN/Creatinine Ratio 17.8, Glucose 147 H, Calcium 8.2 L, Total Bilirubin 1.10 H, AST 15, ALT 11 L, Alkaline Phosphatase 128 H, Troponin I High Sens 14, Total Protein 6.4, Albumin 1.5 L, Globulin 4.9 H, Albumin/Globulin Ratio 0.3 L 02/15/21 04:20: Lactic Acid 4.5 H* 02/15/21 04:20: Blood Type A POSITIVE, Antibody Screen NEGATIVE, Crossmatch See Detail Assessment & Plan Assessment/Plan (1) Acute blood loss anemia: (2) Decubitus skin ulcer: QUALIFIERS: Pressure injury location: sacral region Pressure injury stage: stage 3 Qualified Code(s): L89.153 - Pressure ulcer of sacral region, stage 3 (3) Candidiasis of skin: (4) Hemorrhagic shock: PLAN: Hemorrhagic shock Review of emergency department labs showed hemoglobin of 5.1. Lactic acid of 4.5 secondary to anemia; trend 3 units of blood ordered at the emergency department for transfusion. Check H&H after completion. Admit to intensive care unit Consult tip mender Candidiasis of skin Nystatin. Fluconazole continue UTI and cellulitis Recently started on antibiotic for UTI;continued Atrial fibrillation Rate controlled. Stop sotalol because of hypotension. On Eliquis that says he gives once a day. Hold for now. Lasix: SCD ordered
--- NOTE | 2021-02-15 06:44 | ED.RN ---
report called to rosa maria garcia.
--- NOTE | 2021-02-15 07:21 | PN.HOSP_ITS ---
Hospitalist Note Patient admitted after hemorrhage from the decubitus ulcer in the buttocks after scabs fell off and started bleeding. Patient has multiple comorbidities including CVA with left-sided weakness. Was also recently discharged from [facility] for cellulitis decubitus ulcer and required PRBC transfusion there. 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 H&P reviewed. Blood pressure is low in the morning this morning with IV fluid. On exam Back: Multiple erosions with subcutaneous deep ulcer at 1 or 2 points. Wide area of superficial ulceration Left-sided weakness from a stroke Lungs air entry diminished in both sides
[2021-02-15] MEDS: 0.9% Normal Saline 1,000 ML 999 ML IV (07:59)
[2021-02-15 08:33] LABS: Reflex Lactate? Y
--- NOTE | 2021-02-15 08:34 | EX.PCM.CONCC ---
Assessment & Plan Assessment/Plan (1) Hemorrhagic shock: (2) Left humeral fracture: (3) CHF (congestive heart failure): (4) DM2 (diabetes mellitus, type 2): QUALIFIERS: Diabetes mellitus complication status: without complication Diabetes mellitus intermodal customer service insulin use: without shelter use Qualified Code(s): E11.9 - Type 2 diabetes mellitus without complications PLAN: RECOMMENDATIONS: 1. Hold Eliquis therapy 2. Continue transfusions as ordered 3. H&H every 6 hours. Transfuse to keep hemoglobin greater than 8 4. Wound care evaluation 5. Social work to evaluate home situation 6. Potential Lasix between transfusions IMPRESSIONS: 1. Acute hemorrhagic shock in the setting of anticoagulation from skin wounds Eliquis will be held. Patient has 3 units of packed red blood cells ordered already. H&H every 6. Would transfuse to keep hemoglobin greater than 8. Patient does have a history of congestive heart failure, so intermittent Lasix may be necessary. Wound care to evaluate skin wounds. Patient does not appear to have any GI sources at this time. We will place a Alvarez to avoid contamination of skin wounds and promote wound healing 2. Candidiasis/cellulitis/UTI Patient with multiple areas of candidiasis. UA is suggestive of a possible urinary tract infection. Patient was started on an antibiotic recently. Nystatin has also been ordered. Wound nurse to evaluate. Alvarez catheter to avoid contamination of other wounds. 3. Chronic systolic congestive heart failure/A. fib Hold sotalol for now. Anticoagulation needs to be held. Patient may require intermittent Lasix between blood products. Last known ejection fraction of 45%. Echo was recently, so this does not need to be completed for my opinion. 4. Obesity/debility/left upper extremity fracture/history of CVA Complicates care, management, recovery and prognosis. Social work will need to evaluate home situation given the progression of wounds following removal from an extended care facility. Will place a sling on left upper extremity to promote healing and limit potential for vascular damage. TIME: 35 minutes critical care time spent addressing patient's hemorrhagic shock, multiple wounds, CHF, review of all data and collaboration with care team (7 AM to 9:30 AM) HPI Consult Data Date of Consult: 02/15/21 HPI Narrative HPI Narrative: IFTIKHAR FERRARO is a 70 F, with past medical history listed below, who presents to [facility] on 02/15/2021 secondary to an unresponsive episode. Patient reportedly had been cared for by her at home and presented via EMS secondary to an unresponsive episode. Patient was in a jail several weeks ago and he removed her because of bedsores. Patient has required assistance to get to a commode and one of her scabs came off. Patient had an unresponsive episode shortly thereafter, so EMS was called. Patient was noted to have intermittent hypotension by EMS staff on the way to the hospital. Patient reportedly was an inpatient at [facility] secondary to lower extremity and abdominal wall cellulitis. Patient did require blood transfusions at that time. Patient is on apixaban chronically secondary to A. fib that resulted in a stroke. In the ER, patient was afebrile and bradycardic. Patient was hypotensive at 62/42 and was placed on minimal nasal cannula oxygen. Laboratory work-up was significant for a white blood cell count of 9.6, hemoglobin of 5.1 and platelets of 320. INR was elevated at 2.1. Renal function was within normal limits and patient only had a mild elevation of alkaline phosphatase. Patient's albumin is low at 1.5 and lactate was elevated at 4.5. EKG showed only sinus bradycardia. Patient was transferred to the intensive care unit. Patient is not on pressor agents at this time, but was hypotensive with maps in the 50s. Patient has been given an additional bolus of normal saline with improvement in blood pressure. Patient also has 3 units of blood currently ordered. No FFP or vitamin K have been given thus far. Patient had a humeral fracture approximately 2 weeks ago and was evaluated by Dr. Dixon. No intervention is planned per the patient. She is supposed to use a sling, but only when she is out of bed. Patient does not report any significant discomfort of the left upper extremity. Patient is not reporting any chest pain, abdominal pain, nausea or vomiting. There is been no reports of hematemesis, hemoptysis, melena or hematochezia. Review of systems otherwise negative from a constitutional, HEENT, respiratory, cardiovascular, GI, genitourinary, musculoskeletal, skin, neurologic, psychiatric and hematologic system unless stated above. [facility] Medical History Acute CVA (cerebrovascular accident) Acute CVA (cerebrovascular accident) Acute right MCA stroke Anxiety Atrial fibrillation Congestive heart failure (CHF) Diabetes Diabetes Gout Heart failure Hemiplegia and hemiparesis following cerebral infarction affecting left dominant side Hyperlipidemia Hypothyroidism Irregular heart beat Lymphedema Myocardial infarct Non-smoker NSTEMI (non-ST elevated myocardial infarction) Osteoporosis Pancreatitis Stroke/cerebrovascular accident Weakness on left side of face Home Medications magnesium oxide 400 mg PO DAILY tab 01/29/17 [Rx Last Taken 11/15/20] pantoprazole 40 mg PO DAILY #30 tab 03/10/17 [Rx Last Taken 11/15/20] sotalol 120 mg PO BID 09/19/20 [History Last Taken 11/15/20] levothyroxine 25 mcg PO DAILY 10/05/20 [History Last Taken 11/13/20] atorvastatin 40 mg PO QHS #90 tab 10/06/20 [Rx Last Taken Unknown] furosemide [Lasix] 40 mg PO DAILY #30 tab 11/16/20 [Rx Last Taken Unknown] acetaminophen [Tylenol] 650 mg PO Q6H PRN #1 tab 11/26/20 [Rx Last Taken Unknown] lisinopril 2.5 mg PO DAILY #1 tab 11/26/20 [Rx Last Taken Unknown] Lactobacillus rhamnosus GG 1 cap PO DAILY 02/15/21 [History Last Taken Unknown] apixaban 5 mg PO BID 02/15/21 [History Last Taken Unknown] cholecalciferol (vitamin D3) 125 mcg PO QWEEK 02/15/21 [History Last Taken Unknown] clotrimazole 1 applic TOPICAL BID 02/15/21 [History Last Taken Unknown] fluconazole 100 mg PO DAILY 02/15/21 [History Last Taken Unknown] minocycline 100 mg PO BID 02/15/21 [History Last Taken Unknown] nystatin [Nyamyc] 1 applic TOPICAL BID 02/15/21 [History Last Taken Unknown] silver sulfadiazine 1 applic TOPICAL DAILY 02/15/21 [History Last Taken Unknown] Allergy/AdvReac Type Severity Reaction Status Date / Time heparin Allergy Mild Other Verified 02/15/21 04:20 alteplase Allergy Angioedema Verified 02/15/21 04:04 cefaclor [From Ceclor] Allergy NEEDS Verified 02/15/21 04:20 FOLLOW-UP ketoprofen [From Orudis] Allergy NEEDS Verified 02/15/21 04:20 FOLLOW-UP ketorolac [From Toradol] Allergy NEEDS Verified 02/15/21 04:20 FOLLOW-UP niacin Allergy NEEDS Verified 02/15/21 04:20 FOLLOW-UP Penicillins Allergy They said Verified 02/15/21 04:04 if I took it I would atorvastatin AdvReac Other Verified 02/15/21 04:20 NYLON TAPE Allergy Rash Uncoded 02/15/21 04:20 Family History Mother Diabetes Heart disease Father Heart disease Surgical History History of ankle surgery History of appendectomy History of cholecystectomy History of knee replacement Hx of hysterectomy Social History household members: spouse housing: house current occupational status: unemployed Smoking Status: Never smoker alcohol intake: never substance use type: does not use ROS ROS Narrative See HPI Physical Exam Const alert, oriented x3 and no apparent distress General Appearance: cooperative and well developed HEENT normocephalic, head/scalp atraumatic and moist oral mucous membranes Eyes PERRL and EOMs intact bilaterally Neck full ROM and no lymphadenopathy Chest inspection of chest normal Resp normal respiratory effort and no use of accessory muscles Effort and Inspection: able to speak in complete sentences Auscultation: clear to auscultation bilaterally; Negative for rales, rhonchi or wheezes Percussion: Negative for dullness Cardio regular rate, regular rhythm, S1 normal heart sound, S2 normal heart sound, no murmurs, no rub and no gallops GI normal to inspection, nondistended, normoactive bowel sounds no CVA tenderness Extremity General Extremity: edema; Negative for clubbing or cyanosis Skin Skin Narrative: Numerous open areas noted with multiple pressure injuries. See nursing documentation for full rundown. Neuro oriented x3, CN's II-XII intact bilaterally, moves all extremities and no focal motor deficits Psych cooperative and affect normal Lab / Micro Data Result Diagrams: 02/15/21 04:20 02/15/21 04:20 Labs: Laboratory Results - last 24 hr 02/15/21 04:20: WBC 9.6, RBC 1.69 L, Hgb 5.1 L*, Hct 15.9 L, MCV 94.1, MCH 30.2, MCHC 32.1, RDW Std Deviation 58.3 H, RDW Coeff of Chele 16.9 H, Plt Count 320, MPV 9.3, Immature Gran % (Auto) 0.600, Neut % (Auto) 71.3 H, Lymph % (Auto) 14.4 L, Bullock % (Auto) 6.5, Eos % (Auto) 6.6 H, Baso % (Auto) 0.6, Absolute Neuts (auto) 6.9, Absolute Lymphs (auto) 1.38, Nucleated RBC % 0, Differential Comment SCANNED, Diff Path Review September foll, Hypochromasia 1+ 02/15/21 04:20: PT 22.9 H, INR 2.1, APTT 46.3 H 02/15/21 04:20: Sodium 130 L, Potassium 3.9, Chloride 95 L, Carbon Dioxide 24.0, Anion Gap 11, BUN 18, Creatinine 1.01, Estim Creat Clear Calc 48.96, Est GFR (MDRD) Af Amer 69, Est GFR (MDRD) Non-Af 57 L, BUN/Creatinine Ratio 17.8, Glucose 147 H, Calcium 8.2 L, Total Bilirubin 1.10 H, AST 15, ALT 11 L, Alkaline Phosphatase 128 H, Troponin I High Sens 14, Total Protein 6.4, Albumin 1.5 L, Globulin 4.9 H, Albumin/Globulin Ratio 0.3 L 02/15/21 04:20: Lactic Acid 4.5 H* 02/15/21 04:20: Blood Type A POSITIVE, Antibody Screen NEGATIVE, Crossmatch See Detail Radiology Impression Chest X-Ray 02/15/21 04:55 IMPRESSION: Left humeral neck fracture. Normal x-ray examination of the chest. Electronically Signed: Joey Saenz MD at 6:23 EDT Tel , Service support , Charges/Coding Procedures Hospitalists Procedures: [id number] Critial Care 1st Hr
[2021-02-15] MEDS: Nystatin Powder 15gm Bottle 1 APPLIC TOPICAL ×2 (09:35→22:16)
[2021-02-15] MEDS: Phytonadione (Vit K1) 5 MG TABLET PO (10:08)
[2021-02-15] MEDS: Pantoprazole Sodium 40 MG Tablet PO (10:09)
[2021-02-15] MEDS: Fluconazole 100 MG Tablet PO (10:09)
[2021-02-15] MEDS: Levothyroxine 25 MCG TABLET PO (10:09)
[2021-02-15] MEDS: Silver Sulfadiazine 1% Crm 50 gm Bottle 1 APPLIC TOPICAL (10:11)
[2021-02-15] MEDS: CHLORHEXIDINE GLUC 2% CLOTH 1 EACH TOWELETTE TOPICAL (10:23)
[2021-02-15 10:29] LABS: Hematocrit 17.8 % (37-47); POSITIVE COUNT YES
[2021-02-15 10:54] LABS: Lactic Acid 1.5 mmol/L (0.4-1.9)
[2021-02-15] MEDS: Minocycline 100 MG Capsule PO ×2 (14:19→22:15)
--- NOTE | 2021-02-15 15:35 | CASEMGMT ---
JENNIE BUTTS Assessment: Phone call placed to pt's for initial transition planning/care coordination assessment. JENNIE BUTTS introduced self and role at [facility], voices understanding. Care providers, pharmacy, and demographics verified. PCP: Olivia Specialists: [facility] Pharmacy: [facility] Insurance: MCR A/B, Cigna, MCR crossover Prescription Benefit: yes Living Will/HPOA: yes/HPOA- Haroldo LNOK: -Haroldo Living Arrangements: Pt lives with her in a single story home without steps to enter. Pt's spouse states he had a cement ramp built to enter the home. Pt is dependent on her spouse for all ADLs. Pt is nonambulatory. Pt's states home PT was beginning to work with the patient on standing and taking a few steps. Pt is hemiplegic on her left side. Transportation: Handicap accessible van which pt's drives. Pt does not drive. DME: high rise toilet, hospital bed, lift chair, nirmala like lift, grab bars throughout the home, hand held shower, walker, and w/c. Pt's denies any additional DME needs at this time. SNF: Pt has been at [facility] first after her stroke 2.5 years ago and then again recently after she suffered an arm fx and shoulder crack from a fall from the lift. Pt's states she was in [place] for 2 months but he was not satisfied with the care she received and felt she was not bathed or cared for well with the onset of decubitus ulcers. Pt's brought pt back home and he has been pt's primary caregiver. HHC: Pt's states pt was recently at [facility] and was discharged back home with home health services from [facility] with services including SN, PT, OT, and [employer]. Plan: Per pt's , plan is for pt to return home under his care and with the assistance of [facility] services. Will continue to monitor and assist with DC needs as they are identified. Mary Lee RN CM
[2021-02-15 16:47] LABS: Hematocrit 23.5 % (37-47); Hemoglobin 7.7 g/dL (12.0-15.0)
[2021-02-15 22:05] LABS: Bedside Glucose 119 mg/dL (70-110)
[2021-02-15] MEDS: Atorvastatin Calcium 40 MG Tablet PO (22:13)
[2021-02-15] MEDS: Acetaminophen 325 MG Tablet 650 MG PO (22:15)
[2021-02-15] MEDS: MELATONIN 3 MG TABLET PO (22:15)
[2021-02-15] MEDS: 0.9% Saline Lock 10 ML Syringe IV (22:50)
[2021-02-15 23:03] LABS: Hematocrit 17.2 % (37-47); POSITIVE COUNT YES
--- NOTE | 2021-02-15 23:34 | RAD_ITS ---
STUDY: X-RAY - ABDOMEN/PELVIS REASON FOR EXAM: Female, 70 years old. abdominal pain TECHNIQUE: AP supine abdomen 2 images. COMPARISON: [employer] Specialist view CT abdomen November 29, 2015. FINDINGS: Normal visualized lung bases. There is an unremarkable bowel gas pattern. Stool present throughout the colon which may represent constipation. There is no demonstrated free abdominal air. The visualized liver, spleen and kidneys are grossly normal in size and morphology. Normal soft tissue structures. Degenerative changes of the lumbar spine. Surgical clips right upper quadrant. RAD/Abdomen Single View (Portable) IMPRESSION: Nonspecific bowel gas pattern without evidence of obstruction. Consider constipation. Electronically Signed: Camden Zurita MD at 0:54 EDT , Service support ,
[2021-02-16] VITALS (34 sets, daily range): BP systolic 85–116; BP diastolic 30–66; PULSE 54–79; RESP 15–29; TEMP 36.2–37.5; O2SAT 96–100
[2021-02-16] MEDS: Levothyroxine 25 MCG TABLET PO (05:57)
--- NOTE | 2021-02-16 06:23 | PN.CC_ITS ---
Assessment & Plan Assessment/Plan (1) Hemorrhagic shock: (2) Left humeral fracture: (3) CHF (congestive heart failure): (4) DM2 (diabetes mellitus, type 2): QUALIFIERS: Diabetes mellitus complication status: without complication Diabetes mellitus manager long term care insulin use: without detention use Qualified Code(s): E11.9 - Type 2 diabetes mellitus without complications PLAN: RECOMMENDATIONS: 1. Hold Eliquis therapy. 2. Continue transfusions as ordered. 3. H&H every 6 hours. Transfuse to keep hemoglobin greater than 7 g/dL. 4. Wound care evaluation. 5. Social work to evaluate home situation. IMPRESSIONS: 1. Acute hemorrhagic shock in the setting of anticoagulation from skin wounds Continue supportive measures with transfusion of blood products as needed to maintain a hemoglobin at or above 7 g/dL. The patient does have a reported history of congestive heart failure, so the use of diuretic therapy may be aysha cated with blood product administration. Wound care consultation is pending. I would also recommend that the patient be on twice daily PPI therapy, should she also have a potential GI source of blood loss as well. Maintain Alvarez catheter for now. 2. Candidiasis/cellulitis/UTI Continue antimicrobials as ordered. Check urine culture as well. 3. Chronic systolic congestive heart failure/A. fib Continue to hold systemic anticoagulation. Last surface echocardiogram revealed an ejection fraction of 40 to 45%. Therefore, intermittent use of diuretic therapy may be indicated in conjunction with blood products. 4. Obesity/debility/left upper extremity fracture/history of CVA Complicates care, management, recovery and prognosis. Social work will need to evaluate home situation given the progression of wounds following removal from an extended care facility. This note was generated with [employer] dictation software. It may contain incorrect words, spelling, and punctuation that were not noted in checking the note before signing. Subjective Subjective The patient was seen and examined at the bedside this morning. Events from the last 24 hours have been reviewed. The patient remains afebrile. Hemodynamics are tenuous. She is currently maintaining appropriate oxygen saturations on room air. The patient is currently documented to be overall net +4 L for the hospital admission. Hemoglobin last night was down to 5.7 g/dL. The patient is currently completing transfusion of an additional 2 units of packed red blood cells. The patient has not had any overt bleeding from any of her wounds. Objective Data Objective Data The patient's most recent lab work, culture data and imaging studies have all been personally reviewed. Blood cultures are pending. Vital Signs: Vital Signs Temp Pulse Resp BP Pulse Ox 98.8 F 55 L 17 85/59 L 99 02/16/21 06:00 02/16/21 06:00 02/16/21 06:00 02/16/21 06:00 02/16/21 06:00 Oxygen Flow Rate (L/min) 2 Oxygen Delivery Method Room Air Weight: 100.516 kg Body Mass Index (BMI) 33.3 Intake & Output: Intake and Output for Last 24 Hours 02/14/21 02/15/21 02/16/21 23:59 23:59 23:59 Intake Total 3920 / 3920 850 / 850 Output Total 700 / 700 Balance 3220 / 3220 850 / 850 Lab / Micro Data Attestation: I reviewed the patient's lab results. Result Diagrams: 02/16/21 06:45 02/16/21 06:45 Labs: Laboratory Results - last 24 hr 02/15/21 04:20: Blood Type A POSITIVE, Antibody Screen NEGATIVE, Crossmatch See Detail 02/15/21 04:20: Crossmatch See Detail 02/15/21 10:17: Hgb 5.9 L*, Hct 17.8 L 02/15/21 10:17: Lactic Acid 1.5 02/15/21 16:30: Hgb 7.7 L, Hct 23.5 L 02/15/21 21:50: POC Glucose 119 H 02/15/21 22:50: Hgb 5.7 L*, Hct 17.2 L Radiography Diagnostic Testing: Radiology Impression Chest X-Ray 02/15/21 04:55 IMPRESSION: Left humeral neck fracture. Normal x-ray examination of the chest. Electronically Signed: Joey Saenz MD at 6:23 EDT Tel , Service support , KUB X-Ray 02/15/21 23:34 IMPRESSION: Nonspecific bowel gas pattern without evidence of obstruction. Consider constipation. Electronically Signed: Camden Zurita MD at 0:54 EDT , Service support , Physical Exam Const alert and no apparent distress General Appearance: cooperative Nutritional Appearance: obese HEENT normocephalic and head/scalp atraumatic Eyes PERRL, EOMs intact bilaterally and conjunctivae normal Neck supple General: trachea midline Chest inspection of chest normal Resp normal respiratory effort Auscultation: Negative for rales, rhonchi or wheezes Cardio regular rate and regular rhythm GI normal to inspection, nondistended, normoactive bowel sounds Extremity no clubbing, cyanosis or edema Skin Wound Narrative: Multiple pressure ulcers noted. Neuro moves all extremities and no focal motor deficits Psych cooperative and affect normal Charges/Coding Visit Charges Inpatient E&M: 54800 Subs Hosp L3
[2021-02-16 07:39] LABS: Absolute Lymphocyte Count 0.77 X10^3/uL (0.83-4.51); Absolute Neutrophil Count 3.5 X10^3/uL (2.0-7.7); Basophil# 0.05 X10^3/uL; Eosinophil# 0.31 X10^3/uL; Hemoglobin 8.5 g/dL (12.0-15.0); Lymphocyte # 0.77 X10^3/ul (0.83-4.51); Mean Corp Hgb Conc 32.7 g/dL (32-36); Mean Corpuscular Hgb 28.9 pg (27.0-32.0); Mean Corpuscular Volume 88.4 fL (81-99); Mean Platelet Vol. 9.4 fl (6.2-12.0); Monocyte# 0.51 X10^3/uL; Monocyte% 9.9 % (0-10); NRBC Flagged by Analyzer 0 % (0-5); Neutrophil # 3.48 X10^3/uL (2.7-7.7); Neutrophil % 67.7 % (47-70); Platelet Count 206 K/mm3 (150-450); RBC Distribution Width CV 15.9 % (11.6-14.6); RBC Distribution Width SD 51.1 fl (35.1-43.9); Red Blood Count 2.94 M/mm3 (4.2-5.4); White Blood Count 5.1 K/mm3 (4.4-11.0)
[2021-02-16 08:12] LABS: Anion Gap 7 (5-15); BUN 20 mg/dL (7-18); BUN/Creat Ratio 23.7 RATIO (10-20); Chloride 101 mmol/L (98-107); Creatinine, Serum 0.84 mg/dL (0.55-1.02); EST Glomerular Filtration Rate 70 mL/min (>60); Est Glom Filt Rate - Afr Amer 85 mL/min (>60); Estimated Creatinine Clearance 58.87 ml/min; Glucose 99 mg/dL (74-106); Sodium Level 134 mmol/L (136-145)
[2021-02-16 08:46] LABS: Bedside Glucose 94 mg/dL (70-110)
[2021-02-16] MEDS: Silver Sulfadiazine 1% Crm 50 gm Bottle 1 APPLIC TOPICAL (10:10)
[2021-02-16] MEDS: Nystatin Powder 15gm Bottle 1 APPLIC TOPICAL ×2 (10:10→21:10)
[2021-02-16] MEDS: CHLORHEXIDINE GLUC 2% CLOTH 1 EACH TOWELETTE TOPICAL (10:11)
[2021-02-16] MEDS: Minocycline 100 MG Capsule PO ×2 (10:11→21:10)
[2021-02-16] MEDS: Fluconazole 100 MG Tablet PO (10:11)
--- NOTE | 2021-02-16 12:20 | PCM.PN.HOSP ---
Subjective Subjective Patient heart rate in 55. Pulse ox 100% on room air. Objective Data Objective Data Vital Signs: Vital Signs Temp Pulse Resp BP Pulse Ox 97.2 F L 55 L 17 112/41 L 100 02/16/21 12:00 02/16/21 12:00 02/16/21 12:00 02/16/21 12:00 02/16/21 12:00 Oxygen Flow Rate (L/min) 2 Oxygen Delivery Method Room Air Weight: 221 lb 9.033 oz Body Mass Index (BMI) 33.3 Intake & Output: Intake and Output for Last 24 Hours 02/14/21 02/15/21 02/16/21 23:59 23:59 23:59 Intake Total 3920 / 3920 1330 / 1330 Output Total 700 / 700 150 / 150 Balance 3220 / 3220 1180 / 1180 Lab / Micro Data Result Diagrams: 02/16/21 06:45 02/16/21 06:45 Labs: Laboratory Results - last 24 hr 02/15/21 04:20: Blood Type A POSITIVE, Antibody Screen NEGATIVE, Crossmatch See Detail 02/15/21 04:20: Crossmatch See Detail 02/15/21 16:30: Hgb 7.7 L, Hct 23.5 L 02/15/21 21:50: POC Glucose 119 H 02/15/21 22:50: Hgb 5.7 L*, Hct 17.2 L 02/16/21 06:45: WBC 5.1, RBC 2.94 L, Hgb 8.5 L, Hct 26.0 L, MCV 88.4 D, MCH 28.9, MCHC 32.7, RDW Std Deviation 51.1 H, RDW Coeff of Chele 15.9 H, Plt Count 206, MPV 9.4, Immature Gran % (Auto) 0.400, Neut % (Auto) 67.7, Lymph % (Auto) 15.0 L, [place] % (Auto) 9.9, Eos % (Auto) 6.0 H, Baso % (Auto) 1.0, Absolute Neuts (auto) 3.5, Absolute Lymphs (auto) 0.77 L, Nucleated RBC % 0 02/16/21 06:45: Sodium 134 L, Potassium 4.0, Chloride 101, Carbon Dioxide 26.0, Anion Gap 7, BUN 20 H, Creatinine 0.84, Estim Creat Clear Calc 58.87, Est GFR (MDRD) Af Amer 85, Est GFR (MDRD) Non-Af 70, BUN/Creatinine Ratio 23.7 H, Glucose 99, Calcium 8.0 L 02/16/21 08:32: POC Glucose 94 Radiography Diagnostic Testing: Radiology Impression KUB X-Ray 02/15/21 23:34 IMPRESSION: Nonspecific bowel gas pattern without evidence of obstruction. Consider constipation. Electronically Signed: Camden Zurita MD at 0:54 EDT , Service support , Physical Exam Narrative General: Alert, Oriented x3, Cooperative, pale looking HEENT: Atraumatic, PERRLA, EOMI, Normocephalic Oral: No Gingival or Mucosal Lesions/ Ulcerations Neck: Supple, No JVD, Negative Carotid Bruits Lungs: Air entry diminished in bilateral lung bases. No crepitation/rhonchi Cardiovascular: Regular rate, Regular Rhythm, Normal S1, Normal S2, No murmurs Abdomen: Bowel Sounds Present, Soft, Non Tender, Non-Distended : No renal angle tenderness. No suprapubic tenderness. Extremities: No edema, Capillary Refill Less than 3 Seconds Skin:Multiple erosions with subcutaneous deep ulcer at 1 or 2 points. Wide area of superficial ulceration Musculoskeletal: Left-sided weakness from prior stroke with contracture. Old multiple left knee surgical scar Neurological: Cranial nerves II-XII grossly intact, left-sided weakness from prior stroke. Psych/Mental Status: Flat affect Assessment & Plan Assessment/Plan (1) Acute blood loss anemia: PLAN: 1. Hemorrhagic shock: Patient is admitted to ICU. She was admitted with hemoglobin 5.1. Patient required a total of 5 units of PRBC transfusion. After 3 units of PRBC transfusion yesterday evening, her hemoglobin was 7.7 but she bled again although no external signs of bleeding and required to further PRBC transfusion. Lactic acid 4.5 from hypovolemia and anemia. 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 Hold Eliquis. 2. Candidiasis of skin Nystatin. Fluconazole continue 3. UTI and cellulitis Recently started on antibiotic for UTI;continued 4. Atrial fibrillation Rate controlled. Heart rate in 50s. Stop sotalol because of hypotension and bradycardia. VT prophylaxis: Bilateral SCD ordered CODE STATUS DNR CCA no intubation. Charges/Coding Visit Charges Inpatient E&M: 76485 Subs Hosp L3
[2021-02-16 17:05] LABS: Bedside Glucose 106 mg/dL (70-110)
[2021-02-16] MEDS: Atorvastatin Calcium 40 MG Tablet PO ×2 (21:10)
[2021-02-16 21:21] LABS: Bedside Glucose 127 mg/dL (70-110)
[2021-02-17] VITALS (10 sets, daily range): BP systolic 105–115; BP diastolic 31–43; PULSE 55–68; RESP 16–20; TEMP 36.6–37.6; O2SAT 94–97
[2021-02-17] MEDS: Levothyroxine 25 MCG TABLET PO (06:21)
[2021-02-17 06:30] LABS: Bedside Glucose 81 mg/dL (70-110)
--- NOTE | 2021-02-17 08:52 | WOUNDNOTE ---
wound photo: left knee
--- NOTE | 2021-02-17 08:53 | WOUNDNOTE ---
wound photo: bilateral buttocks
--- NOTE | 2021-02-17 09:00 | WOUNDNOTE ---
patient has severe intertrigo under abdominal fold and under bilateral breasts. Pt also has an area under the left axilla. patient states that her assists her to getting on the commode with a sit to stand device. patient has not been ambulatory since her previous stroke. Pt unsure how long ago this was.
--- NOTE | 2021-02-17 09:15 | PN.HOSP_ITS ---
Objective Data Objective Data Vital Signs: Vital Signs Temp Pulse Resp BP Pulse Ox 97.9 F 55 L 17 105/39 L 94 02/17/21 06:20 02/17/21 06:20 02/17/21 06:20 02/17/21 06:20 02/17/21 07:47 Oxygen Flow Rate (L/min) 2 Oxygen Delivery Method Room Air Weight: 101.605 kg Body Mass Index (BMI) 33.3 Intake & Output: Intake and Output for Last 24 Hours 02/15/21 02/16/21 02/17/21 23:59 23:59 23:59 Intake Total 3920 / 3920 1550 / 1550 Output Total 700 / 700 650 / 650 Balance 3220 / 3220 900 / 900 Lab / Micro Data Result Diagrams: 02/16/21 06:45 02/16/21 06:45 Labs: Laboratory Results - last 24 hr 02/16/21 17:02: POC Glucose 106 02/16/21 21:12: POC Glucose 127 H 02/17/21 06:20: POC Glucose 81 Assessment & Plan Assessment/Plan (1) Acute blood loss anemia: PLAN: 1. Hemorrhagic shock: Patient is admitted to ICU. She was ad mitted with hemoglobin 5.1. Patient required a total of 5 units of PRBC transfusion. After 3 units of PRBC transfusion yesterday evening, her hemoglobin was 7.7 but she bled again although no external signs of bleeding and required to further PRBC transfusion. Lactic acid 4.5 from hypovolemia and anemia. 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 Hold Eliquis. 2. Candidiasis of skin Nystatin. Fluconazole continue 3. UTI and cellulitis Recently started on antibiotic for UTI;continued 4. Atrial fibrillation Rate controlled. Heart rate in 50s. Stop sotalol because of hypotension and bradycardia. VT prophylaxis: Bilateral SCD ordered CODE STATUS DNR CCA no intubation.
[2021-02-17 09:23] LABS: Absolute Lymphocyte Count 0.72 X10^3/uL (0.83-4.51); Absolute Neutrophil Count 3.6 X10^3/uL (2.0-7.7); Basophil# 0.04 X10^3/uL; Basophil% 0.8 % (0-1); Eosinophil# 0.41 X10^3/uL; Eosinophils% 7.9 % (0-5); Hematocrit 25.5 % (37-47); Hemoglobin 8.4 g/dL (12.0-15.0); Lymphocyte # 0.72 X10^3/ul (0.83-4.51); Lymphocyte % 13.8 % (19-41); Mean Corp Hgb Conc 32.9 g/dL (32-36); Mean Corpuscular Hgb 29.3 pg (27.0-32.0); Mean Corpuscular Volume 88.9 fL (81-99); Mean Platelet Vol. 9.1 fl (6.2-12.0); Monocyte# 0.48 X10^3/uL; Monocyte% 9.2 % (0-10); NRBC Flagged by Analyzer 0 % (0-5); Neutrophil # 3.55 X10^3/uL (2.7-7.7); Neutrophil % 67.9 % (47-70); Platelet Count 196 K/mm3 (150-450); RBC Distribution Width CV 16.4 % (11.6-14.6); RBC Distribution Width SD 52.7 fl (35.1-43.9); Red Blood Count 2.87 M/mm3 (4.2-5.4); White Blood Count 5.2 K/mm3 (4.4-11.0)
[2021-02-17 09:36] LABS: Anion Gap 6 (5-15); BUN 16 mg/dL (7-18); BUN/Creat Ratio 21.1 RATIO (10-20); Calcium,Total 8.3 mg/dL (8.5-10.1); Chloride 103 mmol/L (98-107); Creatinine, Serum 0.76 mg/dL (0.55-1.02); EST Glomerular Filtration Rate 80 mL/min (>60); Est Glom Filt Rate - Afr Amer 96 mL/min (>60); Estimated Creatinine Clearance 49.45 ml/min; Glucose 85 mg/dL (74-106); Potassium 3.6 mmol/L (3.5-5.1); Sodium Level 134 mmol/L (136-145)
[2021-02-17] MEDS: Fluconazole 100 MG Tablet PO (11:00)
[2021-02-17] MEDS: Nystatin Powder 15gm Bottle 1 APPLIC TOPICAL (11:01)
[2021-02-17] MEDS: Acetaminophen 325 MG Tablet 650 MG PO (11:02)
[2021-02-17] MEDS: Minocycline 100 MG Capsule PO (11:02)
--- NOTE | 2021-02-17 11:29 | PCM.DC.SUM ---
Providers Date of Admission: 02/15/21 Primary Care Physician: Dr. Kanwal Baker, Consultations 02/15/21 07:25 Consult: Software Configuration Specialist / Pulmonary Medicine Routine Consulting Provider: Osman Cha Reason for Consult: Critical care EMERGENT Consult: No MD Notified: Yes Date Notified: 02/15/21 Time Notified: 07:51 Method of Notification: Verbal Consult: Onc/Wound/hyperbaric nurse Routine Comment: Reason for Consult:: sacro-coccygeal wounds Reason For Visit: HYPOTENSION; SYNCOPE; LACTIC ACIDOSIS Diagnosis Discharge Diagnosis (1) Acute blood loss anemia: Status: Acute Code(s): D62 - Acute posthemorrhagic anemia Medications at Discharge Home Medications magnesium oxide 400 mg PO DAILY tab 01/29/17 pantoprazole 40 mg PO DAILY #30 tab 03/10/17 levothyroxine 25 mcg PO DAILY 10/05/20 atorvastatin 40 mg PO QHS #90 tab 10/06/20 acetaminophen [Tylenol] 650 mg PO Q6H PRN #1 tab 11/26/20 Lactobacillus rhamnosus GG 1 cap PO DAILY 02/15/21 cholecalciferol (vitamin D3) 125 mcg PO QWEEK 02/15/21 clotrimazole 1 applic TOPICAL BID 02/15/21 fluconazole 100 mg PO DAILY 02/15/21 minocycline 100 mg PO BID 02/15/21 nystatin [Nyamyc] 1 applic TOPICAL BID 02/15/21 silver sulfadiazine 1 applic TOPICAL DAILY 02/15/21 Hospital Course Summary of Care Provided Minutes Spent on Discharge: 35 Hospital Course: Patient is a 70-year-old lady admitted following a syncopal episode. Patient was found to be hypotensive with anemia of 5.1. An assessment of hemorrhagic shock from excessive bleeding from the skin made admitted for subsequent inpatient evaluation 1. Acute hemorrhagic shock secondary to acute blood loss anemia following significant bleeding from the skin as a result of systemic use of anticoagulation. Patient was transfused with 3 unit PRBC. Patient was on apixaban For paroxysmal atrial fibrillation this was discontinued 2. Syncope ?Secondary to above and patient being bradycardic was on sotalol this was discontinued 3. Paroxysmal A. fib ?Patient was on sotalol which was discontinued as a result of bradycardia systemic anticoagulation with apixaban also discontinued in view of significant bleeding 4. Candidiasis of the skin ?Patient was being treated with fluconazole continue Physical Exam Narrative GENERAL: cooperative HEENT: Atraumatic; EYES; Anicteric, Normal Conjunctiva NECK; supple, normal thyroid, RESPIRATORY: Diminished to auscultation CARDIOVASCULAR: Regular S1 S2, GI: soft, normoactive bowel sounds, : No Renal angle tenderness; PSYCH; Flat affect Weight / BMI Weight Weight: 101.605 kg Body Mass Index (BMI) 33.3 ABG / Lab / Microbiology Data Result Diagrams: 02/17/21 09:16 02/17/21 09:16 Laboratory: Laboratory Results - last 24 hr 02/16/21 17:02: POC Glucose 106 02/16/21 21:12: POC Glucose 127 H 02/17/21 06:20: POC Glucose 81 02/17/21 09:16: WBC 5.2, RBC 2.87 L, Hgb 8.4 L, Hct 25.5 L, MCV 88.9, MCH 29.3, MCHC 32.9, RDW Std Deviation 52.7 H, RDW Coeff of Chele 16.4 H, Plt Count 196, MPV 9.1, Immature Gran % (Auto) 0.400, Neut % (Auto) 67.9, Lymph % (Auto) 13.8 L, [place] % (Auto) 9.2, Eos % (Auto) 7.9 H, Baso % (Auto) 0.8, Absolute Neuts (auto) 3.6, Absolute Lymphs (auto) 0.72 L, Nucleated RBC % 0 02/17/21 09:16: Sodium 134 L, Potassium 3.6, Chloride 103, Carbon Dioxide 25.0, Anion Gap 6, BUN 16, Creatinine 0.76, Estim Creat Clear Calc 49.45, Est GFR (MDRD) Af Amer 96, Est GFR (MDRD) Non-Af 80, BUN/Creatinine Ratio 21.1 H, Glucose 85, Calcium 8.3 L D/C Instructions Discharge Diet: No restrictions Meaningful Use Info Meaningful Use Diagnoses (Choose all that apply): None applicable Discharge Plan Admission Admit Date/Time: 02/15/21 06:07 Attending Provider: Jhony Dyson Primary Care Provider: Kanwal Baker Consulting Providers: Osman Cha Discharge Orders/Prescriptions Prescriptions: Continued magnesium oxide 400 MG tablet 400 mg PO DAILY RF: 0 pantoprazole 40 MG tablet 40 mg PO DAILY Qty: 30 RF: 0 levothyroxine 25 mcg tablet 25 mcg PO DAILY RF: 0 atorvastatin 40 mg tablet 40 mg PO QHS Qty: 90 RF: 0 acetaminophen [Tylenol] 325 mg tablet 650 mg PO Q6H PRN (Reason: pain) Qty: 1 RF: 0 fluconazole 100 mg Tablet 100 mg PO DAILY RF: 0 silver sulfadiazine 1 % Cream 1 applic TOPICAL DAILY RF: 0 minocycline 100 mg Capsule 100 mg PO BID RF: 0 clotrimazole 1 % Cream 1 applic TOPICAL BID RF: 0 cholecalciferol (vitamin D3) 125 mcg (5,000 unit) Capsule 125 mcg PO QWEEK RF: 0 Lactobacillus rhamnosus GG 15 billion cell Capsule, Sprinkle 1 cap PO DAILY RF: 0 nystatin [Nyamyc] 100,000 unit/gram powder 1 applic topical BID RF: 0 Discontinued sotalol 120 mg Tablet 120 mg PO BID RF: 0 furosemide [Lasix] 40 mg tablet 40 mg PO DAILY Qty: 30 RF: 0 lisinopril 2.5 mg tablet 2.5 mg PO DAILY Qty: 1 RF: 0 apixaban 5 mg Tablet 5 mg PO BID RF: 0 Referrals / Follow Up: Kanwal Baker DO [Primary Care Provider] - In 1 Week Disposition Disposition (needs filled in before D/C Order can be placed): Home Health Service Charges/Coding Visit Charges Inpatient E&M: 28179 Disch Hosp
--- NOTE | 2021-02-17 11:33 | NURSING ---
LATE ENTRY - 1000 - ORDER PLACED FOR PT TO HAVE WALKING RA PULSE OX - DR MARTINEZ MADE AWARE THAT PT IS NONAMBULATORY.
--- NOTE | 2021-02-17 12:32 | CASEMGMT ---
Addendum entered by Margie Huang 02/17/21 16:12: Received tc from Maya at [facility] who states pt is absolutely unsafe to go home. She states that the reason they admitted pt to services was to get her in a SNF. Made her aware that this RN CM will speak with patient and call her back. RN BENJAMÍN in to pt room, pt does not understand why there are these concerns. She states that her is able to assist her and that she has people in and out all of the time. She states her daughter in law is a RN and her granddtr is a WATER MAIN INSTALLER HELPER. She states they help her in addition to her homecare. Pt states she does not want to go to a facility as that is why she has wounds. RN BENJAMÍN called Maya back and made aware of the above. She states that the [facility] has not seen anyone in the home and patient is disheveled often. Asked if they were in the process of placing pt in facility. Maya states they were not and that a UNION CONTRACT REPRESENTATIVE has not been ordered. Made her aware that this RN CM would obtain an order for UNION CONTRACT REPRESENTATIVE and fax over if they would like to begin the process if pt is agreeable at home. Faxed at this time. Original Note: Pt to dc today. TC to [facility] to make aware of pt dc. Faxed referral information at this time.
[2021-02-17 14:11] LABS: Bedside Glucose 80 mg/dL (70-110)
[2021-02-17 14:52] LABS: Pathologist Review Reviewed
[2021-02-17 14:53] LABS: Hemoglobin 5.9 g/dL (12.0-15.0)
[2021-02-17 14:54] LABS: Hemoglobin 5.7 g/dL (12.0-15.0)
[2021-02-17 15:26] LABS: Bedside Glucose 157 mg/dL (70-110)
[2021-02-17 17:00] LABS: Bedside Glucose 104 mg/dL (70-110)
--- NOTE | 2021-02-17 17:05 | CASEMGMT ---
Social Work Note SHREYAS updated that [facility] is stating it is not safe for pt to discharge home, states that they don't see any family members in the home, and pt is often disheveled. RN CM spoke with pt, pt not sure why they have those concerns, states she is going home. Due to [facility] concern's, this worker did make an APS report. SHREYAS placed a call to Jovan with [facility] and left message regarding APS referral. SHREYAS encouraged Jovan to follow up with [facility] since they are the agency reporting these concerns. Hannah Wilson VOLLEYBALL COMMENTATOR, ED TRANSPORTER
--- NOTE | 2021-02-18 15:25 | CASEMGMT ---
JENNIFER DC F/u Call DC Date: 02.17.21 DC Diagnosis: Acute blood loss anemia DC Disposition: Home Lace/Strata: 28/08 Called patient home number, answered by her Haroldo. States patient is doing okay. Has not heard from [facility] yet but confirmed has HH contact number to f/u. Confirmed picked up patient DC medication. Denies issues, concerns, or questions with [facility], medications or f/u. S.JENNIFER Mora
== END 2021-02-17 18:51 | disposition home health service (06) | DRG 811 ==
LOC: ED 06:09 → ICU 06:31 → MS3 02-17 00:46
PROVIDERS: Internal Medicine; Internal Medicine Critical Care Medicine; Admitting Provider Hospitalist; Emergency Provider Emergency Medicine; Visit Provider Internal Medicine
DX: D62 Acute posthemorrhagic anemia (principal); R57.8 Other shock; L89.153 Pressure ulcer of sacral region, stage 3; D68.32 Hemorrhagic disorder due to extrinsic circulating anticoagulants; S42.302A Unspecified fracture of shaft of humerus, left arm, initial encounter for closed fracture; I50.22 Chronic systolic (congestive) heart failure; N39.0 Urinary tract infection, site not specified; L03.311 Cellulitis of abdominal wall; I69.354 Hemiplegia and hemiparesis following cerebral infarction affecting left non-dominant side; T45.515A Adverse effect of anticoagulants, initial encounter; Y92.9 Unspecified place or not applicable; R55 Syncope and collapse; E03.9 Hypothyroidism, unspecified; E11.9 Type 2 diabetes mellitus without complications; I95.9 Hypotension, unspecified; E78.5 Hyperlipidemia, unspecified; F41.9 Anxiety disorder, unspecified; I48.0 Paroxysmal atrial fibrillation; I89.0 Lymphedema, not elsewhere classified; M81.0 Age-related osteoporosis without current pathological fracture; M10.9 Gout, unspecified; B37.2 Candidiasis of skin and nail; E66.9 Obesity, unspecified; I25.2 Old myocardial infarction; Z68.34 Body mass index [BMI] 34.0-34.9, adult; Z87.19 Personal history of other diseases of the digestive system; Z79.01 Long term (current) use of anticoagulants; Z79.899 Other long term (current) drug therapy; Z68.33 Body mass index [BMI] 33.0-33.9, adult
CPT/HCPCS: 36415; 71045; 74018; 80048; 80053; 82962; 83605; 84484; 85014; 85018; 85025; 85610; 85730; 86850; 86900; 86901; 86920; 86922; 87040; 87077; 87086; 87088; 87184; 87186; 93005; 97110; 97161; 97166; 97802; 99285; J7030; J7040; J7050; P9016; A4216

== ENCOUNTER 2021-03-06 12:52 | Emergency (ER) | payer MEDICARE, OTHER, MEDICAID, SELFPAY ==
[2021-03-06] VITALS (8 sets, daily range): BP systolic 107–171; BP diastolic 51–85; PULSE 76–86; RESP 16–22; TEMP 36.6–37.2; O2SAT 98–100; BMI 29.2
--- NOTE | 2021-03-06 13:43 | EX.ED.DYSGE1 ---
HPI History of Present Illness Chief Complaint: Abn Labs Narrative Narrative: Patient presents with anemia that was found during a routine visit to the doctor. She has a history of a left sided stroke she immobile, she had bleeding decubitus ulcers recently and was taken off the anticoagulation. Otherwise her stools have been normal color without black or bloody stools. No other bleeding. She tells me she is eating and drinking normally. She does not feel any different. [facility] Medical History Acute CVA (cerebrovascular accident) Acute CVA (cerebrovascular accident) Acute right MCA stroke Anxiety Atrial fibrillation Congestive heart failure (CHF) Diabetes Diabetes Gout Heart failure Hemiplegia and hemiparesis following cerebral infarction affecting left dominant side Hyperlipidemia Hypothyroidism Irregular heart beat Lymphedema Myocardial infarct Non-smoker NSTEMI (non-ST elevated myocardial infarction) Osteoporosis Pancreatitis Stroke/cerebrovascular accident Weakness on left side of face Home Medications magnesium oxide 400 mg PO DAILY tab 01/29/17 [Rx Last Taken 11/15/20] pantoprazole 40 mg PO DAILY #30 tab 03/10/17 [Rx Last Taken 11/15/20] levothyroxine 25 mcg PO DAILY 10/05/20 [History Last Taken 11/13/20] atorvastatin 40 mg PO QHS #90 tab 10/06/20 [Rx Last Taken Unknown] acetaminophen [Tylenol] 650 mg PO Q6H PRN #1 tab 11/26/20 [Rx Last Taken Unknown] Lactobacillus rhamnosus GG 1 cap PO DAILY 02/15/21 [History Last Taken Unknown] cholecalciferol (vitamin D3) 125 mcg PO QWEEK 02/15/21 [History Last Taken Unknown] clotrimazole 1 applic TOPICAL BID 02/15/21 [History Last Taken Unknown] fluconazole 100 mg PO DAILY 02/15/21 [History Last Taken Unknown] minocycline 100 mg PO BID 02/15/21 [History Last Taken Unknown] nystatin [Nyamyc] 1 applic TOPICAL BID 02/15/21 [History Last Taken Unknown] silver sulfadiazine 1 applic TOPICAL DAILY 02/15/21 [History Last Taken Unknown] Allergy/AdvReac Type Severity Reaction Status Date / Time heparin Allergy Mild Other Verified 03/06/21 13:04 alteplase Allergy Angioedema Verified 03/06/21 13:04 cefaclor [From Ceclor] Allergy NEEDS Verified 03/06/21 13:04 FOLLOW-UP ketoprofen [From Orudis] Allergy NEEDS Verified 03/06/21 13:04 FOLLOW-UP ketorolac [From Toradol] Allergy NEEDS Verified 03/06/21 13:04 FOLLOW-UP niacin Allergy NEEDS Verified 03/06/21 13:04 FOLLOW-UP Penicillins Allergy They said Verified 03/06/21 13:04 if I took it I would atorvastatin AdvReac Other Verified 03/06/21 13:04 NYLON TAPE Allergy Rash Uncoded 03/06/21 13:04 Family History Mother Diabetes Heart disease Father Heart disease Surgical History History of ankle surgery History of appendectomy History of cholecystectomy History of knee replacement Hx of hysterectomy Social History household members: spouse housing: house current occupational status: unemployed Smoking Status: Never smoker alcohol intake: never substance use type: does not use ROS ROS ED ROS Narrative Past medical history: Reviewed, it is quite extensive includes hypertension hypercholesterolemia diabetes type both thyroidism, CHF, A. fib, GERD, CVA with left-sided deficits history of [place] and coronary artery disease Medications: Reviewed Social history: Noncontributory Review of systems: All systems negative except as indicated General: No fever. Generalized weakness which is chronic. Eyes: No visual changes ENT: No upper airway congestion, normal voice Neck: No neck pain Cardiovascular: No chest pain Respiratory: No shortness of breath or cough Gastrointestinal: No abdominal pain, nausea vomiting or diarrhea Genitourinary: No dysuria Musculoskeletal: Decub ulcers. Skin: No rash Neurological: No memory loss, confusion or any focal weakness Psych: No recent behavioral changes Hematologic: No current easy bleeding or easy bruising EXAM Physical Exam Narrative Exam Narrative: Physical exam General: Patient is chronically ill. She appears relatively comfortable in bed. Head: Normocephalic, Atraumatic Eyes: Slightly pale conjunctiva ENT: Dry mucous membranes Neck: Supple, Nontender, No lymphadenopathy Cardiovascular: Somewhat irregular rhythm. No obvious murmur. Respiratory: No distress, CTA bilaterally. She is speaking in full sentences Abdomen: Soft, Nontender, Nondistended : She has decub ulcers and disclamation around the perirectal region, her adult diapers are bloodstained secondary to all the disclamation of the ulcers. I do not see an obvious abscess. Back: No back tenderness. Extremities: Bilateral lower extremity edema, dry skin I do not appreciate any infection or cellulitis Skin: As above Neurological: She is alert and oriented, she has no movement in her left arm and minimal movement in her left leg. Const Vital Signs: 03/06/21 12:53 03/06/21 13:11 03/06/21 14:47 Temperature 97.8 F 98.9 F Temperature Source Temporal Oral Pulse Rate 84 80 Respiratory Rate 16 16 Respiratory Effort Normal Respiratory Pattern Normal Blood Pressure 171/69 H 107/55 L Blood Pressure Mean 103 72 Pulse Ox 98 100 Oxygen Delivery Method Room Air Room Air MDM MDM MDM Narrative Medical decision making narrative: Patient has a hemoglobin of 7. This is likely anemia of chronic disease and slight blood loss probably secondary to her decub ulcers. Her hemoglobin is relatively stable from before but she is somewhat symptomatic therefore I will transfuse her 1 unit and then she can be discharged. Lab Data Labs: Laboratory Results - last 24 hr 03/06/21 03/06/21 03/06/21 13:15 13:15 13:15 WBC 7.6 RBC 2.33 L Hgb 7.0 L Hct 22.1 L MCV 94.8 MCH 30.0 MCHC 31.7 L RDW Std Deviation 61.4 H RDW Coeff of Chele 17.8 H Plt Count 544 H MPV 8.5 Immature Gran % (Auto) 0.400 Neut % (Auto) 70.1 H Lymph % (Auto) 13.0 L [place] % (Auto) 9.3 Eos % (Auto) 6.3 H Baso % (Auto) 0.9 Absolute Neuts (auto) 5.3 Absolute Lymphs (auto) 0.99 Nucleated RBC % 0 PT INR APTT Sodium 134 L Potassium 4.5 Chloride 101 Carbon Dioxide 27.0 Anion Gap 6 BUN 14 Creatinine 0.92 Estim Creat Clear Calc 53.75 Est GFR (MDRD) Af Amer 77 Est GFR (MDRD) Non-Af 64 BUN/Creatinine Ratio 15.3 Glucose 115 H Calcium 8.5 Total Bilirubin 0.50 AST 16 ALT 8 L Alkaline Phosphatase 169 H Total Protein 7.2 Albumin 1.7 L Globulin 5.5 H Albumin/Globulin Ratio 0.3 L Blood Type A POSITIVE Antibody Screen NEGATIVE 03/06/21 14:35 WBC RBC Hgb Hct MCV MCH MCHC RDW Std Deviation RDW Coeff of Chele Plt Count MPV Immature Gran % (Auto) Neut % (Auto) Lymph % (Auto) [place] % (Auto) Eos % (Auto) Baso % (Auto) Absolute Neuts (auto) Absolute Lymphs (auto) Nucleated RBC % PT 16.4 H INR 1.4 APTT 39.0 H Sodium Potassium Chloride Carbon Dioxide Anion Gap BUN Creatinine Estim Creat Clear Calc Est GFR (MDRD) Af Amer Est GFR (MDRD) Non-Af BUN/Creatinine Ratio Glucose Calcium Total Bilirubin AST ALT Alkaline Phosphatase Total Protein Albumin Globulin Albumin/Globulin Ratio Blood Type Antibody Screen Discharge Plan Triage Chief Complaint: Abn Labs ED Provider: Joey Akins Dx/Rx/DC Orders Clinical Impression: Anemia, Decubital ulcer Instructions: Anemia Prescriptions: No Action magnesium oxide 400 MG tablet 400 mg PO DAILY RF: 0 pantoprazole 40 MG tablet 40 mg PO DAILY Qty: 30 RF: 0 levothyroxine 25 mcg tablet 25 mcg PO DAILY RF: 0 atorvastatin 40 mg tablet 40 mg PO QHS Qty: 90 RF: 0 acetaminophen [Tylenol] 325 mg tablet 650 mg PO Q6H PRN (Reason: pain) Qty: 1 RF: 0 fluconazole 100 mg Tablet 100 mg PO DAILY RF: 0 silver sulfadiazine 1 % Cream 1 applic TOPICAL DAILY RF: 0 minocycline 100 mg Capsule 100 mg PO BID RF: 0 clotrimazole 1 % Cream 1 applic TOPICAL BID RF: 0 cholecalciferol (vitamin D3) 125 mcg (5,000 unit) Capsule 125 mcg PO QWEEK RF: 0 Lactobacillus rhamnosus GG 15 billion cell Capsule, Sprinkle 1 cap PO DAILY RF: 0 nystatin [Nyamyc] 100,000 unit/gram powder 1 applic topical BID RF: 0 Primary Care Provider: Kanwal Baker Referrals: Kanwal Baker, [Primary Care Provider] - 2 Days Disposition Disposition: Home, Self Care
[2021-03-06 14:05] LABS: Absolute Lymphocyte Count 0.99 X10^3/uL (0.83-4.51); Absolute Neutrophil Count 5.3 X10^3/uL (2.0-7.7); Basophil# 0.07 X10^3/uL; Basophil% 0.9 % (0-1); Eosinophil# 0.48 X10^3/uL; Eosinophils% 6.3 % (0-5); Hematocrit 22.1 % (37-47); Lymphocyte # 0.99 X10^3/ul (0.83-4.51); Mean Corp Hgb Conc 31.7 g/dL (32-36); Mean Corpuscular Volume 94.8 fL (81-99); Mean Platelet Vol. 8.5 fl (6.2-12.0); Monocyte# 0.71 X10^3/uL; Monocyte% 9.3 % (0-10); NRBC Flagged by Analyzer 0 % (0-5); Neutrophil # 5.33 X10^3/uL (2.7-7.7); Neutrophil % 70.1 % (47-70); Platelet Count 544 K/mm3 (150-450); RBC Distribution Width CV 17.8 % (11.6-14.6); RBC Distribution Width SD 61.4 fl (35.1-43.9); Red Blood Count 2.33 M/mm3 (4.2-5.4); White Blood Count 7.6 K/mm3 (4.4-11.0)
[2021-03-06 14:36] LABS: ALB/GLOB Ratio 0.3 RATIO (0.9-2.4); AST(SGOT) 16 U/L (15-37); Alanine Aminotransfer ALT/SGPT 8 U/L (13-56); Albumin, Serum 1.7 g/dL (3.2-5.0); Alkaline Phosphatase 169 U/L (45-117); Anion Gap 6 (5-15); BUN 14 mg/dL (7-18); BUN/Creat Ratio 15.3 RATIO (10-20); Calcium,Total 8.5 mg/dL (8.5-10.1); Chloride 101 mmol/L (98-107); Creatinine, Serum 0.92 mg/dL (0.55-1.02); EST Glomerular Filtration Rate 64 mL/min (>60); Est Glom Filt Rate - Afr Amer 77 mL/min (>60); Estimated Creatinine Clearance 53.75 ml/min; Globulin 5.5 g/dL (2.2-4.2); Glucose 115 mg/dL (74-106); Potassium 4.5 mmol/L (3.5-5.1); Protein, Total 7.2 g/dL (6.4-8.2); Sodium Level 134 mmol/L (136-145)
[2021-03-06 14:48] LABS: International Normalized Ratio 1.4; Prothrombin Time (Protime)PT. 16.4 SECONDS (11.7-14.9)
[2021-03-06] MEDS: Ondansetron ODT 4 MG Tablet PO (16:32)
--- NOTE | 2021-03-06 16:40 | ED.RN ---
pt reports nausea at time of initiating blood transfusion. pt reports, i had this last time with my blood transfusions from last week. dr. elias informed, reports to continue transfusion. nausea medication ordered.
== END 2021-03-06 18:27 | disposition home or self-care (01) ==
PROVIDERS: Emergency Provider Emergency Medicine
DX: D64.9 Anemia, unspecified (principal); L89.899 Pressure ulcer of other site, unspecified stage; I69.352 Hemiplegia and hemiparesis following cerebral infarction affecting left dominant side; E03.9 Hypothyroidism, unspecified; E11.9 Type 2 diabetes mellitus without complications; E78.00 Pure hypercholesterolemia, unspecified; E78.5 Hyperlipidemia, unspecified; F41.9 Anxiety disorder, unspecified; I11.0 Hypertensive heart disease with heart failure; I25.10 Atherosclerotic heart disease of native coronary artery without angina pectoris; I25.2 Old myocardial infarction; I48.91 Unspecified atrial fibrillation; I50.9 Heart failure, unspecified; I89.0 Lymphedema, not elsewhere classified; K21.9 Gastro-esophageal reflux disease without esophagitis; M10.9 Gout, unspecified; Z87.19 Personal history of other diseases of the digestive system; Z79.899 Other long term (current) drug therapy
CPT/HCPCS: 36415; 80053; 85025; 85610; 85730; 86850; 86900; 86901; 86920; 99284; J7030; P9016; A4216

== ENCOUNTER 2021-12-05 20:29 | Emergency (ER) | payer MEDICARE, OTHER, MEDICAID, SELFPAY ==
[2021-12-05 20:30] VITALS: BP 104/61; PULSE 136; RESP 20; O2SAT 99
[2021-12-05 20:31] VITALS: BP 95/51; PULSE 152; RESP 24; TEMP 36.8; O2SAT 93; BMI 46.0
--- NOTE | 2021-12-05 20:58 | RAD_ITS ---
EXAM: XR PELVIS, 1 OR 2 VIEWS CLINICAL INDICATION: fall TECHNIQUE: Frontal view of the pelvis. This report was created using [employer] report generation technology. COMPARISON: None. FINDINGS: BONES/JOINTS: Unremarkable. No displaced fracture. No destructive or sclerotic lesions. Note that overlapping bowel shadows may however obscure fine detail. Sacroiliac joints are unremarkable. No widening of the pubic symphysis. The articular structures are unremarkable. SOFT TISSUES: Unremarkable. No soft tissue swelling or gas. RAD/Pelvis 1 or 2 Views IMPRESSION: No evidence of displaced pelvic fracture. Electronically Signed: Nadir Devi MD at 22:06 EDT ,
--- NOTE | 2021-12-05 20:59 | EKG12_ITS ---
Test Reason : DYSRHYTHMIA Blood Pressure : / mmHG Vent. Rate : 153 BPM Atrial Rate : 077 BPM P-R Int : 000 ms QRS Dur : 116 ms QT Int : 302 ms P-R-T Axes : 000 -58 119 degrees QTc Int : 482 ms Atrial fibrillation Left anterior fascicular block Anterolateral infarct , age undetermined Abnormal ECG Confirmed by JAYNA SUAZO, WAYNE ([id number]), acquisition editor RAY WYNN ([id number]) on 12/09/2021 9:21:36 AM Referred By: MARU Confirmed By:WAYNE DORANTES MD
[2021-12-05] MEDS: Lidocaine 1% (20 ml mdv) 20 ML Vial 4 ML INFILT (21:08)
--- NOTE | 2021-12-05 21:18 | EDS_ITS ---
HPI HPI - Fall History of Present Illness Chief Complaint: Fall Informant: patient and spouse/S.O. Narrative Narrative: Patient is a 71-year-old female with complex medical history including congestive heart failure, history of stroke with subsequent left-sided hemiparesis, atrial fibrillation (not on any anticoagulation), hypertension and type 2 diabetes mellitus presenting after fall. Patient slipped out of her wheelchair and struck her buttocks against a piece of metal that was sticking out. Patient is nonambulatory at baseline and uses a Leonel lift at home. There was significant bleeding from the lacerations on her buttock so she was brought to the emergency room for further evaluation. Patient does have some pain localized to that area. She denies any other complaints at this time. Apparently it had been a normal day prior to this injury. Patient did not hit her head. Tetanus Immunization: Unknown [facility] Medical History Acute CVA (cerebrovascular accident) Acute CVA (cerebrovascular accident) Acute right MCA stroke Anxiety Atrial fibrillation Congestive heart failure (CHF) Diabetes Diabetes Gout Heart failure Hemiplegia and hemiparesis following cerebral infarction affecting left dominant side Hyperlipidemia Hypothyroidism Irregular heart beat Lymphedema Myocardial infarct Non-smoker NSTEMI (non-ST elevated myocardial infarction) Osteoporosis Pancreatitis Stroke/cerebrovascular accident Weakness on left side of face Home Medications magnesium oxide 400 mg (241.3 mg magnesium) tablet 400 mg PO DAILY 01/29/17 [Rx Last Taken 11/15/20] pantoprazole 40 mg tablet,delayed release 40 mg PO DAILY #30 tabs 03/10/17 [Rx Last Taken 11/15/20] levothyroxine 25 mcg tablet 25 mcg PO DAILY THYROID 10/05/20 [History Last Taken 11/13/20] atorvastatin 40 mg tablet 40 mg PO QHS #90 tabs 10/06/20 [Rx Last Taken Unknown] acetaminophen 325 mg tablet (Tylenol) 650 mg PO Q6H PRN pain #1 TAB 11/26/20 [Rx Last Taken Unknown] Lactobacillus rhamnosus GG 15 billion cell sprinkle capsule 1 cap PO DAILY 02/15/21 [History Last Taken Unknown] cholecalciferol (vitamin D3) 125 mcg (5,000 unit) capsule 125 mcg PO QWEEK 02/15/21 [History Last Taken Unknown] clotrimazole 1 % topical cream 1 applic topical BID 02/15/21 [History Last Taken Unknown] fluconazole 100 mg tablet 100 mg PO DAILY 02/15/21 [History Last Taken Unknown] minocycline 100 mg capsule 100 mg PO BID 02/15/21 [History Last Taken Unknown] nystatin 100,000 unit/gram topical powder (Nyamyc) 1 applic topical BID 02/15/21 [History Last Taken Unknown] silver sulfadiazine 1 % topical cream 1 applic topical DAILY 02/15/21 [History Last Taken Unknown] Allergy/AdvReac Type Severity Reaction Status Date / Time heparin Allergy Mild Other Verified 03/06/21 13:04 alteplase Allergy Angioedema Verified 03/06/21 13:04 cefaclor [From Ceclor] Allergy NEEDS Verified 03/06/21 13:04 FOLLOW-UP ketoprofen [From Orudis] Allergy NEEDS Verified 03/06/21 13:04 FOLLOW-UP ketorolac [From Toradol] Allergy NEEDS Verified 03/06/21 13:04 FOLLOW-UP niacin Allergy NEEDS Verified 03/06/21 13:04 FOLLOW-UP Penicillins Allergy They said Verified 03/06/21 13:04 if I took it I would atorvastatin AdvReac Other Verified 03/06/21 13:04 NYLON TAPE Allergy Rash Uncoded 03/06/21 13:04 Family History Mother Diabetes Heart disease Father Heart disease Surgical History History of ankle surgery History of appendectomy History of cholecystectomy History of knee replacement Hx of hysterectomy Social History household members: spouse housing: house current occupational status: unemployed Smoking Status: Never smoker alcohol intake: never substance use type: does not use ROS ROS ED Constitutional Constitutional ED: Denies chills or fever(s) Eyes Eyes: Denies change in vision ENT ENT ED: Denies rhinorrhea Cardiovascular Cardiovascular: Denies chest pain or palpitations Respiratory/Chest Respiratory/Chest: Denies cough Gastrointestinal Gastrointestinal: Denies abdominal pain, nausea or vomiting Musculoskeletal Musculoskeletal: Denies arthralgias or back pain Integumentary Reports Abrasions Neurologic Neurologic: Reports other Details: Chronic weakness and paralysis of the left side ; Denies headache(s) Psychiatric Psychiatric: Denies anxiety EXAM Physical Exam Const Vital Signs: 12/05/21 20:31 12/05/21 20:30 12/05/21 21:02 Temperature 98.3 F Temperature Source Oral Pulse Rate 152 H 136 H Respiratory Rate 24 H 20 H Respiratory Effort Normal Non-Labored Respiratory Depth Normal Respiratory Pattern Normal Blood Pressure 95/51 L 104/61 Blood Pressure Mean 65 75 Pulse Ox 93 99 Oxygen Delivery Method Room Air Nasal Cannula Nasal Cannula Oxygen Flow Rate (L/min) 2 12/05/21 22:20 Temperature Temperature Source Pulse Rate 101 H Respiratory Rate 20 H Respiratory Effort Respiratory Depth Respiratory Pattern Blood Pressure 121/67 H Blood Pressure Mean 85 Pulse Ox 97 Oxygen Delivery Method Room Air Oxygen Flow Rate (L/min) Positive well nourished, well developed and obese Constitutional Narrative: Chronically ill-appearing General Appearance ED: well developed Nutritional Appearance: obese HEENT Reports normocephalic atraumatic Eyes PERRL and EOMs intact bilaterally Neck full ROM and supple Chest Wall inspection of chest normal Resp normal respiratory effort and no retractions Cardio Cardio Narrative: Tachycardic, irregularly irregular Back/Spine no CVA tenderness Neuro oriented x3 Neuro Narrative: Contracture and deformity of the left side consistent with prior stroke. G eneralized weakness Psych mental status grossly normal Skin Skin Narrative: 5 evenly spaced puncture wounds on the right buttocks. The most lateral puncture wound is largest and approximately 1-1/2 cm in length, is gaping and actively oozing blood. No active bleeding from the other 4 puncture wounds and they are smaller in size. No involvement of the perineum. No involvement of the rectum. MDM MDM MDM Narrative Medical decision making narrative: Patient is evaluated for injury to her buttocks with significant bleeding. Upon arrival patient is also in atrial fibrillation with RVR. She is uncomfortable from her bleeding and did not take her evening sotalol tonight. Patient evaluated shortly upon arrival and sutures placed to stem the bleeding. Patient does not appear to have any further bleeding. See my procedure note. Given the patient's A. fib RVR I did obtain a cardiac work-up. Patient has no complaints. Hemoglobin is actually improved significantly and is currently 9.4. Her platelet count is normal at 300. Her INR is normal. Her creatinine is near her baseline at 1.07. Her BNP is elevated however it appears to be near her baseline. X-ray of the pelvis obtained which does not show any acute fracture given her fall. Chest x-ray does show pulmonary vascular congestion and cardiomegaly. Patient is not currently on any diuretics. She will be discharged home on a short course of diuretics to ensure that she does not have further fluid overload. Patient RVR resolved without any intervention. She is given a dose of fentanyl as well as a tetanus shot for her wounds. On repeat evaluation patient is well-appearing. She is happy to go home. Case discussed with her who is also agreeable with this. Given his middle the night and patient has ambulation issues, she is not given Lasix at this time and will be given Lasix in the morning. Lab Data Attestation: I reviewed the patient's lab results. Labs: Laboratory Results - last 24 hr 12/05/21 12/05/21 12/05/21 21:00 21:00 21:00 WBC 6.4 RBC 2.93 L Hgb 9.4 L Hct 28.6 L MCV 97.6 MCH 32.1 H MCHC 32.9 RDW Std Deviation 62.9 H RDW Coeff of Chele 17.4 H Plt Count 300 MPV 10.1 Immature Gran % (Auto) 0.500 Neut % (Auto) 80.8 H Lymph % (Auto) 5.6 L [place] % (Auto) 9.2 Eos % (Auto) 3.0 Baso % (Auto) 0.9 Absolute Neuts (auto) 5.2 Absolute Lymphs (auto) 0.36 L Nucleated RBC % 0 Differential Comment SCANNED PT 19.3 H INR 1.7 APTT 34.4 Sodium 138 Potassium 4.6 Chloride 107 Carbon Dioxide 24.0 Anion Gap 7 BUN 18 Creatinine 1.07 H Estim Creat Clear Calc 47.24 Est GFR (MDRD) Af Amer 65 Est GFR (MDRD) Non-Af 53 L BUN/Creatinine Ratio 16.8 Glucose 140 H Calcium 8.6 Troponin I High Sens 12 B-Natriuretic Peptide 12/05/21 21:00 WBC RBC Hgb Hct MCV MCH MCHC RDW Std Deviation RDW Coeff of Chele Plt Count MPV Immature Gran % (Auto) Neut % (Auto) Lymph % (Auto) [place] % (Auto) Eos % (Auto) Baso % (Auto) Absolute Neuts (auto) Absolute Lymphs (auto) Nucleated RBC % Differential Comment PT INR APTT Sodium Potassium Chloride Carbon Dioxide Anion Gap BUN Creatinine Estim Creat Clear Calc Est GFR (MDRD) Af Amer Est GFR (MDRD) Non-Af BUN/Creatinine Ratio Glucose Calcium Troponin I High Sens B-Natriuretic Peptide 842.3 H Radiography Diagnostic Testing: Clinical Impression(s) from Imaging Studies Pelvis X-Ray 12/05/21 20:58 IMPRESSION: No evidence of displaced pelvic fracture. Electronically Signed: Nadir Devi MD at 22:06 EDT , Chest X-Ray 12/05/21 21:20 IMPRESSION: Cardiomegaly with vascular congestion. Electronically Signed: Nadir Devi MD at 21:57 EDT , Rhythm Strip Rhythm Strip: A-fib Rate: 153 Ectopy: None EKG Initial EKG: Attestation: I personally reviewed and interpreted this EKG as follows: Interpretation: Atrial Fibrillation Comments: Atrial fibrillation with RVR at a rate of 153 Left axis deviation Left anterior fascicular block Normal ST segments Procedures Lacerations Buttocks: Length: 0.59 in Depth: Skin Shape: puncture Laceration repair: Irrigated, Lidocaine, Local and Skin sutures Irrigated (ml): 250 Number of Sutures/[place]: 2 Suture Information: Vicryl, Simple and 4-0 Discharge Plan Triage Chief Complaint: Fall ED Provider: Kianna Louis Dx/Rx/DC Orders Clinical Impression: Paroxysmal atrial fibrillation, CHF (congestive heart failure), Anemia, Laceration of buttock without foreign body Instructions: ED Heart Failure, Congestive (CHF), ED Laceration: All Closures Prescriptions: No Action magnesium oxide 400 MG tablet 400 mg PO DAILY 0RF Label Comments: SUPPLEMENT pantoprazole 40 MG tablet 40 mg PO DAILY Qty: 30 0RF Label Comments: ACID REFLUX levothyroxine 25 mcg tablet 25 mcg PO DAILY Label Comments: TAKE 1 TABLET BY MOUTH EVERY DAY BEFORE A MEAL DIRECTED. atorvastatin 40 mg tablet 40 mg PO QHS Qty: 90 0RF acetaminophen [Tylenol] 325 mg tablet 650 mg PO Q6H PRN (Reason: pain) Qty: 1 0RF fluconazole 100 mg Tablet 100 mg PO DAILY silver sulfadiazine 1 % Cream 1 applic TOPICAL DAILY minocycline 100 mg Capsule 100 mg PO BID clotrimazole 1 % Cream 1 applic TOPICAL BID Rx Instructions: GROIN AREAS cholecalciferol (vitamin D3) 125 mcg (5,000 unit) Capsule 125 mcg PO QWEEK Lactobacillus rhamnosus GG 15 billion cell Capsule, Sprinkle 1 cap PO DAILY nystatin [Nyamyc] 100,000 unit/gram powder 1 applic topical BID Protocol: *Topical Application Instructions APPLICATION INSTRUCTIONS: Apply to abdominal folds, pannus, and groin Primary Care Provider: Kanwal Baker Referrals: Wound Health [Outside] - 2 Days for wound check Kanwal Baker, [Primary Care Provider] - Activity Restrictions/Additional Instructions: 2 absorbable sutures were placed in her buttocks. Recommend that she follow-up with wound care. Karly was given a dose of sotalol in the emergency room. Please start her on 40 mg of Lasix for the next 3 days as she does have some findings of fluid on her lungs. Have her follow-up with her primary care doctor. Disposition Disposition: Home, Self Care
--- NOTE | 2021-12-05 21:20 | RAD_ITS ---
EXAM: XR CHEST, 1 VIEW CLINICAL INDICATION: a fib TECHNIQUE: Frontal view of the chest. This report was created using [employer] report generation technology. COMPARISON: 02/15/2021 FINDINGS: LUNGS AND PLEURAL SPACES: There is mild vascular congestion. No pneumothorax. No effusion. HEART: Cardiac silhouette is enlarged in size. MEDIASTINUM: Central airways and mediastinal contour are unremarkable. BONES/JOINTS: There is a chronic fracture of the proximal left humerus with apparent resorption of the humeral head. SOFT TISSUES: Unremarkable. RAD/Chest 1 View (Portable) IMPRESSION: Cardiomegaly with vascular congestion. Electronically Signed: Nadir Devi MD at 21:57 EDT ,
[2021-12-05 21:31] LABS: Absolute Lymphocyte Count 0.36 X10^3/uL (0.83-4.51); Absolute Neutrophil Count 5.2 X10^3/uL (2.0-7.7); Basophil# 0.06 X10^3/uL; Basophil% 0.9 % (0-1); Eosinophil# 0.19 X10^3/uL; Hematocrit 28.6 % (37-47); Hemoglobin 9.4 g/dL (12.0-15.0); Lymphocyte # 0.36 X10^3/ul (0.83-4.51); Lymphocyte % 5.6 % (19-41); Mean Corp Hgb Conc 32.9 g/dL (32-36); Mean Corpuscular Hgb 32.1 pg (27.0-32.0); Mean Corpuscular Volume 97.6 fL (81-99); Mean Platelet Vol. 10.1 fl (6.2-12.0); Monocyte# 0.59 X10^3/uL; Monocyte% 9.2 % (0-10); NRBC Flagged by Analyzer 0 % (0-5); Neutrophil % 80.8 % (47-70); POSITIVE DIFFERENTIAL YES; Platelet Count 300 K/mm3 (150-450); RBC Distribution Width CV 17.4 % (11.6-14.6); RBC Distribution Width SD 62.9 fl (35.1-43.9); Red Blood Count 2.93 M/mm3 (4.2-5.4); White Blood Count 6.4 K/mm3 (4.4-11.0)
[2021-12-05] MEDS: fentaNYL 100 MCG/2 ML Ampul 50 MCG IV (21:34)
[2021-12-05] MEDS: Diphth,Pertuss(Acell),Tet Vac 0.5 ML Vial IM (21:35)
[2021-12-05 21:52] LABS: Differential Indicated SCAN CRITERIA MET
[2021-12-05 21:55] LABS: Anion Gap 7 (5-15); BUN 18 mg/dL (7-18); BUN/Creat Ratio 16.8 RATIO (10-20); Calcium,Total 8.6 mg/dL (8.5-10.1); Chloride 107 mmol/L (98-107); Creatinine, Serum 1.07 mg/dL (0.55-1.02); EST Glomerular Filtration Rate 53 mL/min (>60); Est Glom Filt Rate - Afr Amer 65 mL/min (>60); Estimated Creatinine Clearance 47.24 ml/min; Glucose 140 mg/dL (74-106); Potassium 4.6 mmol/L (3.5-5.1); Sodium Level 138 mmol/L (136-145); Troponin-I HS 12 pg/mL (3.0-54.0)
[2021-12-05 22:00] LABS: International Normalized Ratio 1.7; Partial Thromboplast Time 34.4 Seconds (24.1-36.2); Prothrombin Time (Protime)PT. 19.3 SECONDS (11.7-14.9)
[2021-12-05 22:09] LABS: Differential Comment SCANNED
[2021-12-05 22:12] LABS: BNP,B-Type NATRIURETIC PEPTIDE 842.3 pg/mL (0-100)
[2021-12-05 22:20] VITALS: BP 121/67; PULSE 101; RESP 20; O2SAT 97
[2021-12-05] MEDS: Sotalol Hydrochloride 80 MG Tablet 120 MG PO (22:59)
[2021-12-05 23:00] VITALS: BP 111/91; PULSE 100; RESP 26; O2SAT 95
--- NOTE | 2021-12-05 23:22 | ED.RN ---
MULTIPLE PERSONS TO ASSIST INTO WHEELCHAIR
== END 2021-12-05 23:22 | disposition home or self-care (01) ==
PROVIDERS: Emergency Provider Emergency Medicine; Visit Provider Emergency Medicine
DX: S31.811A Laceration without foreign body of right buttock, initial encounter (principal); I69.354 Hemiplegia and hemiparesis following cerebral infarction affecting left non-dominant side; I50.9 Heart failure, unspecified; I11.0 Hypertensive heart disease with heart failure; I48.0 Paroxysmal atrial fibrillation; Z68.42 Body mass index [BMI] 45.0-49.9, adult; D64.9 Anemia, unspecified; W05.0XXA Fall from non-moving wheelchair, initial encounter; M10.9 Gout, unspecified; E03.9 Hypothyroidism, unspecified; E78.5 Hyperlipidemia, unspecified; M81.0 Age-related osteoporosis without current pathological fracture; Z87.19 Personal history of other diseases of the digestive system; I25.2 Old myocardial infarction; F41.9 Anxiety disorder, unspecified; Z79.899 Other long term (current) drug therapy; E66.9 Obesity, unspecified; Z23 Encounter for immunization
CPT/HCPCS: 12001; 71045; 72170; 80048; 83880; 84484; 85025; 85610; 85730; 90471; 90715; 93005; 96374; 99285; A4216

== ENCOUNTER 2022-02-17 03:25 | Emergency (ER) | payer MEDICARE, OTHER, MEDICAID, SELFPAY ==
[2022-02-17 03:26] VITALS: BP 100/65; PULSE 137; RESP 18; TEMP 36.4; O2SAT 94; BMI 44.5
--- NOTE | 2022-02-17 04:01 | EDS_ITS ---
HPI History of Present Illness Chief Complaint: Wound Informant: patient, spouse/S.O. and EMS Onset/Context/Timing Onset: Today (JPTA) Context: Sudden Onset Quality: sore, bleeding Location: wound R buttock/tailbone area Current Severity: Mild Maximum Severity: Moderate Worsened by: palpation, sitting Relieved by: pressure off of affected area Associated Symptoms Associated Symptoms: bleeding; no other sx Narrative Narrative: Patient lives at home with her , 5 years ago she had a stroke and has had significant disability on the left side as a result of that, and she is morbidly obese and requires an assist chair that apparently functions sort of like a Leonel lift. Patient presents at around 3:30 AM because she was getting help transported to bed and she fell out of the chair and onto her tailbone where she has a chronic wound that has been there for several months as a result of an injury. Tonight, as a result of falling onto this area, it started bleeding. I confirmed with the that the wound looks the same as it had been except the acute bleeding as result of falling onto it. Patient denies any systemic symptoms or new pains except for the soreness at the wound. She is on apixaban for atrial fibrillation. [facility] Medical History Acute CVA (cerebrovascular accident) Acute CVA (cerebrovascular accident) Acute right MCA stroke Anxiety Atrial fibrillation Congestive heart failure (CHF) Diabetes Diabetes Gout Heart failure Hemiplegia and hemiparesis following cerebral infarction affecting left dominant side Hyperlipidemia Hypothyroidism Irregular heart beat Lymphedema Myocardial infarct Non-smoker NSTEMI (non-ST elevated myocardial infarction) Osteoporosis Pancreatitis Stroke/cerebrovascular accident Weakness on left side of face Home Medications magnesium oxide 400 mg (241.3 mg magnesium) tablet 400 mg PO DAILY 01/29/17 [Rx Last Taken 11/15/20] pantoprazole 40 mg tablet,delayed release 40 mg PO DAILY #30 tabs 03/10/17 [Rx Last Taken 11/15/20] levothyroxine 25 mcg tablet 25 mcg PO DAILY THYROID 10/05/20 [History Last Taken 11/13/20] atorvastatin 40 mg tablet 40 mg PO QHS #90 tabs 10/06/20 [Rx Last Taken Unknown] acetaminophen 325 mg tablet (Tylenol) 650 mg PO Q6H PRN pain #1 TAB 11/26/20 [Rx Last Taken Unknown] Lactobacillus rhamnosus GG 15 billion cell sprinkle capsule 1 cap PO DAILY 02/15/21 [History Last Taken Unknown] cholecalciferol (vitamin D3) 125 mcg (5,000 unit) capsule 125 mcg PO QWEEK 02/15/21 [History Last Taken Unknown] clotrimazole 1 % topical cream 1 applic topical BID 02/15/21 [History Last Taken Unknown] fluconazole 100 mg tablet 100 mg PO DAILY 02/15/21 [History Last Taken Unknown] minocycline 100 mg capsule 100 mg PO BID 02/15/21 [History Last Taken Unknown] nystatin 100,000 unit/gram topical powder (Nyamyc) 1 applic topical BID 02/15/21 [History Last Taken Unknown] silver sulfadiazine 1 % topical cream 1 applic topical DAILY 02/15/21 [History Last Taken Unknown] Allergy/AdvReac Type Severity Reaction Status Date / Time Penicillins Allergy Severe Anaphylaxis Verified 02/17/22 04:09 heparin Allergy Mild Other Verified 02/17/22 04:09 alteplase Allergy Angioedema Verified 02/17/22 04:09 cefaclor [From Ceclor] Allergy Other Verified 02/17/22 04:09 ketoprofen [From Orudis] Allergy Other Verified 02/17/22 04:09 ketorolac [From Toradol] Allergy Angioedema Verified 02/17/22 04:09 niacin Allergy Other Verified 02/17/22 04:09 atorvastatin AdvReac Other Verified 02/17/22 04:09 NYLON TAPE Allergy Rash Uncoded 02/17/22 04:09 Family History Mother Diabetes Heart disease Father Heart disease Surgical History History of ankle surgery History of appendectomy History of cholecystectomy History of knee replacement Hx of hysterectomy Social History household members: spouse housing: house current occupational status: unemployed Smoking Status: Never smoker alcohol intake: never substance use type: does not use ROS ROS ED Constitutional Constitutional ED: Denies chills or fever(s) Cardiovascular Cardiovascular: Denies chest pain or palpitations Respiratory/Chest Respiratory/Chest: Denies cough or dyspnea Gastrointestinal Gastrointestinal: Denies abdominal pain, nausea or vomiting Integumentary Reports wounds; Denies abscess Neurologic Neurologic: Reports paresthesias and weakness; Denies headache(s) Allergic/Immunologic Allergic/Immunologic ED: Denies mouth swelling, tongue swelling or urticaria EXAM Physical Exam Const Vital Signs: 02/17/22 03:26 Temperature 97.5 F L Temperature Source Temporal Pulse Rate 137 H Respiratory Rate 18 Blood Pressure 100/65 Blood Pressure Mean 76 Pulse Ox 94 Oxygen Delivery Method Room Air Positive well nourished, well developed and obese General Appearance ED: well developed and NAD Nutritional Appearance: obese HEENT Reports moist mucous membranes Negative for trauma Eyes PERRL and EOMs intact bilaterally Neck supple Neck Narrative: FROM Resp normal respiratory effort Effort and Inspection: able to speak in complete sentences Skin Skin Narrative: Chronic appearing wound in the sacral area, there is an open wound in the right buttock, it is not perianal, it is actively oozing blood there is no laceration or anything to repair and there is no sign of infection. MDM MDM MDM Narrative Medical decision making narrative: I confirmed with the , looking at the wound together, that it looks like usual and if it was not bleeding he probably would not have had her come to the ED. It is actively bleeding now even after we had her sit on a small stack of gauze for a while. With nursing's employment legal assistant to roll the patient over to give me access to the wound, I cleansed it with chlorhexidine, placed a nonstick dressing against it with 2 pieces of Surgifoam, followed by a stack of 4 x 4's and a couple of OpSite's in order to cover it, in addition to a piece of tape to reinforce it. We rolled her over to have her lie pressure on it. After checking on it 10-15 minutes later, there is a very small amount of blood outside of the dressing. It is significantly improved and I am comfortable letting her go home like this. I recommend that she discontinue the Eliquis for 3 days, and then may restart as long as there is no further bleeding. Also given information for wound care center follow-up if they are having trouble caring for these wounds at home. Discharge Plan Triage Chief Complaint: Wound ED Provider: Jose Olmstead Dx/Rx/DC Orders Clinical Impression: Bleeding from wound, Decubitus skin ulcer, Anticoagulated Prescriptions: No Action magnesium oxide 400 MG tablet 400 mg PO DAILY 0RF Label Comments: SUPPLEMENT pantoprazole 40 MG tablet 40 mg PO DAILY Qty: 30 0RF Label Comments: ACID REFLUX levothyroxine 25 mcg tablet 25 mcg PO DAILY Label Comments: TAKE 1 TABLET BY MOUTH EVERY DAY BEFORE A MEAL DIRECTED. atorvastatin 40 mg tablet 40 mg PO QHS Qty: 90 0RF acetaminophen [Tylenol] 325 mg tablet 650 mg PO Q6H PRN (Reason: pain) Qty: 1 0RF fluconazole 100 mg Tablet 100 mg PO DAILY silver sulfadiazine 1 % Cream 1 applic TOPICAL DAILY minocycline 100 mg Capsule 100 mg PO BID clotrimazole 1 % Cream 1 applic TOPICAL BID Rx Instructions: GROIN AREAS cholecalciferol (vitamin D3) 125 mcg (5,000 unit) Capsule 125 mcg PO QWEEK Lactobacillus rhamnosus GG 15 billion cell Capsule, Sprinkle 1 cap PO DAILY nystatin [Nyamyc] 100,000 unit/gram powder 1 applic topical BID Protocol: *Topical Application Instructions APPLICATION INSTRUCTIONS: Apply to abdominal folds, pannus, and groin Primary Care Provider: Kanwal Baekr Referrals: Kanwal Baker, DO [Primary Care Provider] - 1 Week if not improving (If you cannot get the bleeding controlled at any point with simple measures at home, return to ER) Center,Wound [Non-Staff] - 1 Week if not improving Activity Restrictions/Additional Instructions: Stop your Eliquis for 3 days; if the bleeding is well controlled on the wound, you may restart on 02/20/2022. Disposition Disposition: Home, Self Care
[2022-02-17 04:31] VITALS: BP 100/65; PULSE 137; RESP 18; TEMP 36.4; O2SAT 94
== END 2022-02-17 06:00 | disposition home or self-care (01) ==
PROVIDERS: Emergency Provider Emergency Medicine; Visit Provider Emergency Medicine
DX: L98.419 Non-pressure chronic ulcer of buttock with unspecified severity (principal); E11.622 Type 2 diabetes mellitus with other skin ulcer; I69.354 Hemiplegia and hemiparesis following cerebral infarction affecting left non-dominant side; I50.9 Heart failure, unspecified; I48.91 Unspecified atrial fibrillation; E66.01 Morbid (severe) obesity due to excess calories; E78.5 Hyperlipidemia, unspecified; Z79.899 Other long term (current) drug therapy; Z79.01 Long term (current) use of anticoagulants
CPT/HCPCS: 99284

== ENCOUNTER 2022-03-31 07:25 | Inpatient (IN) | payer MEDICARE, OTHER, MEDICAID, SELFPAY ==
[2022-03-31] VITALS (14 sets, daily range): BP systolic 93–115; BP diastolic 48–63; PULSE 72–142; RESP 16–22; TEMP 36.1–36.4; O2SAT 96–99; BMI 40.6; BMI 33.2
--- NOTE | 2022-03-31 07:27 | RAD_ITS ---
STUDY: X-RAY CHEST REASON FOR EXAM: Female, 71 years old. Rales, anasarca TECHNIQUE: AP and lateral views of the chest. COMPARISON: Comparison is made with prior study dated 12/05/2021. FINDINGS: EKG electrodes are seen. There is evidence of vascular congestion and CHF. Small bilateral pleural effusions. There is moderate cardiac enlargement. Normal mediastinum and della. Normal visualized pulmonary arteries. There is atherosclerotic tortuosity of the aortic arch and descending thoracic aorta. There is demineralization of the osseous structures. Deformity of the proximal left humerus with healing fracture. There is no demonstrated abnormality of the visualized soft tissue structures of the upper abdomen. RAD/Chest PA and Lateral IMPRESSION: Cardiomegaly. CHF and small bilateral pleural effusions. Electronically Signed: Hraish Blanton MD at 8:37 EST ,
--- NOTE | 2022-03-31 07:27 | EKG12_ITS ---
Test Reason : WOUND Blood Pressure : / mmHG Vent. Rate : 121 BPM Atrial Rate : 000 BPM P-R Int : 000 ms QRS Dur : 128 ms QT Int : 334 ms P-R-T Axes : 000 -65 100 degrees QTc Int : 474 ms Atrial fibrillation with rapid ventricular response Left axis deviation Non-specific intra-ventricular conduction block Possible Lateral infarct (cited on or before 05-DEC-2021) Abnormal ECG Confirmed by JAYNA SUAZO, WAYNE ([id number]), web content editor JC PARIS ([id number]) on 04/01/2022 2:38:59 PM Referred By: Confirmed By:WAYNE DORANTES MD
--- NOTE | 2022-03-31 07:28 | RAD_ITS ---
STUDY: X-RAY - LUMBAR SPINE REASON FOR EXAM: Female, 71 years old. Injury/Pain TECHNIQUE: 3 view(s) of the lumbar spine were obtained. COMPARISON: None FINDINGS: There is straightening of the normal lumbar lordosis. There is no substantial scoliosis. There is a normal alignment of the vertebrae. There is multilevel endplate spondylosis of the lumbar vertebrae. There is multi-level degenerative disc disease with multi-level disc space narrowing. Facet joint osteoarthritis. There is atherosclerotic calcification of the abdominal aorta without a demonstrated aneurysm. Calcified phleboliths are seen in the pelvis. RAD/Lumbar Spine 2 or 3 Views IMPRESSION: Degenerative changes of the spine, as detailed above. Electronically Signed: Harish Blanton MD at 8:38 EST ,
[2022-03-31 07:51] LABS: Absolute Lymphocyte Count 0.46 X10^3/uL (0.83-4.51); Basophil# 0.04 X10^3/uL; Basophil% 0.3 % (0-1); Eosinophil# 0.27 X10^3/uL; Eosinophils% 2.3 % (0-5); Hematocrit 32.5 % (37-47); Hemoglobin 10.6 g/dL (12.0-15.0); Lymphocyte # 0.46 X10^3/ul (0.83-4.51); Lymphocyte % 3.9 % (19-41); Mean Corp Hgb Conc 32.6 g/dL (32-36); Mean Corpuscular Hgb 31.5 pg (27.0-32.0); Mean Corpuscular Volume 96.4 fL (81-99); Mean Platelet Vol. 10.1 fl (6.2-12.0); Monocyte# 0.77 X10^3/uL; Monocyte% 6.6 % (0-10); NRBC Flagged by Analyzer 0 % (0-5); Neutrophil # 10.04 X10^3/uL (2.7-7.7); POSITIVE DIFFERENTIAL YES; Platelet Count 287 K/mm3 (150-450); RBC Distribution Width CV 16.2 % (11.6-14.6); RBC Distribution Width SD 57.3 fl (35.1-43.9); Red Blood Count 3.37 M/mm3 (4.2-5.4); White Blood Count 11.7 K/mm3 (4.4-11.0)
[2022-03-31 07:53] LABS: Differential Indicated SCAN CRITERIA MET
--- NOTE | 2022-03-31 08:06 | EDS_ITS ---
HPI History of Present Illness Chief Complaint: Wound Detail of Chief Complaint: Minor fall, failure to thrive and buttock pain Informant: patient and EMS (EMS is concerned with 's ability to care for her and needing more resources) Onset/Context/Timing Onset: Hours Context: Sudden Onset Timing: Intermittent Quality: Low back pain Current Severity: Mild Maximum Severity: Moderate Worsened by: Movement and palpation Relieved by: Nothing Associated Symptoms Associated Symptoms: None Narrative Narrative: Patient is a 71-year-old woman who is status post right hemispheric stroke that is left her disabled. He lives with her . Squad states they are called out for assist because she slide out of the chair or when she is moved from chair to commode when she falls. Patient is on Eliquis. Paramedics states she slid down the chair onto the floor. was not able to get her up from the floor. They raise concern that is not capable of caring for her. She denies head trauma. She denies headache. She denies visual, ocular auditory symptoms. She denies neck pain. She has no new neurologic deficits. Patient denies vomiting or diarrhea. She denies urologic symptoms. Prior similar symptoms: Yes Recent Illness/Hospitalization: No [facility] Medical History Acute CVA (cerebrovascular accident) Acute CVA (cerebrovascular accident) Acute right MCA stroke Anxiety Atrial fibrillation Congestive heart failure (CHF) Diabetes Diabetes Gout Heart failure Hemiplegia and hemiparesis following cerebral infarction affecting left dominant side Hyperlipidemia Hypothyroidism Irregular heart beat Lymphedema Myocardial infarct Non-smoker NSTEMI (non-ST elevated myocardial infarction) Osteoporosis Pancreatitis Stroke/cerebrovascular accident Weakness on left side of face Home Medications magnesium oxide 400 mg (241.3 mg magnesium) tablet 400 mg PO DAILY 01/29/17 [Rx Last Taken 11/15/20] pantoprazole 40 mg tablet,delayed release 40 mg PO DAILY #30 tabs 03/10/17 [Rx Last Taken 11/15/20] levothyroxine 25 mcg tablet 25 mcg PO DAILY THYROID 10/05/20 [History Last Taken 11/13/20] atorvastatin 40 mg tablet 40 mg PO QHS #90 tabs 10/06/20 [Rx Last Taken Unknown] acetaminophen 325 mg tablet (Tylenol) 650 mg PO Q6H PRN pain #1 TAB 11/26/20 [Rx Last Taken Unknown] Lactobacillus rhamnosus GG 15 billion cell sprinkle capsule 1 cap PO DAILY 02/15/21 [History Last Taken Unknown] cholecalciferol (vitamin D3) 125 mcg (5,000 unit) capsule 125 mcg PO QWEEK 02/15/21 [History Last Taken Unknown] clotrimazole 1 % topical cream 1 applic topical BID 02/15/21 [History Last Taken Unknown] fluconazole 100 mg tablet 100 mg PO DAILY 02/15/21 [History Last Taken Unknown] minocycline 100 mg capsule 100 mg PO BID 02/15/21 [History Last Taken Unknown] nystatin 100,000 unit/gram topical powder (Nyamyc) 1 applic topical BID 02/15/21 [History Last Taken Unknown] silver sulfadiazine 1 % topical cream 1 applic topical DAILY 02/15/21 [History Last Taken Unknown] Allergy/AdvReac Type Severity Reaction Status Date / Time Penicillins Allergy Severe Anaphylaxis Verified 03/31/22 07:34 heparin Allergy Mild Other Verified 03/31/22 07:34 alteplase Allergy Angioedema Verified 03/31/22 07:34 cefaclor [From Ceclor] Allergy Other Verified 03/31/22 07:34 ketoprofen [From Orudis] Allergy Other Verified 03/31/22 07:34 ketorolac [From Toradol] Allergy Angioedema Verified 03/31/22 07:34 niacin Allergy Other Verified 03/31/22 07:34 atorvastatin AdvReac Other Verified 03/31/22 07:34 NYLON TAPE Allergy Rash Uncoded 03/31/22 07:34 Family History Mother Diabetes Heart disease Father Heart disease Surgical History History of ankle surgery History of appendectomy History of cholecystectomy History of knee replacement Hx of hysterectomy Social History household members: spouse housing: house current occupational status: unemployed Smoking Status: Never smoker alcohol intake: never substance use type: does not use ROS ROS ED Constitutional Constitutional ED: Denies chills, fever(s), subjective, sweats or weight loss Eyes Eyes: Denies blurry vision, change in vision or diplopia ENT ENT ED: Denies ear pain, rhinorrhea or sore throat Cardiovascular Cardiovascular: Denies chest pain, palpitations, paroxysmal nocturnal dyspnea or racing heartbeat Respiratory/Chest Respiratory/Chest: Denies cough, dyspnea, dyspnea on exertion or paroxysmal nocturnal dyspnea Gastrointestinal Gastrointestinal: Denies abdominal pain, constipation, diarrhea, melena, nausea or vomiting Genitourinary Genitourinary ED: Denies dysuria, hematuria or urinary frequency Musculoskeletal Musculoskeletal: Reports back pain; Denies arthralgias, myalgias or neck pain Integumentary Reports other Details: Patient with venous stasis dermatitis lower extremities. ; Denies abscess, Abrasions or rash Neurologic Neurologic: Reports paresthesias, weakness and other Details: Patient with contractures on the left due to prior stroke Psychiatric Psychiatric: Reports depression; Denies anxiety Hematologic/Lymphatic Hematologic/Lymphatic: Reports none Allergic/Immunologic Allergic/Immunologic ED: Denies mouth swelling, tongue swelling or urticaria EXAM Physical Exam Const Vital Signs: 03/31/22 07:26 03/31/22 08:39 Temperature 97.2 F L Temperature Source Temporal Pulse Rate 142 H 83 Respiratory Rate 22 H Blood Pressure 115/63 Blood Pressure Mean 80 Pulse Ox 96 Oxygen Delivery Method Room Air Positive well nourished, well developed, obese, contractures and unkempt General Appearance ED: unkempt, well developed, contractures and NAD; Negative for cyanotic or diaphoretic Nutritional Appearance: obese HEENT Reports TM's clear and dry mucous membranes HEENT Narrative: Head is normocephalic. There is no evidence of trauma. There is no clinical findings of basal skull fracture. Ears normal. Nares patent. No septal deviation hematoma noted. Tympanic Membrane ED: Yes TM's clear Mouth ED: Yes dry mucous membranes Mouth: dry mucous membranes Eyes PERRL and EOMs intact bilaterally General Eye ED: Negative for pale conjunctiva or scleral icterus Neck no lymphadenopathy, supple and no JVD Neck Narrative: Unable to determine if patient is JVD due to based on body habitus. Trachea is midline. Chest Wall inspection of chest normal and palpation of chest normal Resp normal respiratory effort and No clear to auscultation bilaterally Auscultation: rales bilateral base Cardio no murmurs Rate: tachycardic Rhythm: abnormal rhythm irregularly irregular GI normal to inspection, nondistended, normoactive bowel sounds, non-tender, non- distended and no masses; Negative for hepatosplenomegaly Palpation: soft Back/Spine no CVA tenderness Cervical Spine: Negative for cervical spine tenderness Thoracic Spine / Upper Back: Negative for thoracic spinal tenderness Lumbar Spine / Lower Back: lumbar spinal tenderness L4 and L5 Extremity Negative for normal to inspection Extremity Narrative: Patient has venous stasis dermatitis. General Extremety ED: Yes edema General Extremity: edema Neuro oriented x3, CN's II-XII intact bilaterally and No no sensory deficits noted Sensorium / Orientation: alert Motor Exam: Negative for strength 5/5 throughout Psych Appearance: unkempt Mood & Affect: depressed Skin No no rashes or lesions noted and No no wounds Skin Narrative: Patient with anasarca, dry skin and venous stasis dermatitis. MDM MDM MDM Narrative Medical decision making narrative: With patient having A. fib with RVR bilateral rales and anasarca chest x-ray was obtained to assess for congestive heart failure as well as BNP. CBC to rule out anemia and assess white count as well as platelet count. Comprehensive metabolic panel to assess for any injury to the kidney, liver and to assess anion gap. Monitor reveals atrial fibrillation with RVR and rate varying between 122 and 153. EKG reveals A. fib with RVR. Patient was treated with Cardizem. Lab Data Attestation: I reviewed the patient's lab results. Lab results narrative: White count is slightly elevated 11.7 which is nonspecific. H&H reveals mild anemia. Indices are normal. Competence of metabolic panel is remarkable for mild hyponatremia, 134. BUN to creatinine ratio is slightly better 21-1. Gluc ose is slightly elevated 138. Alkaline phosphatase is slightly elevated as well and has been on prior laboratory studies. Lactate is elevated 2.4. This may be due to her diabetic medication. BNP is elevated at 1081. Labs: Laboratory Results - last 24 hr 03/31/22 03/31/22 03/31/22 07:45 07:45 07:45 WBC 11.7 H RBC 3.37 L Hgb 10.6 L Hct 32.5 L MCV 96.4 MCH 31.5 MCHC 32.6 RDW Std Deviation 57.3 H RDW Coeff of Chele 16.2 H Plt Count 287 MPV 10.1 Immature Gran % (Auto) 0.900 Neut % (Auto) 86.0 H Lymph % (Auto) 3.9 L [place] % (Auto) 6.6 Eos % (Auto) 2.3 Baso % (Auto) 0.3 Absolute Neuts (auto) 10.0 H Absolute Lymphs (auto) 0.46 L Nucleated RBC % 0 Differential Comment COMMENT Sodium 134 L Potassium 4.3 Chloride 101 Carbon Dioxide 29.0 Anion Gap 4 L BUN 20 H Creatinine 0.94 Estim Creat Clear Calc 53.77 Est GFR (MDRD) Af Amer 75 Est GFR (MDRD) Non-Af 62 BUN/Creatinine Ratio 21.2 H Glucose 138 H Lactic Acid 2.4 H* Calcium 8.4 L Total Bilirubin 1.40 H AST 15 ALT 7 L Alkaline Phosphatase 140 H B-Natriuretic Peptide Total Protein 7.2 Albumin 2.0 L Globulin 5.2 H Albumin/Globulin Ratio 0.4 L 03/31/22 07:45 WBC RBC Hgb Hct MCV MCH MCHC RDW Std Deviation RDW Coeff of Chele Plt Count MPV Immature Gran % (Auto) Neut % (Auto) Lymph % (Auto) [place] % (Auto) Eos % (Auto) Baso % (Auto) Absolute Neuts (auto) Absolute Lymphs (auto) Nucleated RBC % Differential Comment Sodium Potassium Chloride Carbon Dioxide Anion Gap BUN Creatinine Estim Creat Clear Calc Est GFR (MDRD) Af Amer Est GFR (MDRD) Non-Af BUN/Creatinine Ratio Glucose Lactic Acid Calcium Total Bilirubin AST ALT Alkaline Phosphatase B-Natriuretic Peptide 1081.7 H Total Protein Albumin Globulin Albumin/Globulin Ratio Radiography Chest X-Ray - ED: 2 View (2 view x-ray of the chest is suboptimal. Patient is rotated. There may be evidence of CHF. There is no obvious effusion. There is no obvious infiltrate noted. Hilum appears prominent due to the rotation. There is no abnormality osseous structures.) and Read by ED Physician (Three- view x-ray of the LS-spine reveals multiple level degenerative disc disease. There is no evidence of fracture. There is atherosclerosis of the aorta noted. This was independently read and interpreted by me at 0814) Diagnostic Testing: Clinical Impression(s) from Imaging Studies Chest X-Ray 03/31/22 07:27 IMPRESSION: Cardiomegaly. CHF and small bilateral pleural effusions. Electronically Signed: Harish Blanton MD at 8:37 EST , Lumbar Spine X-Ray 03/31/22 07:28 IMPRESSION: Degenerative changes of the spine, as detailed above. Electronically Signed: Harish Blanton MD at 8:38 EST , EKG Initial EKG: Attestation: I personally reviewed and interpreted this EKG as follows: Interpretation: Atrial Fibrillation (Ventricular rate is 121. Cures duration 128 ms. QT duration 3 and 34 ms. [place] to left. There is a nonspecific intraventricular conduction delay noted.) Critical Care Time Critical Care Time: Yes Critical care time (excluding procedures): 30-74 minutes (32), Including time spent: (History, physical, documentation, review of prior records, discussion with EMS), Discussing w/Patient &/or Family/Management Nurse Rn, Discussing w/Consultants and Arranging Admission or Transfer Discharge Plan Dx/Rx/DC Orders Clinical Impression: Atrial fibrillation with rapid ventricular response, Acute exacerbation of CHF (congestive heart failure), Anasarca, DM2 (diabetes mellitus, type 2), Anemia, Acidosis, lactic, History of cerebrovascular accident (CVA) in adulthood Disposition Disposition: Acute Care [facility]
[2022-03-31 08:07] LABS: ALB/GLOB Ratio 0.4 RATIO (0.9-2.4); AST(SGOT) 15 U/L (15-37); Alanine Aminotransfer ALT/SGPT 7 U/L (13-56); Alkaline Phosphatase 140 U/L (45-117); Anion Gap 4 (5-15); BUN 20 mg/dL (7-18); BUN/Creat Ratio 21.2 RATIO (10-20); Calcium,Total 8.4 mg/dL (8.5-10.1); Chloride 101 mmol/L (98-107); Creatinine, Serum 0.94 mg/dL (0.55-1.02); EST Glomerular Filtration Rate 62 mL/min (>60); Est Glom Filt Rate - Afr Amer 75 mL/min (>60); Estimated Creatinine Clearance 53.77 ml/min; Globulin 5.2 g/dL (2.2-4.2); Glucose 138 mg/dL (74-106); Potassium 4.3 mmol/L (3.5-5.1); Protein, Total 7.2 g/dL (6.4-8.2); Sodium Level 134 mmol/L (136-145)
[2022-03-31] MEDS: dilTIAZem 25 MG/5 ML Vial 20 MG IV BOLUS (08:11)
[2022-03-31 08:26] LABS: Lactic Acid 2.4 mmol/L (0.4-1.9)
[2022-03-31 08:30] LABS: BNP,B-Type NATRIURETIC PEPTIDE 1081.7 pg/mL (0-100)
[2022-03-31] MEDS: Furosemide 40 MG/4 ML Vial IV (08:55)
--- NOTE | 2022-03-31 08:56 | ED.RN ---
provider aware of bp. continue with lasix and cardizem.
[2022-03-31] MEDS: dilTIAZem 30 MG Tablet PO (09:01)
--- NOTE | 2022-03-31 09:30 | PCM.HP.STD ---
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 Her reports she was too far up and just slid down, she did not hit her head, bumped her right arm but is not in any pain. Upon arrival to the ED however it was noted that she has been having worsening shortness of breath for 1 day and some swelling in her legs, no significant cough, did have some nausea and generalized weakness over the past 1 week. Chest x-ray suggestive of edema/CHF, BNP elevated. Also was noted to be in A. fib with rate between 130s to 150s and was given Cardizem with heart rate down to 80s. Hospitalist contacted for admission. Interviewed patient and her at bedside, they report she had been in her usual health until this past week, she has a wound in between her gluteal folds per her and has been feeling generally weak with some intermittent nausea over the past 1 week. Though endorses she has been eating and drinking well. Intermittently constipated, no new changes. Urinating well. Denies any chest pain. Had not noted any fever and has not left the house in a week so has not had any sick contacts in that time. 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 Hyperlipidemia Hypothyroidism Irregular heart beat Lymphedema Myocardial infarct Non-smoker NSTEMI (non-ST elevated myocardial infarction) Osteoporosis Pancreatitis Stroke/cerebrovascular accident Weakness on left side of face Home Medications levothyroxine 25 mcg tablet 25 mcg PO DAILY THYROID 10/05/20 [History Last Taken 11/13/20] acetaminophen 325 mg tablet (Tylenol) 650 mg PO Q6H PRN pain #1 TAB 11/26/20 [Rx Last Taken Unknown] allopurinol 300 mg tablet 300 mg PO DAILY GOUT 03/31/22 [History Last Taken 03/30/22] aspirin 81 mg tablet,delayed release 81 mg PO DAILY PRN HEADACHES 03/31/22 [History Last Taken 1 Week Ago ~03/24/22] magnesium oxide 400 mg (241.3 mg magnesium) tablet 400 mg PO DAILY vitamins 03/31/22 [History Last Taken Unknown] multivitamin 1 tab PO DAILY HEALTH MAINTENANCE 03/31/22 [History Last Taken 03/30/22] sotalol 120 mg tablet 120 mg PO BID AFIB 03/31/22 [History Last Taken Unknown] sulfamethoxazole 800 mg-trimethoprim 160 mg tablet 1 tab PO MOFR ANTIBIOTIC 03/31/22 [History Last Taken 03/30/22] zinc oxide 1 applic topical UD SKIN 03/31/22 [History Last Taken 03/30/22] Allergy/AdvReac Type Severity Reaction Status Date / Time Penicillins Allergy Severe Anaphylaxis Verified 03/31/22 07:34 heparin Allergy Mild Other Verified 03/31/22 07:34 alteplase Allergy Angioedema Verified 03/31/22 07:34 cefaclor [From Ceclor] Allergy Other Verified 03/31/22 07:34 ketoprofen [From Orudis] Allergy Other Verified 03/31/22 07:34 ketorolac [From Toradol] Allergy Angioedema Verified 03/31/22 07:34 niacin Allergy Other Verified 03/31/22 07:34 atorvastatin AdvReac Other Verified 03/31/22 07:34 NYLON TAPE Allergy Rash Uncoded 03/31/22 07:34 Family History Mother Diabetes Heart disease Father Heart disease Surgical History History of ankle surgery History of appendectomy History of cholecystectomy History of knee replacement Hx of hysterectomy Social History household members: spouse housing: house current occupational status: unemployed Smoking Status: Never smoker alcohol intake: never substance use type: does not use ROS Constitutional Constitutional: Reports other Details: Feels cold sometimes ; Denies chills, fever(s) or night sweats Eyes Eyes: Denies change in vision ENT HEENT: Reports nasal congestion; Denies headache(s) or sore throat Cardiovascular Cardiovascular: Denies chest pain or palpitations Respiratory/Chest Respiratory/Chest: Reports other Details: Has had some increased shortness of breath ; Denies cough or productive cough Gastrointestinal Gastrointestinal: Reports other Details: denies changes in bowel or bladder ; Denies abdominal pain Genitourinary Genitourinary: Reports other Details: denies changes in urination Musculoskeletal Musculoskeletal: Denies joint pain Neurologic Neurologic: Reports other Details: Chronic left-sided paralysis with slight feeling in both upper and lower limbs, denies change from baseline Psychiatric Psychiatric: Denies anxiety Hematologic/Lymphatic Hematologic/Lymphatic: Reports other Details: Feels she easily bruises Allergic/Immunologic Allergic/Immunologic: Reports other Details: denies rashes Vital Signs Vital Signs Vital Signs: 03/31/22 07:26 03/31/22 08:39 03/31/22 08:56 Temperature 97.2 F L 97 F L Temperature Source Temporal Temporal Pulse Rate 142 H 83 82 Respiratory Rate 22 H 19 H Blood Pressure 115/63 95/51 L Blood Pressure Mean 80 65 Pulse Ox 96 98 Oxygen Delivery Method Room Air Room Air 03/31/22 09:02 Temperature Temperature Source Pulse Rate 78 Respiratory Rate Blood Pressure 101/53 L Blood Pressure Mean 69 Pulse Ox Oxygen Delivery Method Weight Weight: 121.4 kg Body Mass Index (BMI) 40.6 Physical Exam Const alert and no apparent distress Constitutional Narrative: Oriented HEENT normocephalic and head/scalp atraumatic Eyes Eyes Narrative: EOM grossly intact, anicteric Neck supple Resp normal respiratory effort Resp Narrative: Somewhat diminished at the bases though difficult to fully assess due to body habitus Cardio Cardio Narrative: Irregularly irregular GI soft to palpation, non-tender and non-distended Extremity Extremity Narrative: Bilateral lower extremity changes, both nonpitting edema with superimposed trace pitting edema and some erythema that is symmetric bilaterally, flaking skin, no overt drainage or pus appreciated Skin Skin Narrative: Chronic changes over lower extremities. Unable to turn patient alone while in room for exam, will return to evaluate with additional staff for assistance and safety Neuro Neuro Narrative: Left upper and lower EXTR paralysis Psych Psych Narrative: Cooperative Results Lab / Micro Data Result Diagrams: 03/31/22 07:45 03/31/22 07:45 Labs: Laboratory Results - last 24 hr 03/31/22 07:45: WBC 11.7 H, RBC 3.37 L, Hgb 10.6 L, Hct 32.5 L, MCV 96.4, MCH 31.5, MCHC 32.6, RDW Std Deviation 57.3 H, RDW Coeff of Chele 16.2 H, Plt Count 287, MPV 10.1, Immature Gran % (Auto) 0.900, Neut % (Auto) 86.0 H, Lymph % (Auto) 3.9 L, [place] % (Auto) 6.6, Eos % (Auto) 2.3, Baso % (Auto) 0.3, Absolute Neuts (auto) 10.0 H, Absolute Lymphs (auto) 0.46 L, Nucleated RBC % 0, Differential Comment COMMENT 03/31/22 07:45: Sodium 134 L, Potassium 4.3, Chloride 101, Carbon Dioxide 29.0, Anion Gap 4 L, BUN 20 H, Creatinine 0.94, Estim Creat Clear Calc 53.77, Est GFR (MDRD) Af Amer 75, Est GFR (MDRD) Non-Af 62, BUN/Creatinine Ratio 21.2 H, Glucose 138 H, Calcium 8.4 L, Total Bilirubin 1.40 H, AST 15, ALT 7 L, Alkaline Phosphatase 140 H, Total Protein 7.2, Albumin 2.0 L, Globulin 5.2 H, Albumin/Globulin Ratio 0.4 L 03/31/22 07:45: Lactic Acid 2.4 H* 03/31/22 07:45: B-Natriuretic Peptide 1081.7 H Radiology Impression Chest X-Ray 03/31/22 07:27 IMPRESSION: Cardiomegaly. CHF and small bilateral pleural effusions. Electronically Signed: Harish Blanton MD at 8:37 EST Reading Location ID and State: [facility] / [place] , Service support , Lumbar Spine X-Ray 03/31/22 07:28 IMPRESSION: Degenerative changes of the spine, as detailed above. Electronically Signed: Harish Blanton MD at 8:38 EST , Assessment & Plan Assessment/Plan (1) Acute exacerbation of CHF (congestive heart failure): (2) History of cerebrovascular accident (CVA) in adulthood: (3) Paroxysmal atrial fibrillation: PLAN: Plan #Acute on chronic heart failure with reduced ejection fraction Chest x-ray with cardiomegaly and evidence of changes consistent with CHF Most recent echo: 09/19/2020 with estimated EF 40 to 45% and evidence of diastolic dysfunction and had septal and apical hypokinesis at that time. Pulmonary artery systolic pressure was 60 mmHg Will repeat echo Received a dose of Lasix in the ED BNP 1081 which is higher than baseline We will continue Lasix, given that she is not hypoxic and not on baseline diuretics will do 20 IV of Lasix daily Daily weights and I's and O's Incentive spirometer Unclear why not on metoprolol or JLUIS Possibly went into exacerbation from A. fib with accelerated rate #Atrial fibrillation, paroxysmal Accelerated rate on admission Given bolus of diltiazem and additional dose and heart rate has been within normal limits Unclear why not on rate control at baseline Given that she is not on a beta-janice and that she has heart failure may need amiodarone for rate control with acute exacerbation with ultimate transition to beta-janice Previously was on Eliquis appears he was advised to hold for 3 days after visit in ED last month due to some bleeding, unclear if this was ever restarted. No evidence of bleeding hemoglobin stable so we will resume #Generalized weakness With slide out of her lift chair, reports the only thing that was bumped was her right arm, did not hit her head Does have chronic left-sided paralysis but is felt generally weak over the past 1 week with some nausea and 1 day of shortness of breath Treat underlying condition Will consult PT/OT Lumbar x-ray was obtained which showed multilevel degenerative disc disease #Chronic leg changes Appears to have lymphedematous changes with chronic skin changes Both appear to be slightly erythematous with trace pitting edema but no active signs of infection appreciated White blood cell count 11.7, lactic very mildly elevated 2.4, will trend do not feel that she has septic presentation at this time #Wound near her rectum Per , unable to turn patient independently to observe, will need to reevaluate with turning assistance Will consult wound care #History of CVA 5 years ago #Hypertension #Hypothyroidism Continue Synthroid Will check TSH #DVT ppx: We will resume home Eliquis Tova Terrell, MD Charges/Coding Visit Charges OBSV E&M: 80828 Initial observation care L2
--- NOTE | 2022-03-31 09:37 | ECHOD_ITS ---
Reason For Study: CHG Procedure This was a 2D Doppler, Color Flow transthoracic echocardiogram. Patient scanned in right lateral decubitus due to L sided hemiparesis. The study was technically difficult. Exam performed portable in patient room. Left Ventricle Normal LV size. D shaped septum in systole and diastole. Mild segmental systolic dysfunction (see wall motion). The estimated ejection fraction is 40 %. Unable to assess diastolic dysfunction. Basal anteroseptal: Hypokinetic. Mid-inferoseptal : Hypokinetic. Mid-anteroseptal : Hypokinetic. Right Ventricle Severely dilated right ventricle. Severe global right ventricular systolic dysfunction. Atria The left atrium is mildly enlarged. The right atrium is severely enlarged. No doppler evidence for ASD. Mitral Valve There is moderate mitral annular calcification. Extension of the mitral annular calcification onto the base of the posterior mitral valve leaflet. Mild (1+) mitral valve insufficiency. Tricuspid Valve Poor coaptation of the tricuspid valve apparatus. Moderate (2+) tricuspid valve insufficiency. Right ventricular systolic pressure estimated to be 71 mmHg. Severe pulmonary hypertension. Aortic Valve Trisinus/trileaflet aortic valve. Mild focal aortic valve calcification. Pulmonic Valve The pulmonic valve is not well visualized. Mild (1+) pulmonic valve insufficiency. Great Vessels Normal sized aortic root. Calcified aortic root. Pericardium/Pleural Small pericardial effusion. There are no echocardiographic indications of cardiac tamponade. MMode/2D Measurements & Calculations LVIDd: 5.2 cm IVSd: 1.1 cm Ao root diam: 3.0 cm LVIDs: 2.9 cm LVPWd: 0.78 cm FS: 43.5 % LAV(MOD-sp4): 67.1 ml LA A4 area: 23.8 cm2 LA dimension(2D): 4.1 cm RA A4 area: 28.4 cm2 Time Measurements MV dec time: 0.22 sec Doppler Measurements & Calculations MV E max shelton: 111.5 cm/sec MV dec slope: 529.2 cm/sec2 Ao V2 max: 138.0 cm/sec MV A max shelton: 31.7 cm/sec Ao max P.6 mmHg MV E/A: 3.5 Ao V2 mean: 97.4 cm/sec Ao mean P.3 mmHg Ao V2 VTI: 31.8 cm LV V1 max: 96.8 cm/sec MR max shelton: 260.5 cm/sec PA V2 max: 104.6 cm/sec LV V1 max P.8 mmHg MR max P.2 mmHg PA V2 mean: 75.0 cm/sec LV V1 mean P.1 mmHg LV V1 mean: 67.9 cm/sec LV V1 VTI: 23.2 cm PI end-d shelton: 97.6 cm/sec TR max shelton: 372.9 cm/sec TR max P.6 mmHg ECHO/Echo Complete Interpretation Summary The study was technically difficult. Mild segmental systolic dysfunction (see wall motion). The estimated ejection fraction is 40 %. D shaped septum in systole and diastole. Severely dilated right ventricle. Severe global right ventricular systolic dysfunction. The left atrium is mildly enlarged. The right atrium is severely enlarged. There is moderate mitral annular calcification. Extension of the mitral annular calcification onto the base of the posterior mi tral valve leaflet. Mild (1+) mitral valve insufficiency. Poor coaptation of the tricuspid valve apparatus. Moderate (2+) tricuspid valve insufficiency. Mild focal aortic valve calcification. Mild (1+) pulmonic valve insufficiency. Calcified aortic root. Small pericardial effusion. There are no echocardiographic indications of cardiac tamponade. Right ventricular systolic pressure estimated to be 71 mmHg. Severe pulmonary hypertension. Unable to assess diastolic dysfunction. Ordering Physician: Tova Terrell Referring Physician: SHANELL WINTERS Performed By: Breanna Curry RCS
[2022-03-31] MEDS: Levothyroxine 25 MCG TABLET PO (11:15)
[2022-03-31] MEDS: Magnesium Chloride 64 MG Delay Rel.Tablet 128 MG PO (11:15)
[2022-03-31] MEDS: APIXABAN 5 MG TABLET PO ×2 (11:15→21:40)
[2022-03-31] MEDS: Pantoprazole Sodium 40 MG Tablet PO (11:15)
[2022-03-31] MEDS: Cholecalciferol (Vit D3) 125 MCG CAPSULE (5,000 UNITS) PO (11:16)
[2022-03-31 11:48] LABS: Reflex Lactate? Y
[2022-03-31 12:35] LABS: Lactic Acid 1.2 mmol/L (0.4-1.9)
[2022-03-31] MEDS: DAKIN'S SOL HALF STRENGTH (=0.25%) 1 APPLIC TOPICAL (14:39)
--- NOTE | 2022-03-31 14:52 | WOUNDNOTE ---
wound photo: sacrum
--- NOTE | 2022-03-31 14:57 | WOUNDNOTE ---
skin photo: right lower leg
--- NOTE | 2022-03-31 14:58 | WOUNDNOTE ---
skin photo: left lower leg
--- NOTE | 2022-03-31 14:58 | WOUNDNOTE ---
wound photo: left foot
--- NOTE | 2022-03-31 15:00 | WOUNDNOTE ---
wound photo: left heel
--- NOTE | 2022-03-31 15:33 | CHAPLAIN ---
Type of Pastoral Visit _x__ Initial Visit ___ Follow-up Visit ___ On-call Visit ___ General Patient Visit ___ Spiritual Assessment ___ Family Conference ___ Bereavement ___ Rapid Response ___ Code Blue ___ Other (describe below) Pastoral Care Referral From _x__ Patient ___ Family ___ Nurse ___ Physician ___ [place] Machine Operator ___ As[employer] ___ Other (describe below) Sacrament/Intervention _x__ Active listening ___ Anointing ___ Temple ___ Bereavement ___ Communion ___ Kera exploration ___ ___ Life review _x__ Prayer ___ Reconciliation ___ Sacrament of Sick _x__ Supportive presence ___ Wedding ___ Other (describe below) Pastoral Comments patient has been seen before in previous admissions; pt is welcoming and asks questions of this senior executive compensation analyst about his family etc.; pt states that she fell out of her chair and broke my butt and states I just hope they can heal my butt; spouse is also in the room and is offered support too; both report that they will be fine but that a prayer would be good;
--- NOTE | 2022-03-31 15:46 | WOUNDNOTE ---
Dr Carlin aware of consult for sacral wound.
[2022-03-31] MEDS: Nystatin Powder 15gm Bottle 1 APPLIC TOPICAL ×2 (15:50→21:40)
--- NOTE | 2022-03-31 16:00 | NURSING ---
Under abdominal folds and breasts washed with soap and water, dried, nystatin applied, dry pillow cases placed in folds to keep skin from touching.
[2022-03-31] MEDS: Juven (unflavored) Packet 1 PACKET PO (17:29)
[2022-03-31] MEDS: levoFLOXacin IV 500 MG/100 ML BAG 100 MG IV (18:47)
[2022-03-31] MEDS: Acetaminophen 325 MG Tablet 650 MG PO (21:39)
[2022-03-31] MEDS: MELATONIN 3 MG TABLET PO (21:39)
--- NOTE | 2022-03-31 22:05 | PCM.RX.CS ---
Consult Pharmacy has been consulted to manage selected antiobiotic: Vancomycin Type of Consult: New start Labs: Sodium 134 mmol/L (136-145) L 03/31/22 07:45 Potassium 4.3 mmol/L (3.5-5.1) 03/31/22 07:45 Chloride 101 mmol/L (98-107) 03/31/22 07:45 Carbon Dioxide 29.0 mmol/L (21.0-32.0) 03/31/22 07:45 Anion Gap 4 (5-15) L 03/31/22 07:45 BUN 20 mg/dL (7-18) H 03/31/22 07:45 Creatinine 0.94 mg/dL (0.55-1.02) 03/31/22 07:45 Est GFR (MDRD) Af Amer 75 mL/min (>60) 03/31/22 07:45 Est GFR (MDRD) Non-Af 62 mL/min (>60) 03/31/22 07:45 BUN/Creatinine Ratio 21.2 RATIO (10-20) H 03/31/22 07:45 Glucose 138 mg/dL (74-106) H 03/31/22 07:45 Microbiology: Microbiology 03/31/22 11:13 Nasal Secretion SARS-CoV-2 & FLU Antigen (Rapid) - Final Weight used for dosin kg Estimated Creatinine Clearance: 65.5 Goal Trough: 15-20 mcg/mL Pharmacy Plan for Drug Dosing: Pharmacy Service will continue to monitor and adjust dosing as required. Follow-Up Labs: Trough Vancomycin Labs to be done on [date and time ordered]: 04/02/22 @0900
[2022-04-01] VITALS (15 sets, daily range): BP systolic 91–102; BP diastolic 43–60; PULSE 79–113; RESP 16–18; TEMP 36.3–37.2; O2SAT 93–97
[2022-04-01 05:09] LABS: Absolute Lymphocyte Count 0.51 X10^3/uL (0.83-4.51); Absolute Neutrophil Count 6.2 X10^3/uL (2.0-7.7); Basophil# 0.03 X10^3/uL; Basophil% 0.4 % (0-1); Eosinophil# 0.25 X10^3/uL; Eosinophils% 3.3 % (0-5); Hematocrit 25.1 % (37-47); Hemoglobin 8.3 g/dL (12.0-15.0); Lymphocyte # 0.51 X10^3/ul (0.83-4.51); Lymphocyte % 6.7 % (19-41); Mean Corp Hgb Conc 33.1 g/dL (32-36); Mean Corpuscular Hgb 31.1 pg (27.0-32.0); Mean Platelet Vol. 10.2 fl (6.2-12.0); Monocyte# 0.65 X10^3/uL; Monocyte% 8.5 % (0-10); NRBC Flagged by Analyzer 0 % (0-5); Neutrophil # 6.16 X10^3/uL (2.7-7.7); Neutrophil % 80.4 % (47-70); POSITIVE DIFFERENTIAL YES; Platelet Count 209 K/mm3 (150-450); RBC Distribution Width CV 15.9 % (11.6-14.6); RBC Distribution Width SD 54.8 fl (35.1-43.9); Red Blood Count 2.67 M/mm3 (4.2-5.4); White Blood Count 7.7 K/mm3 (4.4-11.0)
[2022-04-01 05:11] LABS: Differential Indicated SCAN CRITERIA MET
[2022-04-01 05:24] LABS: Anisocytosis 1+
[2022-04-01 06:31] LABS: ALB/GLOB Ratio 0.3 RATIO (0.9-2.4); AST(SGOT) 5 U/L (15-37); Alanine Aminotransfer ALT/SGPT 7 U/L (13-56); Albumin, Serum 1.3 g/dL (3.2-5.0); Alkaline Phosphatase 99 U/L (45-117); Anion Gap 4 (5-15); BUN 23 mg/dL (7-18); BUN/Creat Ratio 29.4 RATIO (10-20); Calcium,Total 7.8 mg/dL (8.5-10.1); Chloride 104 mmol/L (98-107); Creatinine, Serum 0.78 mg/dL (0.55-1.02); EST Glomerular Filtration Rate 77 mL/min (>60); Est Glom Filt Rate - Afr Amer 93 mL/min (>60); Estimated Creatinine Clearance 50.54 ml/min; Globulin 3.8 g/dL (2.2-4.2); Glucose 86 mg/dL (74-106); Potassium 3.8 mmol/L (3.5-5.1); Protein, Total 5.1 g/dL (6.4-8.2); Sodium Level 136 mmol/L (136-145); Thyroid Stim Hormone (TSH) 5.02 uIU/mL (0.358-3.74)
[2022-04-01] MEDS: Levothyroxine 25 MCG TABLET PO (06:32)
[2022-04-01] MEDS: Nystatin Powder 15gm Bottle 1 APPLIC TOPICAL ×3 (06:33→22:59)
[2022-04-01] MEDS: Juven (unflavored) Packet 1 PACKET PO ×2 (09:00→16:10)
[2022-04-01] MEDS: Pantoprazole Sodium 40 MG Tablet PO (09:01)
[2022-04-01] MEDS: Magnesium Chloride 64 MG Delay Rel.Tablet 128 MG PO (09:01)
[2022-04-01] MEDS: Furosemide 20 MG/2 ML VIAL IV (09:01)
--- NOTE | 2022-04-01 09:46 | PN.HOSP_ITS ---
Subjective Subjective Reports she is feeling better today than she had been: Occasionally slight nausea, no changes in breathing. Denied other complaints this morning Objective Data Objective Data Vital Signs: Vital Signs Temp Pulse Resp BP Pulse Ox O2 Del Method 97.5 F L 93 16 93/54 L 96 Room Air 04/01/22 08:56 04/01/22 08:56 04/01/22 08:56 04/01/22 08:56 04/01/22 08:56 04/01/22 08:56 Oxygen Delivery Method Room Air Weight: 123 kg Body Mass Index (BMI) 33.2 Intake & Output: Intake and Output for Last 24 Hours 03/30/22 03/31/22 04/01/22 23:59 23:59 23:59 Intake Total 1020 / 1020 900 / 900 Output Total 2075 / 2375 500 / 500 Balance -1055 / -1355 400 / 400 Lab / Micro Data Result Diagrams: 04/01/22 04:25 04/01/22 04:25 Labs: Laboratory Results - last 24 hr 03/31/22 12:02: Lactic Acid 1.2 04/01/22 04:25: WBC 7.7, RBC 2.67 L, Hgb 8.3 L, Hct 25.1 L, MCV 94.0, MCH 31.1, MCHC 33.1, RDW Std Deviation 54.8 H, RDW Coeff of Chele 15.9 H, Plt Count 209, MPV 10.2, Immature Gran % (Auto) 0.700, Neut % (Auto) 80.4 H, Lymph % (Auto) 6.7 L, [place] % (Auto) 8.5, Eos % (Auto) 3.3, Baso % (Auto) 0.4, Absolute Neuts (auto) 6.2, Absolute Lymphs (auto) 0.51 L, Nucleated RBC % 0, Anisocytosis 1+ 04/01/22 04:25: Sodium 136, Potassium 3.8, Chloride 104, Carbon Dioxide 28.0, Anion Gap 4 L, BUN 23 H, Creatinine 0.78, Estim Creat Clear Calc 50.54, Est GFR (MDRD) Af Amer 93, Est GFR (MDRD) Non-Af 77, BUN/Creatinine Ratio 29.4 H, Glucose 86, Calcium 7.8 L, Magnesium 2.0, Total Bilirubin 1.10 H, AST 5 L, ALT 7 L, Alkaline Phosphatase 99, Total Protein 5.1 L, Albumin 1.3 L, Globulin 3.8, Al bumin/Globulin Ratio 0.3 L, TSH 5.02 H Micro: Microbiology 03/31/22 11:13 Nasal Secretion SARS-CoV-2 & FLU Antigen (Rapid) - Final Radiography Diagnostic Testing: Radiology Impression Echocardiogram 03/31/22 09:37 Interpretation Summary The study was technically difficult. Mild segmental systolic dysfunction (see wall motion). The estimated ejection fraction is 40 %. D shaped septum in systole and diastole. Severely dilated right ventricle. Severe global right ventricular systolic dysfunction. The left atrium is mildly enlarged. The right atrium is severely enlarged. There is moderate mitral annular calcification. Extension of the mitral annular calcification onto the base of the posterior mitral valve leaflet. Mild (1+) mitral valve insufficiency. Poor coaptation of the tricuspid valve apparatus. Moderate (2+) tricuspid valve insufficiency. Mild focal aortic valve calcification. Mild (1+) pulmonic valve insufficiency. Calcified aortic root. Small pericardial effusion. There are no echocardiographic indications of cardiac tamponade. Right ventricular systolic pressure estimated to be 71 mmHg. Severe pulmonary hypertension. Unable to assess diastolic dysfunction. Ordering Physician: Tova Terrell Referring Physician: SHANELL WINTERS Performed By: Breanna Curry RCS Physical Exam Const alert and no apparent distress Constitutional Narrative: Oriented HEENT normocephalic and head/scalp atraumatic Eyes Eyes Narrative: EOM grossly intact, anicteric Neck supple Resp normal respiratory effort Resp Narrative: Somewhat diminished at the bases though difficult to fully assess due to body habitus Cardio Cardio Narrative: Irregularly irregular GI soft to palpation, non-tender and non-distended Extremity Extremity Narrative: Bilateral lower extremities are now wrapped Skin Skin Narrative: Large sacral wound observed yesterday with additional left-sided superficial gluteal wound, see photographic documentation in chart Neuro Neuro Narrative: Left upper and lower EXTR paralysis Psych Psych Narrative: Cooperative Assessment & Plan Assessment/Plan (1) Acute exacerbation of CHF (congestive heart failure): (2) History of cerebrovascular accident (CVA) in adulthood: (3) Paroxysmal atrial fibrillation: PLAN: Plan #Acute on chronic heart failure with reduced ejection fraction Chest x-ray with cardiomegaly and evidence of changes consistent with CHF Most recent echo: 09/19/2020 with estimated EF 40 to 45% and evidence of diastol ic dysfunction and had septal and apical hypokinesis at that time. Pulmonary artery systolic pressure was 60 mmHg Will repeat echo Received a dose of Lasix in the ED BNP 1081 which is higher than baseline We will continue Lasix, given that she is not hypoxic and not on baseline diuretics will do 20 IV of Lasix daily Daily weights and I's and O's Incentive spirometer Unclear why not on metoprolol or JLUIS Possibly went into exacerbation from A. fib with accelerated rate 04/01: Updated echo with EF of 40% with D-shaped septum and dilated right ventricle, has severe pulmonary hypertension with RVSP of 71. We will continue diuresis. Continue daily weights. O2 sat adequate, kidney function stable #Large sacral wound With what appears to be necrotic tissue Plastics consult for possible debridement Wound care Did appear to have purulent discharge and given history with the purulent discharge started on broad-spectrum antibiotics #Atrial fibrillation, paroxysmal Accelerated rate on admission Given bolus of diltiazem and additional dose and heart rate has been within normal limits Unclear why not on rate control at baseline Given that she is not on a beta-janice and that she has heart failure may need amiodarone for rate control with acute exacerbation with ultimate transition to beta-janice Previously was on Eliquis appears he was advised to hold for 3 days after visit in ED last month due to some bleeding, unclear if this was ever restarted. No evidence of bleeding hemoglobin stable so we will resume 04/01: Unclear if she was supposed to be on Eliquis at home, did have a drop in hemoglobin and previously there have been concerned because she would bleed from her wounds. We will hold it today, are pending possible debridement evaluation as well. Continue metoprolol. Possibly had been on sotalol for her A. fib, will try to clarify #Generalized weakness With slide out of her lift chair, reports the only thing that was bumped was her right arm, did not hit her head Does have chronic left-sided paralysis but is felt generally weak over the past 1 week with some nausea and 1 day of shortness of breath Treat underlying condition Will consult PT/OT Lumbar x-ray was obtained which showed multilevel degenerative disc disease #Chronic leg changes Appears to have lymphedematous changes with chronic skin changes Both appear to be slightly erythematous with trace pitting edema but no active signs of infection appreciated White blood cell count 11.7, lactic very mildly elevated 2.4, will trend do not feel that she has septic presentation at this time Wound care #History of CVA 5 years ago Aspirin #Hypothyroidism Continue Synthroid Mildly elevated TSH, will check free T4 Tova Terrell MD Charges/Coding Visit Charges Inpatient E&M: 71564 Subs Hosp L2
--- NOTE | 2022-04-01 10:20 | CASEMGMT ---
JENNIE BUTTS COILER OPERATOR BENJAMÍN to room to meet with patient for initial transition planning/care coordination assessment. JENNIE BUTTS introduced self and role at [facility]. Pt voices understanding and consents to assessment at this time. Pt resting in bed in no distress at this time. Yoko, wound nurse, @ bedside, doing wound care at this time. Pt is A/O at this time and answers all questions appropriately. Care providers, pharmacy, and demographics verified/updated at this time. PCP: Dr Baker Specialists: Dr Zhu-cardiology [place], Dr Lockwood-ortho in [place] Preferred Pharmacy: [facility] Insurance: MCR A/B, Cign[employer], MARY JO crossover Prescription Benefit: yes Living Will/HPOA: yes/HPOA- Haroldo. LNOK: -Haroldo. Dtr, Maya. Son, Barry. Pt asked for both of them to be added to demographics. Barry added at this time, but unable to add Maya, as pt unable to remember her phone number. Living Arrangements: Pt lives with her in a single story home with ramp entrance. Pt is dependent on her spouse for all ADLs and IADL's. Pt is hemiplegic on her left side and is non-ambulatory Transportation: Handicap accessible van which pt's drives. Pt does not drive. DME: high rise toilet, hospital bed, lift chair, nirmala like lift, [id number] lift, grab bars, hand held shower, walker, and w/c. SNF/HHC: [facility] and [facility]. Discussed discharge planning. Pt states it has been a little difficult for her to manage her care @ home. She states would be interested in returning to [place] [facility]F or going to an LTACH, if needed. PLAN: SNF vs LTACH Abigail RODRIGUEZ RN, CM
[2022-04-01] MEDS: DAKIN'S SOL HALF STRENGTH (=0.25%) 1 APPLIC TOPICAL (10:39)
--- NOTE | 2022-04-01 11:13 | CON.PCM_ITS ---
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 Labs reviewed. Patient has a worsening sacral pressure sore that the had been trying to manage at home. He states he feels overwhelmed. The pressure injury started developing after her stroke that left her left side paralyzed, and it became d ifficult to consistently turn her in bed. She needs a specialty bed from [facility] such as a low air loss bed. Her wound care is Dakin's dressing changes. Patient is currently on Vancomycin and Levaquin. Will add Flagyl for the anaerobic coverage. Due to the severity of the pressure sore and the necrosis and the odor, operative intervention with excision of the pressure sore is needed. Suspect underlying bony involvement with osteomyelitis so a partial ostectomy for osteomyelitis will also be performed. Will schedule the surgery in the next couple of days under general anesthesia. In the meantime before surgery, will repeat the Hgb and make available PRBC for transfusion. These operative debridements can be bloody. Also will check a CT Pelvis to look for the extent of the pressure injury and to look for osteomyelitis. Patient has chronic anemia with a Hgb of 8.3. She will need PRBC perioperatively. These operative debridements can be bloody (usually 250 ml or less operative blood loss but sometimes greater than 500 ml). At the time of surgery, will send soft tissue and bone to Pathology for analysis to rule out carcinoma and to evaluate for osteomyelitis. Will also send soft tissue and bone to Microbiology for culture. A positive culture may necessitate antibiotic modification. After the excision, I suspect the wound will be very close to the anal opening and stool contamination is a real risk. If so, will have General Surgery evaluate her for a diverting colostomy. Anticipate increased metabolic demands from the pressure sore wound and the surgery. Will check a Prealbumin and encourage nutritional supplementation with protein to help the healing process. Patient has diabetes mellitus. Her last HgbA1c from the medical record was 6.0 on 09/19/20. Will recheck it. In the future, if the wound were to stabilize and the patient is interested in wound closure with muscle flaps and skin grafts, then for elective surgery the HgbA1c needs to be less than 8. Also the nutritional would need to be maximized to help decrease wound healing problems. After the excision, will proceed with wound care with the VAC. Until surgery, continue the Dakin's dressing changes. This is a complex wound that will necessitate evaluation for an ECF such as LTAC/SNF. The complexity of the care that is required, makes going home not possible at this time. The patient and her both voice understanding. Patient was informed of the risks and complications of the procedure including alternatives to surgery. These were discussed with the patient personally. Arnulfo chaidez voices understanding and wishes to proceed. HPI Consult Data Date of Consult: 04/01/22 HPI Narrative Reason for Consultation: Necrotic sacral pressure sore, Stage IV. 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 The had been taking care of her at home but stated it is becoming more difficult to do so. She was admitted for exacerbation of CHF and for atrial fibrillation. While hospitalized she will be evaluated for placement. It was also noted the patient had a necrotic sacral pressure sore with some odor that the first noticed about a month ago. He states it is hard to turn her in bed because of her stroke and keeping pressure off has been difficult. She denied any fever at home. She felt a general malaise. Her appetite has been ok. Upon admission her WBC was 11.7 and this morning it was 7.7. Her Hgb was 10.6 and this morning it was 8.3. Her Potassium was 4.3 and this morning it was 3.8. BUN/Creat was 20/0.94 and this morning it was 23/.78. Initial Lactate was 2.4 and the repeat was 1.2. Patient has diabetes mellitus and her last reported HgbA1c from 09/19/20 was 6.0. She was started on Vancomycin and Levaquin. I was asked to evaluate this patient for surgical options for treatment of her necrotic sacral pressure sore. [facility] Medical History Acute CVA (cerebrovascular accident) Acute CVA (cerebrovascular accident) Acute right MCA stroke Anemia, chronic disease Anxiety Atrial fibrillation Congestive heart failure (CHF) Diabetes Diabetes Gout Heart failure Hemiplegia and hemiparesis following cerebral infarction affecting left dominant side Hyperlipidemia Hypothyroidism Irregular heart beat Lymphedema Myocardial infarct Non-smoker NSTEMI (non-ST elevated myocardial infarction) Osteomyelitis of pelvis Osteoporosis Pancreatitis Pressure ulcer of sacral region, stage 4 Skin necrosis Stroke/cerebrovascular accident Weakness on left side of face Home Medications levothyroxine 25 mcg tablet 25 mcg PO DAILY THYROID 10/05/20 [History Last Taken 03/30/22] acetaminophen 325 mg tablet (Tylenol) 650 mg PO Q6H PRN pain #1 TAB 11/26/20 [Rx Last Taken 03/30/22] allopurinol 300 mg tablet 300 mg PO DAILY GOUT 03/31/22 [History Last Taken 03/30/22] aspirin 81 mg tablet,delayed release 81 mg PO DAILY PRN HEADACHES 03/31/22 [History Last Taken 1 Week Ago ~03/24/22] magnesium oxide 400 mg (241.3 mg magnesium) tablet 400 mg PO DAILY SUPPLEMENT 03/31/22 [History Last Taken 03/30/22] multivitamin 1 tab PO DAILY HEALTH MAINTENANCE 03/31/22 [History Last Taken 03/30/22] sotalol 120 mg tablet 120 mg PO BID AFIB 03/31/22 [History Last Taken Unknown] sulfamethoxazole 800 mg-trimethoprim 160 mg tablet 1 tab PO MOFR ANTIBIOTIC 03/31/22 [History Last Taken 03/30/22] zinc oxide 1 applic topical UD SKIN 03/31/22 [History Last Taken 03/30/22] Allergy/AdvReac Type Severity Reaction Status Date / Time Penicillins Allergy Severe Anaphylaxis Verified 03/31/22 07:34 heparin Allergy Mild Other Verified 03/31/22 07:34 alteplase Allergy Angioedema Verified 03/31/22 07:34 cefaclor [From Ceclor] Allergy Other Verified 03/31/22 07:34 ketoprofen [From Orudis] Allergy Other Verified 03/31/22 07:34 ketorolac [From Toradol] Allergy Angioedema Verified 03/31/22 07:34 niacin Allergy Other Verified 03/31/22 07:34 adhesive tape [tape] AdvReac Rash Verified 03/31/22 09:47 atorvastatin AdvReac Other Verified 03/31/22 07:34 Family History Mother Diabetes Heart disease Father Heart disease Surgical History History of ankle surgery History of appendectomy History of cholecystectomy History of knee replacement Hx of hysterectomy Social History household members: spouse housing: house current occupational status: unemployed Smoking Status: Never smoker alcohol intake: never substance use type: does not use ROS ROS Narrative REVIEW OF SYSTEMS General - Denies fever, fatigue, and weight loss. Eyes - Denies cataracts and glaucoma. ENT - Denies nasal congestion and sore throat. Endocrine - Denies excessive thirst and urination. Has diabetes mellitus. Skin - Denies suspicious lesions and skin cancer. Has necrotic sacral pressure sore, Stage IV. Musculoskeletal - Denies joint pain, joint stiffness, back pain, and arthritis. Has left sided paralysis from a stroke. Neuro - Denies headaches. Had a stroke with left sided paralysis. Cardiovascular - Denies chest pain. Has fatigue and shortness of breath with exertion. Has CHF and atrial fibrillation. History of stroke. Psych - Has anxiety and depression. Respiratory - Denies chronic cough and shortness of breath. Gastrointestinal - Denies nausea, vomiting, diarrhea, and constipation. Hematologic - Denies abnormal bruising and bleeding. Genitourinary - Denies hematuria and urinary frequency. Physical Exam Narrative PHYSICAL EXAMINATION General - Alert and Oriented. HEENT - Has left sided paralysis from a stroke. Neck - Supple and nontender. No cervical adenopathy. Lungs - Diminished breath sounds at the bases. Heart - Regular rate and rhythm. Abdomen - Soft and nondistended. Extremities - Has left sided paralysis from a stroke. Lower back and sacral area - Large sacral pressure sore with surrounding necrosis. Pressure sore extends down to bone. Bone is palpable. Not exposed. Clinical osteomyelitis. Measures 8 x 6 cm. Some circular undermining. Close to the anal opening. Some odor present. No fluctuance. No purulent drainage. Neuro - Has left sided paralysis from a stroke. Psych - Normal mood and affect. Lab / Micro Data Attestation: I reviewed the patient's lab results. Result Diagrams: 04/03/22 05:20 04/03/22 05:20 Labs: Laboratory Results - last 24 hr 03/31/22 12:02: Lactic Acid 1.2 04/01/22 04:25: WBC 7.7, RBC 2.67 L, Hgb 8.3 L, Hct 25.1 L, MCV 94.0, MCH 31.1, MCHC 33.1, RDW Std Deviation 54.8 H, RDW Coeff of Chele 15.9 H, Plt Count 209, MPV 10.2, Immature Gran % (Auto) 0.700, Neut % (Auto) 80.4 H, Lymph % (Auto) 6.7 L, Banner % (Auto) 8.5, Eos % (Auto) 3.3, Baso % (Auto) 0.4, Absolute Neuts (auto) 6.2, Absolute Lymphs (auto) 0.51 L, Nucleated RBC % 0, Anisocytosis 1+ 04/01/22 04:25: Sodium 136, Potassium 3.8, Chloride 104, Carbon Dioxide 28.0, Anion Gap 4 L, BUN 23 H, Creatinine 0.78, Estim Creat Clear Calc 50.54, Est GFR (MDRD) Af Amer 93, Est GFR (MDRD) Non-Af 77, BUN/Creatinine Ratio 29.4 H, Glucose 86, Calcium 7.8 L, Magnesium 2.0, Total Bilirubin 1.10 H, AST 5 L, ALT 7 L, Alkaline Phosphatase 99, Total Protein 5.1 L, Albumin 1.3 L, Globulin 3.8, Albumin/Globulin Ratio 0.3 L, TSH 5.02 H Micro: Microbiology 03/31/22 11:13 Nasal Secretion SARS-CoV-2 & FLU Antigen (Rapid) - Final Radiology Impression Echocardiogram 03/31/22 09:37 Interpretation Summary The study was technically difficult. Mild segmental systolic dysfunction (see wall motion). The estimated ejection fraction is 40 %. D shaped septum in systole and diastole. Severely dilated right ventricle. Severe global right ventricular systolic dysfunction. The left atrium is mildly enlarged. The right atrium is severely enlarged. There is moderate mitral annular calcification. Extension of the mitral annular calcification onto the base of the posterior mitral valve leaflet. Mild (1+) mitral valve insufficiency. Poor coaptation of the tricuspid valve apparatus. Moderate (2+) tricuspid valve insufficiency. Mild focal aortic valve calcification. Mild (1+) pulmonic valve insufficiency. Calcified aortic root. Small pericardial effusion. There are no echocardiographic indications of cardiac tamponade. Right ventricular systolic pressure estimated to be 71 mmHg. Severe pulmonary hypertension. Unable to assess diastolic dysfunction. Ordering Physician: Tova Terrell Referring Physician: SHANELL WINTERS Performed By: Breanna Curry RCS Charges/Coding Visit Charges Inpatient E&M: 52501 Init Hosp L2 (ICD-10 - L89.154, I96, M86.9, E11.9, D63.8)
--- NOTE | 2022-04-01 11:22 | CT_ITS ---
STUDY: CT PELVIS WITHOUT CONTRAST REASON FOR EXAM: Female, 71 years old. Necrotic sacral pressure sore, osteomyelitis RADIATION DOSAGE (If Supplied By Facility): CTDIvol = ( 28.21 ) mGy, DLP = ( 1296.59 ) mGycm TECHNIQUE: Transaxial imaging of the pelvis was performed with oral contrast, and without intravenous administration of contrast material. Multiplanar coronal and sagittal images were reformatted. Individualized dose optimization techniques were used for this CT. COMPARISON: None. FINDINGS: A MORAN catheter is seen within the urinary bladder. The urinary bladder is empty. I suspect free fluid in the pelvis. There is evidence of an ulcerative lesion in the midline just distal to the distal portion of the sacrum. The overlying skin is thickened. There is no evidence of bony destruction at this time. Normal visualized small intestine. Normal visualized colon. There is no pelvic fluid. There is no pelvic mass lesion or lymphadenopathy. Normal visualized pelvic arteries. Diffuse subcutaneous edema with overlying skin thickening. There are diffuse degenerative changes of the visualized lumbar spine. Degenerative changes of both hip joints. CT/Pelvis without IV Contrast IMPRESSION: Ulcerative lesion in the midline just distal to the distal portion of the sacrum. No evidence of bony destruction. Diffuse subcutaneous edema with overlying skin thickening. I suspect free fluid in the pelvis. Electronically Signed: Harish Blanton MD at 13:35 EST ,
[2022-04-01] MEDS: Allopurinol 300 MG Tablet PO (11:31)
--- NOTE | 2022-04-01 12:30 | WOUNDNOTE ---
Patient having a difficult time getting comfortable in the bed. a low air loss mattress was ordered for patient to assist in offloading.
[2022-04-01] MEDS: Metoprolol Tartrate 25 MG Tablet 12.5 MG PO (13:52)
[2022-04-01] MEDS: Acetaminophen 325 MG Tablet 650 MG PO (13:53)
[2022-04-01] MEDS: metroNIDAZOLE 500 MG/100 ML BAG 100 MG IV ×2 (13:53→21:29)
--- NOTE | 2022-04-01 14:42 | CASEMGMT ---
Pt provided list of SNF and LTACH providers including quality and resource use data and consistent with the pt's preferred geographic region, medical needs, and insurance network. CM to follow clinical course for d/c plan for pt. Cecilia SCHNEIDER CM
[2022-04-01] MEDS: 0.9% Saline Lock 10 ML Syringe IV ×2 (21:31→22:54)
[2022-04-01] MEDS: levoFLOXacin IV 500 MG/100 ML BAG 100 MG IV (22:51)
[2022-04-02] VITALS (19 sets, daily range): BP systolic 91–122; BP diastolic 43–71; PULSE 75–105; RESP 16–18; TEMP 36.3–37.2; O2SAT 92–96
[2022-04-02] MEDS: metroNIDAZOLE 500 MG/100 ML BAG 100 MG IV ×3 (05:25→21:12)
[2022-04-02] MEDS: Nystatin Powder 15gm Bottle 1 APPLIC TOPICAL ×3 (05:25→21:15)
[2022-04-02] MEDS: Levothyroxine 25 MCG TABLET PO (05:26)
--- NOTE | 2022-04-02 08:36 | PCM.PN.HOSP ---
Subjective Subjective Tired this morning, overall still feels she is doing better than admission. No other complaints this morning Objective Data Objective Data Vital Signs: Vital Signs Temp Pulse Resp BP Pulse Ox O2 Del Method 98.3 F 76 16 102/45 L 93 Room Air 04/02/22 04:00 04/02/22 07:05 04/02/22 04:00 04/02/22 04:00 04/02/22 07:43 04/02/22 07:43 Oxygen Delivery Method Room Air Weight: 123 kg Body Mass Index (BMI) 33.2 Intake & Output: Intake and Output for Last 24 Hours 03/31/22 04/01/22 04/02/22 23:59 23:59 23:59 Intake Total 1020 / 1020 2195 / 2195 735 / 735 Output Total 2075 / 2375 1600 / 1800 550 / 550 Balance -1055 / -1355 595 / 395 185 / 185 Lab / Micro Data Result Diagrams: 04/01/22 04:25 04/01/22 04:25 Micro: Microbiology 03/31/22 11:13 Nasal Secretion SARS-CoV-2 & FLU Antigen (Rapid) - Final Radiography Diagnostic Testing: Radiology Impression Pelvis CT 04/01/22 11:22 IMPRESSION: Ulcerative lesion in the midline just distal to the distal portion of the sacrum. No evidence of bony destruction. Diffuse subcutaneous edema with overlying skin thickening. I suspect free fluid in the pelvis. Electronically Signed: Harish Blanton MD at 13:35 EST , Physical Exam Const alert and no apparent distress Constitutional Narrative: Oriented HEENT normocephalic and head/scalp atraumatic Eyes Eyes Narrative: EOM grossly intact, anicteric Neck supple Resp normal respiratory effort Resp Narrative: Somewhat diminished at the bases though difficult to fully assess due to body habitus Cardio Cardio Narrative: Irregularly irregular GI soft to palpation, non-tender and non-distended Extremity Extremity Narrative: Bilateral lower extremities are now wrapped Skin Skin Narrative: Large sacral wound observed on presentation with additional left-sided superficial gluteal wound, see photographic documentation in chart Neuro Neuro Narrative: Left upper and lower EXTR paralysis Psych Psych Narrative: Cooperative Assessment & Plan Assessment/Plan (1) Acute exacerbation of CHF (congestive heart failure): (2) History of cerebrovascular accident (CVA) in adulthood: (3) Paroxysmal atrial fibrillation: PLAN: Plan #Acute on chronic heart failure with reduced ejection fraction Chest x-ray with cardiomegaly and evidence of changes consistent with CHF Most recent echo: 09/19/2020 with estimated EF 40 to 45% and evidence of diastolic dysfunction and had septal and apical hypokinesis at that time. Pulmonary artery systolic pressure was 60 mmHg Will repeat echo Received a dose of Lasix in the ED BNP 1081 which is higher than baseline We will continue Lasix, given that she is not hypoxic and not on baseline diuretics will do 20 IV of Lasix daily Daily weights and I's and O's Incentive spirometer Unclear why not on metoprolol or JLUIS Possibly went into exacerbation from A. fib with accelerated rate 04/01: Updated echo with EF of 40% with D-shaped septum and dilated right ventricle, has severe pulmonary hypertension with RVSP of 71. We will continue diuresis. Continue daily weights. O2 sat adequate, kidney function stable 04/02: Continue diuresis and I's and O's. Overall improved from admission #Large sacral wound With what appears to be necrotic tissue Plastics consult for possible debridement Wound care Did appear to have purulent discharge and given history with the purulent discharge started on broad-spectrum antibiotics 04/02: Dr. Carlin consulted. CT pelvis without IV contrast yesterday demonstrated ulcerative lesion in midline just distal to the distal portion of the sacrum. No evidence of bony destruction on that film. Diffuse subcutaneous edema with overlying skin thickening. Given there was purulent drainage and concern for infection on admission she is on broad-spectrum antibiotics, metronidazole added by Dr. Carlin #Atrial fibrillation, paroxysmal Accelerated rate on admission Given bolus of diltiazem and additional dose and heart rate has been within normal limits Unclear why not on rate control at baseline Given that she is not on a beta-janice and that she has heart failure may need amiodarone for rate control with acute exacerbation with ultimate transition to beta-janice Previously was on Eliquis appears he was advised to hold for 3 days after visit in ED last month due to some bleeding, unclear if this was ever restarted. No evidence of bleeding hemoglobin stable so we will resume 04/01: Unclear if she was supposed to be on Eliquis at home, did have a drop in hemoglobin and previously there have been concerned because she would bleed from her wounds. We will hold it today, are pending possible debridement evaluation as well. Continue metoprolol. Possibly had been on sotalol for her A. fib, will try to clarify 04/02: Unable to tell me if she takes sotalol at home, however BP has been borderline so this was is held at this time and she Toprol twice daily #Generalized weakness With slide out of her lift chair, reports the only thing that was bumped was her right arm, did not hit her head Does have chronic left-sided paralysis but is felt generally weak over the past 1 week with some nausea and 1 day of shortness of breath Treat underlying condition Will consult PT/OT Lumbar x-ray was obtained which showed multilevel degenerative disc disease #Chronic leg changes Appears to have lymphedematous changes with chronic skin changes Both appear to be slightly erythematous with trace pitting edema but no active signs of infection appreciated White blood cell count 11.7, lactic very mildly elevated 2.4, will trend do not feel that she has septic presentation at this time Wound care #History of CVA 5 years ago Aspirin #Hypothyroidism Continue Synthroid Mildly elevated TSH, will check free T4 Tova Terrell MD Charges/Coding Visit Charges Inpatient E&M: 61552 Subs Hosp L2
[2022-04-02 08:57] LABS: Absolute Lymphocyte Count 0.52 X10^3/uL (0.83-4.51); Basophil# 0.04 X10^3/uL; Basophil% 0.5 % (0-1); Eosinophil# 0.38 X10^3/uL; Eosinophils% 4.9 % (0-5); Hematocrit 26.3 % (37-47); Hemoglobin 8.7 g/dL (12.0-15.0); Lymphocyte # 0.52 X10^3/ul (0.83-4.51); Lymphocyte % 6.7 % (19-41); Mean Corp Hgb Conc 33.1 g/dL (32-36); Mean Corpuscular Hgb 31.4 pg (27.0-32.0); Mean Corpuscular Volume 94.9 fL (81-99); Mean Platelet Vol. 9.9 fl (6.2-12.0); Monocyte# 0.83 X10^3/uL; Monocyte% 10.6 % (0-10); NRBC Flagged by Analyzer 0 % (0-5); Neutrophil # 5.98 X10^3/uL (2.7-7.7); Neutrophil % 76.5 % (47-70); POSITIVE DIFFERENTIAL YES; Platelet Count 230 K/mm3 (150-450); RBC Distribution Width SD 55.9 fl (35.1-43.9); Red Blood Count 2.77 M/mm3 (4.2-5.4); White Blood Count 7.8 K/mm3 (4.4-11.0)
[2022-04-02 09:00] LABS: Differential Indicated SCAN CRITERIA MET
[2022-04-02 09:18] LABS: Hemoglobin A1c 5.3 % (3.8-5.6)
[2022-04-02 09:34] LABS: Vancomycin, Trough Level 26.3 ug/mL (5.0-15.0)
[2022-04-02] MEDS: Juven (unflavored) Packet 1 PACKET PO ×2 (09:42→16:19)
[2022-04-02] MEDS: Magnesium Chloride 64 MG Delay Rel.Tablet 128 MG PO (09:42)
[2022-04-02] MEDS: Allopurinol 300 MG Tablet PO (09:42)
[2022-04-02] MEDS: Pantoprazole Sodium 40 MG Tablet PO (09:42)
[2022-04-02] MEDS: Furosemide 20 MG/2 ML VIAL IV (09:42)
[2022-04-02] MEDS: DAKIN'S SOL HALF STRENGTH (=0.25%) 1 APPLIC TOPICAL (10:09)
--- NOTE | 2022-04-02 10:53 | PCM.RX.CS ---
Consult Pharmacy has been consulted to manage selected antiobiotic: Vancomycin Type of Consult: Follow-up Suspected Infection: Skin/Soft tissue Prior Doses of Antibiotics Received/Current Regimen: 1250mg iv q12h Labs: Vancomycin Trough 26.3 ug/mL (5.0-15.0) H 04/02/22 08:45 Microbiology: Microbiology 03/31/22 11:13 Nasal Secretion SARS-CoV-2 & FLU Antigen (Rapid) - Final Weight used for dosin kg Estimated Creatinine Clearance: 89 ml/min Goal Trough: 15-20 mcg/mL Pharmacy Plan for Drug Dosing: Trough level today was 26.3 and above goal of 15-20mcg/ml. Vancomycin will be held and a random level is ordered for tomorrow. Pharmacy Service will continue to monitor and adjust dosing as required. Follow-Up Labs: Trough Vancomycin - random level 04.03.22 @0900
[2022-04-02 13:30] LABS: ALB/GLOB Ratio 0.4 RATIO (0.9-2.4); AST(SGOT) 8 U/L (15-37); Alanine Aminotransfer ALT/SGPT < 6 U/L (13-56); Albumin, Serum 1.5 g/dL (3.2-5.0); Alkaline Phosphatase 99 U/L (45-117); Anion Gap 5 (5-15); BUN 24 mg/dL (7-18); Calcium,Total 7.7 mg/dL (8.5-10.1); Chloride 103 mmol/L (98-107); Creatinine, Serum 0.86 mg/dL (0.55-1.02); EST Glomerular Filtration Rate 69 mL/min (>60); Est Glom Filt Rate - Afr Amer 83 mL/min (>60); Estimated Creatinine Clearance 58.77 ml/min; Globulin 4.1 g/dL (2.2-4.2); Glucose 88 mg/dL (74-106); Potassium 3.8 mmol/L (3.5-5.1); Prealbumin 3.6 mg/dL (20.0-40.0); Protein, Total 5.6 g/dL (6.4-8.2); Sodium Level 136 mmol/L (136-145); T4 Free Direct 1.22 ng/dL (0.76-1.46)
[2022-04-02] MEDS: Acetaminophen 325 MG Tablet 650 MG PO ×2 (13:33→21:53)
[2022-04-02] MEDS: Metoprolol Tartrate 25 MG Tablet 12.5 MG PO (21:15)
[2022-04-02] MEDS: Ondansetron 4 MG/2 ML Vial IV (21:51)
[2022-04-02] MEDS: 0.9% Saline Lock 10 ML Syringe IV (21:53)
[2022-04-02] MEDS: levoFLOXacin IV 500 MG/100 ML BAG 100 MG IV (22:38)
[2022-04-03] VITALS (21 sets, daily range): BP systolic 90–119; BP diastolic 49–63; PULSE 64–90; RESP 14–18; TEMP 35.6–37.1; O2SAT 91–100; BMI 45.5
[2022-04-03] MEDS: Nystatin Powder 15gm Bottle 1 APPLIC TOPICAL ×3 (05:24→21:37)
[2022-04-03] MEDS: metroNIDAZOLE 500 MG/100 ML BAG 100 MG IV ×3 (05:24→21:33)
[2022-04-03] MEDS: Levothyroxine 25 MCG TABLET PO (05:24)
[2022-04-03] MEDS: 0.9% Saline Lock 10 ML Syringe IV ×2 (05:30→10:02)
[2022-04-03 05:31] LABS: Absolute Lymphocyte Count 0.42 X10^3/uL (0.83-4.51); Absolute Neutrophil Count 5.1 X10^3/uL (2.0-7.7); Basophil# 0.04 X10^3/uL; Basophil% 0.6 % (0-1); Eosinophil# 0.38 X10^3/uL; Eosinophils% 5.7 % (0-5); Hematocrit 28.5 % (37-47); Hemoglobin 9.5 g/dL (12.0-15.0); Lymphocyte # 0.42 X10^3/ul (0.83-4.51); Lymphocyte % 6.3 % (19-41); Mean Corp Hgb Conc 33.3 g/dL (32-36); Mean Corpuscular Hgb 31.8 pg (27.0-32.0); Mean Corpuscular Volume 95.3 fL (81-99); Mean Platelet Vol. 9.7 fl (6.2-12.0); Monocyte# 0.72 X10^3/uL; Monocyte% 10.7 % (0-10); NRBC Flagged by Analyzer 0 % (0-5); Neutrophil # 5.08 X10^3/uL (2.7-7.7); Neutrophil % 75.8 % (47-70); POSITIVE DIFFERENTIAL YES; Platelet Count 235 K/mm3 (150-450); RBC Distribution Width CV 17.6 % (11.6-14.6); RBC Distribution Width SD 60.9 fl (35.1-43.9); Red Blood Count 2.99 M/mm3 (4.2-5.4); White Blood Count 6.7 K/mm3 (4.4-11.0)
[2022-04-03 05:46] LABS: Differential Indicated SCAN CRITERIA MET
[2022-04-03 05:59] LABS: Differential Comment SCANNED
[2022-04-03 06:15] LABS: Anion Gap 5 (5-15); BUN 25 mg/dL (7-18); BUN/Creat Ratio 29.6 RATIO (10-20); Calcium,Total 7.9 mg/dL (8.5-10.1); Chloride 104 mmol/L (98-107); Creatinine, Serum 0.84 mg/dL (0.55-1.02); EST Glomerular Filtration Rate 70 mL/min (>60); Est Glom Filt Rate - Afr Amer 85 mL/min (>60); Estimated Creatinine Clearance 60.17 ml/min; Glucose 84 mg/dL (74-106); Potassium 3.7 mmol/L (3.5-5.1); Sodium Level 136 mmol/L (136-145)
[2022-04-03 09:41] LABS: Vancomycin, Trough Level 22.9 ug/mL (5.0-15.0)
[2022-04-03] MEDS: Metoprolol Tartrate 25 MG Tablet 12.5 MG PO (09:47)
[2022-04-03] MEDS: Pantoprazole Sodium 40 MG Tablet PO (09:47)
[2022-04-03] MEDS: Magnesium Chloride 64 MG Delay Rel.Tablet 128 MG PO (09:48)
--- NOTE | 2022-04-03 09:58 | PCM.RX.CS ---
Consult Pharmacy has been consulted to manage selected antiobiotic: Vancomycin Type of Consult: Follow-up Suspected Infection: Skin/Soft tissue Prior Doses of Antibiotics Received/Current Regimen: the patient had been on vanc 1250mg IV q12h until it was held yesterday due to a high trough Labs: Sodium 136 mmol/L (136-145) 04/03/22 05:20 Potassium 3.7 mmol/L (3.5-5.1) 04/03/22 05:20 Chloride 104 mmol/L (98-107) 04/03/22 05:20 Carbon Dioxide 27.0 mmol/L (21.0-32.0) 04/03/22 05:20 Anion Gap 5 (5-15) 04/03/22 05:20 BUN 25 mg/dL (7-18) H 04/03/22 05:20 Creatinine 0.84 mg/dL (0.55-1.02) 04/03/22 05:20 Est GFR (MDRD) Af Amer 85 mL/min (>60) 04/03/22 05:20 Est GFR (MDRD) Non-Af 70 mL/min (>60) 04/03/22 05:20 BUN/Creatinine Ratio 29.6 RATIO (10-20) H 04/03/22 05:20 Glucose 84 mg/dL (74-106) 04/03/22 05:20 Vancomycin Trough 22.9 ug/mL (5.0-15.0) H 04/03/22 09:10 Microbiology: Microbiology 03/31/22 11:13 Nasal Secretion SARS-CoV-2 & FLU Antigen (Rapid) - Final Weight used for dosin.8 kg Estimated Creatinine Clearance: 87ml/min Goal Trough: 15-20 mcg/mL Pharmacy Plan for Drug Dosing: The vanc random level drawn at 09:10 today (approx 23 hours after the patient received part of the 1250mg dose yesterday morning) was 22.9. This is still above 20 so will not restart at this time. Will repeat a random level in 12 hours to check if it has gone back below 20 at that point so that dosing can be resumed. The patient's CrCl of 87ml/min was calculated using an adjusted body weight. Pharmacy Service will continue to monitor and adjust dosing as required. Follow-Up Labs: Trough Vancomycin - random Labs to be done on [date and time ordered]: 04/03/22 21:00
--- NOTE | 2022-04-03 13:00 | PN.HOSP_ITS ---
Subjective Subjective Feeling fair, no chest pain or shortness of breath. Does have pain on bottom near ulcer Objective Data Objective Data Vital Signs: Vital Signs Temp Pulse Resp BP Pulse Ox O2 Del Method 98.7 F 73 16 94/55 L 92 Room Air 04/03/22 12:40 04/03/22 12:40 04/03/22 12:40 04/03/22 12:40 04/03/22 12:40 04/03/22 12:40 Oxygen Delivery Method Room Air Weight: 135.8 kg Body Mass Index (BMI) 45.5 Intake & Output: Intake and Output for Last 24 Hours 04/01/22 04/02/22 04/03/22 23:59 23:59 23:59 Intake Total 2195 / 2195 2323.55 / 2323.55 100 / 100 Output Total 1600 / 1800 1700 / 1700 900 / 900 Balance 595 / 395 623.55 / 623.55 -800 / -800 Lab / Micro Data Result Diagrams: 04/03/22 05:20 04/03/22 05:20 Labs: Laboratory Results - last 24 hr 04/02/22 08:45: Sodium 136, Potassium 3.8, Chloride 103, Carbon Dioxide 28.0, Anion Gap 5, BUN 24 H, Creatinine 0.86, Estim Creat Clear Calc 58.77, Est GFR (M DRD) Af Amer 83, Est GFR (MDRD) Non-Af 69, BUN/Creatinine Ratio 28.0 H, Glucose 88, Calcium 7.7 L, Total Bilirubin 1.40 H, AST 8 L, ALT < 6 L, Alkaline Phosphatase 99, Total Protein 5.6 L, Albumin 1.5 L, Globulin 4.1, Albumin/G lobulin Ratio 0.4 L, Prealbumin 3.6 L, Free T4 1.22 04/02/22 14:24: Blood Type A POSITIVE, Antibody Screen NEGATIVE, Crossmatch See Detail 04/03/22 05:20: WBC 6.7, RBC 2.99 L, Hgb 9.5 L, Hct 28.5 L, MCV 95.3, MCH 31.8, MCHC 33.3, RDW Std Deviation 60.9 H, RDW Coeff of Chele 17.6 H, Plt Count 235, MPV 9.7, Immature Gran % (Auto) 0.900, Neut % (Auto) 75.8 H, Lymph % (Auto) 6.3 L, Drew % (Auto) 10.7 H, Eos % (Auto) 5.7 H, Baso % (Auto) 0.6, Absolute Neuts (auto) 5.1, Absolute Lymphs (auto) 0.42 L, Nucleated RBC % 0, Differential Comment SCANNED 04/03/22 05:20: Sodium 136, Potassium 3.7, Chloride 104, Carbon Dioxide 27.0, Anion Gap 5, BUN 25 H, Creatinine 0.84, Estim Creat Clear Calc 60.17, Est GFR (MDRD) Af Amer 85, Est GFR (MDRD) Non-Af 70, BUN/Creatinine Ratio 29.6 H, Glucose 84, Calcium 7.9 L 04/03/22 09:10: Vancomycin Trough 22.9 H Micro: Microbiology 03/31/22 11:13 Nasal Secretion SARS-CoV-2 & FLU Antigen (Rapid) - Final Physical Exam Const alert and no apparent distress Constitutional Narrative: Oriented HEENT normocephalic and head/scalp atraumatic Eyes Eyes Narrative: EOM grossly intact, anicteric Neck supple Resp normal respiratory effort Cardio Cardio Narrative: Irregularly irregular GI soft to palpation, non-tender and non-distended Extremity Extremity Narrative: Bilateral lower extremities are now wrapped Skin Skin Narrative: Large sacral wound observed on presentation with additional left-sided superficial gluteal wound, see photographic documentation in chart, for debridement today Neuro Neuro Narrative: Left upper and lower EXTR paralysis Psych Psych Narrative: Cooperative Assessment & Plan Assessment/Plan (1) Acute exacerbation of CHF (congestive heart failure): (2) History of cerebrovascular accident (CVA) in adulthood: (3) Paroxysmal atrial fibrillation: PLAN: Plan #Acute on chronic heart failure with reduced ejection fraction Chest x-ray with cardiomegaly and evidence of changes consistent with CHF Most recent echo: 09/19/2020 with estimated EF 40 to 45% and evidence of diastolic dysfunction and had septal and apical hypokinesis at that time. Pulmonary artery systolic pressure was 60 mmHg Will repeat echo Received a dose of Lasix in the ED BNP 1081 which is higher than baseline We will continue Lasix, given that she is not hypoxic and not on baseline diuretics will do 20 IV of Lasix daily Daily weights and I's and O's Incentive spirometer Unclear why not on metoprolol or JLUIS Possibly went into exacerbation from A. fib with accelerated rate 04/01: Updated echo with EF of 40% with D-shaped septum and dilated right ventricle, has severe pulmonary hypertension with RVSP of 71. We will continue diuresis. Continue daily weights. O2 sat adequate, kidney function stable 04/02: Continue diuresis and I's and O's. Overall improved from admission 06/03: We will transition to oral Lasix #Large sacral wound With what appears to be necrotic tissue Plastics consult for possible debridement Wound care Did appear to have purulent discharge and given history with the purulent d ischarge started on broad-spectrum antibiotics 04/02: Dr. Carlin consulted. CT pelvis without IV contrast yesterday demonstrated ulcerative lesion in midline just distal to the distal portion of the sacrum. No evidence of bony destruction on that film. Diffuse subcutaneous edema with overlying skin thickening. Given there was purulent drainage and concern for infection on admission she is on broad-spectrum antibiotics, metronidazole added by Dr. Carlin 04/03: Continue antibiotics, for today #Atrial fibrillation, paroxysmal Accelerated rate on admission Given bolus of diltiazem and additional dose and heart rate has been within normal limits Unclear why not on rate control at baseline Given that she is not on a beta-janice and that she has heart failure may need amiodarone for rate control with acute exacerbation with ultimate transition to beta-janice Previously was on Eliquis appears he was advised to hold for 3 days after visit in ED last month due to some bleeding, unclear if this was ever restarted. No evidence of bleeding hemoglobin stable so we will resume 04/01: Unclear if she was supposed to be on Eliquis at home, did have a drop in hemoglobin and previously there have been concerned because she would bleed from her wounds. We will hold it today, are pending possible debridement evaluation as well. Continue metoprolol. Possibly had been on sotalol for her A. fib, will try to clarify 04/02: Unable to tell me if she takes sotalol at home, however BP has been henna rderline so this was is held at this time and she Toprol twice daily 04/03: Continue metoprolol 12.5 mg twice daily #Generalized weakness With slide out of her lift chair, reports the only thing that was bumped was her right arm, did not hit her head Does have chronic left-sided paralysis but is felt generally weak over the past 1 week with some nausea and 1 day of shortness of breath Treat underlying condition Will consult PT/OT Lumbar x-ray was obtained which showed multilevel degenerative disc disease 04/03: Placement on discharge #Chronic leg changes Appears to have lymphedematous changes with chronic skin changes Wound care #History of CVA 5 years ago Aspirin #Hypothyroidism Continue Synthroid Tova Terrell MD Charges/Coding Visit Charges Inpatient E&M: 73590 Subs Hosp L2
--- NOTE | 2022-04-03 13:15 | DEB_PTH ---
PATIENT: IFTIKHAR FERRARO LOC: [facility] U#:[id number] AGE/SX: 71/F ROOM: [facility] RE03/31/[address]: Dr. Barry Rios DO : 1950 BED: 1 DIS: 04/08/2022 SPEC #: [id number] RECD: 04/06/22 06:40 STATUS: ALLA ISRA #: [id number] BARRY: 04/03/22 13:[address]: Hayden Carlin DEPT: SURGICAL PATHOLOGY RECD BY: Cassia Viramontes ENTERED: 04/06/22 10:26 SP TYPE: CHALRES TISS OTHR DR: MD Dr. Kanwal Velazquez DO Dr. Paige Pierce, MD Dr. Robert Leininger, MD Tissues: A - Soft tissues, NOS B - Bone of foot, NOS Procedures: Decalcification bone/plaque Surgery Specimen Level IV Comments: @ Ordering doctor for SUIII edited from to @ by JV at 04/06/22 1528 @ Submitting doctor edited from to @ by PAOLAOD at 04/06/22 1528 HEADER OPERATION: Excision necrotic pressure sore, sacral PRE-OP DIAGNOSIS: Pressure ulcer of sacral region stage 4, skin necrosis, osteomyelitis of pelvis TISSUE SUBMITTED: A - Debrided bone sacral, B - Debrided tissue sacral MICROSCOPIC DIAGNOSIS A. Bone of sacral region, debridement: Osseocartilaginous tissue with acute osteomyelitis. Soft tissue with acute inflammation. B. Tissue of sacral region, debridement: Skin and soft tissue with ulceration and associated acute and chronic inflammation and granulation. AM:sudhir 04/13/2022 MICROSCOPIC DESCRIPTION Slides are reviewed. GROSS DESCRIPTION A - Received in fixative is one container labeled with the patient's name and designated debrided bone sacral. The specimen consists of multiple pieces of bone measuring in aggregate 4 x 3 x 1 cm. The entire specimen is submitted in two cassettes after decalcification. B - Received in fixative is one container labeled with the patient's name and designated debrided tissue sacral. The specimen consists of a piece of tyler-white skin with underlying tissue measuring 11.5 x 12 cm and up to 3 cm in thickness. The skin surface shows extensive area of ulceration measuring 7 cm in greatest dimension. Teleprinter Installer sections are submitted in two cassettes. / MARIBELL:sudhir 04/06/2022 TC:2 CPT: 12052 x2, [id number]
[2022-04-03] MEDS: Lidocaine 2% /Epi 1:100 (20ml) 20 ML VIAL OPERA.SITE (14:08)
--- NOTE | 2022-04-03 15:32 | PCM.OPRPT ---
Problems Associated Problem List Diagnoses (1) Pressure ulcer of sacral region, stage 4: (2) Skin necrosis: (3) Osteomyelitis of pelvis: (4) DM2 (diabetes mellitus, type 2): (5) Anemia, chronic disease: Report of Operation Date of Procedure: 04/03/22 Pre-Operative Diagnosis: 1. Necrotic sacral pressure sore, Stage IV. 2. Necrotic skin. 3. Osteomyelitis. 4. Diabetes mellitus. 5. Anemia of chronic disease. Post-Operative Diagnosis: 1. Necrotic sacral pressure sore, Stage IV. 2. Necrotic skin and muscle. 3. Osteomyelitis. 4. Diabetes mellitus. 5. Anemia of chronic disease. Surgery/Procedure Performed:: Excision necrotic sacral pressure sore, Stage IV, with partial ostectomy for osteomyelitis. Description of Surgical Findings:: IFTIKHAR FERRARO, is a 71 F with a history of CVA 5 years ago with residual left-sided paralysis came to the ED on 03/31/22 because she slipped out of her lift chair.? The had been taking care of her at home but stated it is becoming more difficult to do so.? She was admitted for exacerbation of CHF and for atrial fibrillation.? While hospitalized she will be evaluated for placement.? It was also noted the patient had a necrotic sacral pressure sore with some odor that the first noticed about a month ago.? He states it is hard to turn her in bed because of her stroke and keeping pressure off has been difficult.? She denied any fever at home. She felt a general malaise.? Her appetite has been ok.? Upon admission her WBC was 11.7 and this morning it was 7.7.? Her Hgb was 10.6 and this morning it was 8.3.? Her Potassium was 4.3 and this morning it was 3.8.? BUN/Creat was 20/0.94 and this morning it was 23/.78.? Initial Lactate was 2.4 and the repeat was 1.2.? Patient has diabetes mellitus and her last reported HgbA1c from 09/19/20 was 6.0.? She was started on Vancomycin and Levaquin and Flagyl was added. CT Pelvis showed ulcerative lesion in the midline just distal to the distal portion of the sacrum.? No evidence of bony destruction. Diffuse subcutaneous edema with overlying skin thickening. I suspect free fluid in the pelvis. I was asked to evaluate this patient for surgical options for treatment of her necrotic sacral pressure sore. Patient was informed of the risks and complications of the procedure including alternatives to surgery. These were discussed with the patient personally. Patient voices understanding and wishes to proceed. Size of sacral wound defect - 15 x 14 x 2.5 cm. Surgeon: Hayden Carlin sweeping compound blender: None Type of Anesthesia: General Anesthesiologist: Barry Titus MD and Cj Tyson CRNA and MÓNICA Kunz. Specimen's removed: 1. Necrotic sacral pressure sore, Stage IV, soft tissue to Pathology and Microbiology. 2. Necrotic sacral pressure sore, Stage IV, bone to Pathology and Microbiology. Drains: None. Estimated Blood Loss (mL): 250. Description of Procedure: Patient was taken to OR in supine position and was placed under general anesthesia. She was then placed in the prone position. The sacral and buttock areas were prepped and draped in the usual fashion. SCD's were not placed because of severe edema in her legs, and they were wrapped with harman wraps at present. Will treat perioperatively with chemoprophylaxis. She is allergic to Heparin so will treat with Eliquis. Perioperative antibiotics were given intravenously. Using xylocaine with epinephrine, the large necrotic sacral pressure sore was infiltrated. After waiting 5 minutes for the anesthetic to take effect, I proceeded with excision of this necrotic pressure sore down into the subcutaneous tissue until muscle was seen. A lot of the gluteus muscle was necrotic and was excised down to bleeding muscle. I then proceeded with a partial ostectomy for osteomyelitis as some of the bone was exposed which is a new finding from admission. I used a pair of rongeurs and excised bone in several different areas to get a area representative sample of bone. It was easy to excise as it was very friable which can be seen in the elderly, in bedridden patients, and in osteomyelitis. A rasp was then used to smooth out the bony edges. Hemostasis was obtained with electrocautery. There was a fair amount of blood loss during the excision, about 250 ml. The wound was irrigated with saline. The size of the sacral defect after excision of this necrotic sacral pressure sore was 15 x14 x 2.5 cm or 210 cm2. The inferior edge of the wound was very close to the anal opening, about 2 cm. Will discuss with the patient and family after surgery that a diverting colostomy will be necessary and will consult General Surgery. Half the soft tissue and half the bone will be sent to Pathology for analysis to rule out carcinoma and to evaluate for osteomyelitis. Half the soft tissue and half the bone will be sent to Microbiology for culture. A positive culture may necessitate antibiotic modification. The wound was dressed with Mepitel nonadherent dressing followed by Kerlix gauze and Betadine and then dry Kerlix gauze followed by ABD compression dressing. It was noted there were abrasions and skin tears involving the left forearm and inferior buttock areas that were dressed with Xeroform gauze and 4x4 gauze. The left forearm was wrapped with a Kerlix gauze. Patient tolerated the procedure well and was sent to PACU in satisfactory condition. Patient will be sent upstairs for continued postop care. Will continue Dakin's dressing changes daily over the weekend. Will consult General Surgery for a colostomy next week. After which will try wound care with the VAC. Will recheck a Hgb tomorrow and may need further PRBC. Grafts/Implants Used: None. Procedure Start Time: 14:08 Procedure Stop Time: 15:12 Complications None. Admit VTE Documentation VTE Present on Admission: No VTE Mechan Device Prophylaxis: None VTE Pharm Prophylaxis ordered?: Yes Addendum Addendum: Surgery Charges CPT - 06192 ICD-10 - L89.154, I96, M86.9, E11.9, D63.8
[2022-04-03] MEDS: Lactated Ringers 1,000 ML 15 ML IV (17:33)
[2022-04-03 21:38] LABS: Vancomycin, Random Level 17.9 ug/mL (0.0-15.0)
[2022-04-03] MEDS: levoFLOXacin IV 500 MG/100 ML BAG 100 MG IV (23:45)
[2022-04-04] VITALS (15 sets, daily range): BP systolic 72–103; BP diastolic 38–59; PULSE 72–126; RESP 16–18; TEMP 36.1–36.8; O2SAT 92–100; BMI 45.5
--- NOTE | 2022-04-04 02:28 | PCM.RX.CS ---
Consult Pharmacy has been consulted to manage selected antiobiotic: Vancomycin Type of Consult: Follow-up Labs: Sodium 136 mmol/L (136-145) 04/03/22 05:20 Potassium 3.7 mmol/L (3.5-5.1) 04/03/22 05:20 Chloride 104 mmol/L (98-107) 04/03/22 05:20 Carbon Dioxide 27.0 mmol/L (21.0-32.0) 04/03/22 05:20 Anion Gap 5 (5-15) 04/03/22 05:20 BUN 25 mg/dL (7-18) H 04/03/22 05:20 Creatinine 0.84 mg/dL (0.55-1.02) 04/03/22 05:20 Est GFR (MDRD) Af Amer 85 mL/min (>60) 04/03/22 05:20 Est GFR (MDRD) Non-Af 70 mL/min (>60) 04/03/22 05:20 BUN/Creatinine Ratio 29.6 RATIO (10-20) H 04/03/22 05:20 Glucose 84 mg/dL (74-106) 04/03/22 05:20 Vancomycin Trough 22.9 ug/mL (5.0-15.0) H 04/03/22 09:10 Random Vancomycin 17.9 ug/mL (0.0-15.0) H 04/03/22 20:40 Microbiology: Microbiology 03/31/22 11:13 Nasal Secretion SARS-CoV-2 & FLU Antigen (Rapid) - Final Goal Trough: 15-20 mcg/mL Pharmacy Plan for Drug Dosing: Pharmacy Service will continue to monitor and adjust dosing as required. RANDOM LEVEL 17.9. RESTART VANCO AT 750MG Q12H AND FOLLOW UP TROUGH PRIOR TO 4TH DOSE Follow-Up Labs: Trough Vancomycin Labs to be done on [date and time ordered]: 04/05 @ 1200
[2022-04-04 06:30] LABS: Hematocrit 30.1 % (37-47); Hemoglobin 10.2 g/dL (12.0-15.0); Mean Corp Hgb Conc 33.9 g/dL (32-36); Mean Corpuscular Volume 94.4 fL (81-99); Mean Platelet Vol. 9.2 fl (6.2-12.0); Platelet Count 252 K/mm3 (150-450); RBC Distribution Width CV 17.3 % (11.6-14.6); Red Blood Count 3.19 M/mm3 (4.2-5.4); White Blood Count 8.9 K/mm3 (4.4-11.0)
[2022-04-04] MEDS: metroNIDAZOLE 500 MG/100 ML BAG 100 MG IV ×3 (06:53→21:46)
[2022-04-04] MEDS: Levothyroxine 25 MCG TABLET PO (06:53)
[2022-04-04] MEDS: Nystatin Powder 15gm Bottle 1 APPLIC TOPICAL ×3 (06:53→21:47)
[2022-04-04 07:34] LABS: Anion Gap 7 (5-15); BUN 24 mg/dL (7-18); BUN/Creat Ratio 30.6 RATIO (10-20); Calcium,Total 7.5 mg/dL (8.5-10.1); Chloride 105 mmol/L (98-107); Creatinine, Serum 0.78 mg/dL (0.55-1.02); EST Glomerular Filtration Rate 76 mL/min (>60); Est Glom Filt Rate - Afr Amer 92 mL/min (>60); Estimated Creatinine Clearance 50.54 ml/min; Glucose 75 mg/dL (74-106); Potassium 4.5 mmol/L (3.5-5.1); Sodium Level 137 mmol/L (136-145)
[2022-04-04] MEDS: Silver Nitrate (BKC) TOPICAL (10:12)
[2022-04-04] MEDS: DAKIN'S SOL HALF STRENGTH (=0.25%) 1 APPLIC TOPICAL (10:25)
[2022-04-04] MEDS: Silver Nitrate (BKC) 1 EACH TOPICAL (10:27)
[2022-04-04] MEDS: Juven (unflavored) Packet 1 PACKET PO (10:47)
[2022-04-04] MEDS: Allopurinol 300 MG Tablet PO (10:48)
--- NOTE | 2022-04-04 10:50 | PCM.PN.SRG ---
Subjective Subjective Postop #1 Patient is resting comfortably. Tolerated the Dakin's dressing change reasonably well. Objective Data Objective Data Vital Signs: Vital Signs Temp Pulse Resp BP Pulse Ox O2 Del Method O2 Flow Rate 97.0 F L 90 18 103/54 L 94 Nasal Cannula 2 04/04/22 06:52 04/04/22 06:52 04/04/22 06:52 04/04/22 06:52 04/04/22 06:52 04/04/22 10:14 04/04/22 10:14 Oxygen Flow Rate (L/min) 2 Oxygen Delivery Method Nasal Cannula Weight: 300 lb 11.368 oz Body Mass Index (BMI) 45.5 Intake & Output: Intake and Output for Last 24 Hours 04/02/22 04/03/22 04/04/22 23:59 23:59 23:59 Intake Total 2323.55 / 2323.55 360 / 360 365 / 365 Output Total 1700 / 1700 1400 / 1550 250 / 250 Balance 623.55 / 623.55 -1040 / -1190 115 / 115 Lab / Micro Data Attestation: I reviewed the patient's lab results. Result Diagrams: 04/04/22 06:16 04/04/22 06:16 Labs: Laboratory Results - last 24 hr 04/03/22 20:40: Random Vancomycin 17.9 H 04/04/22 06:16: WBC 8.9, RBC 3.19 L, Hgb 10.2 L, Hct 30.1 L, MCV 94.4, MCH 32.0, MCHC 33.9, RDW Std Deviation 60.0 H, RDW Coeff of Chele 17.3 H, Plt Count 252, MPV 9.2 04/04/22 06:16: Sodium 137, Potassium 4.5, Chloride 105, Carbon Dioxide 25.0, Anion Gap 7, BUN 24 H, Creatinine 0.78, Estim Creat Clear Calc 50.54, Est GFR (MDRD) Af Amer 92, Est GFR (MDRD) Non-Af 76, BUN/Creatinine Ratio 30.6 H, Glucose 75, Calcium 7.5 L Micro: Microbiology 03/31/22 11:13 Nasal Secretion SARS-CoV-2 & FLU Antigen (Rapid) - Final Radiography Diagnostic Testing: CT/Pelvis without IV Contrast IMPRESSION: Ulcerative lesion in the midline just distal to the distal portion of the sacrum.? No evidence of bony destruction. Diffuse subcutaneous edema with overlying skin thickening. I suspect free fluid in the pelvis. ? Electronically Signed: Harish Blanton MD at 13:35 EST , Physical Exam Narrative PHYSICAL EXAMINATION General - Alert and Oriented. Neck - Supple and nontender. No cervical adenopathy. Abdomen - Soft and nondistended. Sacral wound - stable. Two small areas of oozing at the skin edge on the left lateral side. Obtained hemostasis with gauze compression and silver nitrate chemical cauterization. Redressed the wound with Dakin's gauze. Psych - Normal mood and affect. Assessment & Plan Assessment/Plan (1) Pressure ulcer of sacral region, stage 4: (2) Skin necrosis: (3) Osteomyelitis of pelvis: (4) DM2 (diabetes mellitus, type 2): QUALIFIERS: Diabetes mellitus complication status: without complication Diabetes mellitus [facility] insulin use: without [facility] use Qualified Code(s): E11.9 - Type 2 diabetes mellitus without complications (5) Anemia, chronic disease: PLAN: Plan Patient is resting comfortably. Tolerated the Dakin's dressing change reasonably well. Two small areas oozing at skin edge controlled with gauze compression and silver nitrate chemical cauterization. Will hold off on Eliquis until tomorrow. Hgb this morning was 10.2. Continue Vancomycin, Levaquin, and Flagyl. Operative cultures are pending. Pathology is pending. Will need General Surgery evaluation for diverting colostomy. Would benefit from a stay at an LTAC. Evaluation in process. Continue nutritional supplementation with protein to help the healing process.
[2022-04-04] MEDS: Magnesium Chloride 64 MG Delay Rel.Tablet 128 MG PO (10:52)
[2022-04-04] MEDS: Pantoprazole Sodium 40 MG Tablet PO (10:52)
--- NOTE | 2022-04-04 11:51 | NURSING ---
0930 this RN entered room and noticed 0600 flagyl did not infuse. IV leaking, attempted to replace without success. Other RN in room attempting IV start.
--- NOTE | 2022-04-04 11:54 | PN.HOSP_ITS ---
Subjective Subjective Reports feeling better today, no nausea. No chest pain or shortness of breath. Objective Data Objective Data Vital Signs: Vital Signs Temp Pulse Resp BP Pulse Ox O2 Del Method O2 Flow Rate 97.8 F 101 H 16 72/58 L 96 Nasal Cannula 2 04/04/22 10:54 04/04/22 10:54 04/04/22 10:54 04/04/22 10:54 04/04/22 10:54 04/04/22 10:54 04/04/22 10:54 Oxygen Flow Rate (L/min) 2 Oxygen Delivery Method Nasal Cannula Weight: 136.4 kg Body Mass Index (BMI) 45.5 Intake & Output: Intake and Output for Last 24 Hours 04/02/22 04/03/22 04/04/22 23:59 23:59 23:59 Intake Total 2323.55 / 2323.55 360 / 360 465 / 465 Output Total 1700 / 1700 1400 / 1550 250 / 250 Balance 623.55 / 623.55 -1040 / -1190 215 / 215 Lab / Micro Data Result Diagrams: 04/04/22 06:16 04/04/22 06:16 Labs: Laboratory Results - last 24 hr 04/03/22 20:40: Random Vancomycin 17.9 H 04/04/22 06:16: WBC 8.9, RBC 3.19 L, Hgb 10.2 L, Hct 30.1 L, MCV 94.4, MCH 32.0, MCHC 33.9, RDW Std Deviation 60.0 H, RDW Coeff of Chele 17.3 H, Plt Count 252, MPV 9.2 04/04/22 06:16: Sodium 137, Potassium 4.5, Chloride 105, Carbon Dioxide 25.0, Anion Gap 7, BUN 24 H, Creatinine 0.78, Estim Creat Clear Calc 50.54, Est GFR (MDRD) Af Amer 92, Est GFR (MDRD) Non-Af 76, BUN/Creatinine Ratio 30.6 H, Glucose 75, Calcium 7.5 L Micro: Microbiology 04/03/22 Unknown Bone - Sacral Bone Gram Stain - Final 04/03/22 Unknown Bone - Sacral Bone Wound Culture - Preliminary No growth-Final to follow 04/03/22 Unknown Tissue - Sacral Gram Stain - Final 03/31/22 11:13 Nasal Secretion SARS-CoV-2 & FLU Antigen (Rapid) - Final Physical Exam Const alert and no apparent distress Constitutional Narrative: Oriented HEENT normocephalic and head/scalp atraumatic Eyes Eyes Narrative: EOM grossly intact, anicteric Neck supple Resp normal respiratory effort Cardio Cardio Narrative: Irregularly irregular GI soft to palpation, non-tender and non-distended Extremity Extremity Narrative: Bilateral lower extremities are now wrapped Skin Skin Narrative: Large sacral wound observed on presentation with additional left-sided superficial gluteal wound, see photographic documentation in chart, for debridement today Neuro Neuro Narrative: Left upper and lower EXTR paralysis Psych Psych Narrative: Cooperative Assessment & Plan Assessment/Plan (1) Acute exacerbation of CHF (congestive heart failure): (2) History of cerebrovascular accident (CVA) in adulthood: (3) Paroxysmal atrial fibrillation: (4) Pressure ulcer of sacral region, stage 4: (5) Skin necrosis: (6) DM2 (diabetes mellitus, type 2): QUALIFIERS: Diabetes mellitus complication status: without complication Diabetes mellitus termite renewal inspector insulin use: without termite renewal inspector use Qualified Code(s): E11.9 - Type 2 diabetes mellitus without complications (7) Anemia, chronic disease: PLAN: Plan #Large sacral wound stage IV pressure ulcer present on admission CT pelvis without IV contrast after admission demonstrated ulcerative lesion in midline just distal to the distal portion of the sacrum. No evidence of bony destruction on that film. Diffuse subcutaneous edema with overlying skin thickening There was concern for purulent drainage and infection so she is on broad- spectrum antibiotics with metronidazole, Levaquin, bank Status post debridement by Dr. Carlin 04/04/2022 Path and culture pending Wound care consulted Dr. Carlin recommend GEN surge eval this week for diverting colostomy Pending progress and cultures may need ID input for antibiotics #Acute on chronic heart failure with reduced ejection fraction Chest x-ray with cardiomegaly and evidence of changes consistent with CHF Most recent echo: 09/19/2020 with estimated EF 40 to 45% and evidence of diastolic dysfunction and had septal and apical hypokinesis at that time. Pulmonary artery systolic pressure was 60 mmHg Will repeat echo Received a dose of Lasix in the ED BNP 1081 which is higher than baseline We will continue Lasix, given that she is not hypoxic and not on baseline diuretics will do 20 IV of Lasix daily Daily weights and I's and O's Incentive spirometer Unclear why not on metoprolol or JLUIS Possibly went into exacerbation from A. fib with accelerated rate 04/01: Updated echo with EF of 40% with D-shaped septum and dilated right ventricle, has severe pulmonary hypertension with RVSP of 71. We will continue diuresis. Continue daily weights. O2 sat adequate, kidney function stable 04/02: Continue diuresis and I's and O's. Overall improved from admission 04/03: We will transition to oral Lasix 04/04: Was n.p.o. yesterday and likely had losses from surgery, BP low this morning, holding metoprolol and Lasix and giving small fluid bolus. Will monitor respiratory status closely #Atrial fibrillation, paroxysmal Accelerated rate on admission Given bolus of diltiazem and additional dose and heart rate has been within normal limits Unclear why not on rate control at baseline Given that she is not on a beta-janice and that she has heart failure may need amiodarone for rate control with acute exacerbation with ultimate transition to beta-janice Previously was on Eliquis appears he was advised to hold for 3 days after visit in ED last month due to some bleeding, unclear if this was ever restarted. No evidence of bleeding hemoglobin stable so we will resume 04/01: Unclear if she was supposed to be on Eliquis at home, did have a drop in hemoglobin and previously there have been concerned because she would bleed from her wounds. We will hold it today, are pending possible debridement evaluation as well. Continue metoprolol. Possibly had been on sotalol for her A. fib, will try to clarify 04/02: Unable to tell me if she takes sotalol at home, however BP has been borde rline so this was is held at this time and she Toprol twice daily 04/03: Continue metoprolol 12.5 mg twice daily 04/04, holding metoprolol due to her low BP. Per Dr. Carlin resume Autumn tomorrow #Generalized weakness With slide out of her lift chair, reports the only thing that was bumped was her right arm, did not hit her head Does have chronic left-sided paralysis but is felt generally weak over the past 1 week with some nausea and 1 day of shortness of breath Treat underlying condition Will consult PT/OT Lumbar x-ray was obtained which showed multilevel degenerative disc disease 04/03: Placement on discharge #Chronic leg changes Appears to have lymphedematous changes with chronic skin changes Wound care #History of CVA 5 years ago Aspirin #Hypothyroidism Continue Synthroid Tova Terrell MD Charges/Coding Visit Charges Inpatient E&M: 99369 Subs Hosp L2
[2022-04-04] MEDS: Lactated Ringers 1,000 ML 100 ML IV (15:03)
[2022-04-04 19:51] LABS: Absolute Lymphocyte Count 0.54 X10^3/uL (0.83-4.51); Absolute Neutrophil Count 9.9 X10^3/uL (2.0-7.7); Basophil# 0.03 X10^3/uL; Basophil% 0.3 % (0-1); Eosinophil# 0.03 X10^3/uL; Eosinophils% 0.3 % (0-5); Hematocrit 29.7 % (37-47); Hemoglobin 9.5 g/dL (12.0-15.0); Lymphocyte # 0.54 X10^3/ul (0.83-4.51); Lymphocyte % 4.7 % (19-41); Mean Corpuscular Hgb 30.7 pg (27.0-32.0); Mean Corpuscular Volume 96.1 fL (81-99); Mean Platelet Vol. 9.7 fl (6.2-12.0); Monocyte# 0.99 X10^3/uL; Monocyte% 8.6 % (0-10); NRBC Flagged by Analyzer 0 % (0-5); Neutrophil # 9.89 X10^3/uL (2.7-7.7); Neutrophil % 85.4 % (47-70); POSITIVE DIFFERENTIAL YES; Platelet Count 344 K/mm3 (150-450); RBC Distribution Width CV 17.5 % (11.6-14.6); RBC Distribution Width SD 60.5 fl (35.1-43.9); Red Blood Count 3.09 M/mm3 (4.2-5.4); White Blood Count 11.6 K/mm3 (4.4-11.0)
[2022-04-04 19:53] LABS: Differential Indicated SCAN CRITERIA MET
[2022-04-04 19:54] LABS: Anion Gap 6 (5-15); BUN 25 mg/dL (7-18); BUN/Creat Ratio 26.4 RATIO (10-20); Calcium,Total 7.8 mg/dL (8.5-10.1); Chloride 104 mmol/L (98-107); Creatinine, Serum 0.95 mg/dL (0.55-1.02); EST Glomerular Filtration Rate 62 mL/min (>60); Est Glom Filt Rate - Afr Amer 74 mL/min (>60); Glucose 92 mg/dL (74-106); Potassium 4.1 mmol/L (3.5-5.1); Sodium Level 136 mmol/L (136-145)
[2022-04-04] MEDS: levoFLOXacin IV 500 MG/100 ML BAG 100 MG IV (20:01)
[2022-04-04 20:28] LABS: Differential Comment SCANNED
[2022-04-05] VITALS (21 sets, daily range): BP systolic 67–97; BP diastolic 38–60; PULSE 84–131; RESP 14–18; TEMP 36.2–36.7; O2SAT 90–99
[2022-04-05 01:49] LABS: Hematocrit 25.9 % (37-47); Hemoglobin 8.6 g/dL (12.0-15.0)
[2022-04-05 02:14] LABS: Anion Gap 7 (5-15); BUN 26 mg/dL (7-18); BUN/Creat Ratio 25.2 RATIO (10-20); Calcium,Total 7.6 mg/dL (8.5-10.1); Chloride 104 mmol/L (98-107); Creatinine, Serum 1.03 mg/dL (0.55-1.02); EST Glomerular Filtration Rate 56 mL/min (>60); Est Glom Filt Rate - Afr Amer 67 mL/min (>60); Estimated Creatinine Clearance 49.07 ml/min; Glucose 91 mg/dL (74-106); Potassium 4.1 mmol/L (3.5-5.1); Sodium Level 137 mmol/L (136-145)
[2022-04-05] MEDS: Lactated Ringers 1,000 ML 100 ML IV (03:30)
[2022-04-05] MEDS: Levothyroxine 25 MCG TABLET PO (04:19)
[2022-04-05] MEDS: metroNIDAZOLE 500 MG/100 ML BAG 100 MG IV ×3 (05:37→20:50)
[2022-04-05] MEDS: 0.9% Saline Lock 10 ML Syringe IV (05:37)
[2022-04-05] MEDS: Nystatin Powder 15gm Bottle 1 APPLIC TOPICAL ×3 (05:38→20:50)
[2022-04-05] MEDS: Juven (unflavored) Packet 1 PACKET PO ×2 (08:55→16:40)
[2022-04-05] MEDS: Furosemide 20 MG Tablet PO (08:58)
[2022-04-05] MEDS: DAKIN'S SOL HALF STRENGTH (=0.25%) 1 APPLIC TOPICAL (08:58)
[2022-04-05] MEDS: Magnesium Chloride 64 MG Delay Rel.Tablet 128 MG PO (08:59)
[2022-04-05] MEDS: Pantoprazole Sodium 40 MG Tablet PO (09:00)
[2022-04-05] MEDS: Allopurinol 300 MG Tablet PO (09:16)
[2022-04-05 09:28] LABS: Hematocrit 28.5 % (37-47); Hemoglobin 9.3 g/dL (12.0-15.0); Mean Corpuscular Volume 94.4 fL (81-99); Red Blood Count 3.02 M/mm3 (4.2-5.4); White Blood Count 10.7 K/mm3 (4.4-11.0)
[2022-04-05 09:29] LABS: Absolute Lymphocyte Count 0.54 X10^3/uL (0.83-4.51); Absolute Neutrophil Count 8.9 X10^3/uL (2.0-7.7); Basophil# 0.03 X10^3/uL; Basophil% 0.3 % (0-1); Differential Indicated SCAN CRITERIA MET; Eosinophil# 0.22 X10^3/uL; Eosinophils% 2.1 % (0-5); Lymphocyte # 0.54 X10^3/ul (0.83-4.51); Mean Corp Hgb Conc 32.6 g/dL (32-36); Mean Corpuscular Hgb 30.8 pg (27.0-32.0); Mean Platelet Vol. 9.1 fl (6.2-12.0); Monocyte# 0.98 X10^3/uL; Monocyte% 9.1 % (0-10); NRBC Flagged by Analyzer 0 % (0-5); Neutrophil # 8.85 X10^3/uL (2.7-7.7); Neutrophil % 82.6 % (47-70); POSITIVE DIFFERENTIAL YES; Platelet Count 299 K/mm3 (150-450); RBC Distribution Width CV 17.3 % (11.6-14.6); RBC Distribution Width SD 58.4 fl (35.1-43.9)
--- NOTE | 2022-04-05 10:42 | PCM.PN.HOSP ---
Subjective Subjective Feeling somewhat better than yesterday, denies chest pain or shortness of breath. Eating fair. Hemoglobin did downtrend and blood pressure still soft so was given a unit of packed red blood cells Objective Data Objective Data Vital Signs: Vital Signs Temp Pulse Resp BP Pulse Ox O2 Del Method O2 Flow Rate 98.1 F 105 H 18 91/46 L 91 Room Air 2 04/05/22 08:50 04/05/22 08:58 04/05/22 08:50 04/05/22 08:58 04/05/22 08:50 04/05/22 08:50 04/05/22 06:47 Oxygen Flow Rate (L/min) 2 Oxygen Delivery Method Room Air Weight: 140.8 kg Body Mass Index (BMI) 45.5 Intake & Output: Intake and Output for Last 24 Hours 04/03/22 04/04/22 04/05/22 23:59 23:59 23:59 Intake Total 360 / 360 3366.92 / 3366.92 1021.66 / 1021.66 Output Total 1400 / 1550 500 / 500 50 / 50 Balance -1040 / -1190 2866.92 / 2866.92 971.66 / 971.66 Lab / Micro Data Result Diagrams: 04/05/22 09:19 04/05/22 01:40 Labs: Laboratory Results - last 24 hr 04/02/22 14:24: Blood Type A POSITIVE, Antibody Screen NEGATIVE, Crossmatch See Detail 04/04/22 19:20: WBC 11.6 H, RBC 3.09 L, Hgb 9.5 L, Hct 29.7 L, MCV 96.1, MCH 30.7, MCHC 32.0 D, RDW Std Deviation 60.5 H, RDW Coeff of Chele 17.5 H, Plt Count 344, MPV 9.7, Immature Gran % (Auto) 0.700, Neut % (Auto) 85.4 H, Lymph % (Auto) 4.7 L, Dougherty % (Auto) 8.6, Eos % (Auto) 0.3, Baso % (Auto) 0.3, Absolute Neuts (auto) 9.9 H, Absolute Lymphs (auto) 0.54 L, Nucleated RBC % 0, Differential Comment SCANNED 04/04/22 19:20: Sodium 136, Potassium 4.1, Chloride 104, Carbon Dioxide 26.0, Anion Gap 6, BUN 25 H, Creatinine 0.95, Estim Creat Clear Calc 53.20, Est GFR (MDRD) Af Amer 74, Est GFR (MDRD) Non-Af 62, BUN/Creatinine Ratio 26.4 H, Glucose 92, Calcium 7.8 L 04/05/22 01:40: Sodium 137, Potassium 4.1, Chloride 104, Carbon Dioxide 26.0, Anion Gap 7, BUN 26 H, Creatinine 1.03 H, Estim Creat Clear Calc 49.07, Est GFR (MDRD) Af Amer 67, Est GFR (MDRD) Non-Af 56 L, BUN/Creatinine Ratio 25.2 H, Glucose 91, Calcium 7.6 L 04/05/22 01:40: Hgb 8.6 L, Hct 25.9 L 04/05/22 09:19: WBC 10.7, RBC 3.02 L, Hgb 9.3 L, Hct 28.5 L, MCV 94.4, MCH 30.8, MCHC 32.6, RDW Std Deviation 58.4 H, RDW Coeff of Chele 17.3 H, Plt Count 299, MPV 9.1, Immature Gran % (Auto) 0.900, Neut % (Auto) 82.6 H, Lymph % (Auto) 5.0 L, Dougherty % (Auto) 9.1, Eos % (Auto) 2.1, Baso % (Auto) 0.3, Absolute Neuts (auto) 8.9 H, Absolute Lymphs (auto) 0.54 L, Nucleated RBC % 0 Micro: Microbiology 04/03/22 Unknown Bone - Sacral Bone Gram Stain - Final 04/03/22 Unknown Bone - Sacral Bone Wound Culture - Preliminary Gram positive organism 04/03/22 Unknown Tissue - Sacral Gram Stain - Final 04/03/22 Unknown Tissue - Sacral Wound Culture - Preliminary Alpha Hemolytic Streptococcus 03/31/22 11:13 Nasal Secretion SARS-CoV-2 & FLU Antigen (Rapid) - Final Physical Exam Const alert and no apparent distress Constitutional Narrative: Oriented HEENT normocephalic and head/scalp atraumatic Eyes Eyes Narrative: EOM grossly intact, anicteric Neck supple Resp normal respiratory effort Cardio Cardio Narrative: Irregularly irregular GI soft to palpation, non-tender and non-distended Extremity Extremity Narrative: Bilateral lower extremities are now wrapped Skin Skin Narrative: Large sacral wound observed on presentation with additional left-sided superficial gluteal wound, see photographic documentation in chart, status postdebridement Neuro Neuro Narrative: Left upper and lower EXTR paralysis Psych Psych Narrative: Cooperative Assessment & Plan Assessment/Plan (1) Acute exacerbation of CHF (congestive heart failure): (2) History of cerebrovascular accident (CVA) in adulthood: (3) Paroxysmal atrial fibrillation: (4) Pressure ulcer of sacral region, stage 4: (5) Skin necrosis: (6) DM2 (diabetes mellitus, type 2): QUALIFIERS: Diabetes mellitus complication status: without complication Diabetes mellitus intermediate insulin use: without oysterman use Qualified Code(s): E11.9 - Type 2 diabetes mellitus without complications (7) Anemia, chronic disease: PLAN: Plan #Large sacral wound stage IV pressure ulcer present on admission CT pelvis without IV contrast after admission demonstrated ulcerative lesion in midline just distal to the distal portion of the sacrum. No evidence of bony destruction on that film. Diffuse subcutaneous edema with overlying skin thickening There was concern for purulent drainage and infection so she is on broad-spectrum antibiotics with metronidazole, Levaquin, bank Status post debridement by Dr. Carlin 04/04/2022 Path and culture pending Wound care consulted Dr. Carlin recommend GEN surge eval this week for diverting colostomy Pending progress and cultures may need ID input for antibiotics 04/05: Tissue growing alphahemolytic strep, sacral bone growing gram-positive organism. ID consulted. Will likely need urgent consult for diverting colostomy #Acute on chronic heart failure with reduced ejection fraction Chest x-ray with cardiomegaly and evidence of changes consistent with CHF Most recent echo: 09/19/2020 with estimated EF 40 to 45% and evidence of diastolic dysfunction and had septal and apical hypokinesis at that time. Pulmonary artery systolic pressure was 60 mmHg Will repeat echo Received a dose of Lasix in the ED BNP 1081 which is higher than baseline We will continue Lasix, given that she is not hypoxic and not on baseline diuretics will do 20 IV of Lasix daily Daily weights and I's and O's Incentive spirometer Unclear why not on metoprolol or JLUIS Possibly went into exacerbation from A. fib with accelerated rate 04/01: Updated echo with EF of 40% with D-shaped septum and dilated right ventricle, has severe pulmonary hypertension with RVSP of 71. We will continue diuresis. Continue daily weights. O2 sat adequate, kidney function stable 04/02: Continue diuresis and I's and O's. Overall improved from admission 04/03: We will transition to oral Lasix 04/04: Was n.p.o. yesterday and likely had losses from surgery, BP low this morning, holding metoprolol and Lasix and giving small fluid bolus. Will monitor respiratory status closely 04/05: Holding fluids but also will hold off on Lasix at this time, continue to monitor daily weights. Monitor respiratory status #Atrial fibrillation, paroxysmal Accelerated rate on admission Given bolus of diltiazem and additional dose and heart rate has been within normal limits Unclear why not on rate control at baseline Given that she is not on a beta-janice and that she has heart failure may need amiodarone for rate control with acute exacerbation with ultimate transition to beta-janice Previously was on Eliquis appears he was advised to hold for 3 days after visit in ED last month due to some bleeding, unclear if this was ever restarted. No evidence of bleeding hemoglobin stable so we will resume 04/01: Unclear if she was supposed to be on Eliquis at home, did have a drop in hemoglobin and previously there have been concerned because she would bleed from her wounds. We will hold it today, are pending possible debridement evaluation as well. Continue metoprolol. Possibly had been on sotalol for her A. fib, will try to clarify 04/02: Unable to tell me if she takes sotalol at home, however BP has been borderline so this was is held at this time and she Toprol twice daily 04/03: Continue metoprolol 12.5 mg twice daily 04/04: holding metoprolol due to her low BP. Per Dr. Carlin resume Eliquis tomorrow 04/05: Heart rate slightly up due to metoprolol being held but BP still low. Did respond some to 1 unit packed red blood cells. Metoprolol with holding parameters, holding Eliquis at this time. On telemetry. Has a history of swelling with heparin, no place acceptable for SCDs, fondaparinux on not an option for DVT prophylaxis. Unclear if reaction with Lovenox in the past, will discuss risks and benefits. #Generalized weakness With slide out of her lift chair, reports the only thing that was bumped was her right arm, did not hit her head Does have chronic left-sided paralysis but is felt generally weak over the past 1 week with some nausea and 1 day of shortness of breath Treat underlying condition Will consult PT/OT Lumbar x-ray was obtained which showed multilevel degenerative disc disease 04/03: Placement on discharge #Chronic leg changes Appears to have lymphedematous changes with chronic skin changes Wound care #History of CVA 5 years ago Aspirin #Hypothyroidism Continue Synthroid Tova Terrell MD Charges/Coding Visit Charges Inpatient E&M: 82137 Subs Hosp L2
[2022-04-05 12:59] LABS: Vancomycin, Trough Level 27.8 ug/mL (5.0-15.0)
[2022-04-05 14:16] LABS: Absolute Lymphocyte Count 0.46 X10^3/uL (0.83-4.51); Absolute Neutrophil Count 8.3 X10^3/uL (2.0-7.7); Basophil# 0.04 X10^3/uL; Basophil% 0.4 % (0-1); Eosinophil# 0.14 X10^3/uL; Eosinophils% 1.4 % (0-5); Hematocrit 29.2 % (37-47); Hemoglobin 9.4 g/dL (12.0-15.0); Lymphocyte # 0.46 X10^3/ul (0.83-4.51); Lymphocyte % 4.7 % (19-41); Mean Corp Hgb Conc 32.2 g/dL (32-36); Mean Corpuscular Hgb 30.4 pg (27.0-32.0); Mean Corpuscular Volume 94.5 fL (81-99); Mean Platelet Vol. 9.4 fl (6.2-12.0); Monocyte# 0.82 X10^3/uL; Monocyte% 8.3 % (0-10); NRBC Flagged by Analyzer 0 % (0-5); Neutrophil # 8.32 X10^3/uL (2.7-7.7); Neutrophil % 84.6 % (47-70); POSITIVE DIFFERENTIAL YES; Platelet Count 304 K/mm3 (150-450); RBC Distribution Width CV 17.6 % (11.6-14.6); RBC Distribution Width SD 60.2 fl (35.1-43.9); Red Blood Count 3.09 M/mm3 (4.2-5.4); White Blood Count 9.8 K/mm3 (4.4-11.0)
[2022-04-05 14:18] LABS: Differential Indicated SCAN CRITERIA MET
--- NOTE | 2022-04-05 17:59 | PCM.RX.CS ---
Consult Pharmacy has been consulted to manage selected antiobiotic: Vancomycin Type of Consult: Follow-up Suspected Infection: Skin/Soft tissue Prior Doses of Antibiotics Received/Current Regimen: 750mg iv q12h. Labs: Sodium 137 mmol/L (136-145) 04/05/22 01:40 Potassium 4.1 mmol/L (3.5-5.1) 04/05/22 01:40 Chloride 104 mmol/L (98-107) 04/05/22 01:40 Carbon Dioxide 26.0 mmol/L (21.0-32.0) 04/05/22 01:40 Anion Gap 7 (5-15) 04/05/22 01:40 BUN 26 mg/dL (7-18) H 04/05/22 01:40 Creatinine 1.03 mg/dL (0.55-1.02) H 04/05/22 01:40 Est GFR (MDRD) Af Amer 67 mL/min (>60) 04/05/22 01:40 Est GFR (MDRD) Non-Af 56 mL/min (>60) L 04/05/22 01:40 BUN/Creatinine Ratio 25.2 RATIO (10-20) H 04/05/22 01:40 Glucose 91 mg/dL (74-106) 04/05/22 01:40 Vancomycin Trough 27.8 ug/mL (5.0-15.0) H 04/05/22 12:18 Random Vancomycin 17.9 ug/mL (0.0-15.0) H 04/03/22 20:40 Microbiology: Microbiology 04/03/22 Unknown Bone - Sacral Bone Gram Stain - Final 04/03/22 Unknown Bone - Sacral Bone Wound Culture - Preliminary Gram positive organism 04/03/22 Unknown Tissue - Sacral Gram Stain - Final 04/03/22 Unknown Tissue - Sacral Wound Culture - Preliminary Alpha Hemolytic Streptococcus 03/31/22 11:13 Nasal Secretion SARS-CoV-2 & FLU Antigen (Rapid) - Final Weight used for dosin.8 kg Estimated Creatinine Clearance: 72 ml/min Goal Trough: 15-20 mcg/mL Pharmacy Plan for Drug Dosing: Random level today was 27.8 (goal range 15-20mcg/ml). Further dosing will be held for now. Another random level ordered for tomorrow. Pharmacy Service will continue to monitor and adjust dosing as required. Follow-Up Labs: Trough Vancomycin - random 11.21.22 @1200
[2022-04-05] MEDS: levoFLOXacin IV 500 MG/100 ML BAG 100 MG IV (22:20)
[2022-04-06] VITALS (16 sets, daily range): BP systolic 83–99; BP diastolic 46–61; PULSE 81–126; RESP 16–20; TEMP 36.3–37.1; O2SAT 92–96
[2022-04-06 05:11] LABS: Absolute Lymphocyte Count 0.36 X10^3/uL (0.83-4.51); Absolute Neutrophil Count 7.4 X10^3/uL (2.0-7.7); Basophil# 0.02 X10^3/uL; Basophil% 0.2 % (0-1); Eosinophil# 0.18 X10^3/uL; Hematocrit 27.4 % (37-47); Hemoglobin 8.9 g/dL (12.0-15.0); Lymphocyte # 0.36 X10^3/ul (0.83-4.51); Lymphocyte % 4.1 % (19-41); Mean Corp Hgb Conc 32.5 g/dL (32-36); Mean Corpuscular Hgb 30.5 pg (27.0-32.0); Mean Corpuscular Volume 93.8 fL (81-99); Mean Platelet Vol. 9.5 fl (6.2-12.0); Monocyte# 0.83 X10^3/uL; Monocyte% 9.4 % (0-10); NRBC Flagged by Analyzer 0 % (0-5); Neutrophil % 83.4 % (47-70); POSITIVE DIFFERENTIAL YES; Platelet Count 261 K/mm3 (150-450); RBC Distribution Width CV 17.5 % (11.6-14.6); RBC Distribution Width SD 59.4 fl (35.1-43.9); Red Blood Count 2.92 M/mm3 (4.2-5.4); White Blood Count 8.9 K/mm3 (4.4-11.0)
[2022-04-06] MEDS: metroNIDAZOLE 500 MG/100 ML BAG 100 MG IV ×3 (05:41→21:30)
[2022-04-06] MEDS: Nystatin Powder 15gm Bottle 1 APPLIC TOPICAL ×3 (05:42→21:37)
[2022-04-06 05:51] LABS: Anion Gap 6 (5-15); BUN 28 mg/dL (7-18); BUN/Creat Ratio 21.7 RATIO (10-20); Calcium,Total 7.5 mg/dL (8.5-10.1); Chloride 103 mmol/L (98-107); Creatinine, Serum 1.29 mg/dL (0.55-1.02); EST Glomerular Filtration Rate 43 mL/min (>60); Est Glom Filt Rate - Afr Amer 52 mL/min (>60); Estimated Creatinine Clearance 39.18 ml/min; Glucose 91 mg/dL (74-106); Sodium Level 135 mmol/L (136-145)
[2022-04-06 06:36] LABS: Differential Indicated SCAN CRITERIA MET
[2022-04-06 07:03] LABS: Anisocytosis 1+
[2022-04-06] MEDS: Metoprolol Tartrate 25 MG Tablet 12.5 MG PO (08:59)
[2022-04-06] MEDS: Enoxaparin 40 MG/0.4 ML Syringe SC (09:01)
[2022-04-06] MEDS: Magnesium Chloride 64 MG Delay Rel.Tablet 128 MG PO (09:01)
[2022-04-06] MEDS: Allopurinol 300 MG Tablet PO (09:02)
[2022-04-06] MEDS: Pantoprazole Sodium 40 MG Tablet PO (09:02)
[2022-04-06] MEDS: Juven (unflavored) Packet 1 PACKET PO ×2 (09:02→18:20)
[2022-04-06] MEDS: DAKIN'S SOL HALF STRENGTH (=0.25%) 1 APPLIC TOPICAL (10:42)
--- NOTE | 2022-04-06 11:04 | CASEMGMT ---
Addendum entered by Hannah Gonzalez 04/06/22 13:01: Call from Daniel at [facility] and she is requesting therapy notes and progress note to be sent tomorrow, also to see if there is a surgery date for diverting colostomy. CM to follow. Cecilia SCHNEIDER CM Original Note: This RN CM to room to discuss d/c plan with pt. Pt unsure where lists are at this time, may have taken home? Pt is agreeable to [facility] as she understands her need for increased care. Pt states would like [facility] and referral sent to them via [facility]. Per Dr. Carlin's note, pt to have surgical consult for diverting colostomy. CM to follow. Cecilia SCHNEIDER CM
--- NOTE | 2022-04-06 11:09 | WOUNDNOTE ---
wound photo: sacrum
--- NOTE | 2022-04-06 11:38 | PCM.PN.HOSP ---
Subjective Subjective no new events. Objective Data Objective Data Vital Signs: Vital Signs Temp Pulse Resp BP Pulse Ox O2 Del Method O2 Flow Rate 36.3 C L 98 20 H 99/61 96 Room Air 2 04/06/22 09:23 04/06/22 11:15 04/06/22 09:23 04/06/22 09:23 04/06/22 09:23 04/06/22 09:23 04/06/22 09:23 Oxygen Flow Rate (L/min) 2 Oxygen Delivery Method Room Air Weight: 135.8 kg Body Mass Index (BMI) 45.5 Intake & Output: Intake and Output for Last 24 Hours 04/04/22 04/05/22 04/06/22 23:59 23:59 23:59 Intake Total 3366.92 / 3366.92 2763.33 / 2763.33 340 / 340 Output Total 500 / 500 200 / 325 125 / 125 Balance 2866.92 / 2866.92 2563.33 / 2438.33 215 / 215 Lab / Micro Data Result Diagrams: 04/06/22 04:42 04/06/22 04:42 Labs: Laboratory Results - last 24 hr 04/05/22 12:18: Vancomycin Trough 27.8 H 04/05/22 13:58: WBC 9.8, RBC 3.09 L, Hgb 9.4 L, Hct 29.2 L, MCV 94.5, MCH 30.4, MCHC 32.2, RDW Std Deviation 60.2 H, RDW Coeff of Chele 17.6 H, Plt Count 304, MPV 9.4, Immature Gran % (Auto) 0.600, Neut % (Auto) 84.6 H, Lymph % (Auto) 4.7 L, [place] % (Auto) 8.3, Eos % (Auto) 1.4, Baso % (Auto) 0.4, Absolute Neuts (auto) 8.3 H, Absolute Lymphs (auto) 0.46 L, Nucleated RBC % 0 04/06/22 04:42: WBC 8.9, RBC 2.92 L, Hgb 8.9 L, Hct 27.4 L, MCV 93.8, MCH 30.5, MCHC 32.5, RDW Std Deviation 59.4 H, RDW Coeff of Chele 17.5 H, Plt Count 261, MPV 9.5, Immature Gran % (Auto) 0.900, Neut % (Auto) 83.4 H, Lymph % (Auto) 4.1 L, [place] % (Auto) 9.4, Eos % (Auto) 2.0, Baso % (Auto) 0.2, Absolute Neuts (auto) 7.4, Absolute Lymphs (auto) 0.36 L, Nucleated RBC % 0, Anisocytosis 1+ 04/06/22 04:42: Sodium 135 L, Potassium 4.0, Chloride 103, Carbon Dioxide 26.0, Anion Gap 6, BUN 28 H, Creatinine 1.29 H, Estim Creat Clear Calc 39.18, Est GFR (MDRD) Af Amer 52 L, Est GFR (MDRD) Non-Af 43 L, BUN/Creatinine Ratio 21.7 H, Glucose 91, Calcium 7.5 L Micro: Microbiology 04/03/22 Unknown Tissue - Sacral Gram Stain - Final 04/03/22 Unknown Tissue - Sacral Wound Culture - Preliminary Enterococcus raffinosus 04/03/22 Unknown Bone - Sacral Bone Gram Stain - Final 04/03/22 Unknown Bone - Sacral Bone Wound Culture - Preliminary Alpha Hemolytic Streptococcus 03/31/22 11:13 Nasal Secretion SARS-CoV-2 & FLU Antigen (Rapid) - Final Physical Exam Const alert and no apparent distress Resp normal respiratory effort, no retractions, no use of accessory muscles and clear to auscultation bilaterally Cardio regular rate, regular rhythm, S1 normal heart sound and S2 normal heart sound GI normal to inspection, nondistended, normoactive bowel sounds and soft to palpation Extremity Extremity Narrative: Edema. Lymphedema wraps in place. Psych affect normal Assessment & Plan Assessment/Plan (1) Pressure ulcer of sacral region, stage 4: PLAN: Large sacral wound with osteomyelitis stage IV pressure ulcer present on admission CT pelvis without IV contrast after admission demonstrated ulcerative lesion in midline just distal to the distal portion of the sacrum. No evidence of bony destruction on that film. Diffuse subcutaneous edema with overlying skin thickening There was concern for purulent drainage and infection so she is on broad-spectrum antibiotics with metronidazole, Levaquin, bank Status post debridement by Dr. Carlin 04/04/2022 down to the bone Path and culture pending Wound care consulted Dr. Carlin recommend GEN surge eval this week for diverting colostomy Pending progress and cultures may need ID input for antibiotics 04/05: Tissue growing alphahemolytic strep, sacral bone growing gram-positive organism. ID consulted. Will likely need urgent consult for diverting colostomy 04/06: Seen by ID: Cont vanc, levofloxacin, and metronidazole. Consult general surgery. DW Dr. Goldstein. (2) Acute exacerbation of CHF (congestive heart failure): QUALIFIERS: Heart failure type: unspecified Qualified Code(s): I50.9 - Heart failure, unspecified PLAN: Acute on chronic heart failure with reduced ejection fraction Chest x-ray with cardiomegaly and evidence of changes consistent with CHF Most recent echo: 09/19/2020 with estimated EF 40 to 45% and evidence of diastolic dysfunction and had septal and apical hypokinesis at that time. Pulmonary artery systolic pressure was 60 mmHg Will repeat echo Received a dose of Lasix in the ED BNP 1081 which is higher than baseline We will continue Lasix, given that she is not hypoxic and not on baseline diuretics will do 20 IV of Lasix daily Daily weights and I's and O's Incentive spirometer Unclear why not on metoprolol or JLUIS Possibly went into exacerbation from A. fib with accelerated rate 04/01: Updated echo with EF of 40% with D-shaped septum and dilated right ventricle, has severe pulmonary hypertension with RVSP of 71. We will continue diuresis. Continue daily weights. O2 sat adequate, kidney function stable 04/02: Continue diuresis and I's and O's. Overall improved from admission 04/03: We will transition to oral Lasix 04/04: Was n.p.o. yesterday and likely had losses from surgery, BP low this morning, holding metoprolol and Lasix and giving small fluid bolus. Will monitor respiratory status closely 04/05: Holding fluids but also will hold off on Lasix at this time, continue to monitor daily weights. Monitor respiratory status (3) Paroxysmal atrial fibrillation: PLAN: Atrial fibrillation, paroxysmal Accelerated rate on admission Given bolus of diltiazem and additional dose and heart rate has been within normal limits Unclear why not on rate control at baseline Given that she is not on a beta-janice and that she has heart failure may need amiodarone for rate control with acute exacerbation with ultimate transition to beta-janice Previously was on Eliquis appears he was advised to hold for 3 days after visit in ED last month due to some bleeding, unclear if this was ever restarted. No evidence of bleeding hemoglobin stable so we will resume 04/01: Unclear if she was supposed to be on Eliquis at home, did have a drop in hemoglobin and previously there have been concerned because she would bleed from her wounds. We will hold it today, are pending possible debridement evaluation as well. Continue metoprolol. Possibly had been on sotalol for her A. fib, will try to clarify 04/02: Unable to tell me if she takes sotalol at home, however BP has been borderline so this was is held at this time and she Toprol twice daily 04/03: Continue metoprolol 12.5 mg twice daily 04/04: holding metoprolol due to her low BP. Per Dr. Carlin resume Eliquis tomorrow 04/05: Heart rate slightly up due to metoprolol being held but BP still low. Did respond some to 1 unit packed red blood cells. Metoprolol with holding parameters, holding Eliquis at this time. On telemetry. Has a history of swelling with heparin, no place acceptable for SCDs, fondaparinux on not an option for DVT prophylaxis. Unclear if reaction with Lovenox in the past, will discuss risks and benefits. 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 No treatment needed at this time. (5) Anemia, chronic disease: PLAN: Stable. Monitor. (6) Debility: PLAN: #Generalized weakness With slide out of her lift chair, reports the only thing that was bumped was her right arm, did not hit her head Does have chronic left-sided paralysis but is felt generally weak over the past 1 week with some nausea and 1 day of shortness of breath Treat underlying condition Will consult PT/OT Lumbar x-ray was obtained which showed multilevel degenerative disc disease 04/03: Placement on discharge PLAN: Plan #Chronic leg changes Appears to have lymphedematous changes with chronic skin changes Wound care #History of CVA 5 years ago Aspirin #Hypothyroidism Continue Synthroid VTE prophylaxis with enoxaparin Charges/Coding Visit Charges Inpatient E&M: 89166 Subs Hosp L2
--- NOTE | 2022-04-06 12:26 | CON.PCM.ID_ITS ---
Assessment & Plan Assessment/Plan (1) Osteomyelitis of pelvis: PLAN: Now s/p OR 04/03/[address] Carlin for I&D down to bone. Bone cx with strep, tissue cx with enterococcus. H/o anaphylaxis with PCN. Is on senior care bactrim for L knee PJI suppression. Cont vanc, levaquin, flagyl. Diverting ostomy planned. Will follow, thank you (2) History of cerebrovascular accident (CVA) in adulthood: HPI Consult Data Date of Consult: 04/06/22 HPI Narrative Reason for Consultation: osteo HPI Narrative: IFTIKHAR FERRARO, is a 71 F on chronic bactrim for prior L knee PJI, feel out of wheelchair and landed on an upright exposed bolt. Developed wound over sacrum which worsened. Is in wheelchair due to previous stroke. Over past week, had been having increased weakness, nausea, not feeling well. In ED, denied any fever. Found to have large sacral wound. Admitted on vanc/levaquin/flagyl. Taken to OR 04/[address] Carlin for I&D down to bone. Feeling ok, plan is for ostomy eval. Full ROS performed and neg except as noted above. [facility] Medical History Acute CVA (cerebrovascular accident) Acute CVA (cerebrovascular accident) Acute right MCA stroke Anemia, chronic disease Anxiety Atrial fibrillation Congestive heart failure (CHF) Diabetes Diabetes Gout Heart failure Hemiplegia and hemiparesis following cerebral infarction affecting left dominant side Hyperlipidemia Hypothyroidism Irregular heart beat Lymphedema Myocardial infarct Non-smoker NSTEMI (non-ST elevated myocardial infarction) Osteomyelitis of pelvis Osteoporosis Pancreatitis Pressure ulcer of sacral region, stage 4 Skin necrosis Stroke/cerebrovascular accident Weakness on left side of face Home Medications levothyroxine 25 mcg tablet 25 mcg PO DAILY THYROID 10/05/20 [History Last Taken 03/30/22] acetaminophen 325 mg tablet (Tylenol) 650 mg PO Q6H PRN pain #1 TAB 11/26/20 [Rx Last Taken 03/30/22] allopurinol 300 mg tablet 300 mg PO DAILY GOUT 03/31/22 [History Last Taken 03/30/22] aspirin 81 mg tablet,delayed release 81 mg PO DAILY PRN HEADACHES 03/31/22 [History Last Taken 1 Week Ago ~03/24/22] magnesium oxide 400 mg (241.3 mg magnesium) tablet 400 mg PO DAILY SUPPLEMENT 03/31/22 [History Last Taken 03/30/22] multivitamin 1 tab PO DAILY HEALTH MAINTENANCE 03/31/22 [History Last Taken 03/30/22] sotalol 120 mg tablet 120 mg PO BID AFIB 03/31/22 [History Last Taken Unknown] sulfamethoxazole 800 mg-trimethoprim 160 mg tablet 1 tab PO MOFR ANTIBIOTIC 03/31/22 [History Last Taken 03/30/22] zinc oxide 1 applic topical UD SKIN 03/31/22 [History Last Taken 03/30/22] Allergy/AdvReac Type Severity Reaction Status Date / Time Penicillins Allergy Severe Anaphylaxis Verified 03/31/22 07:34 heparin Allergy Mild Other Verified 03/31/22 07:34 alteplase Allergy Angioedema Verified 03/31/22 07:34 cefaclor [From Ceclor] Allergy Other Verified 03/31/22 07:34 ketoprofen [From Orudis] Allergy Other Verified 03/31/22 07:34 ketorolac [From Toradol] Allergy Angioedema Verified 03/31/22 07:34 niacin Allergy Other Verified 03/31/22 07:34 adhesive tape [tape] AdvReac Rash Verified 03/31/22 09:47 atorvastatin AdvReac Other Verified 03/31/22 07:34 Family History Mother Diabetes Heart disease Father Heart disease Surgical History History of ankle surgery History of appendectomy History of cholecystectomy History of knee replacement Hx of hysterectomy Social History household members: spouse housing: house current occupational status: unemployed Smoking Status: Never smoker alcohol intake: never substance use type: does not use Physical Exam Const alert, oriented x3 and no apparent distress General Appearance: cooperative HEENT normocephalic and head/scalp atraumatic Eyes PERRL and EOMs intact bilaterally Neck supple and No nodes Resp normal air movement and clear to auscultation bilaterally Cardio regular rate and regular rhythm GI soft to palpation, non-tender and non-distended Extremity General Extremity: edema Skin Skin Narrative: reviewed photos Neuro CN's II-XII intact bilaterally Lab / Micro Data Attestation: I reviewed the patient's lab results. Result Diagrams: 04/06/22 04:42 04/06/22 04:42 Labs: Laboratory Results - last 24 hr 04/05/22 12:18: Vancomycin Trough 27.8 H 04/05/22 13:58: WBC 9.8, RBC 3.09 L, Hgb 9.4 L, Hct 29.2 L, MCV 94.5, MCH 30.4, MCHC 32.2, RDW Std Deviation 60.2 H, RDW Coeff of Chele 17.6 H, Plt Count 304, MPV 9.4, Immature Gran % (Auto) 0.600, Neut % (Auto) 84.6 H, Lymph % (Auto) 4.7 L, [place] % (Auto) 8.3, Eos % (Auto) 1.4, Baso % (Auto) 0.4, Absolute Neuts (auto) 8.3 H, Absolute Lymphs (auto) 0.46 L, Nucleated RBC % 0 04/06/22 04:42: WBC 8.9, RBC 2.92 L, Hgb 8.9 L, Hct 27.4 L, MCV 93.8, MCH 30.5, MCHC 32.5, RDW Std Deviation 59.4 H, RDW Coeff of Chele 17.5 H, Plt Count 261, MPV 9.5, Immature Gran % (Auto) 0.900, Neut % (Auto) 83.4 H, Lymph % (Auto) 4.1 L, [place] % (Auto) 9.4, Eos % (Auto) 2.0, Baso % (Auto) 0.2, Absolute Neuts (auto) 7.4, Absolute Lymphs (auto) 0.36 L, Nucleated RBC % 0, Anisocytosis 1+ 04/06/22 04:42: Sodium 135 L, Potassium 4.0, Chloride 103, Carbon Dioxide 26.0, Anion Gap 6, BUN 28 H, Creatinine 1.29 H, Estim Creat Clear Calc 39.18, Est GFR (MDRD) Af Amer 52 L, Est GFR (MDRD) Non-Af 43 L, BUN/Creatinine Ratio 21.7 H, Glucose 91, Calcium 7.5 L Micro: Microbiology 04/03/22 Unknown Tissue - Sacral Gram Stain - Final 04/03/22 Unknown Tissue - Sacral Wound Culture - Preliminary Enterococcus raffinosus 04/03/22 Unknown Bone - Sacral Bone Gram Stain - Final 04/03/22 Unknown Bone - Sacral Bone Wound Culture - Preliminary Alpha Hemolytic Streptococcus
[2022-04-06 13:26] LABS: Vancomycin, Random Level 23.8 ug/mL (0.0-15.0)
--- NOTE | 2022-04-06 13:53 | PCM.RX.CS ---
Consult Pharmacy has been consulted to manage selected antiobiotic: Vancomycin Type of Consult: Follow-up Labs: Sodium 135 mmol/L (136-145) L 04/06/22 04:42 Potassium 4.0 mmol/L (3.5-5.1) 04/06/22 04:42 Chloride 103 mmol/L (98-107) 04/06/22 04:42 Carbon Dioxide 26.0 mmol/L (21.0-32.0) 04/06/22 04:42 Anion Gap 6 (5-15) 04/06/22 04:42 BUN 28 mg/dL (7-18) H 04/06/22 04:42 Creatinine 1.29 mg/dL (0.55-1.02) H 04/06/22 04:42 Est GFR (MDRD) Af Amer 52 mL/min (>60) L 04/06/22 04:42 Est GFR (MDRD) Non-Af 43 mL/min (>60) L 04/06/22 04:42 BUN/Creatinine Ratio 21.7 RATIO (10-20) H 04/06/22 04:42 Glucose 91 mg/dL (74-106) 04/06/22 04:42 Vancomycin Trough 27.8 ug/mL (5.0-15.0) H 04/05/22 12:18 Random Vancomycin 23.8 ug/mL (0.0-15.0) H 04/06/22 12:09 Microbiology: Microbiology 04/03/22 Unknown Tissue - Sacral Gram Stain - Final 04/03/22 Unknown Tissue - Sacral Wound Culture - Preliminary Enterococcus raffinosus 04/03/22 Unknown Bone - Sacral Bone Gram Stain - Final 04/03/22 Unknown Bone - Sacral Bone Wound Culture - Preliminary Alpha Hemolytic Streptococcus 03/31/22 11:13 Nasal Secretion SARS-CoV-2 & FLU Antigen (Rapid) - Final Goal Trough: 15-20 mcg/mL Pharmacy Plan for Drug Dosing: VANCOMYCIN LEVEL RECEIVED Current Vancomycin Dose: on hold due to elevated trough Number of Doses Received: Vancomycin Level: 23.8 (random level) Hours Since Last Dose: 34 hours since 750mg dose Renal Function: SrCr 1.29 Renal Function Trend: SrCr increasing. Was 1.03 on 04/05/22 Lab/Micro: Vancomycin Plan/Comments: random level resulted at >20. recommend continuing to hold vancomycin. check a level in 24 hours Pending Level: 04/07/22 at 1200 Pharmacy Service will continue to monitor and adjust dosing as required. Follow-Up Labs: Trough Vancomycin - 04/07/22 at 1200 (random level)
--- NOTE | 2022-04-06 17:11 | EX.PCM.CON.S ---
Assessment & Plan Assessment/Plan (1) Pressure ulcer of sacral region, stage 4: PLAN: I was consulted for diverting colostomy due to her sacral ulcer. Reviewing her chart she has severe pulmonary hypertension and CHF. The patient was fluid overloaded upon admission with A. fib RVR. Upon reviewing her CT scan. She still has edema in the subcutaneous tissue and so I reviewed her nutritional labs and her prealbumin is 3.6. I do not believe she is nutritionally optimized for the surgery and I believe her healing will be poor. I am concerned that the colostomy will not heal and that if laparoscopic surgery is not possible performing an open surgery would leave an incision that would not heal and likely she would develop hernia or dehiscence. I think she needs her nutrition optimized before any surgery should be performed. The patient is also working on discharge to LTAC. Because of her comorbidities and the fact that she needs to be nutritionally optimized I believe there is time before the colostomy needs to be performed. I would recommend that she seeks consultation from a surgeon at a tertiary care center due to her high risk. I would be able to perform the surgery here but I think it would be safer to perform at a tertiary center but either way I would not perform the surgery anytime before the prealbumin raises to a level over 15. I discussed this with Dr. Rios. Brayan Goldstein MD Pager: [facility] [address] [place] [address], [address] [place] [address] Office: HPI Consult Data Date of Consult: 04/06/22 HPI Narrative HPI Narrative: IFTIKHAR FERRARO, is a 71 F who is admitted for sacral pressure ulcer. She has a history of CVA which has left her bedbound. She had debridement of the sacral ulcer 4 days ago. She was recommended to have diversion. She came in with severe edema and malnutrition from home. [facility] Medical History Acute CVA (cerebrovascular accident) Acute CVA (cerebrovascular accident) Acute right MCA stroke Anemia, chronic disease Anxiety Atrial fibrillation Congestive heart failure (CHF) Diabetes Diabetes Gout Heart failure Hemiplegia and hemiparesis following cerebral infarction affecting left dominant side Hyperlipidemia Hypothyroidism Irregular heart beat Lymphedema Myocardial infarct Non-smoker NSTEMI (non-ST elevated myocardial infarction) Osteomyelitis of pelvis Osteoporosis Pancreatitis Pressure ulcer of sacral region, stage 4 Skin necrosis Stroke/cerebrovascular accident Weakness on left side of face Home Medications levothyroxine 25 mcg tablet 25 mcg PO DAILY THYROID 10/05/20 [History Last Taken 03/30/22] acetaminophen 325 mg tablet (Tylenol) 650 mg PO Q6H PRN pain #1 TAB 11/26/20 [Rx Last Taken 03/30/22] allopurinol 300 mg tablet 300 mg PO DAILY GOUT 03/31/22 [History Last Taken 03/30/22] aspirin 81 mg tablet,delayed release 81 mg PO DAILY PRN HEADACHES 03/31/22 [History Last Taken 1 Week Ago ~03/24/22] magnesium oxide 400 mg (241.3 mg magnesium) tablet 400 mg PO DAILY SUPPLEMENT 03/31/22 [History Last Taken 03/30/22] multivitamin 1 tab PO DAILY HEALTH MAINTENANCE 03/31/22 [History Last Taken 03/30/22] sotalol 120 mg tablet 120 mg PO BID AFIB 03/31/22 [History Last Taken Unknown] sulfamethoxazole 800 mg-trimethoprim 160 mg tablet 1 tab PO MOFR ANTIBIOTIC 03/31/22 [History Last Taken 03/30/22] zinc oxide 1 applic topical UD SKIN 03/31/22 [History Last Taken 03/30/22] Allergy/AdvReac Type Severity Reaction Status Date / Time Penicillins Allergy Severe Anaphylaxis Verified 03/31/22 07:34 heparin Allergy Mild Other Verified 03/31/22 07:34 alteplase Allergy Angioedema Verified 03/31/22 07:34 cefaclor [From Ceclor] Allergy Other Verified 03/31/22 07:34 ketoprofen [From Orudis] Allergy Other Verified 03/31/22 07:34 ketorolac [From Toradol] Allergy Angioedema Verified 03/31/22 07:34 niacin Allergy Other Verified 03/31/22 07:34 adhesive tape [tape] AdvReac Rash Verified 03/31/22 09:47 atorvastatin AdvReac Other Verified 03/31/22 07:34 Family History Mother Diabetes Heart disease Father Heart disease Surgical History History of ankle surgery History of appendectomy History of cholecystectomy History of knee replacement Hx of hysterectomy Social History household members: spouse housing: house current occupational status: unemployed Smoking Status: Never smoker alcohol intake: never substance use type: does not use ROS Constitutional Constitutional: Reports anorexia; Denies fatigue or fever(s) Eyes Eyes: Denies blurry vision ENT HEENT: Denies abnormal hearing Cardiovascular Cardiovascular: Denies chest pain Respiratory/Chest Respiratory/Chest: Denies cough Gastrointestinal Gastrointestinal: Denies abdominal pain, bloating, dysphagia or hematemesis Genitourinary Genitourinary: Denies change in urinary stream Musculoskeletal Musculoskeletal: Denies abnormal gait or difficulty walking Integumentary Integumentary: Denies jaundice Neurologic Neurologic: Reports focal weakness Physical Exam Const alert and no apparent distress General Appearance: cooperative HEENT normocephalic Eyes PERRL Neck full ROM Resp normal respiratory effort Cardio Rate: regular rate Rhythm: regular rhythm GI soft to palpation and non-tender Extremity General Extremity: edema Skin no rashes or lesions noted Neuro CN's II-XII intact bilaterally Psych mental status grossly normal Lab / Micro Data Result Diagrams: 04/06/22 04:42 04/06/22 04:42 Labs: Laboratory Results - last 24 hr 04/06/22 04:42: WBC 8.9, RBC 2.92 L, Hgb 8.9 L, Hct 27.4 L, MCV 93.8, MCH 30.5, MCHC 32.5, RDW Std Deviation 59.4 H, RDW Coeff of Chele 17.5 H, Plt Count 261, MPV 9.5, Immature Gran % (Auto) 0.900, Neut % (Auto) 83.4 H, Lymph % (Auto) 4.1 L, [place] % (Auto) 9.4, Eos % (Auto) 2.0, Baso % (Auto) 0.2, Absolute Neuts (auto) 7.4, Absolute Lymphs (auto) 0.36 L, Nucleated RBC % 0, Anisocytosis 1+ 04/06/22 04:42: Sodium 135 L, Potassium 4.0, Chloride 103, Carbon Dioxide 26.0, Anion Gap 6, BUN 28 H, Creatinine 1.29 H, Estim Creat Clear Calc 39.18, Est GFR (MDRD) Af Amer 52 L, Est GFR (MDRD) Non-Af 43 L, BUN/Creatinine Ratio 21.7 H, Glucose 91, Calcium 7.5 L 04/06/22 12:09: Random Vancomycin 23.8 H Micro: Microbiology 04/03/22 Unknown Tissue - Sacral Gram Stain - Final 04/03/22 Unknown Tissue - Sacral Wound Culture - Preliminary Enterococcus raffinosus 04/03/22 Unknown Bone - Sacral Bone Gram Stain - Final 04/03/22 Unknown Bone - Sacral Bone Wound Culture - Preliminary Alpha Hemolytic Streptococcus
[2022-04-06] MEDS: levoFLOXacin IV 500 MG/100 ML BAG 100 MG IV (23:03)
[2022-04-06] MEDS: Aspirin E.C. 81 MG Tablet PO (23:06)
[2022-04-07] VITALS (17 sets, daily range): BP systolic 88–105; BP diastolic 49–61; PULSE 83–109; RESP 15–20; TEMP 36.3–37; O2SAT 93–100
[2022-04-07 05:28] LABS: Absolute Lymphocyte Count 0.39 X10^3/uL (0.83-4.51); Absolute Neutrophil Count 9.2 X10^3/uL (2.0-7.7); Basophil# 0.04 X10^3/uL; Basophil% 0.4 % (0-1); Eosinophil# 0.21 X10^3/uL; Lymphocyte # 0.39 X10^3/ul (0.83-4.51); Lymphocyte % 3.7 % (19-41); Mean Corp Hgb Conc 33.3 g/dL (32-36); Mean Corpuscular Hgb 31.6 pg (27.0-32.0); Mean Corpuscular Volume 94.7 fL (81-99); Mean Platelet Vol. 9.6 fl (6.2-12.0); Monocyte# 0.71 X10^3/uL; Monocyte% 6.7 % (0-10); NRBC Flagged by Analyzer 0 % (0-5); Neutrophil # 9.17 X10^3/uL (2.7-7.7); Neutrophil % 86.4 % (47-70); POSITIVE DIFFERENTIAL YES; Platelet Count 259 K/mm3 (150-450); RBC Distribution Width CV 17.5 % (11.6-14.6); RBC Distribution Width SD 59.1 fl (35.1-43.9); Red Blood Count 2.85 M/mm3 (4.2-5.4); White Blood Count 10.6 K/mm3 (4.4-11.0)
[2022-04-07 05:32] LABS: Differential Indicated SCAN CRITERIA MET
[2022-04-07] MEDS: metroNIDAZOLE 500 MG/100 ML BAG 100 MG IV (05:33)
[2022-04-07] MEDS: Nystatin Powder 15gm Bottle 1 APPLIC TOPICAL ×3 (05:34→23:24)
[2022-04-07 05:55] LABS: Anion Gap 5 (5-15); BUN 29 mg/dL (7-18); BUN/Creat Ratio 20.7 RATIO (10-20); Chloride 106 mmol/L (98-107); EST Glomerular Filtration Rate 39 mL/min (>60); Est Glom Filt Rate - Afr Amer 47 mL/min (>60); Glucose 105 mg/dL (74-106); Potassium 4.1 mmol/L (3.5-5.1); Sodium Level 136 mmol/L (136-145)
[2022-04-07 06:02] LABS: Differential Comment SCANNED
[2022-04-07] MEDS: Enoxaparin 40 MG/0.4 ML Syringe SC (08:01)
[2022-04-07] MEDS: Cholecalciferol (Vit D3) 125 MCG CAPSULE (5,000 UNITS) PO (08:02)
[2022-04-07] MEDS: Pantoprazole Sodium 40 MG Tablet PO (08:02)
[2022-04-07] MEDS: Allopurinol 300 MG Tablet PO (08:02)
[2022-04-07] MEDS: Juven (unflavored) Packet 1 PACKET PO ×2 (08:02→16:31)
[2022-04-07] MEDS: Magnesium Chloride 64 MG Delay Rel.Tablet 128 MG PO (08:02)
--- NOTE | 2022-04-07 08:24 | PCM.PN.HOSP ---
Subjective Subjective No new events. Feels well. Objective Data Objective Data Vital Signs: Vital Signs Temp Pulse Resp BP Pulse Ox O2 Del Method O2 Flow Rate 36.5 C L 107 H 20 H 95/61 94 Nasal Cannula 2 04/07/22 07:56 04/07/22 07:56 04/07/22 07:56 04/07/22 07:56 04/07/22 07:56 04/07/22 07:56 04/07/22 07:56 Oxygen Flow Rate (L/min) 2 Oxygen Delivery Method Nasal Cannula Weight: 135.8 kg Body Mass Index (BMI) 45.5 Intake & Output: Intake and Output for Last 24 Hours 04/05/22 04/06/22 04/07/22 23:59 23:59 23:59 Intake Total 2763.33 / 2763.33 900 / 900 350 / 350 Output Total 200 / 325 325 / 325 100 / 100 Balance 2563.33 / 2438.33 575 / 575 250 / 250 Lab / Micro Data Result Diagrams: 04/07/22 04:47 04/07/22 04:47 Labs: Laboratory Results - last 24 hr 04/06/22 12:09: Random Vancomycin 23.8 H 04/07/22 04:47: WBC 10.6, RBC 2.85 L, Hgb 9.0 L, Hct 27.0 L, MCV 94.7, MCH 31.6, MCHC 33.3, RDW Std Deviation 59.1 H, RDW Coeff of Chele 17.5 H, Plt Count 259, MPV 9.6, Immature Gran % (Auto) 0.800, Neut % (Auto) 86.4 H, Lymph % (Auto) 3.7 L, Alpine % (Auto) 6.7, Eos % (Auto) 2.0, Baso % (Auto) 0.4, Absolute Neuts (auto) 9.2 H, Absolute Lymphs (auto) 0.39 L, Nucleated RBC % 0, Differential Comment SCANNED 04/07/22 04:47: Sodium 136, Potassium 4.1, Chloride 106, Carbon Dioxide 25.0, Anion Gap 5, BUN 29 H, Creatinine 1.40 H, Estim Creat Clear Calc 36.10, Est GFR (MDRD) Af Amer 47 L, Est GFR (MDRD) Non-Af 39 L, BUN/Creatinine Ratio 20.7 H, Glucose 105, Calcium 8.0 L Micro: Microbiology 04/03/22 Unknown Tissue - Sacral Gram Stain - Final 04/03/22 Unknown Tissue - Sacral Wound Culture - Preliminary Enterococcus raffinosus 04/03/22 Unknown Bone - Sacral Bone Gram Stain - Final 04/03/22 Unknown Bone - Sacral Bone Wound Culture - Preliminary Alpha Hemolytic Streptococcus 03/31/22 11:13 Nasal Secretion SARS-CoV-2 & FLU Antigen (Rapid) - Final Physical Exam Const alert and no apparent distress Resp normal respiratory effort, no retractions, no use of accessory muscles and clear to auscultation bilaterally Cardio regular rate, regular rhythm, S1 normal heart sound and S2 normal heart sound GI normal to inspection, nondistended, normoactive bowel sounds, soft to palpation, non-tender and non-distended Extremity normal to inspection Neuro oriented x3 Assessment & Plan Assessment/Plan (1) Pressure ulcer of sacral region, stage 4: PLAN: 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 Carlin 04/04/2022 down to the bone Wound care consulted Dr. Carlin recommend GEN surge eval this week for diverting colostomy Pending progress and cultures may need ID input for antibiotics 04/05: Tissue growing alphahemolytic strep, sacral bone growing gram-positive organism. ID consulted. Will likely need urgent consult for diverting colostomy 04/06: Seen by ID: Cont vanc, levofloxacin, and metronidazole. DW Dr. Goldstein, patient is a poor surgical candidate at this time given the multitude of factors, including pulm hypertension, CHF is well as severe protein calorie malnutrition.. With the nutritional status should have a high likelihood of poor wound healing and could develop further complications including hernia or dehiscence. He recommended that nutrition optimization before undergoing surgery. He also recommended follow-up with a surgeon at a tertiary facility given her high risk features. (2) Acute exacerbation of CHF (congestive heart failure): QUALIFIERS: Heart failure type: unspecified Qualified Code(s): I50.9 - Heart failure, unspecified PLAN: Acute on chronic heart failure with reduced ejection fraction Chest x-ray with cardiomegaly and evidence of changes consistent with CHF Most recent echo: 09/19/2020 with estimated EF 40 to 45% and evidence of diastolic dysfunction and had septal and apical hypokinesis at that time. Pulmonary artery systolic pressure was 60 mmHg Will repeat echo Received a dose of Lasix in the ED BNP 1081 which is higher than baseline We will continue Lasix, given that she is not hypoxic and not on baseline diuretics will do 20 IV of Lasix daily Daily weights and I's and O's Incentive spirometer Unclear why not on metoprolol or JLUIS Possibly went into exacerbation from A. fib with accelerated rate 04/01: Updated echo with EF of 40% with D-shaped septum and dilated right ventricle, has severe pulmonary hypertension with RVSP of 71. We will continue diuresis. Continue daily weights. O2 sat adequate, kidney function stable 04/02: Continue diuresis and I's and O's. Overall improved from admission 04/03: We will transition to oral Lasix 04/04: Was n.p.o. yesterday and likely had losses from surgery, BP low this morning, holding metoprolol and Lasix and giving small fluid bolus. Will monitor respiratory status closely 04/05: Holding fluids but also will hold off on Lasix at this time, continue to monitor daily weights. Monitor respiratory status (3) Paroxysmal atrial fibrillation: PLAN: Atrial fibrillation, paroxysmal Accelerated rate on admission Given bolus of diltiazem and additional dose and heart rate has been within normal limits Unclear why not on rate control at baseline Given that she is not on a beta-janice and that she has heart failure may need amiodarone for rate control with acute exacerbation with ultimate transition to beta-janice Previously was on Eliquis appears he was advised to hold for 3 days after visit in ED last month due to some bleeding, unclear if this was ever restarted. No evidence of bleeding hemoglobin stable so we will resume 04/01: Unclear if she was supposed to be on Eliquis at home, did have a drop in hemoglobin and previously there have been concerned because she would bleed from her wounds. We will hold it today, are pending possible debridement evaluation as well. Continue metoprolol. Possibly had been on sotalol for her A. fib, will try to clarify 04/02: Unable to tell me if she takes sotalol at home, however BP has been borderline so this was is held at this time and she Toprol twice daily 04/03: Continue metoprolol 12.5 mg twice daily 04/04: holding metoprolol due to her low BP. Per Dr. Carlin resume Eliquis tomorrow 04/05: Heart rate slightly up due to metoprolol being held but BP still low. Did respond some to 1 unit packed red blood cells. Metoprolol with holding parameters, holding Eliquis at this time. On telemetry. Has a history of swelling with heparin, no place acceptable for SCDs, fondaparinux on not an option for DVT prophylaxis. Unclear if reaction with Lovenox in the past, will discuss risks and benefits. 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 No treatment needed at this time. (5) Anemia, chronic disease: PLAN: Stable. Monitor. (6) Debility: PLAN: #Generalized weakness With slide out of her lift chair, reports the only thing that was bumped was her right arm, did not hit her head Does have chronic left-sided paralysis but is felt generally weak over the past 1 week with some nausea and 1 day of shortness of breath Treat underlying condition Will consult PT/OT Lumbar x-ray was obtained which showed multilevel degenerative disc disease 04/03: Placement on discharge (7) Severe protein-calorie malnutrition: PLAN: Prealbumin 3.6 from April 02, albumin 1.5. Continue Sushil supplements Diet carb controlled as well as Glucerna shakes 3 times daily with meals Continue with nutritional services PLAN: Plan #Chronic leg changes Appears to have lymphedematous changes with chronic skin changes Wound care #History of CVA 5 years ago Aspirin #Hypothyroidism Continue Synthroid VTE prophylaxis with enoxaparin Disposition: To LTAC on the . Charges/Coding Visit Charges Inpatient E&M: 67421 Subs Hosp L2
--- NOTE | 2022-04-07 09:37 | CASEMGMT ---
Addendum entered by Hannah Gonzalez 04/07/22 11:25: Pt states would prefer to stay in [facility]. Cecilia SCHNEIDER CM Addendum entered by Hannah Gonzalez 04/07/22 11:08: Per Daniel at [facility], they are unable to accept the pt unless that diverting colostomy is already done. Pt updated and is agreeable to referral to [facility]. Referral via [facility] to [facility]. Cecilia SCHNEIDER CM Addendum entered by Hannah Gonzalez 04/07/22 10:37: Call back to Daniel at [facility] and she is updated on clinicals sent this am and that diverting colostomy not to be done at this time. Per Happy, she is not sure that they would accept pt without diverting colostomy but will check and call this RN BENJAMÍN back. Dr. Rios aware. CM to follow. Cecilia SCHNEIDER CM Original Note: Progress note, therapy notes, and bed codes added to [facility]port referral. Per surgeon, pt is not medically optimized for diverting colostomy and he feels this needs to be done at later date. Per Dr. Rios, pt can be d/c'd to [facility]. Call to Daniel at [facility] to update and she is currently in meeting. This RN CM to call back in about 20 minutes per secretary book keeper. CM to follow. Cecilia SCHNEIDER CM
[2022-04-07] MEDS: DAKIN'S SOL HALF STRENGTH (=0.25%) 1 APPLIC TOPICAL (10:17)
[2022-04-07] MEDS: Metoprolol Tartrate 25 MG Tablet 12.5 MG PO ×2 (10:19→23:16)
--- NOTE | 2022-04-07 10:45 | PCM.PN.ID ---
Physical Exam Narrative Feeling better, no fever, some nausea Const alert and no apparent distress Resp normal air movement and clear to auscultation bilaterally Cardio regular rate and regular rhythm GI soft to palpation, non-tender and non-distended Skin Skin Narrative: wounds bandaged ID ID: Route of nutrition/ use of supplements: [] Nutritional Intake: [] IV Site: [] Alvarez Catheter: [] Assessment & Plan Assessment/Plan (1) Osteomyelitis of pelvis: PLAN: Now s/p OR 04/03/[address] Carlin for I&D down to bone. Bone cx with enterococcus, tissue cx with enterococcus. H/o anaphylaxis with PCN. 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 Cont vanc, levaquin, flagyl. Diverting ostomy planned once nutritional status and wounds improve. Waiting on susceptibilities of the enterococcus to decide re: 6 weeks of iv or po abx. Will follow (2) History of cerebrovascular accident (CVA) in adulthood:
--- NOTE | 2022-04-07 10:50 | WOUNDNOTE ---
washed legs and feet with soap and water. pat dry. applied aloe vesta and reapplied the kerlix and JLUIS wraps. pt tolerated well.
[2022-04-07 12:53] LABS: Vancomycin, Random Level 20.1 ug/mL (0.0-15.0)
--- NOTE | 2022-04-07 13:11 | CASEMGMT ---
Addendum entered by Hannah Gonzalez 04/07/22 14:31: Dr. Rios updated on likely discharge to [facility] 04/08, voices understanding. Cecilia SCHNEIDER CM Addendum entered by Hannah Gonzalez 04/07/22 14:17: Per Kia, pt meets criteria and they should be able to accept pt tomorrow. Kia states she will come and get consent from pt tomorrow am. CM to follow. Cecilia SCHNEIDER CM Original Note: Call from Kia at [facility] requesting updated vitals for pt, which were added to [facility]. Kia updated regarding surgeon recommendation to wait on diverting colostomy, voices understanding. Kia states she will call this RN CM back within an hour or so regarding acceptance. CM to follow. Cecilia SCHNEIDER CM
[2022-04-07] MEDS: metroNIDAZOLE 500 MG Tablet PO ×2 (13:21→23:15)
--- NOTE | 2022-04-07 13:31 | PHA.PHARE_ITS ---
Consult Pharmacy has been consulted to manage selected antiobiotic: Vancomycin Type of Consult: Follow-up Suspected Infection: Osteomyelitis Prior Doses of Antibiotics Received/Current Regimen: dosing is currently being held due to a high trough but the most recent was 7 50mg IV q12h Labs: Sodium 136 mmol/L (136-145) 04/07/22 04:47 Potassium 4.1 mmol/L (3.5-5.1) 04/07/22 04:47 Chloride 106 mmol/L (98-107) 04/07/22 04:47 Carbon Dioxide 25.0 mmol/L (21.0-32.0) 04/07/22 04:47 Anion Gap 5 (5-15) 04/07/22 04:47 BUN 29 mg/dL (7-18) H 04/07/22 04:47 Creatinine 1.40 mg/dL (0.55-1.02) H 04/07/22 04:47 Est GFR (MDRD) Af Amer 47 mL/min (>60) L 04/07/22 04:47 Est GFR (MDRD) Non-Af 39 mL/min (>60) L 04/07/22 04:47 BUN/Creatinine Ratio 20.7 RATIO (10-20) H 04/07/22 04:47 Glucose 105 mg/dL (74-106) 04/07/22 04:47 Vancomycin Trough 27.8 ug/mL (5.0-15.0) H 04/05/22 12:18 Random Vancomycin 20.1 ug/mL (0.0-15.0) H 04/07/22 12:00 Microbiology: Microbiology 04/03/22 Unknown Tissue - Sacral Gram Stain - Final 04/03/22 Unknown Tissue - Sacral Wound Culture - Preliminary Enterococcus raffinosus 04/03/22 Unknown Bone - Sacral Bone Gram Stain - Final 04/03/22 Unknown Bone - Sacral Bone Wound Culture - Preliminary Enterococcus raffinosus 03/31/22 11:13 Nasal Secretion SARS-CoV-2 & FLU Antigen (Rapid) - Final Weight used for dosin.8 kg Estimated Creatinine Clearance: 52 ml/min Goal Trough: 15-20 mcg/mL Pharmacy Plan for Drug Dosing: The vanc random level drawn at 12:00 today (approx 58 hours after the last dose of 750mg) was 20.1. This is still slightly above goal range so will wait another 8 hours to allow the level to drop below 20 and then will order a dose of 750mg IV x1 to be given at 20:00 tonight. The patient's SCr has risen from 0.78 to 1.40 over the past 72 hours so will not order a scheduled dose at this time. Will order a vanc random level to be drawn 24 hours after the dose tonight. The patient's CrCl of 52 ml/min was calculated using an adjusted body weight. Can consider resuming scheduled dosing once renal function has stabilized or improved. Pharmacy Service will continue to monitor and adjust dosing as required. Follow-Up Labs: Trough Vancomycin - random Labs to be done on [date and time ordered]: 04/08/22 20:00
[2022-04-07] MEDS: 0.9% Saline Lock 10 ML Syringe IV (20:46)
--- NOTE | 2022-04-07 22:31 | PCM.PN.SRG ---
Subjective Subjective Postop #4 Patient is resting comfortably. Objective Data Objective Data Vital Signs: Vital Signs Temp Pulse Resp BP Pulse Ox O2 Del Method O2 Flow Rate 97.8 F 88 18 96/51 L 93 Room Air 0 04/07/22 20:21 04/07/22 20:21 04/07/22 20:21 04/07/22 20:21 04/07/22 20:21 04/07/22 20:23 04/07/22 18:44 Oxygen Flow Rate (L/min) 0 Oxygen Delivery Method Room Air Weight: 299 lb 6.204 oz Body Mass Index (BMI) 45.5 Intake & Output: Intake and Output for Last 24 Hours 04/05/22 04/06/22 04/07/22 23:59 23:59 23:59 Intake Total 2763.33 / 2763.33 900 / 900 900 / 900 Output Total 200 / 325 325 / 325 400 / 400 Balance 2563.33 / 2438.33 575 / 575 500 / 500 Lab / Micro Data Attestation: I reviewed the patient's lab results. Result Diagrams: 04/07/22 04:47 04/07/22 04:47 Labs: Laboratory Results - last 24 hr 04/07/22 04:47: WBC 10.6, RBC 2.85 L, Hgb 9.0 L, Hct 27.0 L, MCV 94.7, MCH 31.6, MCHC 33.3, RDW Std Deviation 59.1 H, RDW Coeff of Chele 17.5 H, Plt Count 259, MPV 9.6, Immature Gran % (Auto) 0.800, Neut % (Auto) 86.4 H, Lymph % (Auto) 3.7 L, [place] % (Auto) 6.7, Eos % (Auto) 2.0, Baso % (Auto) 0.4, Absolute Neuts (auto) 9.2 H, Absolute Lymphs (auto) 0.39 L, Nucleated RBC % 0, Differential Comment SCANNED 04/07/22 04:47: Sodium 136, Potassium 4.1, Chloride 106, Carbon Dioxide 25.0, Anion Gap 5, BUN 29 H, Creatinine 1.40 H, Estim Creat Clear Calc 36.10, Est GFR (MDRD) Af Amer 47 L, Est GFR (MDRD) Non-Af 39 L, BUN/Creatinine Ratio 20.7 H, Glucose 105, Calcium 8.0 L 04/07/22 12:00: Random Vancomycin 20.1 H Micro: Microbiology 04/03/22 Unknown Tissue - Sacral Gram Stain - Final 04/03/22 Unknown Tissue - Sacral Wound Culture - Preliminary Enterococcus raffinosus 04/03/22 Unknown Bone - Sacral Bone Gram Stain - Final 04/03/22 Unknown Bone - Sacral Bone Wound Culture - Preliminary Enterococcus raffinosus 03/31/22 11:13 Nasal Secretion SARS-CoV-2 & FLU Antigen (Rapid) - Final Physical Exam Narrative PHYSICAL EXAMINATION General - Alert and Oriented. Neck - Supple and nontender.? No cervical adenopathy. Abdomen - Soft and nondistended. Sacral wound - stable.? No acute bleeding. Tolerating Dakin's dressing changes. Psych - Normal mood and affect. 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 Tolerated the Dakin's dressing change reasonably well. No active bleeding seen. Instead of restarting the Eliquis, Lovenox was started yesterday morning. Hgb this morning was 9.0. Continue Vancomycin, Levaquin, and Flagyl. ? Operative cultures show Enterococcus raffinosus.? Pathology is pending. General Surgery evaluated the patient for diverting colostomy. She has multiple medical co-morbidities especially severe malnutrition with a Prealbumin of 3.6. He recommended holding off on a colostomy until the nutrition is more maximized with a Prealbumin of 15 or more. She is in the process of being discharged to an LTAC. While there, they can obtain a General Surgery evaluation for a colostomy since it would be high risk for healing problems, and an LTAC is usually associated with a tertiary center for more high risk complex cases such as this one. Would benefit from a stay at an LTAC.? Evaluation in process. Continue nutritional supplementation with protein to help the healing process.
[2022-04-07] MEDS: levoFLOXacin IV 500 MG/100 ML BAG 100 MG IV (23:16)
[2022-04-08] VITALS (9 sets, daily range): BP systolic 91–110; BP diastolic 41–58; PULSE 78–94; RESP 18–20; TEMP 36.3–36.5; O2SAT 92–93
[2022-04-08] MEDS: Nystatin Powder 15gm Bottle 1 APPLIC TOPICAL ×2 (05:27→14:10)
[2022-04-08] MEDS: metroNIDAZOLE 500 MG Tablet PO ×2 (05:27→14:10)
--- NOTE | 2022-04-08 06:00 | NURSING ---
Charting reviewed with Rj SCHNEIDER.
--- NOTE | 2022-04-08 08:05 | PCM.PN.HOSP ---
Subjective Subjective Had some nausea today. Objective Data Objective Data Vital Signs: Vital Signs Temp Pulse Resp BP Pulse Ox O2 Del Method O2 Flow Rate 36.4 C L 85 18 110/58 L 93 Room Air 0 04/08/22 05:20 04/08/22 07:05 04/08/22 05:20 04/08/22 05:20 04/08/22 05:20 04/08/22 05:20 04/08/22 05:20 Oxygen Flow Rate (L/min) 0 Oxygen Delivery Method Room Air Weight: 137.4 kg Body Mass Index (BMI) 45.5 Intake & Output: Intake and Output for Last 24 Hours 04/06/22 04/07/22 04/08/22 23:59 23:59 23:59 Intake Total 900 / 900 1165 / 1405 580 / 580 Output Total 325 / 325 400 / 675 375 / 375 Balance 575 / 575 765 / 730 205 / 205 Lab / Micro Data Result Diagrams: 04/07/22 04:47 04/07/22 04:47 Labs: Laboratory Results - last 24 hr 04/07/22 12:00: Random Vancomycin 20.1 H Micro: Microbiology 04/03/22 Unknown Tissue - Sacral Gram Stain - Final 04/03/22 Unknown Tissue - Sacral Wound Culture - Preliminary Enterococcus raffinosus 04/03/22 Unknown Bone - Sacral Bone Gram Stain - Final 04/03/22 Unknown Bone - Sacral Bone Wound Culture - Preliminary Enterococcus raffinosus 03/31/22 11:13 Nasal Secretion SARS-CoV-2 & FLU Antigen (Rapid) - Final Physical Exam Const alert and no apparent distress Constitutional Narrative: Cachectic HEENT head/scalp atraumatic and moist oral mucous membranes Resp normal respiratory effort, no retractions, no use of accessory muscles and clear to auscultation bilaterally Cardio regular rate, regular rhythm, S1 normal heart sound and S2 normal heart sound GI normal to inspection, nondistended, normoactive bowel sounds, soft to palpation, non-tender and non-distended Extremity Extremity Narrative: Lower extremities wrapped. 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 Carlin 04/04/2022 down to the bone 04/05: Tissue growing alphahemolytic strep, sacral bone growing gram-positive organism. ID consulted. Will likely need urgent consult for diverting colostomy 04/06: Seen by ID: Cont vanc, levofloxacin, and metronidazole. DW Dr. Goldstein, patient is a poor surgical candidate at this time given the multitude of factors, including pulm hypertension, CHF is well as severe protein calorie malnutrition.. With the nutritional status should have a high likelihood of poor wound healing and could develop further complications including hernia or dehiscence. He recommended that nutrition optimization before undergoing surgery. He also recommended follow-up with a surgeon at a tertiary facility given her high risk features. No diverting colostomy at this time. Patient will need to be more medically, nutritionally optimized to undergo that procedure. General surgery recommending evaluation at tertiary care center. By the time the patient could be optimized would be hoped that she may not need a diverting colostomy but remains to be seen. Antibiotics with vancomycin and levofloxacin. Patient will need 6 weeks of antibiotics. (2) Acute exacerbation of CHF (congestive heart failure): QUALIFIERS: Heart failure type: unspecified Qualified Code(s): I50.9 - Heart failure, unspecified PLAN: acute on chronic heart failure with reduced ejection fraction Resolved and compensated this time Echocardiogram from the showed an EF of 40%, severely dilated right ventricle, severe global right ventricular systolic dysfunction, left atrium mildly enlarged, right atrium severely enlarged., Right ventricular systolic pressure is 71 mmHg with severe pulmonary hypertension. 04/01: Updated echo with EF of 40% with D-shaped septum and dilated right ventricle, has severe pulmonary hypertension with RVSP of 71. We will continue diuresis. Continue daily weights. O2 sat adequate, kidney function stable 04/02: Continue diuresis and I's and O's. Overall improved from admission 04/03: We will transition to oral Lasix 04/04: Was n.p.o. yesterday and likely had losses from surgery, BP low this morning, holding metoprolol and Lasix and giving small fluid bolus. Will monitor respiratory status closely 04/05: Holding fluids but also will hold off on Lasix at this time, continue to monitor daily weights. Monitor respiratory status (3) Paroxysmal atrial fibrillation: PLAN: Atrial fibrillation, paroxysmal Accelerated rate on admission Given bolus of diltiazem and additional dose and heart rate has been within normal limits Unclear why not on rate control at baseline Given that she is not on a beta-janice and that she has heart failure may need amiodarone for rate control with acute exacerbation with ultimate transition to beta-janice Previously was on Eliquis appears he was advised to hold for 3 days after visit in ED last month due to some bleeding, unclear if this was ever restarted. No evidence of bleeding hemoglobin stable so we will resume 04/01: Unclear if she was supposed to be on Eliquis at home, did have a drop in hemoglobin and previously there have been concerned because she would bleed from her wounds. We will hold it today, are pending possible debridement evaluation as well. Continue metoprolol. Possibly had been on sotalol for her A. fib, will try to clarify 04/02: Unable to tell me if she takes sotalol at home, however BP has been borderline so this was is held at this time and she Toprol twice daily 04/03: Continue metoprolol 12.5 mg twice daily 04/04: holding metoprolol due to her low BP. Per Dr. Carlin resume Eliquis tomorrow 04/05: Heart rate slightly up due to metoprolol being held but BP still low. Did respond some to 1 unit packed red blood cells. Metoprolol with holding parameters, holding Eliquis at this time. On telemetry. Has a history of swelling with heparin, no place acceptable for SCDs, fondaparinux on not an option for DVT prophylaxis. Unclear if reaction with Lovenox in the past, will discuss risks and benefits. 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 No treatment needed at this time. (5) Anemia, chronic disease: PLAN: Stable. Monitor. 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 Continue Sushil supplements Diet carb controlled as well as Glucerna shakes 3 times daily with meals Continue with nutritional services PLAN: Plan #Chronic leg changes Appears to have lymphedematous changes with chronic skin changes Wound care #History of CVA 5 years ago Aspirin #Hypothyroidism Continue Synthroid VTE prophylaxis with enoxaparin Disposition: To LTAC on the .
[2022-04-08] MEDS: Metoprolol Tartrate 25 MG Tablet 12.5 MG PO (08:29)
[2022-04-08] MEDS: Enoxaparin 40 MG/0.4 ML Syringe SC (08:30)
[2022-04-08] MEDS: Allopurinol 300 MG Tablet PO (08:30)
[2022-04-08] MEDS: Levothyroxine 25 MCG TABLET PO (08:30)
[2022-04-08] MEDS: Pantoprazole Sodium 40 MG Tablet PO (08:30)
[2022-04-08] MEDS: Magnesium Chloride 64 MG Delay Rel.Tablet 128 MG PO (08:30)
--- NOTE | 2022-04-08 09:41 | CASEMGMT ---
Addendum entered by Hannah Gonzalez 04/08/22 15:05: Pt updated on all, voices understanding and voices no further questions/concerns/needs. Cecilia SCHNEIDER CM Addendum entered by Hannah Gonzalez 04/08/22 14:10: Dr. Dave provided 2 antibx scripts for at [facility] and these were faxed to [facility] at this time. Dr. Dave states pt will need PICC and is aware pt set for pick to [facility] at 1600. Dean SCHNEIDER aware to notify nursing when calls report regarding IV antibx and PICC line needed, voices understanding. Cecilia SCHNEIDER CM Original Note: Call from Kia at [facility] and she states pt able to come today and would like transport set up for 1600. Kia would like updated labs, progress note, and MAR sent to her via [facility] at this time and these were sent. Transfer summary to be faxed to [phone] and report called 2 hours prior to transport to sewing department supervisor at [phone]. Dean SCHNEIDER, and [employer] membership secretary updated on all, voices understanding. Dairy Quality Assurance Officer to set up transport for 1600. Dr. Rios updated, voices understanding. CM to follow. Cecilia SCHNEIDER CM
--- NOTE | 2022-04-08 10:26 | PCM.TXEXTCAR ---
Diet Diet Order/Speech Therapy: 04/03/22 23:00 Diet: Carbohydrate Controlled Dietary Modifications:: Sodium Restricted Type of Dietary Supplement:: Glucerna Shake Fluid restriction:: 1500 mL Diet Comments: 120ml glucerna shake TID w/ meals Wound(s) BUTTOCK: Wound Type: Pressure Injury Rt 2nd toe: Wound Type: Pressure Injury Rt 3rd toe: Wound Type: Pressure Injury Rt 4th toe: Wound Type: Pressure Injury Rt forearm: Wound Type: Abrasion Lt wrist: Wound Type: Abrasion right upper posterior thigh/gluteal fold: Wound Type: shear injury Dressing Change: Adaptic with dry dressing sacrum: Wound Type: Pressure Injury Dressing Change: Dakins moistened gauze left heel: Wound Type: Pressure Injury Dressing Change: well padded dressing left 2nd, 3rd, and 4th toes: Wound Type: maceration with open wounds Dressing Change: dry dressing L under arm: Wound Type: Skin Tear Therapies Weight Bearing: Weight bearing as tolerated Extremity Affected:: Bilateral Lower Physical Therapy: Eval and Treat Occupational Therapy: Eval and Treat Problem/Diagnosis (1) Pressure ulcer of sacral region, stage 4: Status: Chronic Code(s): L89.154 - Pressure ulcer of sacral region, stage 4 Plan: 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 Carlin 04/04/2022 down to the bone 04/05: Tissue growing alphahemolytic strep, sacral bone growing gram-positive organism. ID consulted. Will likely need urgent consult for diverting colostomy 04/06: Seen by ID: Cont vanc, levofloxacin, and metronidazole. DW Dr. Goldstein, patient is a poor surgical candidate at this time given the multitude of factors, including pulm hypertension, CHF is well as severe protein calorie malnutrition.. With the nutritional status should have a high likelihood of poor wound healing and could develop further complications including hernia or dehiscence. He recommended that nutrition optimization before undergoing surgery. He also recommended follow-up with a surgeon at a tertiary facility given her high risk features. No diverting colostomy at this time. Patient will need to be more medically, nutritionally optimized to undergo that procedure. General surgery recommending evaluation at tertiary care center. By the time the patient could be optimized would be hoped that she may not need a diverting colostomy but remains to be seen. Antibiotics with vancomycin and levofloxacin. Patient will need 6 weeks of antibiotics. (2) Acute exacerbation of CHF (congestive heart failure): Status: Chronic Code(s): I50.9 - Heart failure, unspecified Plan: acute on chronic heart failure with reduced ejection fraction Resolved and compensated this time Echocardiogram from the showed an EF of 40%, severely dilated right ventricle, severe global right ventricular systolic dysfunction, left atrium mildly enlarged, right atrium severely enlarged., Right ventricular systolic pressure is 71 mmHg with severe pulmonary hypertension. 04/01: Updated echo with EF of 40% with D-shaped septum and dilated right ventricle, has severe pulmonary hypertension with RVSP of 71. We will continue diuresis. Continue daily weights. O2 sat adequate, kidney function stable 04/02: Continue diuresis and I's and O's. Overall improved from admission 04/03: We will transition to oral Lasix 04/04: Was n.p.o. yesterday and likely had losses from surgery, BP low this morning, holding metoprolol and Lasix and giving small fluid bolus. Will monitor respiratory status closely 04/05: Holding fluids but also will hold off on Lasix at this time, continue to monitor daily weights. Monitor respiratory status (3) Paroxysmal atrial fibrillation: Status: Chronic Code(s): I48.0 - Paroxysmal atrial fibrillation Plan: Atrial fibrillation, paroxysmal Accelerated rate on admission Given bolus of diltiazem and additional dose and heart rate has been within normal limits Unclear why not on rate control at baseline Given that she is not on a beta-janice and that she has heart failure may need amiodarone for rate control with acute exacerbation with ultimate transition to beta-janice Previously was on Eliquis appears he was advised to hold for 3 days after visit in ED last month due to some bleeding, unclear if this was ever restarted. No evidence of bleeding hemoglobin stable so we will resume 04/01: Unclear if she was supposed to be on Eliquis at home, did have a drop in hemoglobin and previously there have been concerned because she would bleed from her wounds. We will hold it today, are pending possible debridement evaluation as well. Continue metoprolol. Possibly had been on sotalol for her A. fib, will try to clarify 04/02: Unable to tell me if she takes sotalol at home, however BP has been borderline so this was is held at this time and she Toprol twice daily 04/03: Continue metoprolol 12.5 mg twice daily 04/04: holding metoprolol due to her low BP. Per Dr. Carlin resume Eliquis tomorrow 04/05: Heart rate slightly up due to metoprolol being held but BP still low. Did respond some to 1 unit packed red blood cells. Metoprolol with holding parameters, holding Eliquis at this time. On telemetry. Has a history of swelling with heparin, no place acceptable for SCDs, fondaparinux on not an option for DVT prophylaxis. Unclear if reaction with Lovenox in the past, will discuss risks and benefits. (4) DM2 (diabetes mellitus, type 2): Status: Chronic Code(s): E11.9 - Type 2 diabetes mellitus without complications Plan: a1c 5.3 glucose has been stable. No treatment needed at this time. (5) Anemia, chronic disease: Status: Chronic Code(s): D63.8 - Anemia in other chronic diseases classified elsewhere Plan: Stable. Monitor. 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 Continue Sushil supplements Diet carb controlled as well as Glucerna shakes 3 times daily with meals Continue with nutritional services Plan #Chronic leg changes Appears to have lymphedematous changes with chronic skin changes Wound care #History of CVA 5 years ago Aspirin #Hypothyroidism Continue Synthroid VTE prophylaxis with enoxaparin Disposition: To LTAC on the . Allergies/Procedures Done in Hospital Allergies Penicillins Allergy (Severe, Verified 03/31/22 07:34) Anaphylaxis They said if I took it I would heparin Allergy (Mild, Verified 03/31/22 07:34) Other FACIAL SWELLING alteplase Allergy (Verified 03/31/22 07:34) Angioedema cefaclor [From Ceclor] Allergy (Verified 03/31/22 07:34) Other pt unaware of reaction. ketoprofen [From Orudis] Allergy (Verified 03/31/22 07:34) Other Pt unaware of reaction. ketorolac [From Toradol] Allergy (Verified 03/31/22 07:34) Angioedema niacin Allergy (Verified 03/31/22 07:34) Other Flushing adhesive tape [tape] Adverse Reaction (Verified 03/31/22 09:47) Rash NYLON TAPE atorvastatin Adverse Reaction (Verified 03/31/22 07:34) Other MUSCLE ACHES Procedures: - (Excision necrotic sacral pressure sore, Stage IV, with partial ostectomy for osteomyelitis.) Type of Care/Length of Stay Estimated LOS: More Than 30 Days Type of Care Needed: LTAC Rehab Potential: Fair Prognosis: Good Additional Orders/Day of Discharge Day of Discharge: 04/08/22 Dietary and Speech Recommendations Dietitian Recommendations/Changes: Continue Carbohydrate-Controlled diet with sodium-restriction and 1500ml FR per day. Continue Sushil BID for wound healing. Will add 120 ml glucerna shake TID w/ meals. Discharge Plan Admission Admit Date/Time: 03/31/22 13:39 Primary Reason for Your Visit: Necrotic sacral pressure ulcer with osteomyelitis. Attending Provider: Barry Rios Primary Care Provider: Kanwal Baker Consulting Providers: Hayden Carlin ; Jacky Dave ; Tova Terrell ; Brayan Goldstein Discharge Orders/Prescriptions Prescriptions: New albuterol sulfate 2.5 mg /3 mL (0.083 %) Solution For Nebulization 2.5 mg inhalation Q2H PRN PRN (Reason: SOB/Wheezing) Qty: 0 0RF enoxaparin 40 mg/0.4 mL Syringe 40 mg subcut DAILY Qty: 0 0RF levofloxacin in D5W 500 mg/100 mL Piggyback 500 mg IV Q24@2200 42 Days Qty: 0 0RF metoprolol tartrate 25 mg Tablet 12.5 mg PO BID Qty: 0 0RF Sushil (with collagen) 7-7-1.5 gram Powder In Packet 1 packet PO BIDCM Qty: 0 0RF metronidazole 500 mg Tablet 500 mg PO TID 42 Days Qty: 0 0RF alum-mag hydroxide-simeth [Mag-Al Plus Extra Strength] 400-400-40 mg/5 mL Suspension 30 ml PO Q6H PRN PRN (Reason: Gastric Burning) Qty: 100 0RF sennosides-docusate sodium [Stool Softener-Stimulant Laxat] 8.6-50 mg Tablet 2 tab PO BID PRN PRN (Reason: Constipation) Qty: 30 0RF vancomycin 1,000 mg Recon Soln 1 ea IV PRN PRN (Reason: Rx To Dose) Qty: 0 0RF Protocol: Vancomycin Initial Order Vancomycin Initial Dose (mg/kg) 25 mg/kg (2g max) Vancomycin Trough Goal for Pharmacy Dosing 15-20 mcg/mL pantoprazole 40 mg Tablet,Delayed Release (Dr/Ec) 40 mg PO BID Qty: 60 0RF Rx Instructions: for 2 weeks, then 1 daily thereafter. nystatin [Nyamyc] 100,000 unit/gram Powder 1 applic topical TID Qty: 0 0RF Protocol: *Topical Application Instructions APPLICATION INSTRUCTIONS: Abdominal folds, under breasts. cholecalciferol (vitamin D3) 125 mcg (5,000 unit) Capsule 125 mcg PO QWEEK Qty: 10 0RF HySept 0.25 % Solution 1 applic topical DAILY Qty: 473 0RF Protocol: *Topical Application Instructions APPLICATION INSTRUCTIONS: sacral wound Continued levothyroxine 25 mcg tablet 25 mcg PO DAILY acetaminophen [Tylenol] 325 mg tablet 650 mg PO Q6H PRN (Reason: pain) Qty: 1 0RF magnesium oxide 400 MG tablet 400 mg PO DAILY Label Comments: SUPPLEMENT multivitamin Tablet 1 tab PO DAILY aspirin 81 mg Tablet,Delayed Release (Dr/Ec) 81 mg PO DAILY PRN (Reason: HEADACHES) allopurinol 300 mg tablet 300 mg PO DAILY Discontinued sulfamethoxazole-trimethoprim 800-160 mg tablet 1 tab PO MOFR Label Comments: TAKE 1 (ONE) TABLET BY MOUTH EVERY WEDNESDAY, WEDNESDAY, WEDNESDAY sotalol 120 mg Tablet 120 mg PO BID zinc oxide Ointment 1 applic TOPICAL UD Referrals / Follow Up: Kanwal Baker DO [Primary Care Provider] - Disposition Disposition (needs filled in before D/C Order can be placed): Shelter Acute Care (1) Acute exacerbation of CHF (congestive heart failure) Qualifiers: Heart failure type: unspecified Qualified Code(s): I50.9 - Heart failure, unspecified (2) DM2 (diabetes mellitus, type 2) Qualifiers: Diabetes mellitus complication status: without complication 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
--- NOTE | 2022-04-08 10:38 | DS.PCM_ITS ---
Providers Date of Admission: 03/31/22 Primary Care Physician: Dr. Kanwal Baker, Consultations 03/31/22 09:37 Consult: Onc/Wound/collaborating supervising physician Routine Comment: Reason for Consult:: Gluteal wound 03/31/22 14:21 Consult: Plastic Surgery Routine Consulting Provider: Hayden Carlin Reason for Consult: Significant sacral wound with eschar and purulent drainage, ?debridement EMERGENT Consult: No MD Notified: Yes Date Notified: 03/31/22 Time Notified: 14:21 Method of Notification: Text 04/05/22 07:09 Consult: Infectious Disease Routine Consulting Provider: Jacky Dave Reason for Consult: Stage IV sacral ulcer, s/p debridement, abx recs EMERGENT Consult: No MD Notified: Yes Date Notified: 04/05/22 Time Notified: 07:09 Method of Notification: Answering Service 04/06/22 15:17 Consult: General Surgery Routine Consulting Provider: Brayan Goldstein Reason for Consult: diverting colostomy EMERGENT Consult: No MD Notified: Yes Date Notified: 04/06/22 Time Notified: 15:18 Method of Notification: Verbal Reason For Visit: EXACERBATION CHF, AFIB RVR, ANASARCA Diagnosis Discharge Diagnosis (1) Pressure ulcer of sacral region, stage 4: Status: Chronic Code(s): L89.154 - Pressure ulcer of sacral region, stage 4 Plan: Large sacral wound with osteomyelitis stage IV pressure ulcer present on admission There was concern for purulent drainage and infection so she is on broad- spectrum antibiotics with metronidazole, Levaquin, Status post debridement by Dr. Carlin 04/04/2022 down to the bone 04/05: Tissue growing alphahemolytic strep, sacral bone growing gram-positive organism. ID consulted. Will likely need urgent consult for diverting colostomy 04/06: Seen by ID: Cont vanc, levofloxacin, and metronidazole. DW Dr. Goldstein, patient is a poor surgical candidate at this time given the multitude of factors, including pulm hypertension, CHF is well as severe protein calorie malnutrition.. With the nutritional status should have a high likelihood of poor wound healing and could develop further complications including hernia or dehiscence. He recommended that nutrition optimization before undergoing surgery. He also recommended follow-up with a surgeon at a tertiary facility given her high risk features. No diverting colostomy at this time. Patient will need to be more medically, nutritionally optimized to undergo that procedure. General surgery recommending evaluation at tertiary care center. By the time the patient could be optimized would be hoped that she may not need a diverting colostomy but remains to be seen. Antibiotics with vancomycin and levofloxacin. Patient will need 6 weeks of antibiotics. (2) Acute exacerbation of CHF (congestive heart failure): Status: Chronic Code(s): I50.9 - Heart failure, unspecified Qualifiers: Heart failure type: unspecified Qualified Code(s): I50.9 - Heart failure, unspecified Plan: acute on chronic heart failure with reduced ejection fraction Resolved and compensated this time Echocardiogram from the showed an EF of 40%, severely dilated right ventricle, severe global right ventricular systolic dysfunction, left atrium mildly enlarged, right atrium severely enlarged., Right ventricular systolic pressure is 71 mmHg with severe pulmonary hypertension. 04/01: Updated echo with EF of 40% with D-shaped septum and dilated right ventricle, has severe pulmonary hypertension with RVSP of 71. We will continue diuresis. Continue daily weights. O2 sat adequate, kidney function stable 04/02: Continue diuresis and I's and O's. Overall improved from admission 04/03: We will transition to oral Lasix 04/04: Was n.p.o. yesterday and likely had losses from surgery, BP low this morning, holding metoprolol and Lasix and giving small fluid bolus. Will monitor respiratory status closely 04/05: Holding fluids but also will hold off on Lasix at this time, continue to monitor daily weights. Monitor respiratory status (3) Paroxysmal atrial fibrillation: Status: Chronic Code(s): I48.0 - Paroxysmal atrial fibrillation Plan: Atrial fibrillation, paroxysmal Accelerated rate on admission Given bolus of diltiazem and additional dose and heart rate has been within normal limits Unclear why not on rate control at baseline Given that she is not on a beta-janice and that she has heart failure may need amiodarone for rate control with acute exacerbation with ultimate transition to beta-janice Previously was on Eliquis appears he was advised to hold for 3 days after visit in ED last month due to some bleeding, unclear if this was ever restarted. No evidence of bleeding hemoglobin stable so we will resume 04/01: Unclear if she was supposed to be on Eliquis at home, did have a drop in hemoglobin and previously there have been concerned because she would bleed from her wounds. We will hold it today, are pending possible debridement evaluation as well. Continue metoprolol. Possibly had been on sotalol for her A. fib, will try to clarify 04/02: Unable to tell me if she takes sotalol at home, however BP has been borderline so this was is held at this time and she Toprol twice daily 04/03: Continue metoprolol 12.5 mg twice daily 04/04: holding metoprolol due to her low BP. Per Dr. Carlin resume Eliquis tomorrow 04/05: Heart rate slightly up due to metoprolol being held but BP still low. Did respond some to 1 unit packed red blood cells. Metoprolol with holding parameters, holding Eliquis at this time. On telemetry. Has a history of swelling with heparin, no place acceptable for SCDs, fondaparinux on not an opti on for DVT prophylaxis. Unclear if reaction with Lovenox in the past, will discuss risks and benefits. (4) DM2 (diabetes mellitus, type 2): Status: Chronic Code(s): E11.9 - Type 2 diabetes mellitus without complications Qualifiers: Diabetes mellitus complication status: without complication Diabetes mellitus mcfp insulin use: without termite exterminator use Qualified Code(s): E11.9 - Type 2 diabetes mellitus without complications Plan: a1c 5.3 glucose has been stable. No treatment needed at this time. (5) Anemia, chronic disease: Status: Chronic Code(s): D63.8 - Anemia in other chronic diseases classified elsewhere Plan: Stable. Monitor. 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 Continue Sushil supplements Diet carb controlled as well as Glucerna shakes 3 times daily with meals Continue with nutritional services Plan #Chronic leg changes Appears to have lymphedematous changes with chronic skin changes Wound care #History of CVA 5 years ago Aspirin #Hypothyroidism Continue Synthroid VTE prophylaxis with enoxaparin Disposition: To LT[facility] on the . Medications at Discharge Home Medications levothyroxine 25 mcg tablet 25 mcg PO DAILY THYROID 10/05/20 acetaminophen 325 mg tablet (Tylenol) 650 mg PO Q6H PRN pain #1 TAB 11/26/20 allopurinol 300 mg tablet 300 mg PO DAILY GOUT 03/31/22 aspirin 81 mg tablet,delayed release 81 mg PO DAILY PRN HEADACHES 03/31/22 magnesium oxide 400 mg (241.3 mg magnesium) tablet 400 mg PO DAILY SUPPLEMENT 03/31/22 multivitamin 1 tab PO DAILY HEALTH MAINTENANCE 03/31/22 albuterol sulfate 2.5 mg/3 mL (0.083 %) solution for nebulization 2.5 mg (3 mL) inhalation Q2H PRN PRN SOB/Wheezing #0 mL 04/08/22 aluminum-mag hydroxide-simethicone 400 mg-400 mg-40 mg/5 mL oral susp (Mag-Al Plus Extra Strength) 30 ml PO Q6H PRN PRN Gastric Burning #100 mL 04/08/22 arginine 7 gram-glutam 7 gram-CaHMB 1.5 [id number]-min oral pwd pkt (Sushil (with collagen)) 1 packet PO BIDCM #0 ea 04/08/22 cholecalciferol (vitamin D3) 125 mcg (5,000 unit) capsule 125 mcg PO QWEEK #10 caps 04/08/22 enoxaparin 40 mg/0.4 mL subcutaneous syringe 40 mg (0.4 mL) subcut DAILY #0 mL 04/08/22 levofloxacin 500 mg/100 mL in 5 % dextrose intravenous piggyback 500 mg IV Q24@2200 6 weeks #0 mL 04/08/22 metoprolol tartrate 25 mg tablet 12.5 mg PO BID #0 tabs 04/08/22 metronidazole 500 mg tablet 500 mg PO TID 6 weeks #0 tabs 04/08/22 nystatin 100,000 unit/gram topical powder (Nyamyc) 1 applic topical TID #0 grams 04/08/22 pantoprazole 40 mg tablet,delayed release 40 mg PO BID #60 tabs 04/08/22 sennosides 8.6 mg-docusate sodium 50 mg tablet (Stool Softener-Stimulant Laxative) 2 tab PO BID PRN PRN Constipation #30 tabs 04/08/22 sodium hypochlorite 0.25 % solution (HySept) 1 applic topical DAILY #473 mL 03/18 08/05 vancomycin 1,000 mg intravenous injection 1 ea IV PRN PRN Rx To Dose #0 ea 04/08/22 Hospital Course Operations - (Excision necrotic sacral pressure sore, Stage IV, with partial ostectomy for osteomyelitis.) Procedures 2-D Echocardiogram Summary of Care Provided Minutes Spent on Discharge: 40 Weight / BMI Weight Weight: 137.4 kg Body Mass Index (BMI) 45.5 ABG / Lab / Microbiology Data Result Diagrams: 04/07/22 04:47 04/07/22 04:47 Laboratory: Laboratory Results - last 24 hr 04/07/22 12:00: Random Vancomycin 20.1 H Microbiology: Microbiology 04/03/22 Unknown Bone - Sacral Bone Gram Stain - Final 04/03/22 Unknown Bone - Sacral Bone Wound Culture - Preliminary Enterococcus raffinosus 04/03/22 Unknown Bone - Sacral Bone Anaerobic Culture - Preliminary 04/03/22 Unknown Tissue - Sacral Gram Stain - Final 04/03/22 Unknown Tissue - Sacral Wound Culture - Preliminary Enterococcus raffinosus 03/31/22 11:13 Nasal Secretion SARS-CoV-2 & FLU Antigen (Rapid) - Final Meaningful Use Info Meaningful Use Diagnoses (Choose all that apply): CHF CHF JLUIS/ARB ordered at discharge?: No Reason JLUIS/ARB not ordered?: Worsening renal disease Documented LVEF (%): 40 Discharge Plan Admission Admit Date/Time: 03/31/22 13:39 Primary Reason for Your Visit: Necrotic sacral pressure ulcer with osteomyelitis. Attending Provider: Barry Rios Primary Care Provider: Kanwal Baker Consulting Providers: Hayden Carlin ; Jacky Dave ; Tova Terrell ; Brayan Goldstein Discharge Orders/Prescriptions Prescriptions: New albuterol sulfate 2.5 mg /3 mL (0.083 %) Solution For Nebulization 2.5 mg inhalation Q2H PRN PRN (Reason: SOB/Wheezing) Qty: 0 0RF enoxaparin 40 mg/0.4 mL Syringe 40 mg subcut DAILY Qty: 0 0RF levofloxacin in D5W 500 mg/100 mL Piggyback 500 mg IV Q24@2200 42 Days Qty: 0 0RF metoprolol tartrate 25 mg Tablet 12.5 mg PO BID Qty: 0 0RF Sushil (with collagen) 7-7-1.5 gram Powder In Packet 1 packet PO BIDCM Qty: 0 0RF metronidazole 500 mg Tablet 500 mg PO TID 42 Days Qty: 0 0RF alum-mag hydroxide-simeth [Mag-Al Plus Extra Strength] 400-400-40 mg/5 mL Suspension 30 ml PO Q6H PRN PRN (Reason: Gastric Burning) Qty: 100 0RF sennosides-docusate sodium [Stool Softener-Stimulant Laxat] 8.6-50 mg Tablet 2 tab PO BID PRN PRN (Reason: Constipation) Qty: 30 0RF vancomycin 1,000 mg Recon Soln 1 ea IV PRN PRN (Reason: Rx To Dose) Qty: 0 0RF Protocol: Vancomycin Initial Order Vancomycin Initial Dose (mg/kg) 25 mg/kg (2g max) Vancomycin Trough Goal for Pharmacy Dosing 15-20 mcg/mL pantoprazole 40 mg Tablet,Delayed Release (Dr/Ec) 40 mg PO BID Qty: 60 0RF Rx Instructions: for 2 weeks, then 1 daily thereafter. nystatin [Nyamyc] 100,000 unit/gram Powder 1 applic topical TID Qty: 0 0RF Protocol: *Topical Application Instructions APPLICATION INSTRUCTIONS: Abdominal folds, under breasts. cholecalciferol (vitamin D3) 125 mcg (5,000 unit) Capsule 125 mcg PO QWEEK Qty: 10 0RF HySept 0.25 % Solution 1 applic topical DAILY Qty: 473 0RF Protocol: *Topical Application Instructions APPLICATION INSTRUCTIONS: sacral wound Continued levothyroxine 25 mcg tablet 25 mcg PO DAILY acetaminophen [Tylenol] 325 mg tablet 650 mg PO Q6H PRN (Reason: pain) Qty: 1 0RF magnesium oxide 400 MG tablet 400 mg PO DAILY Label Comments: SUPPLEMENT multivitamin Tablet 1 tab PO DAILY aspirin 81 mg Tablet,Delayed Release (Dr/Ec) 81 mg PO DAILY PRN (Reason: HEADACHES) allopurinol 300 mg tablet 300 mg PO DAILY Discontinued sulfamethoxazole-trimethoprim 800-160 mg tablet 1 tab PO MOFR Label Comments: TAKE 1 (ONE) TABLET BY MOUTH EVERY WEDNESDAY, WEDNESDAY, WEDNESDAY sotalol 120 mg Tablet 120 mg PO BID zinc oxide Ointment 1 applic TOPICAL UD Referrals / Follow Up: Kanwal Baker DO [Primary Care Provider] - Disposition Disposition (needs filled in before D/C Order can be placed): [facility] Acute Care Charges/Coding Visit Charges Inpatient E&M: 08649 Disch Hosp
[2022-04-08] MEDS: DAKIN'S SOL HALF STRENGTH (=0.25%) 1 APPLIC TOPICAL (11:01)
--- NOTE | 2022-04-08 13:54 | PN.ID_ITS ---
Physical Exam Narrative Feeling ok, transfer planned, no fever, no n/v/d. Const alert and no apparent distress Resp normal air movement and clear to auscultation bilaterally Cardio regular rate and regular rhythm GI soft to palpation, non-tender and non-distended Skin Skin Narrative: no new rash ID ID: Route of nutrition/ use of supplements: [] Nutritional Intake: [] IV Site: [] Alvarez Catheter: [] Assessment & Plan Assessment/Plan (1) Osteomyelitis of pelvis: PLAN: Now s/p OR 04/03/[address] Carlin for I&D down to bone. Bone cx with enterococcus, tissue cx with VRE. H/o anaphylaxis with PCN. 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 On vanc, levaquin, flagyl. Diverting ostomy planned once nutritional status and wounds improve. Will order picc, plan on 6 weeks iv dapto, po levaquin, po flagyl; stop date 05/15/22. Weekly bmp, cbc, lft, CK, and esr. Wrote rx, d/w mattress spring encaser Will follow, ID followup in 2 weeks (2) History of cerebrovascular accident (CVA) in adulthood:
--- NOTE | 2022-04-08 14:18 | NURSING ---
Call placed to automobile accessories installer to see if PICC line could be placed prior to patient discharge at 1600. packaging specialist calling nurse to see if it would be possible to have PICC line inserted by 1600 and calling this RN back.
--- NOTE | 2022-04-08 14:21 | PHA.DC.MR ---
Pharmacy Service has performed discharge medication reconciliation for this patient. The patient's discharge medication list was reviewed for discrepancies and discrepancies were resolved. Home Medications levothyroxine 25 mcg tablet 25 mcg PO DAILY THYROID 10/05/20 acetaminophen 325 mg tablet (Tylenol) 650 mg PO Q6H PRN pain #1 TAB 11/26/20 allopurinol 300 mg tablet 300 mg PO DAILY GOUT 03/31/22 aspirin 81 mg tablet,delayed release 81 mg PO DAILY PRN HEADACHES 03/31/22 magnesium oxide 400 mg (241.3 mg magnesium) tablet 400 mg PO DAILY SUPPLEMENT 03/31/22 multivitamin 1 tab PO DAILY HEALTH MAINTENANCE 03/31/22 albuterol sulfate 2.5 mg/3 mL (0.083 %) solution for nebulization 2.5 mg (3 mL) inhalation Q2H PRN PRN SOB/Wheezing #0 mL 04/08/22 aluminum-mag hydroxide-simethicone 400 mg-400 mg-40 mg/5 mL oral susp (Mag-Al Plus Extra Strength) 30 ml PO Q6H PRN PRN Gastric Burning #100 mL 04/08/22 apixaban 5 mg tablet 5 mg PO BID #60 tabs 04/08/22 arginine 7 gram-glutam 7 gram-CaHMB 1.5 [id number]-[id number]-min oral pwd pkt (Sushil (with collagen)) 1 packet PO BIDCM #0 ea 04/08/22 cholecalciferol (vitamin D3) 125 mcg (5,000 unit) capsule 125 mcg PO QWEEK #10 caps 04/08/22 daptomycin 500 mg intravenous solution 1,000 mg IV Q24H 38 days #38 ea 04/08/22 enoxaparin 40 mg/0.4 mL subcutaneous syringe 40 mg (0.4 mL) subcut DAILY #0 mL 04/08/22 levofloxacin 500 mg tablet 250 mg PO DAILY #20 tabs 04/08/22 metoprolol tartrate 25 mg tablet 12.5 mg PO BID #0 tabs 04/08/22 metronidazole 500 mg tablet 500 mg PO TID 6 weeks #0 tabs 04/08/22 nystatin 100,000 unit/gram topical powder (Nyamyc) 1 applic topical TID #0 grams 04/08/22 pantoprazole 40 mg tablet,delayed release 40 mg PO BID #60 tabs 04/08/22 sennosides 8.6 mg-docusate sodium 50 mg tablet (Stool Softener-Stimulant Laxative) 2 tab PO BID PRN PRN Constipation #30 tabs 04/08/22 sodium hypochlorite 0.25 % solution (HySept) 1 applic topical DAILY #473 mL 04/08/22
--- NOTE | 2022-04-08 14:32 | NURSING ---
Report called to nurse Infante from LTACH at [facility]. Will assume care of pt when she is transferred and arrives at facility.
--- NOTE | 2022-04-08 14:39 | NURSING ---
stock letterer called back and due to patient being in A-Fib, there would not be enough time for them to come and safely place PICC line prior to patient leaving at 1600. Primary RN notified.
[2022-04-08] MEDS: 0.9% Saline Lock 10 ML Syringe IV (14:54)
--- NOTE | 2022-04-08 16:10 | NURSING ---
Report given to [facility]. Will assume care of pt as they transport her to [facility] unit. Pt IV left in place per nurses request from [facility].
== END 2022-04-08 16:26 | DRG 628 ==
LOC: ED 08:44 → PCU 09:31
PROVIDERS: Family Medicine; Surgery; Admitting Provider Internal Medicine; Emergency Provider Emergency Medicine
PROC: 0QB10ZZ Excision of Sacrum, Open Approach (ICD-10-PCS; CPT 15999; principal; 2022-04-03 13:00)
DX: E11.69 Type 2 diabetes mellitus with other specified complication (principal); I50.23 Acute on chronic systolic (congestive) heart failure; E43 Unspecified severe protein-calorie malnutrition; L89.154 Pressure ulcer of sacral region, stage 4; E87.20 Acidosis, unspecified; E87.1 Hypo-osmolality and hyponatremia; I69.352 Hemiplegia and hemiparesis following cerebral infarction affecting left dominant side; Z68.42 Body mass index [BMI] 45.0-49.9, adult; M46.28 Osteomyelitis of vertebra, sacral and sacrococcygeal region; I27.20 Pulmonary hypertension, unspecified; D63.8 Anemia in other chronic diseases classified elsewhere; I48.0 Paroxysmal atrial fibrillation; I11.0 Hypertensive heart disease with heart failure; E11.65 Type 2 diabetes mellitus with hyperglycemia; E03.9 Hypothyroidism, unspecified; E78.5 Hyperlipidemia, unspecified; M10.9 Gout, unspecified; I25.2 Old myocardial infarction; Z20.822 Contact with and (suspected) exposure to COVID-19; Z74.01 Bed confinement status; Z79.82 Long term (current) use of aspirin; Z79.01 Long term (current) use of anticoagulants; Z79.890 Hormone replacement therapy; Z79.899 Other long term (current) drug therapy
CPT/HCPCS: 36415; 51702; 71046; 72100; 72192; 80048; 80053; 80202; 83036; 83605; 83735; 83880; 84134; 84439; 84443; 85014; 85018; 85025; 85027; 86850; 86900; 86901; 86920; 86922; 87070; 87075; 87077; 87102; 87186; 87205; 87206; 87428; 88304; 88305; 88311; 93005; 93306; 97110; 97162; 97166; 97802; 97803; 99285; J0878; J7040; J7050; J7120; P9016; A4216; J1940; J2405; J3490